=== PATIENT | female | born 1965 | race Caucasian/White ===

== ENCOUNTER 2019-01-23 17:13 | Inpatient (IN) | payer OTHER ==
--- NOTE | 2019-01-23 17:49 | RAD ---
PORTABLE CHEST: 01/23/19 HISTORY: Dyspnea. No comparison. FINDINGS/IMPRESSION: Mild cardiomegaly. There is streaky atelectasis and/or infiltrate in the right lung base. There is pa tchy infiltrate in the left lung base. Small effusions cannot be excluded. POS: OFF
[2019-01-23 18:32] LABS: #Eosinphils 0.6 thou/uL (0.0-0.7); #Lymphocytes 1.6 thou/uL (1.20-3.40); #Monocytes 0.8 thou/uL (0.11-0.59); #Neutrophils 6.6 thou/uL (1.40-6.50); %Basophils 0.2 % (0.0-1.0); %Eosinophils 5.9 % (0.0-10.0); %Lymphocytes 16.9 % (21.0-51.0); %Monocytes 8.6 % (0.0-10.0); %Neutrophils 68.4 % (42.0-75.0); Hemoglobin 10.6 g/dL (12.0-16.0); Mean Corpuscular HGB CONC 31.7 g/dL (32.0-36.0); Mean Corpuscular Hemoglobin 26.5 pg (27.0-31.0); Mean Corpuscular Volume 83.7 fL (78.0-98.0); Mean Platelet Volume 8.4 fL (7.4-10.4); Platelet Count 371 thou/uL (130-400); RBC Distribution Width 17.3 % (11.5-14.5); Red Blood Cell (RBC) Count 4.01 mill/uL (4.20-5.40); White Blood Cell (WBC) Count 9.6 thou/uL (4.8-10.8)
[2019-01-23] MEDS ORDERED: methylPREDNISolone Sod Succ/PF 125 MG/2 ML VIAL ONE (18:36)
[2019-01-23 18:44] LABS: Actual Bicarbonate (HCO3a) 23.2 mEq/L (22-28); Analyzer IN Cardio ER; Base Excess (BEa) -3.1 mEq/L (-2.0 to +3.0); CO2 Tension 46.9 mmHg (35.0-45.0); Calcium, Ionized 1.18 mmol/L (1.12-1.30); Carboxyhemoglobin (COHb) 1.1 gm% (0.0-3.0); Hemoglobin (Hb) 10.7 g/dL (12.0-16.0); Potassium - ABG Lab 3.39 mmol/L (3.70-5.30); pH, Arterial 7.31 (7.35-7.45)
[2019-01-23 18:52] LABS: O2 Tension (PaO2) 51.6 mmHg (80.0-100.0)
[2019-01-23 18:53] LABS: ALT (SGPT) 17 U/L (8-55); AST (SGOT) 18 U/L (5-34); Albumin 3.5 g/dL (3.5-5.0); Alkaline Phosphatase 113 U/L (40-150); Anion Gap 17 mmol/L (10-20); BUN (Urea Nitrogen) 26 mg/dL (9.8-20.1); Bilirubin, Total Less than 0.2 mg/dL (0.2-1.2); Calc. Creatinine Clearance 0 mL/min (70-130); Calcium 8.7 mg/dL (7.8-10.44); Carbon Dioxide 22 mmol/L (22-29); Chloride 106 mmol/L (98-107); Estimated GFR-MDRD 64; Globulin 3.8 g/dL (2.4-3.5); Glucose 113 mg/dL (70-105); Potassium 3.8 mmol/L (3.5-5.1); Protein, Total 7.3 g/dL (6.0-8.3); Sodium 141 mmol/L (136-145)
[2019-01-23 18:53] LABS: ALV-art Gradient 174.975 (0-20); Puncture Site R WRIST
[2019-01-23 21:50] LABS: Troponin I 0.012 ng/mL (< 0.028)
[2019-01-24 01:09] VITALS: BMI 30.7
[2019-01-24 01:18] LABS: Troponin I 0.012 ng/mL (< 0.028)
[2019-01-24] MEDS ORDERED: Ondansetron PF 4 MG/2 ML Vial IVP PRN (02:44)
[2019-01-24] MEDS ORDERED: Ondansetron ODT 4 MG TAB PO PRN (02:44)
[2019-01-24] MEDS ORDERED: Acetaminophen 325 MG TAB PO PRN (02:44)
[2019-01-24] MEDS ORDERED: Acetaminophen 650 MG Suppository PR PRN (02:44)
[2019-01-24] MEDS ORDERED: Ibuprofen 800 MG TAB PO PRN (02:46)
[2019-01-24] MEDS ORDERED: Loperamide HCl 2 MG CAP PO PRN (02:46)
[2019-01-24] MEDS ORDERED: Melatonin 3 MG TAB PO PRN (02:46)
[2019-01-24] MEDS ORDERED: Mag-Al Plus 1200 MG/1200 MG/120 MG/30 ML UDCUP PO PRN (02:46)
[2019-01-24] MEDS ORDERED: Milk Of Magnesia 30 ML UDCUP PO PRN (02:46)
[2019-01-24] MEDS ORDERED: Promethazine 25 MG TAB PO PRN (02:46)
[2019-01-24] MEDS ORDERED: Guaifenesin DM 100-10/5 ML UDCUP PO PRN (02:46)
[2019-01-24] MEDS ORDERED: diphenhydrAMINE 25 MG CAP PO PRN (02:46)
[2019-01-24] MEDS: Pregabalin 75 MG CAP PO SCH ×3 (03:16→17:56)
[2019-01-24] MEDS: Levothyroxine Sodium 50 MCG TAB PO SCH (03:16)
[2019-01-24] MEDS: Diazepam 2 MG TAB PO PRN ×3 (03:17→21:07)
[2019-01-24 04:46] LABS: #Lymphocytes 0.6 thou/uL (1.20-3.40); #Monocytes 0.1 thou/uL (0.11-0.59); %Basophils 0.2 % (0.0-1.0); %Eosinophils 0.2 % (0.0-10.0); %Lymphocytes 5.4 % (21.0-51.0); %Monocytes 0.7 % (0.0-10.0); %Neutrophils 93.4 % (42.0-75.0); Hemoglobin 10.5 g/dL (12.0-16.0); Mean Corpuscular HGB CONC 32.3 g/dL (32.0-36.0); Mean Corpuscular Hemoglobin 26.9 pg (27.0-31.0); Mean Corpuscular Volume 83.3 fL (78.0-98.0); Platelet Count 349 thou/uL (130-400); Red Blood Cell (RBC) Count 3.91 mill/uL (4.20-5.40); White Blood Cell (WBC) Count 10.7 thou/uL (4.8-10.8)
[2019-01-24 05:06] LABS: Anion Gap 15 mmol/L (10-20); BUN (Urea Nitrogen) 21 mg/dL (9.8-20.1); Calc. Creatinine Clearance 105 mL/min (70-130); Calcium 9.5 mg/dL (7.8-10.44); Carbon Dioxide 24 mmol/L (22-29); Chloride 104 mmol/L (98-107); Estimated GFR-MDRD 71; Glucose 203 mg/dL (70-105); Sodium 140 mmol/L (136-145)
[2019-01-24 05:12] LABS: Potassium 2.7 mmol/L (3.5-5.1)
[2019-01-24] MEDS: Potassium Chloride 20 MEQ TAB PO SCH ×2 (05:47→08:48)
[2019-01-24] MEDS: Enoxaparin Sodium 40 MG/0.4 ML SYRINGE SC SCH (08:45)
[2019-01-24] MEDS: Venlafaxine HCl XR 150 MG CAP PO SCH (08:46)
[2019-01-24] MEDS: Potassium Chloride 10 MEQ TAB PO SCH (08:48)
[2019-01-24] MEDS: Docusate Calcium (SURFAK) 240 MG CAP PO SCH (08:48)
--- NOTE | 2019-01-24 08:48 | HP ---
PRIMARY CARE DOCTOR: Dr. Aura Adorno. CODE STATUS: Full code. TIME OF EVALUATION: 12:50 a.m. CHIEF COMPLAINT: Shortness of breath. HISTORY OF PRESENT ILLNESS: This is a 53-year-old female patient with past medical history of being paraplegic due to spine infection in the past, snf resident with long-term sacral decubital ulcers, infection, came to the hospital after having shortness of breath, associated with cough, for the past week, symptoms were mild to moderate at that time, today associated with drop in saturation. Saturation was in the 80s, after initial treatment saturation of 90. The symptoms today were severe. REVIEW OF SYSTEMS: CONSTITUTIONAL: The patient has no fever or chills. The patient has generalized weakness. RESPIRATORY: Cough. No sputum production, shortness of breath. CARDIOVASCULAR: No chest pain or palpitation. GASTROINTESTINAL: No nausea, no vomiting, diarrhea, or abdominal pain. POLITICAL THEORY PROFESSOR: No dizziness, headache or feeling lightheaded. GENITOURINARY: No burning on urination. The patient has urostomy. EXTREMITIES: No leg swelling. SKIN: The patient has chronic non-healing sacral wounds. Other systems were reviewed and negative, except for the findings mentioned above. PAST MEDICAL HISTORY: Seizure, paraplegia, chronic pain, and osteoporosis. SURGICAL HISTORY: Ileostomy, hip surgery, urostomy. FAMILY HISTORY: Reviewed and non contributory for current presentation. PSYCHIATRIC HISTORY: Anxiety, depression, borderline personality disorder. SOCIAL HISTORY: No alcohol or drugs. No smoking history. ALLERGIES: NO KNOWN DRUG ALLERGIES REPORTED. MEDICATIONS: 1. Tylenol. 2. Albuterol. 3. Alendronate. 4. Alum-mag hydroxide-simeth. 5. Benzocaine. 6. Amitiza. 7. Amitriptyline. 8. Calcium. 9. Diazepam. 10. Docusate sodium. 11. Effexor. 12. Famotidine. 13. Ferrous sulfate. 14. Flavoxate. 15. Furosemide. 16. Hydrocodone. 17. Acetaminophen. 18. Motrin. 19. Imodium. 20. Keppra. 21. Lactulose. 22. Lidocaine. 23. Lyrica. 24. Melatonin. 25. Milk of magnesia. 26. Oxybutynin. 27. Potassium chloride. 28. Promethazine. 29. Synthroid. 30. Tizanidine. 31. Zinc. PHYSICAL EXAMINATION: VITAL SIGNS: On presentation blood pressure 93/63 with heart rate of 74, respiratory rate was 17, temperature 98.1. Pain was 8/10. Oxygen saturation was 100% on facemask. GENERAL APPEARANCE: The patient is alert, oriented, not in acute distress. HEENT: Eyes normal. ENT are moist oral mucosa. Anicteric. NECK: No JVD. RESPIRATORY: Bilateral air entry. Scattered rales. No wheezes. Symmetric expansion. CARDIOVASCULAR: Normal rate. Regular rhythm. No murmurs. No gallop. Mild bilateral leg edema. ABDOMEN : Soft. The patient has colostomy bag on the left. The patient has urostomy bag on the right. MUSCULOSKELETAL: Baseline range of motion and strength. The patient is paraplegic. SKIN: Warm, intact. No pallor. No rash. No redness. The patient has chronic non-healing wounds in the sacral area with some wound VAC applied. NEUROLOGIC: No evidence of any new focal weakness. Cranial nerves seems to be intact. PSYCHIATRIC: The patient is in good mood. No anxiety. Optimal judgment. DIAGNOSTIC DATA: EKG was reviewed. The patient had normal sinus rhythm with a rate of 75 and incomplete RBBB. Left atrial enlargement. TN 164. Chest x-ray was reviewed. The patient has mild cardiomegaly. There is streaky atelectasis and/or infiltrate in the right lung base. There is patchy infiltrate in the left lung base. Small effusions cannot be excluded. LABORATORY DATA: Reviewed. The patient has white count 9.6, hemoglobin 10.6, MCV 83, platelet count 271. VBG was done; the patient has a pH of 7.31. Sodium 141, potassium 3.8, chloride 106, carbon dioxide 22, anion gap 17, BUN 26, creatinine 0.9, GFR 64, glucose 113, lactic acid 0.7, calcium 8.7, total bilirubin 0.2. LFTs were negative. Troponin 0.031, second one 0.012, third one 0.012. Serum total protein 7.3. ASSESSMENT AND PLAN: The patient will be placed in the hospital for the following medical problems. 1. Pneumonia in the left lung base, as seen in imaging, can be healthcare associated pneumonia. The patient was started on Levaquin. The patient is known allergies to carbapenems. We will follow cultures. We will adjust treatment as needed. We will step up the antibiotics , if not improving. aspiration remains a possibility, given underlying medical condition 2. Acute hypoxic respiratory failure secondary to pneumonia. The patient is in nasal cannula. Saturations have improved. We will treat underlying conditions likely secondary to pneumonia. We will adjust treatment as needed. 3. Normocytic anemia, is chronic. We will monitor. No need for any acute intervention at this point. 4. Hyperglycemia of unclear etiology. No report of the patient being diabetic. We will monitor blood sugar. We will treat accordingly. 5. History of seizures. Reconcile home medications, chronic, stable. 6. Chronic pain. The patient has reportedly been having acute mental status due to pain medications. We will hold some pain medications for now. We will give some of them to avoid withdrawal. These might need to be adjusted by Pain Management doctor once ready to be discharged. 7. History of gastroesophageal reflux disease. We will start home medications. 8. Deep venous thrombosis prophylaxis. Job ID: [id number] MTDD
[2019-01-24] MEDS: Calcium Carbonate + Vit D 1 TAB PO SCH ×2 (08:49→20:03)
[2019-01-24] MEDS: Aripiprazole 10 MG TAB PO SCH (08:49)
[2019-01-24] MEDS: Famotidine 20 MG TAB PO SCH ×2 (08:49→20:02)
[2019-01-24] MEDS: Ferrous Sulfate 325 MG TAB PO SCH (08:49)
[2019-01-24] MEDS: Lubiprostone 24 MCG CAP PO SCH ×2 (08:49→20:03)
[2019-01-24] MEDS: levETIRAcetam 500 MG TAB PO SCH ×2 (08:49→20:02)
[2019-01-24] MEDS: Zinc Sulfate 220 MG CAP PO SCH (08:49)
[2019-01-24] MEDS: Multivitamin W/ Minerals 1 TAB PO SCH (08:49)
[2019-01-24] MEDS: Ascorbic Acid 500 mg Chewable Tablet PO SCH (08:49)
[2019-01-24] MEDS: Furosemide 80 MG TAB PO SCH (08:49)
[2019-01-24] MEDS: Venlafaxine HCl XR 75 MG CAP PO SCH (08:53)
[2019-01-24] MEDS: HYDROcodone/Acetaminophen 10/325 mg Tablet PO PRN ×3 (08:59→21:07)
[2019-01-24] MEDS ORDERED: LIDOCAINE 5% TOP PRN (09:00)
[2019-01-24] MEDS ORDERED: Benzocaine 20% Spray 60 ML CAN FS PRN (09:00)
--- NOTE | 2019-01-24 16:05 | CT ---
EXAM: CTA of the chest HISTORY: Hypoxia and elevated d-dimer COMPARISON: None TECHNIQUE: Multiple contiguous axial images were obtained a CTA of the chest with contrast per pulmon crystal embolism protocol. 3-D oblique MIP reformats and direct coronal reformats were performed. FINDINGS: HEART: Normal in size without focal cardiac abnormality. PULMONARY ARTERIES: Normal in caliber without filling defects to suggest pulmonary emboli. MEDIASTINUM: No hilar or mediastinal lymphadenopathy. LUNGS: No focal infiltrates or masses. Emphysematous changes scattered throughout the lungs. Bibasila r atelectasis is seen. PLEURAL SPACE: No pleural effusion or pneumothorax. CHEST WALL SOFT TISSUES: Unremarkable VISUALIZED OSSEOUS STRUCTURES: Unremarkable VISUALIZED SUBDIAPHRAGMATIC STRUCTURES: Unremarkable IMPRESSION: 1. No evidence of pulmonary thromboembolism 2. Emphysema
--- NOTE | 2019-01-24 18:37 | PDOC.EVN ---
Event Note - Event Note Event Note: Patient seen and examined. The record reviewed. Has pneumonia on CXR, but not severe by imaging. Will check d-dimer and if elevated, CT. Has high risk due to paralysis. Says she is still coughing, but already feeling better.
[2019-01-24] MEDS: Furosemide 40 MG TAB PO SCH (20:02)
[2019-01-25] MEDS: Pregabalin 75 MG CAP PO SCH ×5 (01:47→23:15)
[2019-01-25] MEDS: Levothyroxine Sodium 50 MCG TAB PO SCH (05:46)
[2019-01-25] MEDS: Potassium Chloride 10 MEQ TAB PO SCH (08:27)
[2019-01-25] MEDS: levETIRAcetam 500 MG TAB PO SCH ×2 (08:27→19:52)
[2019-01-25] MEDS: Lubiprostone 24 MCG CAP PO SCH ×2 (08:27→19:52)
[2019-01-25] MEDS: Ascorbic Acid 500 mg Chewable Tablet PO SCH (08:27)
[2019-01-25] MEDS: Docusate Calcium (SURFAK) 240 MG CAP PO SCH (08:27)
[2019-01-25] MEDS: Furosemide 80 MG TAB PO SCH (08:28)
[2019-01-25] MEDS: Calcium Carbonate + Vit D 1 TAB PO SCH ×2 (08:28→19:52)
[2019-01-25] MEDS: Ferrous Sulfate 325 MG TAB PO SCH (08:28)
[2019-01-25] MEDS: Zinc Sulfate 220 MG CAP PO SCH (08:28)
[2019-01-25] MEDS: Venlafaxine HCl XR 75 MG CAP PO SCH (08:28)
[2019-01-25] MEDS: Famotidine 20 MG TAB PO SCH ×2 (08:28→19:52)
[2019-01-25] MEDS: Multivitamin W/ Minerals 1 TAB PO SCH (08:28)
[2019-01-25] MEDS: Venlafaxine HCl XR 150 MG CAP PO SCH (08:28)
[2019-01-25] MEDS: Enoxaparin Sodium 40 MG/0.4 ML SYRINGE SC SCH (08:29)
[2019-01-25] MEDS: Aripiprazole 10 MG TAB PO SCH (08:29)
[2019-01-25] MEDS: HYDROcodone/Acetaminophen 10/325 mg Tablet PO PRN ×2 (08:40→19:52)
[2019-01-25] MEDS: Diazepam 2 MG TAB PO PRN ×2 (08:41→22:01)
[2019-01-25 09:14] LABS: Anion Gap 14 mmol/L (10-20); BUN (Urea Nitrogen) 21 mg/dL (9.8-20.1); Calc. Creatinine Clearance 113 mL/min (70-130); Calcium 9.8 mg/dL (7.8-10.44); Carbon Dioxide 28 mmol/L (22-29); Chloride 98 mmol/L (98-107); Estimated GFR-MDRD 77; Glucose 101 mg/dL (70-105); Sodium 137 mmol/L (136-145)
[2019-01-25 09:29] LABS: Potassium 2.6 mmol/L (3.5-5.1)
[2019-01-25] MEDS ORDERED: Potassium Chloride 20 MEQ TAB PO SCH (11:30)
--- NOTE | 2019-01-25 15:17 | PDOC.HOSPP ---
- Subjective Subjective: 53 y/o obese paraplegic female admitted with worsening cough and SOB. Found to be hypoxic and was started on oxygen. Imaging showed pulmonary infiltrates concerning for CHF +/- pneumonia. Treated with diuretic, antibiotics and oxygen with improvement. Off oxygen currently. No new problem. Denied fever, chest pain. - Objective Vital Signs & Weight: Vital Signs (12 hours) Temp Pulse Resp BP Pulse Ox 01/25/19 11:27 97.7 F 68 16 102/57 L 97 01/25/19 08:25 99 01/25/19 08:22 98.1 F 74 18 103/57 L 99 01/25/19 03:15 97.5 F L 74 20 106/58 L 98 Weight Admit Weight 190 lb Weight 190 lb I&O: 01/24/19 01/25/19 01/26/19 06:59 06:59 06:59 Intake Total 720 2040 Output Total 1100 1950 Balance -380 90 Result Diagrams: 01/24/19 04:41 01/25/19 08:47 ROS - Review of Systems All systems: All other ROS were reviewed and found negative. - Medication Medications: Active Medications Generic Name Dose Route Start Last Admin Trade Name Freq PRN Reason Stop Dose Admin Hydrocodone Bitart/Acetaminophen 1 tab 01/24/19 02:46 01/25/19 08:40 Ray 10/325 PO 1 tab Q6H PRN Administration Pain Aripiprazole 10 mg 01/24/19 09:00 01/25/19 08:29 Abilify PO 10 mg DAILY ABEL Administration Ascorbic Acid 500 mg 01/24/19 09:00 01/25/19 08:27 Vitamin C PO 500 mg DAILY ABEL Administration Calcium/Vitamin D 1 tab 01/24/19 09:00 01/25/19 08:28 Caltrate 600 + Vit D PO 1 tab BID ABLE Administration Cholecalciferol 5,000 units 01/24/19 09:00 01/25/19 08:29 Vitamin D3 PO 5,000 units DAILY ABEL Administration Diazepam 2 mg 01/24/19 02:46 01/25/19 08:41 Valium PO 2 mg Q6H PRN Administration Anxiety Docusate Calcium 240 mg 01/24/19 09:00 01/25/19 08:27 Surfak PO 240 mg DAILY ABEL Administration Enoxaparin Sodium 40 mg 01/24/19 09:00 01/25/19 08:29 Lovenox SC 40 mg 0900 ABEL Administration Famotidine 20 mg 01/24/19 09:00 01/25/19 08:28 Pepcid PO 20 mg BID ABEL Administration Ferrous Sulfate 325 mg 01/24/19 09:00 01/25/19 08:28 Feosol PO 325 mg DAILY ABEL Administration Flavoxate HCl 100 mg 01/24/19 09:00 01/25/19 08:27 Urispas PO 100 mg BID ABEL Administration Furosemide 80 mg 01/24/19 09:00 01/25/19 08:28 Lasix PO 80 mg DAILY ABEL Administration Furosemide 40 mg 01/24/19 21:00 01/24/19 20:02 Lasix PO 40 mg QPM ABEL Administration Guaifenesin/Dextromethorphan 5 ml 01/24/19 02:46 01/24/19 08:59 Robitussin Dm PO 5 ml Q4HR PRN Administration Cough Iron/Minerals/Multivitamins 1 tab 01/24/19 09:00 01/25/19 08:28 Theragran M PO 1 tab DAILY ABEL Administration Levetiracetam 500 mg 01/24/19 09:00 01/25/19 08:27 Keppra PO 500 mg BID ABEL Administration Levothyroxine Sodium 50 mcg 01/24/19 06:00 01/25/19 05:46 Synthroid PO 50 mcg 0600 ABEL Administration Lubiprostone 24 mcg 01/24/19 09:00 01/25/19 08:27 Amitiza PO 24 mcg BID ABEL Administration Pregabalin 150 mg 01/24/19 06:00 01/25/19 12:10 Lyrica PO 150 mg Q6HR ABEL Administration Promethazine HCl 25 mg 01/24/19 02:46 01/25/19 13:26 Phenergan PO 25 mg Q6HR PRN Administration Nausea Venlafaxine HCl 150 mg 01/24/19 09:00 01/25/19 08:28 Effexor Xr PO 150 mg DAILY ABEL Administration Venlafaxine HCl 75 mg 01/24/19 09:00 01/25/19 08:28 Effexor Xr PO 75 mg DAILY ABEL Administration Zinc Sulfate 220 mg 01/24/19 09:00 01/25/19 08:28 Zinc Sulfate PO 220 mg DAILY ABEL Administration - Exam NAD Eye: PERRL ENT: normocephalic atraumatic Neck: supple, symmetric Heart: RRR Respiratory: no wheezes, no rales, no ronchi (fair air entry bilaterally with some transmitted sound) Gastrointestinal: soft (obese. right lower quadrant urinary diversion ostomy and left lower quadrant colostomy noted), non-tender, non-distended, normal bowel sounds Extremities: no cyanosis (disuse atrophy of lower limbs as well as sacral wounds with wound vac noted) Neurological: CN's grossly intact (Paraparesis noted) Psychiatric: lethargic Hosp A/P (1) Hypokalemia Code(s): E87.6 - HYPOKALEMIA Status: Acute (2) Acute respiratory failure with hypoxia Code(s): J96.01 - ACUTE RESPIRATORY FAILURE WITH HYPOXIA Status: Acute (3) Acute metabolic encephalopathy Code(s): G93.41 - METABOLIC ENCEPHALOPATHY Status: Acute (4) Pneumonia involving left lung Code(s): J18.9 - PNEUMONIA, UNSPECIFIED ORGANISM Status: Acute (5) Chronic anemia Code(s): D64.9 - ANEMIA, UNSPECIFIED Status: Acute (6) Seizure disorder Code(s): G40.909 - EPILEPSY, UNSP, NOT INTRACTABLE, WITHOUT STATUS EPILEPTICUS Status: Acute (7) Paraparesis of both lower limbs Code(s): G82.20 - PARAPLEGIA, UNSPECIFIED Status: Acute (8) Sacral decubitus ulcer, stage IV Code(s): L89.154 - PRESSURE ULCER OF SACRAL REGION, STAGE 4 Status: Acute - Plan Replete serum potassium with 120 meq of KCL. Get magnesium level and replerte as neeeded Continue antibiotic and lasix. Continue other medications and wound care Repeat BMP in the am
[2019-01-25] MEDS: Potassium Chloride 20 MEQ TAB PO SCH ×3 (17:02→23:14)
[2019-01-25] MEDS ORDERED: Pregabalin 75 MG CAP PO SCH (18:30)
[2019-01-25] MEDS: Furosemide 40 MG TAB PO SCH (19:52)
[2019-01-26] MEDS: Levothyroxine Sodium 50 MCG TAB PO SCH (05:06)
[2019-01-26] MEDS: Pregabalin 75 MG CAP PO SCH ×3 (05:06→17:33)
[2019-01-26 06:58] LABS: Anion Gap 18 mmol/L (10-20); BUN (Urea Nitrogen) 24 mg/dL (9.8-20.1); BUN/Creatinine Ratio 30.77; Calc. Creatinine Clearance 108 mL/min (70-130); Calcium 11.3 mg/dL (7.8-10.44); Carbon Dioxide 27 mmol/L (22-29); Chloride 99 mmol/L (98-107); Estimated GFR-MDRD 77; Glucose 101 mg/dL (70-105); Phosphorus 3.6 mg/dL (2.3-4.7); Potassium 4.9 mmol/L (3.5-5.1); Sodium 139 mmol/L (136-145)
[2019-01-26] MEDS: Calcium Carbonate + Vit D 1 TAB PO SCH (08:30)
[2019-01-26] MEDS: Ascorbic Acid 500 mg Chewable Tablet PO SCH (08:30)
[2019-01-26] MEDS: Aripiprazole 10 MG TAB PO SCH (08:30)
[2019-01-26] MEDS: Docusate Calcium (SURFAK) 240 MG CAP PO SCH (08:30)
[2019-01-26] MEDS: Famotidine 20 MG TAB PO SCH (08:31)
[2019-01-26] MEDS: Lubiprostone 24 MCG CAP PO SCH (08:31)
[2019-01-26] MEDS: Multivitamin W/ Minerals 1 TAB PO SCH (08:31)
[2019-01-26] MEDS: Ferrous Sulfate 325 MG TAB PO SCH (08:31)
[2019-01-26] MEDS: levETIRAcetam 500 MG TAB PO SCH (08:32)
[2019-01-26] MEDS: Venlafaxine HCl XR 150 MG CAP PO SCH (08:32)
[2019-01-26] MEDS: Furosemide 80 MG TAB PO SCH (08:32)
[2019-01-26] MEDS: Zinc Sulfate 220 MG CAP PO SCH (08:32)
[2019-01-26] MEDS: Venlafaxine HCl XR 75 MG CAP PO SCH (08:32)
[2019-01-26] MEDS: Enoxaparin Sodium 40 MG/0.4 ML SYRINGE SC SCH (08:33)
[2019-01-26] MEDS: HYDROcodone/Acetaminophen 10/325 mg Tablet PO PRN ×2 (08:37→14:43)
[2019-01-26] MEDS: Diazepam 2 MG TAB PO PRN (08:38)
[2019-01-26] MEDS ORDERED: Iopamidol 370 76% 100 ML VIAL ONE (11:18)
--- NOTE | 2019-01-26 14:38 | PDOC.HOSPP ---
- Subjective Subjective: Mr. Wilde was seen today in follow-up of Respiratory failure. She says she is ready to go home. She denies any chest pain or shortness of breath. - Objective Vital Signs & Weight: Vital Signs (12 hours) Temp Pulse Resp BP Pulse Ox 01/26/19 11:05 98.5 F 82 20 110/70 95 01/26/19 07:25 98.2 F 99 18 145/73 H 94 L 01/26/19 03:30 98.1 F 84 18 115/72 93 L Weight Admit Weight 190 lb Weight 180 lb 8 oz I&O: 01/25/19 01/26/19 01/27/19 06:59 06:59 06:59 Intake Total 2040 780 Output Total 1950 1725 Balance 90 -945 Result Diagrams: 01/24/19 04:41 01/26/19 06:23 ROS - Review of Systems All systems: All other ROS were reviewed and found negative. - Medication Medications: Active Medications Generic Name Dose Route Start Last Admin Trade Name Freq PRN Reason Stop Dose Admin Acetaminophen 650 mg 01/24/19 02:44 01/26/19 13:23 Tylenol PO 650 mg Q4H PRN Administration Headache/Fever/Mild Pain (1-3) Hydrocodone Bitart/Acetaminophen 1 tab 01/24/19 02:46 01/26/19 08:37 Ragan 10/325 PO 1 tab Q6H PRN Administration Pain Aripiprazole 10 mg 01/24/19 09:00 01/26/19 08:30 Abilify PO 10 mg DAILY ABEL Administration Ascorbic Acid 500 mg 01/24/19 09:00 01/26/19 08:30 Vitamin C PO 500 mg DAILY ABEL Administration Calcium/Vitamin D 1 tab 01/24/19 09:00 01/26/19 08:30 Caltrate 600 + Vit D PO 1 tab BID ABEL Administration Cholecalciferol 5,000 units 01/24/19 09:00 01/26/19 08:28 Vitamin D3 PO 5,000 units DAILY ABEL Administration Diazepam 2 mg 01/24/19 02:46 01/26/19 08:38 Valium PO 2 mg Q6H PRN Administration Anxiety Docusate Calcium 240 mg 01/24/19 09:00 01/26/19 08:30 Surfak PO 240 mg DAILY ABEL Administration Enoxaparin Sodium 40 mg 01/24/19 09:00 01/26/19 08:33 Lovenox SC 40 mg 0900 ABEL Administration Famotidine 20 mg 01/24/19 09:00 01/26/19 08:31 Pepcid PO 20 mg BID ABEL Administration Ferrous Sulfate 325 mg 01/24/19 09:00 01/26/19 08:31 Feosol PO 325 mg DAILY ABEL Administration Flavoxate HCl 100 mg 01/24/19 09:00 01/26/19 08:32 Urispas PO 100 mg BID ABEL Administration Furosemide 80 mg 01/24/19 09:00 01/26/19 08:32 Lasix PO 80 mg DAILY ABEL Administration Furosemide 40 mg 01/24/19 21:00 01/25/19 19:52 Lasix PO 40 mg QPM ABEL Administration Guaifenesin/Dextromethorphan 5 ml 01/24/19 02:46 01/24/19 08:59 Robitussin Dm PO 5 ml Q4HR PRN Administration Cough Iron/Minerals/Multivitamins 1 tab 01/24/19 09:00 01/26/19 08:31 Theragran M PO 1 tab DAILY ABEL Administration Levetiracetam 500 mg 01/24/19 09:00 01/26/19 08:32 Keppra PO 500 mg BID ABEL Administration Levofloxacin 750 mg 01/26/19 06:00 01/26/19 05:06 Levaquin PO 750 mg 0600 ABEL Administration Levothyroxine Sodium 50 mcg 01/24/19 06:00 01/26/19 05:06 Synthroid PO 50 mcg 0600 ABEL Administration Lubiprostone 24 mcg 01/24/19 09:00 01/26/19 08:31 Amitiza PO 24 mcg BID ABEL Administration Pregabalin 150 mg 01/25/19 23:59 01/26/19 11:04 Lyrica PO 150 mg Q6HR ABEL Administration Promethazine HCl 25 mg 01/24/19 02:46 01/25/19 13:26 Phenergan PO 25 mg Q6HR PRN Administration Nausea Venlafaxine HCl 150 mg 01/24/19 09:00 01/26/19 08:32 Effexor Xr PO 150 mg DAILY ABEL Administration Venlafaxine HCl 75 mg 01/24/19 09:00 01/26/19 08:32 Effexor Xr PO 75 mg DAILY ABEL Administration Zinc Sulfate 220 mg 01/24/19 09:00 01/26/19 08:32 Zinc Sulfate PO 220 mg DAILY ABEL Administration - Exam Eye: PERRL, anicteric sclera, scleral icterus Heart: RRR, murmur present, II/IV (systolic) Respiratory: CTAB (decreased breath sounds at the bases) Gastrointestinal: soft, non-tender, non-distended, normal bowel sounds Extremities: no cyanosis, no edema Hosp A/P (1) Acute respiratory failure with hypoxia Code(s): J96.01 - ACUTE RESPIRATORY FAILURE WITH HYPOXIA Status: Acute (2) Paraparesis of both lower limbs Code(s): G82.20 - PARAPLEGIA, UNSPECIFIED Status: Chronic (3) Sacral decubitus ulcer, stage IV Code(s): L89.154 - PRESSURE ULCER OF SACRAL REGION, STAGE 4 Status: Chronic - Plan * Acute respiratory failure- much improved * She has been transitioned to oral medications * She is stable for discharge home.
[2019-01-26 15:56] VITALS: BP 104/52; TEMP 98
--- NOTE | 2019-01-26 18:25 | DIS ---
DATE OF ADMISSION: 01/23/2019 DATE OF DISCHARGE: 01/26/2019 PRIMARY CARE PHYSICIAN: Dr. Aura Adorno. DISCHARGE DISPOSITION: Home. PRIMARY DISCHARGE DIAGNOSES: 1. Acute respiratory failure with hypoxemia. 2. Acute bronchitis. 3. Chronic anemia. 4. History of seizures. 5. Paraplegia. 6. History of decubitus ulcer, which was present on admission. DISCHARGE MEDICATIONS: Include; 1. Levaquin 750 mg p.o. daily for two additional days. 2. Zinc sulfate 220 mg daily. 3. Venlafaxine 75 mg extended release in the a.m. and 150 in the p.m. 4. Tizanidine 8 mg twice daily. 5. Phenergan 25 mg q.6 as needed. 6. Lyrica 150 mg q.6. 7. Potassium chloride 30 mEq daily. 8. Ditropan XL 10 mg daily. 9. Multivitamin once daily. 10. Melatonin 3 mg at bedtime. 11. Milk of magnesium 10 mL q.4 as needed. 12. Amitiza 24 mcg twice a day. 13. Imodium AD 2 mg as directed. 14. Lidocaine topical q.i.d. 15. Levothyroxine 50 mcg daily. 16. Keppra 500 mg twice daily. 17. Lactulose once a day. 18. Innis 10/325 q.6 as needed. 19. Robitussin DM 5 mL q.4 as needed. 20. Lasix 80 mg p.o. daily and 40 mg q.p.m. 21. Flavoxate 100 mg twice daily. 22. Iron sulfate 325 mg daily. 23. Famotidine 20 mg twice a day. 24. Docusate 240 mg daily. 25. Benadryl 25 mg q.8 as needed. 26. Diazepam 2 mg twice a day. 27. Vitamin D3 5000 units daily. 28. Hurricaine spray as needed. 29. Vitamin C 500 mg daily. 30. Fosamax 70 mg as directed, usually once a week. 31. Acetaminophen 650 mg q.6. PROCEDURES DONE DURING THE ADMISSION: The patient had a CT angiogram of the chest, which was negative for pulmonary embolism. There was evidence for emphysema. CODE STATUS: Full code. ALLERGIES: BUPROPION, CILASTATIN, IMIPENEM, AND TRAMADOL. HOSPITAL COURSE: Ms. Wilde is a pleasant 53-year-old female who was admitted to the hospital after she was having difficulty with shortness of breath and coughing. It was initially thought that she may have a pneumonia. However, since she is quite sedentary due to her paraplegia, a CT angiogram was obtained to rule out PE. The CT angiogram was negative for both PE and there was no mention of findings of an infiltrate. Therefore, I suspect that her symptoms are likely related to a bronchitis or possible even aspiration. She was treated with Levaquin and improved dramatically at the time of discharge. She was able to be discharged home with close outpatient followup. Job ID: [id number]
--- NOTE | 2019-01-27 09:31 | PQF ---
SAP Drapery Inspector Crystal Reports Winform ViewerGARRETT CRAIG HAFSA MURPHYRENETTA [id number] [facility]-259 [id number] CLINICAL DOCUMENTATION CLARIFICATION FORM: POST DISCHARGE Addendum to original discharge summary date: ____ Late entry note date: __ DATE: 01/27/2019 ATTN: Chris Murphy Please exercise your independent, professional judgment in responding to the clarification form. Clinical indicators are provided on the bottom of this form for your review Please check appropriate box(s): [ x ] Possible Aspiration Pneumonia, healthcare associated pneumonia [ ] Pneumonia of unknown etiology [ ] Aspiration Bronchitis [ ] Simple Pneumonia (community acquired - nosocomial) [ ] Other diagnosis [ ] Unable to determine In addition, please specify: Present on Admission (POA): [ ] Yes [ ] No [ ] Unable to determine For continuity of documentation, please document condition throughout progress notes and discharge summary. Thank You. CLINICAL INDICATORS - SIGNS / SYMPTOMS / LABS Pneumonia in left lung base - H and P, page no.3 Healthcare associated pneumonia - ED impression Symptoms are likely related to bronchitis or possible even aspiration under hospital course - Discharge summary Patchy infiltrate in the left lung base - Chest x-ray dated 01/23 Imaging showed pulmonary infiltrate concerning for CHF +/- pneumonia - Progress note dated 01/[address] Mali Patel RISK FACTORS Acute hypoxic respiratory failure - Discharge summary Paraplegia - Discharge summary TREATMENTS: Levaquin on 01/23 - Medications Follow cultures - H and P, page no.3 Treated with diuretic, antibiotics and oxygen - Progres note dated 01/[address] Mali Patel SAP Drapery Inspector Crystal Reports Winform Viewer (This form is maintained as a part of the permanent medical record) 2014 [email or web address]. All Rights Reserved Mohit [email or web address] [phone] KIM
== END 2019-01-26 18:55 | DRG 177 ==
LOC: ERS 17:13 → 2NO 20:20
PROVIDERS: ADMIT Hospitalist; ATTEND Hospitalist
DX: J69.0 Pneumonitis due to inhalation of food and vomit (principal); J96.01 Acute respiratory failure with hypoxia; L89.154 Pressure ulcer of sacral region, stage 4; G93.41 Metabolic encephalopathy; G82.20 Paraplegia, unspecified; G89.29 Other chronic pain; M81.0 Age-related osteoporosis without current pathological fracture; F41.9 Anxiety disorder, unspecified; F32.9 Major depressive disorder, single episode, unspecified; F60.3 Borderline personality disorder; D64.9 Anemia, unspecified; R73.9 Hyperglycemia, unspecified; K21.9 Gastro-esophageal reflux disease without esophagitis; E66.9 Obesity, unspecified; E87.6 Hypokalemia; G40.909 Epilepsy, unspecified, not intractable, without status epilepticus; J20.9 Acute bronchitis, unspecified; Z93.2 Ileostomy status; Z88.8 Allergy status to other drugs, medicaments and biological substances; Z68.29 Body mass index [BMI] 29.0-29.9, adult
CPT/HCPCS: 36415; 71045; 71275; 80048; 80053; 80069; 82553; 82805; 83605; 83735; 83880; 84484; 85025; 85379; 87086; 93005; 94640; 96365; 96375; J1650; J1956; J2930; J7620; Q0169; Q9967

== ENCOUNTER 2019-07-03 21:06 | Emergency (ER) | payer OTHER ==
[2019-07-03] MEDS ORDERED: Acetaminophen 500 MG TAB ONE (22:31)
[2019-07-03] MEDS ORDERED: HYDROcodone/Acetaminophen 10/325 mg Tablet ONE (22:31)
== END 2019-07-03 22:39 ==
LOC: ERS 21:06
DX: S31.811A Laceration without foreign body of right buttock, initial encounter (principal); F41.9 Anxiety disorder, unspecified; F32.9 Major depressive disorder, single episode, unspecified; Z79.899 Other long term (current) drug therapy; X58.XXXA Exposure to other specified factors, initial encounter
CPT/HCPCS: 99283

== ENCOUNTER 2019-09-18 09:50 | Inpatient (IN) | payer OTHER ==
[~2019-09-18 09:50] MED LIST: Magnesium 2 GM/50 ML 2 GM in Premix Bag 1 BAG IVPB ONE
[2019-09-18] MEDS ORDERED: Sodium Bicarb 50 MEQ/50 ML VIAL ONE ×2 (10:17→10:57)
[2019-09-18] MEDS ORDERED: Propofol 1,000 MG/100 ML VIAL IV ONE (10:24)
[2019-09-18 10:31] LABS: Actual Bicarbonate (HCO3a) 6.9 mEq/L (22-28); Analyzer IN Cardio ER; Base Excess (BEa) -24.1 mEq/L (-2.0 to +3.0); CO2 Tension 33.3 mmHg (35.0-45.0); Carboxyhemoglobin (COHb) 0.2 gm% (0.0-3.0); Hemoglobin (Hb) 9.3 g/dL (12.0-16.0); O2 Tension (PaO2) 96.5 mmHg (80.0-100.0); Potassium - ABG Lab 3.31 mmol/L (3.70-5.30)
[2019-09-18 10:33] LABS: Puncture Site RRA; pH, Arterial 6.93 (7.35-7.45)
[2019-09-18 10:34] LABS: ALV-art Gradient 147.075 (0-20)
--- NOTE | 2019-09-18 11:03 | RAD ---
Exam: Chest one view HISTORY:Central line placement Comparison: 09/18/2019 FINDINGS: Cardiac silhouette:Magnified cardiac silhouette due to portable technique Lines and tubes: Interval placement of a nasogastric tube terminating in left upper quadrant. Interva l placement of a left-sided internal jugular central venous catheter with the distal tip projecting over the expected region of the right atrium. Aorta: Unremarkable Pulmonary vessels: Normal Costophrenic angles: No significant pleural fluid. LUNGS: Persistent opacities in the lung bases. Pneumothorax: None Osseous abnormalities: None IMPRESSION: 1. Persistent opacities in the lung bases 2. Lines and tubes as above. No pneumothorax.
[2019-09-18] MEDS ORDERED: CCU Electrolyte Replacement 1 EACH FS ONE (11:34)
[2019-09-18] MEDS ORDERED: Ventilator Sedation Protocol 1 EACH FS ONE (11:34)
[2019-09-18] MEDS ORDERED: Propofol BOLUS 1,000 MG/100 ML VIAL IV PRN (11:42)
[2019-09-18] MEDS ORDERED: Magnesium 2 GM/50 ML 2 GM in Premix Bag 1 BAG IVPB PRN (11:42)
[2019-09-18] MEDS ORDERED: Potassium Chloride 20 MEQ TAB PO PRN (11:42)
[2019-09-18] MEDS ORDERED: PHOS-NAK 1 PKT PACK PO PRN ×2 (11:42)
[2019-09-18] MEDS ORDERED: Magnesium Oxide 400 MG TAB PO PRN (11:42)
[2019-09-18] MEDS ORDERED: CCU ELECTROLYTE REPLACEMENT PROTOCOL FS PRN (11:42)
[2019-09-18] MEDS ORDERED: Potassium Chloride 40 MEQ in Sodium Chloride 0.9% 250 ML 250 ML IVPB PRN (11:42)
[2019-09-18] MEDS ORDERED: DISCONTINUE PREVIOUS NARCOTIC PAIN MEDICATIONS AND BENZODIAZEPINES FS SCH (11:42)
[2019-09-18] MEDS ORDERED: Fentanyl BOLUS 250 ML IVPB PRN (11:42)
[2019-09-18] MEDS ORDERED: Potassium Phosphate 15 MMOL in Sodium Chloride 0.9% 250 ML 250 ML IV PRN (11:42)
[2019-09-18] MEDS ORDERED: Potassium Phosphate 9 MMOL in Sodium Chloride 0.9% 100 ML IVPB PRN (11:42)
[2019-09-18] MEDS ORDERED: Potassium Phosphate 12 MMOL in Sodium Chloride 0.9% 250 ML 250 ML IV PRN (11:42)
[2019-09-18] MEDS ORDERED: Sodium Chloride 0.9% 1,000 ML IV SCH (11:45)
[2019-09-18] MEDS ORDERED: Norepinephrine 8 MG/0.9% NS 250 ML ONE (11:56)
[2019-09-18] MEDS ORDERED: Cefepime 1 GM in Sodium Chloride 0.9% 100 ML IVPB SCH (12:00)
--- NOTE | 2019-09-18 12:08 | CON ---
DATE OF CONSULTATION: 09/18/2019 TIME SPENT: 35 minutes of critical care time. REASON FOR CONSULTATION: The patient is intubated. HISTORY OF PRESENT ILLNESS: This patient is seen at the request of Dr. Beyer. She is a 54-year-old who lives at the [facility] in [place]. Over the past 2 days, she has become decreasingly responsive. She was brought to the [facility] where she was intubated. She was subsequently brought over here for further evaluation. She now has an endotracheal tube in place. She also has a left IJ central line. She cannot give any history, so what I have is obtained from looking at the records. PAST MEDICAL HISTORY: 1. Seizure disorder. 2. Paraplegia. 3. Chronic pain. 4. Osteoporosis. PAST SURGICAL HISTORY: She has had an ileostomy, a urostomy, and hip surgery. PSYCHIATRIC HISTORY: Remarkable for anxiety and depression. SOCIAL HISTORY: Nonsmoker. Does not consume alcohol. MEDICATIONS: Prior to admission not available for review at this time. Previously in the hospital, she had been on numerous medications. Please refer to the H and P from 01/23/2019. PHYSICAL EXAMINATION: VITAL SIGNS: Temperature 99.8, pulse 91, blood pressure 125/76, respiratory rate 16, O2 saturation 100%, end-tidal CO2 of 21. GENERAL: She is a chronically ill-appearing female, who is intubated. HEENT: Her pupils are 5 mm and reactive to light bilaterally. She has oral endotracheal tube in place. NECK: No adenopathy or JVD. She has a left IJ central line in place, which looks clean. LUNGS: Clear to auscultation. CARDIAC: S1 and S2. Slightly tachycardic without murmur. ABDOMEN: Left-sided ileostomy, right-sided urostomy present. Large midline abdominal wound noted. EXTREMITIES: She has contractures of her 4th and 5th fingers bilaterally. She has lower extremity flaccidity. LABORATORY DATA: ABG; pH of 6.9, pCO2 of 33, pO2 of 96, that is on SIMV rate 16, tidal volume 450, PEEP 5, pressure support 10, and FiO2 of 40%. Sodium 137, potassium 3.6, chloride 111, CO2 less than 8, BUN 60, creatinine 2.3, glucose 116, lactate 1.5, and phosphorus 3.6. BNP 140. White blood cell count 31.2, hematocrit 31.8, and platelet count 734. IMAGING DATA: X-ray shows no acute infiltrates. Urinalysis showed numerous white blood cells. ASSESSMENT: 1. Presumed urosepsis. 2. Acute respiratory failure secondary to profound metabolic acidosis. 3. Metabolic acidosis. 4. Severe prerenal azotemia/volume depletion. 5. History of paraplegia. 6. History of seizure disorder. PLAN: 1. The patient will be treated with broad-spectrum IV antibiotics. 2. I will increase the rate on her ventilator. 3. We will repeat her blood gas when she gets to the ICU. 4. Protonix for GI prophylaxis. 5. IV hydration. Thank you for the referral. Job ID: [id number]
[2019-09-18] MEDS ORDERED: Heparin 1,000 UNITS/ML VIAL ONE (12:54)
[2019-09-18] MEDS ORDERED: Vancomycin 1 GM in Premix Bag 1 BAG IVPB SCH (13:00)
[2019-09-18 14:55] LABS: Actual Bicarbonate (HCO3a) 5.1 mEq/L (22-28); Base Excess (BEa) -22.4 mEq/L (-2.0 to +3.0); Carboxyhemoglobin (COHb) 0.2 gm% (0.0-3.0); Hemoglobin (Hb) 8.8 g/dL (12.0-16.0); O2 Tension (PaO2) 216.1 mmHg (80.0-100.0); Potassium - ABG Lab 2.36 mmol/L (3.70-5.30)
[2019-09-18 15:00] LABS: pH, Arterial 7.11 (7.35-7.45)
[2019-09-18 15:01] LABS: CO2 Tension 16.4 mmHg (35.0-45.0); Puncture Site RRA
[2019-09-18] MEDS: Sodium Bicarbonate 70 MEQ in Sodium Chloride 0.45% 1,000 ML IV SCH ×2 (16:01→21:58)
[2019-09-18] MEDS: Propofol 1,000 MG/100 ML VIAL IV PRN (16:01)
[2019-09-18] MEDS: Cefepime 1 GM in Sodium Chloride 0.9% 100 ML IVPB SCH (18:06)
[2019-09-18] MEDS: Norepinephrine 8 MG/0.9% NS 250 ML IVPB SCH (18:31)
[2019-09-18] MEDS ORDERED: Senokot S 8.6-50 MG TAB PO PRN (18:42)
--- NOTE | 2019-09-18 20:13 | HP ---
CHIEF COMPLAINT: Change in mental status. HISTORY OF PRESENT ILLNESS: The patient is a 54-year-old female who is a sn[facility] resident. She is paraplegic, who comes in to the hospital with worsening mentation. The patient is in [facility] and per documentation, over the past 2 days, she has been having decreasing responsiveness. This is also per the ED. She has been tested and was influenza B positive. She was initially brought into [facility], where she was intubated for respiratory distress. She then was transferred here for further evaluation. She was also found to be hypotensive. At this time, she was given IV antibiotics and transferred here. PAST MEDICAL HISTORY: As of the following. She has a history of seizure disorder. She also has a history of paraplegia, chronic pain, and osteoporosis. She has decubitus ulcers. PAST SURGICAL HISTORY: She has had an ileostomy. She has a urostomy and hip surgery. SOCIAL HISTORY: Per notes, no smoking. No alcohol use. Again, the patient is currently intubated and no family member is at the bedside. Unknown code status. MEDICATIONS: As of the following, she is on: 1. Abilify 10 mg daily. 2. Alendronate 70 mg every Monday. 3. Amitriptyline 100 mg at bedtime. 4. Diazepam 2 mg t.i.d. 5. daily. 6. Gabapentin 300 mg t.i.d. 7. She is also on Keppra 750 mg twice a day. 8. She is on levothyroxine 50 mcg p.o. daily. 9. Melatonin at bedtime. 10. daily. 11. Bactrim one p.o. twice a day. 12. She is also on venlafaxine 225 mg p.o. daily. ALLERGIES: OF THE FOLLOWING, SHE IS ALLERGIC TO BUPROPION, IMIPENEM, TRAMADOL, AND CILASTATIN. FAMILY HISTORY: Unable to obtain. The patient is currently intubated. PHYSICAL EXAMINATION: VITAL SIGNS: As of the following; temperature of 98.8, heart rate of 87, blood pressure 123/81, and 100% currently on ventilated. GENERAL: She is intubated and sedated. Pupils are equal and reactive to light. CV: S1 and S2 present. No murmurs, rubs, or gallops. LUNGS: Clear to auscultation. No rhonchi or wheezes noted. ABDOMEN: Obese. Bowel sounds are present x2. She has a colostomy to her left and a urostomy to the right. NEUROLOGIC: Neurovascular frederick, unable to assess, but she does have some muscle wasting to her bilateral lower extremities. SKIN: She has 3 large decubitus ulcers to her buttocks area, which are pretty deep and appeared to be stage III or IV, most likely IV. LABORATORY RESULTS: As of the following; WBCs of 31.2, hemoglobin 9.4, hematocrit of 31.8, platelets of 734. Her chemistry; sodium of 137, potassium of 3.6, bicarb of less than 8, BUN of 60, creatinine of 2.38. Her BNP is 140. Her lactic acid appeared to be normal at 1.5. She did have an x-ray, which did not show any acute abnormalities. As I mentioned, she did have a positive influenza B. ASSESSMENT AND PLAN: The patient is a 54-year-old female who initially presented to the hospital with change in mental status. 1. Acute hypoxic respiratory failure. The patient currently is intubated. We will start her on some broad-spectrum antibiotics. She is influenza B positive. We will also start her on some Tamiflu based on her renal function. We will start her on some DuoNeb and continue to monitor. 2. Metabolic acidosis. She is currently on a bicarb drip. She got 2 amps of bicarb and she is going to be started on a drip. 3. Septic shock. Blood pressure was significantly low. She received 4 L of normal saline and she is currently on a Levophed drip. We will again continue broad-spectrum antibiotics. The source could be possible decubitus versus influenza B unclear at this time. Her urine does indicate wbc's of 50, bacteria of 1+, leukocytes are moderate. 4. Seizure disorder. We will continue her Keppra. 5. Leukocytosis. Given her significant leukocytosis, I would possible go ahead and do a CT of abdomen and pelvis to rule out any other abdominal pathology. 6. Decubitus ulcers. We will get Wound Care to see the patient and General Surgery has been consulted. 7. Deep venous thrombosis prophylaxis. We will put the patient on subcu Lovenox. Job ID: [id number]
[2019-09-18] MEDS: Vancomycin 1 GM in Premix Bag 1 BAG IVPB SCH (20:37)
[2019-09-18 20:58] LABS: INR-International Normal Ratio 1.2; Prothrombin Time 15.4 SEC (12.0-14.7)
[2019-09-18] MEDS ORDERED: Famotidine/PF 20 mg/2ml Vial SLOW IVP SCH (21:00)
[2019-09-18] MEDS ORDERED: Oseltamivir 75 MG CAP PO SCH (21:00)
[2019-09-18] MEDS ORDERED: levETIRAcetam 500 MG TAB PO SCH (21:00)
[2019-09-18 21:11] LABS: Anion Gap 20 mmol/L (10-20); BUN (Urea Nitrogen) 53 mg/dL (9.8-20.1); Calc. Creatinine Clearance 44 mL/min (70-130); Calcium 8.1 mg/dL (7.8-10.44); Chloride 117 mmol/L (98-107); Estimated GFR-MDRD 28; Glucose 137 mg/dL (70-105); Sodium 143 mmol/L (136-145)
[2019-09-18 21:13] LABS: Carbon Dioxide 8 mmol/L (22-29); Potassium 1.5 mmol/L (3.5-5.1)
[2019-09-18 22:55] LABS: Anion Gap 21 mmol/L (10-20); BUN (Urea Nitrogen) 54 mg/dL (9.8-20.1); Calc. Creatinine Clearance 44 mL/min (70-130); Calcium 8.2 mg/dL (7.8-10.44); Chloride 114 mmol/L (98-107); Estimated GFR-MDRD 27; Glucose 151 mg/dL (70-105); Sodium 141 mmol/L (136-145)
[2019-09-18 22:58] LABS: Carbon Dioxide 8 mmol/L (22-29); Potassium 1.8 mmol/L (3.5-5.1)
[2019-09-18] MEDS ORDERED: Potassium Chloride 40 MEQ in Premix Bag 1 BAG IVPB SCH ×2 (23:15→23:30)
[2019-09-19 04:49] LABS: #Monocytes 0.9 thou/uL (0.11-0.59); #Neutrophils 15.4 thou/uL (1.40-6.50); %Eosinophils 0.2 % (0.0-10.0); %Lymphocytes 5.6 % (21.0-51.0); %Monocytes 5.3 % (0.0-10.0); %Neutrophils 88.9 % (42.0-75.0); Hemoglobin 7.8 g/dL (12.0-16.0); Mean Corpuscular HGB CONC 32.2 g/dL (32.0-36.0); Mean Corpuscular Hemoglobin 26.1 pg (27.0-31.0); Mean Corpuscular Volume 81.1 fL (78.0-98.0); Mean Platelet Volume 6.4 fL (7.4-10.4); Platelet Count 559 thou/uL (130-400); Red Blood Cell (RBC) Count 2.99 mill/uL (4.20-5.40); White Blood Cell (WBC) Count 17.3 thou/uL (4.8-10.8)
[2019-09-19 05:11] LABS: Anion Gap 18 mmol/L (10-20); BUN (Urea Nitrogen) 51 mg/dL (9.8-20.1); Calc. Creatinine Clearance 54 mL/min (70-130); Calcium 7.9 mg/dL (7.8-10.44); Chloride 119 mmol/L (98-107); Estimated GFR-MDRD 35; Glucose 130 mg/dL (70-105); Sodium 145 mmol/L (136-145)
[2019-09-19 05:15] LABS: Carbon Dioxide 9 mmol/L (22-29); Phosphorus 1.6 mg/dL (2.3-4.7); Potassium 1.4 mmol/L (3.5-5.1)
[2019-09-19] MEDS: Cefepime 1 GM in Sodium Chloride 0.9% 100 ML IVPB SCH ×2 (05:29→16:15)
[2019-09-19] MEDS: Acetaminophen 325 MG TAB PO PRN (05:29)
[2019-09-19] MEDS: Levothyroxine Sodium 50 MCG TAB PO SCH (05:30)
[2019-09-19] MEDS: Potassium Phosphate 40 MMOL in Sodium Chloride 0.9% 500 ML IVPB SCH ×2 (06:06→10:05)
[2019-09-19] MEDS: Sodium Bicarbonate 70 MEQ in Sodium Chloride 0.45% 1,000 ML IV SCH ×2 (06:06→12:02)
[2019-09-19] MEDS: Norepinephrine 8 MG/0.9% NS 250 ML IVPB SCH (07:43)
--- NOTE | 2019-09-19 07:51 | RAD ---
EXAM: Single view of the chest HISTORY: Intubated patient with respiratory failure COMPARISON: 09/18/2019 FINDINGS: Single view of the chest shows a normal sized cardiomediastinal silhouette. The endotrache al tube and NG tube are unchanged in position. The central venous catheter is unchanged in position. Atelectasis is seen in the lung bases. There is no evidence of consolidation, mass, or ple ural effusion. The bones are unremarkable. IMPRESSION: Stable exam
[2019-09-19 07:59] LABS: Actual Bicarbonate (HCO3a) 9.4 mEq/L (22-28); Base Excess (BEa) -15.3 mEq/L (-2.0 to +3.0); Calcium, Ionized 1.09 mmol/L (1.12-1.30); Carboxyhemoglobin (COHb) 1.3 gm% (0.0-3.0); Hemoglobin (Hb) 6.4 g/dL (12.0-16.0); O2 Tension (PaO2) 126.1 mmHg (80.0-100.0); Potassium - ABG Lab 1.67 mmol/L (3.70-5.30); pH, Arterial 7.32 (7.35-7.45)
[2019-09-19 08:00] LABS: CO2 Tension 18.7 mmHg (35.0-45.0); Puncture Site RRA
[2019-09-19 08:01] LABS: ALV-art Gradient 64.425 (0-20)
--- NOTE | 2019-09-19 08:06 | PRG ---
DATE OF SERVICE: 09/19/2019 TIME SPENT: 35 minutes of critical care time. SUBJECTIVE: The patient remains intubated on mechanical ventilation. OBJECTIVE: VITAL SIGNS: Her temperature is 100.7 with a T-max of 101.8, pulse 92, blood pressure 107/65, currently on a Levophed drip at 7 mcg/minute. NEUROLOGICAL: She will grimace to deep painful stimulation. HEENT: Pupils are reactive. Sclerae are anicteric. Oropharynx, ET tube in place. NECK: No adenopathy or JVD. LUNGS: Clear anteriorly. CARDIOVASCULAR: S1 and S2, regular without audible murmur. ABDOMEN: Soft. Ileostomy and urostomy noted. EXTREMITIES: No edema. DIAGNOSTIC DATA: Chest x-ray shows some atelectasis in the right base. ET tube is in good position. Central line in good position. Micro, she has gram-negative rods growing out of her wound culture. Her influenza B test was positive. White blood cell count 17.3, hematocrit 24.2, and platelet count 559. INR 1.2. Sodium 145, potassium 1.4, chloride 119, CO2 of 9, BUN 51, creatinine 1.5, and glucose 130. ASSESSMENT: 1. Septic shock secondary to urinary tract infection and probably decubitus ulcer infection. 2. Acute respiratory failure, requiring mechanical ventilation. 3. Profound metabolic acidosis. 4. Severe electrolyte depletion including potassium and phosphate. PLAN: 1. Continue broad-spectrum IV antibiotics. 2. Continue Tamiflu. 3. Replace electrolytes aggressively. 4. Recheck electrolytes this afternoon. 5. Follow up blood gas after result. Job ID: [id number]
[2019-09-19] MEDS ORDERED: VANCOMYCIN IVPB PRN (08:42)
--- NOTE | 2019-09-19 08:56 | CON ---
DATE OF CONSULTATION: REQUESTING PHYSICIAN: Thai Moreira MD. CONSULTING PHYSICIAN: Chin Shah DO. REASON FOR CONSULTATION: Sacral decubitus ulcer. HISTORY OF PRESENT ILLNESS: Ms. Wilde is a 54-year-old female coming to the ED from long term. The patient has a history of paraplegic with incontinence, neurogenic bladder, ileostomy, and chronic sacral wound for almost a year. The patient comes from [facility]. EMS reports the patient has been altered mental status and unresponsive for the last two days. The patient comes to the ED, intubated , in serious condition. General Surgery was asked to evaluate sacral decubitus ulcer. PAST MEDICAL HISTORY: Paraplegic, neurogenic bladder, ileostomy, hypothyroid. PAST SURGICAL HISTORY: Ileostomy. SOCIAL HISTORY: The patient resides in [facility]. CURRENT MEDICATIONS: 1. Abilify. 2. Alendronate. 3. Amitriptyline. 4. Diazepam. 5. Famotidine. 6. Furosemide. 7. Hydrocodone. 8. Keppra. 9. Melatonin. 10. Promethazine. 11. Synthroid. 12. Tizanidine. 13. Gabapentin. 14. Zyrtec. 15. Metolazone. 16. Tolterodine. PSYCHIATRIC HISTORY: Includes anxiety, depression, borderline personality. ALLERGIES: CILASTATIN, IMIPENEM, PRIMAXIN, TRAMADOL, WELLBUTRIN. PHYSICAL EXAMINATION: Currently, the patient is on ventilation. GCS is 3T. Lung rale bilaterally Heart regular rate and rhythm abdominal mild distended, ileostomy is working Sacral wound base wet and dirty. there are 3 areas of loss tissues deep through fascia and bone , surrounding loss tissue area are edema, erythema and necroses tissues are visible in many areas. LABORATORY DATA: White count 31.2, hemoglobin 9.4, platelet is 734. Chemistry; sodium 137, potassium 4.0, creatinine 2.38, glucose 115. ASSESSMENT: 1. Stage IV chronic sacral decubitus ulcer. 2. Respiratory distress, severe sepsis on ventilation. 3. History of paraplegia on ileostomy and suprapubic pouch. 4. History of psychiatric disease and seizure disorder. PLAN: The patient will need supportive care, aggressive septic and metabolic acidosis treatment, broad IV antibiotic. The patient will need to be stable before General Surgery will need to re-evaluate for the decision of debridement of sacral decubitus ulcer after the patient's condition is more stable. Dr. Shah will see the patient after this dictation. Job ID: [id number] MTDD
[2019-09-19] MEDS ORDERED: FLU VACC QS2019-20(6MOS UP)/PF 60 MCG/0.5 ML SYRINGE IM ONE (09:00)
[2019-09-19] MEDS ORDERED: Oseltamivir 75 MG CAP PO SCH (09:00)
[2019-09-19] MEDS ORDERED: Fentanyl 100 MCG/2 ML VIAL ONE ×2 (09:11→16:59)
[2019-09-19] MEDS: Enoxaparin Sodium 40 MG/0.4 ML SYRINGE SC SCH (09:24)
[2019-09-19] MEDS: Vancomycin 1 GM in Premix Bag 1 BAG IVPB SCH (09:39)
[2019-09-19] MEDS: Venlafaxine HCl XR 75 MG CAP PO SCH (09:46)
[2019-09-19] MEDS: Morphine 2 MG/ML SYRINGE SLOW IVP PRN ×2 (12:38→16:14)
[2019-09-19] MEDS: Lorazepam 2 MG/ML VIAL SLOW IVP PRN (13:25)
[2019-09-19 16:07] LABS: Anion Gap 24 mmol/L (10-20); BUN (Urea Nitrogen) 47 mg/dL (9.8-20.1); Calc. Creatinine Clearance 59 mL/min (70-130); Calcium 6.9 mg/dL (7.8-10.44); Carbon Dioxide 11 mmol/L (22-29); Chloride 117 mmol/L (98-107); Estimated GFR-MDRD 39; Glucose 93 mg/dL (70-105); Potassium 2.5 mmol/L (3.5-5.1); Sodium 149 mmol/L (136-145)
[2019-09-19] MEDS: Potassium Chloride 40 MEQ in Premix Bag 1 BAG IVPB PRN (16:39)
[2019-09-19] MEDS: Propofol 1,000 MG/100 ML VIAL IV PRN (16:39)
[2019-09-19 17:03] LABS: Phosphorus 10.3 mg/dL (2.3-4.7)
[2019-09-19] MEDS: Sodium Bicarbonate 70 MEQ in Dextrose 5% in Water 1,000 ML IV SCH (17:58)
--- NOTE | 2019-09-19 18:07 | PDOC.HOSPP ---
- Subjective Encounter Date: 09/19/19 Encounter Time: 09:45 Subjective: pt intubated. - Objective Vital Signs & Weight: Vital Signs (12 hours) Temp Pulse Resp BP Pulse Ox 09/19/19 16:00 99.1 F 28 H 09/19/19 15:11 71 120/84 09/19/19 14:00 28 H 09/19/19 12:00 28 H 09/19/19 11:19 75 116/75 09/19/19 10:00 28 H 09/19/19 08:00 28 H 100 09/19/19 07:28 79 102/72 09/19/19 07:00 99.6 F Weight Admit Weight 180 lb Weight 180 lb 12.465 oz Most Recent Monitor Data Heart Rate from ECG 61 NIBP 117/70 NIBP BP-Mean 85 Respiration from ECG 27 SpO2 100 I&O: 09/18/19 09/19/19 09/20/19 06:59 06:59 06:59 Intake Total 3403 300 Output Total 2710 975 Balance 693 -675 Result Diagrams: 09/19/19 04:40 09/19/19 14:59 Hospitalist ROS - Review of Systems Other: pt intubated - Medication Medications: Active Medications Generic Name Dose Route Start Last Admin Trade Name Freq PRN Reason Stop Dose Admin Acetaminophen 650 mg 09/18/19 18:42 09/19/19 05:29 Tylenol PO 650 mg Q4H PRN Administration Headache/Fever/Mild Pain (1-3) Enoxaparin Sodium 40 mg 09/19/19 09:00 09/19/19 09:24 Lovenox SC 40 mg 0900 ABEL Administration Potassium Chloride 40 meq/ 100 mls @ 50 mls/hr 09/18/19 11:42 09/19/19 16:39 Device IVPB 100 mls ASDIR PRN Administration FOR SERUM K+ 2.5 - 3.5 Norepinephrine Bitartrate 250 mls @ 0 mls/hr 09/18/19 16:09 09/19/19 07:43 Levophed IVPB 250 mls INF ABEL Administration Protocol Titrate Vancomycin HCl 1 gm/ Device 200 mls @ 200 mls/hr 09/18/19 22:00 09/19/19 09: 39 IVPB 200 mls 1000,2200 ABEL Administration Cefepime HCl 1 gm/ Sodium 100 mls @ 200 mls/hr 09/18/19 17:00 09/19/19 16:15 Chloride IVPB 100 mls 0500,1700 ABEL Administration Levetiracetam 750 mg/ Sodium 107.5 mls @ 215 mls/hr 09/18/19 21:00 09/19/19 11:52 Chloride IVPB 107.5 mls BID ABEL Administration Levothyroxine Sodium 50 mcg 09/19/19 06:00 09/19/19 05:30 Synthroid PO 50 mcg 0600 ABEL Administration Lorazepam 2 mg 09/18/19 11:42 09/19/19 13:25 Ativan SLOW IVP 10/18/19 11:42 2 mg Q1H PRN Administration Breakthrough agitation Morphine Sulfate 2 mg 09/18/19 11:42 09/19/19 16:14 Morphine SLOW IVP 10/18/19 11:42 2 mg Q1H PRN Administration BREAKTHROUGH PAIN/Agitation Oseltamivir Phosphate 75 mg 09/19/19 09:00 09/19/19 09:24 Tamiflu PO 09/28/19 09:01 75 mg DAILY ABEL Administration Propofol 1,000 mg 09/18/19 11:42 09/19/19 16:39 Diprivan IV 10/18/19 11:42 1,000 mg INF PRN Administration TO ACHIEVE GOAL RASS Protocol Sodium Chloride 10 ml 09/18/19 21:00 09/19/19 16:19 Flush - Normal Saline IVF 10 ml Q12HR ABEL Administration Venlafaxine HCl 225 mg 09/19/19 09:00 09/19/19 09:46 Effexor Xr PO 225 mg DAILY ABEL Administration - Exam Neck: negative: supple, symmetric, no JVD, no thyromegaly, no lymphadenopathy, no carotid bruit, JVD Heart: negative: RRR, no murmur, no gallops, no rubs, normal peripheral pulses, irregular, diminshed peripheral pulses, murmur present, II/IV, III/IV Respiratory: negative: CTAB, no wheezes, no rales, no ronchi, normal chest expansion, no tachypnea, normal percussion, rales, rhonchi, tachypneic, wheezes Gastrointestinal: negative: soft, non-tender, non-distended, normal bowel sounds , no palpable masses, no hepatomegaly, no splenomegaly, no bruit, no guarding, no rigidity, tender to palpation, distended, diminished bowl sounds, voluntary guarding Gastrointestinal - other findings: she has a colostomy Skin - other findings: significant decubutis ulcers noted. Hosp A/P (1) Septic shock Code(s): A41.9 - SEPSIS, UNSPECIFIED ORGANISM; R65.21 - SEVERE SEPSIS WITH SEPTIC SHOCK Status: Acute (2) Bacteremia Code(s): R78.81 - BACTEREMIA Status: Acute (3) Acute respiratory failure with hypoxia Code(s): J96.01 - ACUTE RESPIRATORY FAILURE WITH HYPOXIA Status: Acute (4) Hypokalemia Code(s): E87.6 - HYPOKALEMIA Status: Acute (5) Seizure disorder Code(s): G40.909 - EPILEPSY, UNSP, NOT INTRACTABLE, WITHOUT STATUS EPILEPTICUS Status: Acute (6) Sacral decubitus ulcer, stage IV Code(s): L89.154 - PRESSURE ULCER OF SACRAL REGION, STAGE 4 Status: Chronic (7) Metabolic acidosis Code(s): E87.2 - ACIDOSIS Status: Acute (8) CHINMAY (acute kidney injury) Code(s): N17.9 - ACUTE KIDNEY FAILURE, UNSPECIFIED Status: Acute - Plan pt still on levophed drip, will replace K. will check bmp again at 2100. Her blood cx are positive will continue broad spectrum abx. she was suppose to go for debridement but will not due to low K. will change her iv fluids to d5with bicarb due to her hypernatremia. chinmay is improving. pt was on high doses of diuretics at the [place] could be a cause of her hypokalemia. will check cortisol level in am.
[2019-09-19 18:28] LABS: Phosphorus 9.2 mg/dL (2.3-4.7)
[2019-09-19 19:40] LABS: Vancomycin, Trough 52.4 ug/mL
[2019-09-19] MEDS ORDERED: Famotidine/PF 20 mg/2ml Vial SLOW IVP SCH (21:00)
[2019-09-19 21:24] LABS: Anion Gap 19 mmol/L (10-20); BUN (Urea Nitrogen) 45 mg/dL (9.8-20.1); Calc. Creatinine Clearance 60 mL/min (70-130); Calcium 6.8 mg/dL (7.8-10.44); Carbon Dioxide 14 mmol/L (22-29); Chloride 116 mmol/L (98-107); Estimated GFR-MDRD 40; Glucose 133 mg/dL (70-105); Sodium 147 mmol/L (136-145)
[2019-09-19 21:29] LABS: Potassium 2.3 mmol/L (3.5-5.1)
[2019-09-19] MEDS: Pantoprazole 40 MG VIAL IVP SCH (21:57)
[2019-09-19] MEDS ORDERED: Potassium Chloride 40 MEQ in Premix Bag 1 BAG IVPB SCH (22:30)
[2019-09-20] MEDS: Sodium Bicarbonate 70 MEQ in Dextrose 5% in Water 1,000 ML IV SCH ×4 (00:49→22:17)
[2019-09-20 04:38] LABS: Anion Gap 17 mmol/L (10-20); BUN (Urea Nitrogen) 43 mg/dL (9.8-20.1); Calc. Creatinine Clearance 65 mL/min (70-130); Calcium 6.7 mg/dL (7.8-10.44); Carbon Dioxide 17 mmol/L (22-29); Chloride 114 mmol/L (98-107); Estimated GFR-MDRD 43; Glucose 103 mg/dL (70-105); Magnesium 1.5 mg/dL (1.6-2.6); Sodium 145 mmol/L (136-145)
[2019-09-20 04:39] LABS: ALT (SGPT) 15 U/L (8-55); AST (SGOT) 12 U/L (5-34); Albumin 2.6 g/dL (3.5-5.0); Alkaline Phosphatase 96 U/L (40-110); Bilirubin, Direct 0.1 mg/dL (0.1-0.3); Bilirubin, Total 0.3 mg/dL (0.2-1.2); Protein, Total 5.7 g/dL (6.0-8.3)
[2019-09-20] MEDS: Cefepime 1 GM in Sodium Chloride 0.9% 100 ML IVPB SCH ×2 (04:39→18:03)
[2019-09-20 04:42] LABS: #Lymphocytes 1.4 thou/uL (1.20-3.40); #Monocytes 0.9 thou/uL (0.11-0.59); #Neutrophils 12.1 thou/uL (1.40-6.50); %Basophils 0.1 % (0.0-1.0); %Eosinophils 0.2 % (0.0-10.0); %Lymphocytes 9.4 % (21.0-51.0); %Monocytes 6.1 % (0.0-10.0); %Neutrophils 84.3 % (42.0-75.0); Hemoglobin 6.4 g/dL (12.0-16.0); Mean Corpuscular HGB CONC 32.7 g/dL (32.0-36.0); Mean Corpuscular Hemoglobin 25.6 pg (27.0-31.0); Mean Corpuscular Volume 78.2 fL (78.0-98.0); Mean Platelet Volume 6.6 fL (7.4-10.4); Platelet Count 396 thou/uL (130-400); RBC Distribution Width 18.1 % (11.5-14.5); Red Blood Cell (RBC) Count 2.49 mill/uL (4.20-5.40); White Blood Cell (WBC) Count 14.3 thou/uL (4.8-10.8)
[2019-09-20 04:45] LABS: Phosphorus 6.9 mg/dL (2.3-4.7)
[2019-09-20 04:48] LABS: Potassium 2.5 mmol/L (3.5-5.1)
[2019-09-20] MEDS: Lorazepam 2 MG/ML VIAL SLOW IVP PRN (04:50)
[2019-09-20] MEDS: Potassium Chloride 40 MEQ in Premix Bag 1 BAG IVPB PRN (05:12)
[2019-09-20] MEDS: Levothyroxine Sodium 50 MCG TAB PO SCH (05:25)
[2019-09-20 07:17] LABS: Actual Bicarbonate (HCO3a) 15.5 mEq/L (22-28); Base Excess (BEa) -8.8 mEq/L (-2.0 to +3.0); CO2 Tension 26.3 mmHg (35.0-45.0); Calcium, Ionized 0.96 mmol/L (1.12-1.30); Carboxyhemoglobin (COHb) 1.7 gm% (0.0-3.0); Hemoglobin (Hb) 5.6 g/dL (12.0-16.0); O2 Tension (PaO2) 90.4 mmHg (80.0-100.0); Potassium - ABG Lab 2.49 mmol/L (3.70-5.30); pH, Arterial 7.39 (7.35-7.45)
[2019-09-20 07:20] LABS: ALV-art Gradient 90.625 (0-20); Puncture Site RRA
--- NOTE | 2019-09-20 08:40 | RAD ---
CHEST 1 VIEW: INDICATION: History of pneumonia. COMPARISON: Prior exam dated 09/19/2019. FINDINGS: Since the comparison examination, the ET tube, gastric catheter, and left IJ central venous catheter have not appreciably changed. There is improved aeration in the right lower lobe. Persistent linear atelectasis is seen along the left lung base. No pleural effusion or pneumothorax is evident. Osse ous structures are unchanged. Instrumentation involving the lower cervical spine is partially imaged . IMPRESSION: 1. Improved aeration of the right lower lobe. Persistent suspected subsegmental atelectasis in the left lower lobe. 2. Stable tubes and lines. 3. No pneumothorax. POS: BH
[2019-09-20] MEDS ORDERED: Potassium Chloride 40 MEQ in Premix Bag 1 BAG IVPB SCH ×2 (08:45→23:15)
[2019-09-20] MEDS ORDERED: Magnesium 2 GM/50 ML 2 GM in Premix Bag 1 BAG IVPB SCH (08:45)
[2019-09-20] MEDS ORDERED: Oseltamivir 6 MG/ML ORAL SUSP PO SCH (09:00)
[2019-09-20] MEDS: Enoxaparin Sodium 40 MG/0.4 ML SYRINGE SC SCH ×2 (09:10→12:10)
[2019-09-20] MEDS: Venlafaxine HCl XR 75 MG CAP PO SCH (09:11)
[2019-09-20] MEDS: Oseltamivir 6 MG/ML ORAL SUSP PO SCH ×2 (09:12→20:36)
[2019-09-20] MEDS ORDERED: Fentanyl 100 MCG/2 ML VIAL ONE (10:35)
--- NOTE | 2019-09-20 10:43 | PRG ---
DATE OF SERVICE: 09/20/2019 TIME SPENT: 35 minutes of critical time. SUBJECTIVE: The patient remains intubated on mechanical ventilation. She will open her eyes to commands, but does not follow anything else for me. OBJECTIVE: VITAL SIGNS: Temperature 97.9, pulse rate 73, blood pressure 91/60, and O2 saturation 98%. A 24-hour intake 2719, output 2260. HEENT: Unremarkable. NECK: No adenopathy or JVD. LUNGS: Clear anteriorly. CARDIAC: S1 and S2, regular. ABDOMEN: Soft. She has a large sacral decubitus ulcer. EXTREMITIES: Edematous. LABORATORY DATA: 1. Sodium 145, potassium 2.5, chloride 114, CO2 of 17, BUN 43, creatinine 1.2, glucose 103, phosphorus 6.9, and magnesium 1.5. White blood cell count 14.3, hematocrit 19.5, and platelet count 396. ABG; pH of 7.39, pCO2 of 26, pO2 of 90 on SIMV rate 28, tidal rate 500, PEEP 5, pressure support 10, and FiO2 of 30%. ASSESSMENT: 1. Type B flu. 2. Acute respiratory failure requiring mechanical ventilation. 3. Large sacral decubitus ulcer with septicemia. 4. Severe hypokalemia. PLAN: 1. Continuing low-dose Levophed for blood pressure support. 2. Continue the cefepime and Tamiflu. 3. Start enteral tube feeds. 4. Replace potassium aggressively. Job ID: [id number]
[2019-09-20 11:18] LABS: Magnesium 1.8 mg/dL (1.6-2.6)
[2019-09-20 11:42] LABS: Potassium 2.6 mmol/L (3.5-5.1)
[2019-09-20 14:23] LABS: Hemoglobin 8.6 g/dL (12.0-16.0)
--- NOTE | 2019-09-20 15:01 | PDOC.HOSPP ---
- Subjective Encounter Date: 09/20/19 Encounter Time: 08:40 Subjective: Pt seen for followup re: septic shock. Intubated, could not complete ROS. - Objective Vital Signs & Weight: Vital Signs (12 hours) Temp Pulse Resp BP Pulse Ox 09/20/19 14:37 74 115/75 09/20/19 12:00 98.7 F 28 H 09/20/19 10:30 87 107/66 09/20/19 10:00 28 H 09/20/19 08:00 98.7 F 28 H 100 09/20/19 07:02 81 93/66 09/20/19 06:00 28 H 09/20/19 04:00 97.9 F 28 H 99 Weight Admit Weight 180 lb Weight 180 lb 12.465 oz Most Recent Monitor Data Heart Rate from ECG 67 NIBP 116/72 NIBP BP-Mean 86 Respiration from ECG 25 SpO2 100 I&O: 09/19/19 09/20/19 09/21/19 06:59 06:59 06:59 Intake Total 3403 2792.5 350 Output Total 2710 2260 530 Balance 693 532.5 -180 Result Diagrams: 09/21/19 03:30 09/21/19 03:30 Additional Labs: Labs and MARs reviewed by me EKG Reviewed by me: Yes (Tele: NSR) Hospitalist ROS - Review of Systems ROS unobtainable: due to endotracheal tube - Medication Medications: Active Medications Generic Name Dose Route Start Last Admin Trade Name Freq PRN Reason Stop Dose Admin Acetaminophen 650 mg 09/18/19 18:42 09/19/19 05:29 Tylenol PO 650 mg Q4H PRN Administration Headache/Fever/Mild Pain (1-3) Enoxaparin Sodium 40 mg 09/19/19 09:00 09/20/19 12:10 Lovenox SC Not Given 0900 ABEL Potassium Chloride 40 meq/ 100 mls @ 50 mls/hr 09/18/19 11:42 09/20/19 05:12 Device IVPB 100 mls ASDIR PRN Administration FOR SERUM K+ 2.5 - 3.5 Magnesium Sulfate 1 gm/ Sodium 102 mls @ 102 mls/hr 09/18/19 11:42 09/20/19 05:25 Chloride IV 102 mls PRN PRN Administration MAG LEVEL 1.4 - 2.0 Norepinephrine Bitartrate 250 mls @ 0 mls/hr 09/18/19 16:09 09/19/19 07:43 Levophed IVPB 250 mls INF ABLE Administration Protocol Titrate Cefepime HCl 1 gm/ Sodium 100 mls @ 200 mls/hr 09/18/19 17:00 09/20/19 04:39 Chloride IVPB 100 mls 0500,1700 ABEL Administration Levetiracetam 750 mg/ Sodium 107.5 mls @ 215 mls/hr 09/18/19 21:00 09/20/19 09:11 Chloride IVPB 107.5 mls BID ABEL Administration Sodium Bicarbonate 70 meq/ 1,070 mls @ 150 mls/hr 09/19/19 16:45 09/20/19 09: 10 Dextrose/Water IV 1,070 mls .Q7H8M ABEL Administration Levothyroxine Sodium 50 mcg 09/19/19 06:00 09/20/19 05:25 Synthroid PO 50 mcg 0600 ABEL Administration Lorazepam 2 mg 09/18/19 11:42 09/20/19 04:50 Ativan SLOW IVP 10/18/19 11:42 2 mg Q1H PRN Administration Breakthrough agitation Morphine Sulfate 2 mg 09/18/19 11:42 09/19/19 16:14 Morphine SLOW IVP 10/18/19 11:42 2 mg Q1H PRN Administration BREAKTHROUGH PAIN/Agitation Oseltamivir Phosphate 30 mg 09/20/19 09:00 09/20/19 09:12 Tamiflu PO 09/23/19 23:59 30 mg BID ABEL Administration Pantoprazole Sodium 40 mg 09/19/19 21:00 09/19/19 21:57 Protonix IVP 40 mg 2100 ABEL Administration Propofol 1,000 mg 09/18/19 11:42 09/19/19 16:39 Diprivan IV 10/18/19 11:42 1,000 mg INF PRN Administration TO ACHIEVE GOAL RASS Protocol Sodium Chloride 10 ml 09/18/19 21:00 09/20/19 09:12 Flush - Normal Saline IVF 10 ml Q12HR ABEL Administration Venlafaxine HCl 225 mg 09/19/19 09:00 09/20/19 09:11 Effexor Xr PO 225 mg DAILY ABEL Administration - Exam General - other findings: Obese, intubated Eye: anicteric sclera ENT: normocephalic atraumatic ENT - other findings: ETT Neck: no thyromegaly Heart: RRR Respiratory: CTAB Gastrointestinal: soft Extremities: no cyanosis Skin - other findings: wounds as documented Neurological - other findings: Unable to assess Psychiatric - other findings: Unable to assess Hosp A/P - Plan - Assessment (1) Septic shock Code(s): A41.9 - SEPSIS, UNSPECIFIED ORGANISM; R65.21 - SEVERE SEPSIS WITH SEPTIC SHOCK Status: Acute (2) Bacteremia Code(s): R78.81 - BACTEREMIA Status: Acute (3) CHINMAY (acute kidney injury) Code(s): N17.9 - ACUTE KIDNEY FAILURE, UNSPECIFIED Status: Acute (4) Acute respiratory failure with hypoxia Code(s): J96.01 - ACUTE RESPIRATORY FAILURE WITH HYPOXIA Status: Acute (5) Hypokalemia Code(s): E87.6 - HYPOKALEMIA Status: Acute (6) Metabolic acidosis Code(s): E87.2 - ACIDOSIS Status: Acute (7) Anemia Code(s): E87.2 - ACIDOSIS Status: Acute (8) Influenza B infection Code(s): E87.2 - ACIDOSIS Status: Acute (9) Sacral decubitus ulcer, stage IV Code(s): L89.154 - PRESSURE ULCER OF SACRAL REGION, STAGE 4 Status: Chronic (10) Seizure disorder Code(s): G40.909 - EPILEPSY, UNSP, NOT INTRACTABLE, WITHOUT STATUS EPILEPTICUS Status: Chronic - Plan pt still on levophed drip Potassium being replaced Pt to go for debridement today Continue cefepime for gram negative migdalia bacteremia Creatinine improved to 1.29 today Check iron studies, TSH, B12 and folate levels. Continue Tamiflu
[2019-09-20] MEDS: Norepinephrine 8 MG/0.9% NS 250 ML IVPB SCH (16:11)
[2019-09-20 16:51] LABS: Potassium 2.5 mmol/L (3.5-5.1)
[2019-09-20] MEDS ORDERED: Potassium Chloride 40 MEQ in Premix Bag 1 BAG IVPB ONE (17:15)
[2019-09-20] MEDS: Potassium Chloride 40 MEQ in Premix Bag 1 BAG IVPB SCH ×2 (18:02→20:37)
[2019-09-20] MEDS: Propofol 1,000 MG/100 ML VIAL IV PRN (18:06)
[2019-09-20 19:36] LABS: Vancomycin, Random 33.4 ug/mL (See Comment)
[2019-09-20] MEDS: Pantoprazole 40 MG VIAL IVP SCH (20:36)
--- NOTE | 2019-09-20 22:38 | PRG ---
DATE OF SERVICE: 09/20/2019 Rosa Wilde is in ICU on the ventilator. She is paraplegic, retirement resident, has severe decubitus with sepsis and hypokalemia and anemia. She has been given 2 units of blood and her hemoglobin is 8. She is still on low-dose Levophed and pressures were low. She has received aggressive potassium replacement, remains hypokalemic. Her surgery was postponed today for these reasons. We will give her 2 more units of blood and be more aggressive on potassium replacement. Hopefully, Monday, tomorrow, we can plan on debridement of decubitus. Dr. Shah has asked me to assume her care over the weekend. Job ID: [id number]
[2019-09-21 01:41] LABS: Potassium 2.5 mmol/L (3.5-5.1)
[2019-09-21] MEDS: Propofol 1,000 MG/100 ML VIAL IV PRN ×3 (02:33→17:43)
[2019-09-21] MEDS: Potassium Chloride 40 MEQ in Premix Bag 1 BAG IVPB SCH ×4 (02:34→12:42)
[2019-09-21 04:02] LABS: Reticulocyte Count 1.2 % (0.5-1.5)
[2019-09-21 04:16] LABS: Anion Gap 16 mmol/L (10-20); BUN (Urea Nitrogen) 29 mg/dL (9.8-20.1); Calc. Creatinine Clearance 100 mL/min (70-130); Calcium 7.5 mg/dL (7.8-10.44); Carbon Dioxide 20 mmol/L (22-29); Chloride 109 mmol/L (98-107); Estimated GFR-MDRD 72; Glucose 108 mg/dL (70-105); Magnesium 2.1 mg/dL (1.6-2.6); Sodium 142 mmol/L (136-145)
[2019-09-21 04:19] LABS: Potassium 2.5 mmol/L (3.5-5.1)
[2019-09-21 04:28] LABS: Band 24 % (5-11); Eosinophils 1 % (0-10); Hemoglobin 10.1 g/dL (12.0-16.0); Lymphocytes 6 % (21-51); MDiff Complete? YES; Mean Corpuscular HGB CONC 33.8 g/dL (32.0-36.0); Mean Corpuscular Volume 82.7 fL (78.0-98.0); Mean Platelet Volume 7.2 fL (7.4-10.4); Monocytes 2 % (0-10); Neutrophil 67 % (42-75); Nucleated RBC 1 % (0); Platelet Count 315 thou/uL (130-400); Platelet Morphology Comment Appears Adequate; Red Blood Cell (RBC) Count 3.63 mill/uL (4.20-5.40)
[2019-09-21 04:36] LABS: Thyroid Stimulating Hormone 1.6429 uIU/mL (0.35-4.94)
[2019-09-21] MEDS: Cefepime 1 GM in Sodium Chloride 0.9% 100 ML IVPB SCH ×2 (04:59→16:45)
[2019-09-21] MEDS: Levothyroxine Sodium 50 MCG TAB PO SCH (05:00)
[2019-09-21] MEDS: Acetaminophen 325 MG TAB PO PRN (05:04)
[2019-09-21] MEDS: Sodium Bicarbonate 70 MEQ in Dextrose 5% in Water 1,000 ML IV SCH ×2 (05:10→10:46)
[2019-09-21 05:36] LABS: Ferritin 210.39 ng/mL (10-291)
[2019-09-21 08:03] LABS: Actual Bicarbonate (HCO3a) 19.4 mEq/L (22-28); Calcium, Ionized 1.06 mmol/L (1.12-1.30); Carboxyhemoglobin (COHb) 0.7 gm% (0.0-3.0); Hemoglobin (Hb) 10.4 g/dL (12.0-16.0); O2 Tension (PaO2) 116.4 mmHg (80.0-100.0); Potassium - ABG Lab 3.26 mmol/L (3.70-5.30); pH, Arterial 7.53 (7.35-7.45)
[2019-09-21 08:13] LABS: CO2 Tension 23.6 mmHg (35.0-45.0); Puncture Site RR
[2019-09-21 08:33] LABS: Iron 21 ug/dL (50-170); Iron Binding Capacity, Total 148 mcg/dL (265-497); Phosphorus 3.1 mg/dL (2.3-4.7)
--- NOTE | 2019-09-21 09:09 | RAD ---
PORTABLE CHEST: HISTORY: Respiratory distress. COMPARISON: Prior day's exam. FINDINGS: Endotracheal and NG Tubes appear to be in satisfactory position. There is some slight increased dens ity in the left base. This appears to represent some atelectatic change versus scarring. Minimal wolf bsegmental atelectasis is seen in the right base. IMPRESSION: Minimal bibasilar interstitial lung changes fairly similar to the previous exam given differences in technique. POS: TPC
--- NOTE | 2019-09-21 09:19 | PRG ---
DATE OF SERVICE: 09/21/2019 TIME SPENT: 35 minutes of critical time. SUBJECTIVE: The patient is awake, following commands today. She has been weaned off her Levophed. OBJECTIVE: VITAL SIGNS: Temperature 99.5, pulse 77, blood pressure 101/73. Total intake 5929, output 4430. HEENT: Unremarkable. NECK: No JVD. LUNGS: Clear. CARDIAC: S1 and S2. Regular. ABDOMEN: Soft. EXTREMITIES: Edematous. NEUROLOGIC: She is moving her arms to command today on exam. LABORATORY DATA: Sodium 142, potassium 2.5 on the chemistry, but 3.2 on the blood gas taken later. Chloride 109, CO2 of 20, BUN 29, creatinine 0.8, glucose 108. The pH 7.53, pCO2 of 23, and pO2 of 116 on SIMV rate 20, tidal volume 500, PEEP 5, pressure support 14, and FiO2 of 35%. White blood cell count 15, hematocrit 30, and platelet count 315. Chest x-ray shows small left effusion. ASSESSMENT: 1. Septic shock-improving. 2. Polymicrobial sepsis from the decubitus ulcer. 3. Acute respiratory failure requiring mechanical ventilation. 4. Severe hypokalemia, steadily improving. PLAN: 1. To the OR today for decubitus ulcer debridement. 2. Levophed has been turned off. 3. I have added vancomycin to the antibiotic regimen given that has grown out Staph and Enterococcus. 4. Continue to replace potassium. 5. Adjust ventilator rate. Job ID: [id number]
[2019-09-21] MEDS ORDERED: Pancrelipase DR 12000 1 CAP FS PRN (09:25)
[2019-09-21] MEDS ORDERED: Sodium Bicarbonate Tab 325 MG TAB PER TUBE PRN (09:25)
[2019-09-21] MEDS: Venlafaxine HCl XR 75 MG CAP PO SCH (09:44)
[2019-09-21] MEDS: Oseltamivir 6 MG/ML ORAL SUSP PO SCH ×2 (09:45→21:45)
[2019-09-21] MEDS: Enoxaparin Sodium 40 MG/0.4 ML SYRINGE SC SCH (09:47)
[2019-09-21] MEDS ORDERED: Rocuronium Bromide 10 MG/ML (10ML VIAL) ONE (11:14)
[2019-09-21] MEDS: Potassium Chloride 40 MEQ in Premix Bag 1 BAG IVPB PRN (14:47)
--- NOTE | 2019-09-21 16:01 | PDOC.HOSPP ---
- Subjective Encounter Date: 09/21/19 Encounter Time: :20 Subjective: Pt seen for followup for septic shock. Intubated, ROS could not be completed. - Objective Vital Signs & Weight: Vital Signs (12 hours) Temp Pulse Resp BP Pulse Ox 09/21/19 14:47 67 100/72 09/21/19 14:00 18 09/21/19 12:00 98.8 F 18 09/21/19 11:12 68 106/71 09/21/19 10:00 18 09/21/19 08:00 98.8 F 28 H 100 09/21/19 06:59 74 108/80 09/21/19 06:00 28 H Weight Admit Weight 180 lb Weight 180 lb 12.465 oz Most Recent Monitor Data Heart Rate from ECG 70 NIBP 107/67 NIBP BP-Mean 80 Respiration from ECG 18 SpO2 100 I&O: 09/20/19 09/21/19 09/22/19 06:59 06:59 06:59 Intake Total 2792.5 5929.1 773 Output Total 2260 4430 810 Balance 532.5 1499.1 -37 Result Diagrams: 09/21/19 03:30 09/21/19 03:30 Additional Labs: Labs and MARs reviewed by me Hospitalist ROS - Review of Systems ROS unobtainable: due to endotracheal tube - Medication Medications: Active Medications Generic Name Dose Route Start Last Admin Trade Name Freq PRN Reason Stop Dose Admin Acetaminophen 650 mg 09/18/19 18:42 09/21/19 05:04 Tylenol PO 650 mg Q4H PRN Administration Headache/Fever/Mild Pain (1-3) Enoxaparin Sodium 40 mg 09/19/19 09:00 09/21/19 09:47 Lovenox SC 40 mg 0900 ABEL Administration Potassium Chloride 40 meq/ 100 mls @ 50 mls/hr 09/18/19 11:42 09/21/19 14:47 Device IVPB 100 mls ASDIR PRN Administration FOR SERUM K+ 2.5 - 3.5 Magnesium Sulfate 1 gm/ Sodium 102 mls @ 102 mls/hr 09/18/19 11:42 09/20/19 05:25 Chloride IV 102 mls PRN PRN Administration MAG LEVEL 1.4 - 2.0 Norepinephrine Bitartrate 250 mls @ 0 mls/hr 09/18/19 16:09 09/20/19 16:11 Levophed IVPB 250 mls INF ABEL Administration Protocol Titrate Cefepime HCl 1 gm/ Sodium 100 mls @ 200 mls/hr 09/18/19 17:00 09/21/19 04:59 Chloride IVPB 100 mls 0500,1700 ABEL Administration Levetiracetam 750 mg/ Sodium 107.5 mls @ 215 mls/hr 09/18/19 21:00 09/21/19 09:44 Chloride IVPB 107.5 mls BID ABEL Administration Sodium Bicarbonate 70 meq/ 1,070 mls @ 75 mls/hr 09/21/19 08:57 09/21/19 10: 46 Dextrose/Water IV 1,070 mls .[id number] ABEL Administration Levothyroxine Sodium 50 mcg 09/19/19 06:00 09/21/19 05:00 Synthroid PO 50 mcg 0600 ABEL Administration Lorazepam 2 mg 09/18/19 11:42 09/20/19 04:50 Ativan SLOW IVP 10/18/19 11:42 2 mg Q1H PRN Administration Breakthrough agitation Morphine Sulfate 2 mg 09/18/19 11:42 09/19/19 16:14 Morphine SLOW IVP 10/18/19 11:42 2 mg Q1H PRN Administration BREAKTHROUGH PAIN/Agitation Oseltamivir Phosphate 30 mg 09/20/19 09:00 09/21/19 09:45 Tamiflu PO 09/23/19 23:59 30 mg BID ABEL Administration Propofol 1,000 mg 09/18/19 11:42 09/21/19 10:56 Diprivan IV 10/18/19 11:42 1,000 mg INF PRN Administration TO ACHIEVE GOAL RASS Protocol Sodium Chloride 10 ml 09/18/19 21:00 09/21/19 09:47 Flush - Normal Saline IVF 10 ml Q12HR ABEL Administration Venlafaxine HCl 225 mg 09/19/19 09:00 09/21/19 09:44 Effexor Xr PO 225 mg DAILY ABEL Administration - Exam General - other findings: Intubated Eye: anicteric sclera ENT: normocephalic atraumatic Neck - other findings: ENT Heart: RRR Respiratory: CTAB Gastrointestinal: soft Skin - other findings: wounds as documented Psychiatric - other findings: Unable to obtain Hosp A/P - Plan - Assessment (1) Septic shock Code(s): A41.9 - SEPSIS, UNSPECIFIED ORGANISM; R65.21 - SEVERE SEPSIS WITH SEPTIC SHOCK Status: Acute (2) Bacteremia Code(s): R78.81 - BACTEREMIA Status: Acute (3) Influenza B infection Code(s): E87.2 - ACIDOSIS Status: Acute (4) Acute respiratory failure with hypoxia Code(s): J96.01 - ACUTE RESPIRATORY FAILURE WITH HYPOXIA Status: Acute (5) Hypokalemia Code(s): E87.6 - HYPOKALEMIA Status: Acute (6) Metabolic acidosis Code(s): E87.2 - ACIDOSIS Status: Acute (7) Anemia Code(s): E87.2 - ACIDOSIS Status: Acute (8) Sacral decubitus ulcer, stage IV Code(s): L89.154 - PRESSURE ULCER OF SACRAL REGION, STAGE 4 Status: Chronic (9) Seizure disorder Code(s): G40.909 - EPILEPSY, UNSP, NOT INTRACTABLE, WITHOUT STATUS EPILEPTICUS Status: Chronic (10) CHINMAY (acute kidney injury) Code(s): N17.9 - ACUTE KIDNEY FAILURE, UNSPECIFIED Status: Resolved - Plan pt still on levophed drip Potassium still low at 2.5, being replaced Pt to go for debridement today Continue cefepime for gram negative migdalia bacteremia Continue IV vancomycin for staph aureus bacteremia Administer IV iron Continue Tamiflu
[2019-09-21] MEDS ORDERED: Iron Sucrose Complex 200 MG in Sodium Chloride 0.9% 250 ML 250 ML IVPB SCH (16:30)
[2019-09-21] MEDS ORDERED: Iron, Sodium Ferric Gluconate 250 MG in Sodium Chloride 0.9% 100 ML IVPB SCH (16:45)
[2019-09-21] MEDS ORDERED: Midazolam HCl 2 mg/2 ml Vial ONE (19:13)
[2019-09-21] MEDS ORDERED: Fentanyl 100 MCG/2 ML VIAL ONE (19:14)
[2019-09-21 19:28] LABS: Vancomycin, Trough 16.3 ug/mL
[2019-09-21] MEDS ORDERED: Pantoprazole 40 MG GRANULES PACKET PO SCH (22:45)
[2019-09-22] MEDS: Sodium Bicarbonate 70 MEQ in Dextrose 5% in Water 1,000 ML IV SCH ×2 (01:50→16:27)
[2019-09-22] MEDS: Propofol 1,000 MG/100 ML VIAL IV PRN ×4 (01:50→23:56)
[2019-09-22 04:43] LABS: #Eosinphils 0.3 thou/uL (0.0-0.7); #Lymphocytes 1.1 thou/uL (1.20-3.40); #Monocytes 0.7 thou/uL (0.11-0.59); #Neutrophils 12.6 thou/uL (1.40-6.50); %Eosinophils 1.7 % (0.0-10.0); %Lymphocytes 7.8 % (21.0-51.0); %Monocytes 4.6 % (0.0-10.0); %Neutrophils 85.9 % (42.0-75.0); Hemoglobin 9.3 g/dL (12.0-16.0); Mean Corpuscular HGB CONC 32.1 g/dL (32.0-36.0); Mean Corpuscular Hemoglobin 27.2 pg (27.0-31.0); Mean Corpuscular Volume 84.5 fL (78.0-98.0); Mean Platelet Volume 7.4 fL (7.4-10.4); Platelet Count 285 thou/uL (130-400); Red Blood Cell (RBC) Count 3.42 mill/uL (4.20-5.40); White Blood Cell (WBC) Count 14.6 thou/uL (4.8-10.8)
[2019-09-22 05:05] LABS: Phosphorus 3.5 mg/dL (2.3-4.7)
[2019-09-22 05:07] LABS: Anion Gap 14 mmol/L (10-20); BUN (Urea Nitrogen) 23 mg/dL (9.8-20.1); Calc. Creatinine Clearance 128 mL/min (70-130); Calcium 8.2 mg/dL (7.8-10.44); Carbon Dioxide 21 mmol/L (22-29); Chloride 111 mmol/L (98-107); Estimated GFR-MDRD Greater than 90; Glucose 92 mg/dL (70-105); Magnesium 1.9 mg/dL (1.6-2.6); Potassium 3.3 mmol/L (3.5-5.1); Sodium 143 mmol/L (136-145)
[2019-09-22] MEDS: Cefepime 1 GM in Sodium Chloride 0.9% 100 ML IVPB SCH ×2 (06:18→18:36)
[2019-09-22 07:33] LABS: Actual Bicarbonate (HCO3a) 19.9 mEq/L (22-28); Base Excess (BEa) -2.2 mEq/L (-2.0 to +3.0); Calcium, Ionized 1.15 mmol/L (1.12-1.30); Carboxyhemoglobin (COHb) 1.2 gm% (0.0-3.0); Hemoglobin (Hb) 9.2 g/dL (12.0-16.0); O2 Tension (PaO2) 87.9 mmHg (80.0-100.0); Potassium - ABG Lab 3.05 mmol/L (3.70-5.30); pH, Arterial 7.51 (7.35-7.45)
[2019-09-22 07:43] LABS: CO2 Tension 25.4 mmHg (35.0-45.0)
[2019-09-22 07:44] LABS: Puncture Site RB
[2019-09-22] MEDS: Vancomycin 1 GM in Premix Bag 1 BAG IVPB SCH (08:17)
[2019-09-22] MEDS: Enoxaparin Sodium 40 MG/0.4 ML SYRINGE SC SCH (08:20)
[2019-09-22] MEDS: Potassium Chloride 40 MEQ in Premix Bag 1 BAG IVPB PRN (10:28)
--- NOTE | 2019-09-22 10:28 | PRG ---
DATE OF SERVICE: 09/22/2019 TIME SPENT: 35 minutes of critical care time. SUBJECTIVE: The patient is doing better today. No acute complaints. Had debridement yesterday. PHYSICAL EXAMINATION: VITAL SIGNS: On exam, temperature 100.0, pulse 87, blood pressure 111/76, and O2 saturation 95%. HEENT: Unremarkable. NECK: No JVD. LUNGS: Clear anteriorly. CARDIAC: S1, S2. Regular. ABDOMEN: Soft and nontender. EXTREMITIES: No edema. DIAGNOSTIC STUDIES: Chest x-ray shows fairly clear lung germain. LABORATORY DATA: Sodium 143, potassium 3.3, chloride 111, CO2 of 21, BUN 23, creatinine 0.6, and glucose 92. White blood cell count 14.6, hematocrit 28.9, and platelet count 285. ASSESSMENT: 1. Septic shock from decubitus ulcer - improving. 2. Respiratory failure, requiring mechanical ventilation. 3. Improved hypokalemia. PLAN: 1. We will go ahead and try her on spontaneous breathing trial today and see if she tolerates that. 2. Limit sedation as much as possible. 3. Replace potassium. 4. Restart enteral tube feeds. Job ID: [id number]
--- NOTE | 2019-09-22 11:08 | RAD ---
PORTABLE CHEST: Date: 09/22/2019 COMPARISON: Prior day's exam. HISTORY: Pneumonia. FINDINGS: Endotracheal and NG tubes and left central line are unchanged in position. Bibasilar lung changes are stable. IMPRESSION: Stable chest. POS: TPC
[2019-09-22] MEDS: Morphine 2 MG/ML SYRINGE SLOW IVP PRN (11:20)
--- NOTE | 2019-09-22 11:53 | PDOC.HOSPP ---
- Subjective Encounter Date: 09/22/19 Encounter Time: 10:00 Subjective: Pt seen for followup re: sepsis. Pt intubated, unable to complete ROS. - Objective Vital Signs & Weight: Vital Signs (12 hours) Temp Pulse Resp BP Pulse Ox 09/22/19 10:33 89 105/68 09/22/19 10:00 99.6 F 18 09/22/19 08:00 100.0 F H 18 95 09/22/19 06:54 77 108/67 09/22/19 06:00 18 09/22/19 04:00 98.1 F 18 09/22/19 03:40 73 09/22/19 02:17 68 09/22/19 02:00 18 09/22/19 00:00 97.5 F L 18 Weight Admit Weight 180 lb Weight 180 lb 12.465 oz Most Recent Monitor Data Heart Rate from ECG 85 NIBP 94/62 NIBP BP-Mean 72 Respiration from ECG 21 SpO2 97 I&O: 09/21/19 09/22/19 09/23/19 06:59 06:59 06:59 Intake Total 5929.1 3842 300 Output Total 4430 2315 540 Balance 1499.1 1527 -240 Result Diagrams: 09/22/19 04:33 09/22/19 04:33 Additional Labs: Labs and MARs reviewed by me EKG Reviewed by me: Yes (Tele: NSR) Hospitalist ROS - Review of Systems ROS unobtainable: due to endotracheal tube - Medication Medications: Active Medications Generic Name Dose Route Start Last Admin Trade Name Freq PRN Reason Stop Dose Admin Acetaminophen 650 mg 09/18/19 18:42 09/21/19 05:04 Tylenol PO 650 mg Q4H PRN Administration Headache/Fever/Mild Pain (1-3) Enoxaparin Sodium 40 mg 09/19/19 09:00 09/22/19 08:20 Lovenox SC 40 mg 0900 ABEL Administration Potassium Chloride 40 meq/ 100 mls @ 50 mls/hr 09/18/19 11:42 09/22/19 10:28 Device IVPB 100 mls ASDIR PRN Administration FOR SERUM K+ 2.5 - 3.5 Magnesium Sulfate 1 gm/ Sodium 102 mls @ 102 mls/hr 09/18/19 11:42 09/20/19 05:25 Chloride IV 102 mls PRN PRN Administration MAG LEVEL 1.4 - 2.0 Norepinephrine Bitartrate 250 mls @ 0 mls/hr 09/18/19 16:09 09/20/19 16:11 Levophed IVPB 250 mls INF ABEL Administration Protocol Titrate Cefepime HCl 1 gm/ Sodium 100 mls @ 200 mls/hr 09/18/19 17:00 09/22/19 06:18 Chloride IVPB 100 mls 0500,1700 ABEL Administration Levetiracetam 750 mg/ Sodium 107.5 mls @ 215 mls/hr 09/18/19 21:00 09/22/19 10:27 Chloride IVPB 107.5 mls BID ABEL Administration Sodium Bicarbonate 70 meq/ 1,070 mls @ 75 mls/hr 09/21/19 08:57 09/22/19 01: 50 Dextrose/Water IV 1,070 mls .[id number] ABEL Administration Vancomycin HCl 1 gm/ Device 200 mls @ 200 mls/hr 09/22/19 08:00 09/22/19 08: 17 IVPB 200 mls 0800 ABEL Administration Levothyroxine Sodium 50 mcg 09/19/19 06:00 09/21/19 05:00 Synthroid PO 50 mcg 0600 ABEL Administration Lorazepam 2 mg 09/18/19 11:42 09/20/19 04:50 Ativan SLOW IVP 10/18/19 11:42 2 mg Q1H PRN Administration Breakthrough agitation Morphine Sulfate 2 mg 09/18/19 11:42 09/22/19 11:20 Morphine SLOW IVP 10/18/19 11:42 2 mg Q1H PRN Administration BREAKTHROUGH PAIN/Agitation Oseltamivir Phosphate 30 mg 09/20/19 09:00 09/21/19 21:45 Tamiflu PO 09/23/19 23:59 30 mg BID ABEL Administration Propofol 1,000 mg 09/18/19 11:42 09/22/19 08:08 Diprivan IV 10/18/19 11:42 1,000 mg INF PRN Administration TO ACHIEVE GOAL RASS Protocol Sodium Chloride 10 ml 09/18/19 21:00 09/22/19 08:23 Flush - Normal Saline IVF 10 ml Q12HR ABEL Administration Venlafaxine HCl 225 mg 09/19/19 09:00 09/21/19 09:44 Effexor Xr PO 225 mg DAILY ABEL Administration - Exam General Appearance: awake alert General - other findings: Obese Eye: anicteric sclera Neck: no thyromegaly, no lymphadenopathy Neck - other findings: ETT Heart: RRR Respiratory: CTAB Gastrointestinal: soft, non-tender Skin - other findings: wounds as documented Psychiatric: normal affect Hosp A/P - Plan - Assessment (1) Sepsis Status: Acute (2) Bacteremia Code(s): R78.81 - BACTEREMIA Status: Acute (3) Influenza B infection Code(s): E87.2 - ACIDOSIS Status: Acute (4) Acute respiratory failure with hypoxia Code(s): J96.01 - ACUTE RESPIRATORY FAILURE WITH HYPOXIA Status: Acute (5) Hypokalemia Code(s): E87.6 - HYPOKALEMIA Status: Acute (6) Metabolic acidosis Code(s): E87.2 - ACIDOSIS Status: Acute (7) Anemia Code(s): E87.2 - ACIDOSIS Status: Acute (8) Sacral decubitus ulcer, stage IV Code(s): L89.154 - PRESSURE ULCER OF SACRAL REGION, STAGE 4 Status: Chronic (9) Seizure disorder Code(s): G40.909 - EPILEPSY, UNSP, NOT INTRACTABLE, WITHOUT STATUS EPILEPTICUS Status: Chronic (10) CHINMAY (acute kidney injury) Code(s): N17.9 - ACUTE KIDNEY FAILURE, UNSPECIFIED Status: Resolved - Plan pt is off of levophed drip. Potassium improved to 3.3, being replaced Pt had debridement yesterday Continue cefepime for gram negative migdalia bacteremia Continue IV vancomycin for staph aureus bacteremia Pt received IV iron Continue Tamiflu
[2019-09-22] MEDS: Lorazepam 2 MG/ML VIAL SLOW IVP PRN (13:27)
[2019-09-22] MEDS: Oseltamivir 6 MG/ML ORAL SUSP PO SCH ×2 (13:49→22:11)
[2019-09-22] MEDS: Venlafaxine HCl XR 75 MG CAP PO SCH (13:49)
[2019-09-22] MEDS: Levothyroxine Sodium 50 MCG TAB PO SCH (14:35)
[2019-09-22] MEDS ORDERED: Pantoprazole 40 MG GRANULES PACKET PO SCH (21:00)
[2019-09-22] MEDS: fentaNYL Citrate/PF 2,000 MCG in Sodium Chloride 0.9% 60 ML IV SCH (21:18)
[2019-09-22] MEDS ORDERED: Pantoprazole 40 MG VIAL IVP SCH (22:45)
[2019-09-23] MEDS: Cefepime 1 GM in Sodium Chloride 0.9% 100 ML IVPB SCH ×2 (05:16→17:19)
[2019-09-23 05:18] LABS: Anion Gap 13 mmol/L (10-20); BUN (Urea Nitrogen) 20 mg/dL (9.8-20.1); Calc. Creatinine Clearance 141 mL/min (70-130); Calcium 7.9 mg/dL (7.8-10.44); Carbon Dioxide 23 mmol/L (22-29); Chloride 107 mmol/L (98-107); Estimated GFR-MDRD Greater than 90; Glucose 109 mg/dL (70-105); Magnesium 1.5 mg/dL (1.6-2.6); Sodium 141 mmol/L (136-145)
[2019-09-23 05:24] LABS: Potassium 2.3 mmol/L (3.5-5.1)
[2019-09-23 05:28] LABS: Phosphorus 2.2 mg/dL (2.3-4.7)
[2019-09-23 05:31] LABS: Band 9 % (5-11); Eosinophils 3 % (0-10); Hemoglobin 9.4 g/dL (12.0-16.0); Lymphocytes 15 % (21-51); MDiff Complete? YES; Mean Corpuscular HGB CONC 33.3 g/dL (32.0-36.0); Mean Corpuscular Hemoglobin 28.5 pg (27.0-31.0); Mean Corpuscular Volume 85.6 fL (78.0-98.0); Mean Platelet Volume 7.7 fL (7.4-10.4); Monocytes 6 % (0-10); Myelocyte 1 % (0-0); Neutrophil 66 % (42-75); Platelet Count 264 thou/uL (130-400); Platelet Morphology Comment Appears Adequate; RBC Distribution Width 16.1 % (11.5-14.5); Red Blood Cell (RBC) Count 3.28 mill/uL (4.20-5.40); White Blood Cell (WBC) Count 13.4 thou/uL (4.8-10.8)
[2019-09-23] MEDS: Potassium Chloride 40 MEQ in Premix Bag 1 BAG IVPB PRN ×3 (06:16→13:39)
[2019-09-23] MEDS: Levothyroxine Sodium 50 MCG TAB PO SCH (06:35)
[2019-09-23 07:46] LABS: Actual Bicarbonate (HCO3a) 23.2 mEq/L (22-28); Base Excess (BEa) 0.6 mEq/L (-2.0 to +3.0); CO2 Tension 29.9 mmHg (35.0-45.0); Calcium, Ionized 1.15 mmol/L (1.12-1.30); Carboxyhemoglobin (COHb) 0.3 gm% (0.0-3.0); Hemoglobin (Hb) 9.5 g/dL (12.0-16.0); O2 Tension (PaO2) 117.5 mmHg (80.0-100.0); Potassium - ABG Lab 2.46 mmol/L (3.70-5.30); pH, Arterial 7.51 (7.35-7.45)
[2019-09-23 07:49] LABS: Puncture Site RRA
[2019-09-23 07:50] LABS: ALV-art Gradient 130.325 (0-20)
--- NOTE | 2019-09-23 08:11 | OP ---
DATE OF PROCEDURE: 09/21/2019 PREOPERATIVE DIAGNOSES: Paraplegia, sepsis, urosepsis, multiple decubitus, diverting colostomy previously placed. POSTOPERATIVE DIAGNOSIS: Paraplegia, sepsis, urosepsis, multiple decubitus, diverting colostomy previously placed. PROCEDURE PERFORMED: Debridement of sacral decubitus of a small area of skin and subcutaneous tissue. ANESTHESIA: General. FINDINGS: The patient was taken to the operating room and her decubiti all look very good. There was one area that had some necrotic skin and subcutaneous tissue sharply excised. Otherwise, no other debridement is necessary and the wounds are healing. There was no exposed bone, although decubiti were extensive. She was fecally impacted and I manually disimpacted her. DESCRIPTION OF PROCEDURE: The patient was taken to the operating room, placed in right lateral decubitus position under general anesthesia. A fecal impaction was disimpacted. Sacral and buttock area prepared with Betadine. She had multiple decubitus midline, buttocks, all granulating. There was one area to the left that had some necrotic tissue debrided sharply back to healthy tissue. Healthy bleeding controlled with cautery. Gauze dressing applied. The patient tolerated the procedure well. No further debridement is necessary, this is not the source of her sepsis. Job ID: [id number]
[2019-09-23] MEDS: Vancomycin 1 GM in Premix Bag 1 BAG IVPB SCH (08:17)
--- NOTE | 2019-09-23 08:26 | PRG ---
DATE OF SERVICE: 09/23/2019 TIME SPENT: 35 minutes of critical care time. SUBJECTIVE: The patient remains intubated on mechanical ventilation. She will look around. She tries to move her left arm. OBJECTIVE: VITAL SIGNS: Temperature 98.8, pulse 75, blood pressure 94/60, 24-hour intake 4067, output 3305. HEENT: Unremarkable except for the tubes in place. NECK: No adenopathy or JVD. LUNGS: Clear. CARDIAC: S1, S2. Regular. ABDOMEN: Soft. EXTREMITIES: Edematous, especially in arms. LABORATORY DATA: Sodium 141, potassium 2.3, chloride 107, CO2 of 23, BUN 20, creatinine 0.5, glucose 109, phosphorus 2.2, magnesium 1.5. White blood cell count 13.4, hematocrit 28.1, and platelet count 264. PH of 7.51, pCO2 25, PO2 87 on SIMV rate 18, tidal volume 500, PEEP 5, pressure support 10, FiO2 of 30%. ASSESSMENT: 1. Acute respiratory failure requiring mechanical ventilation. 2. Sepsis from decubitus ulcer, now status post debridement. 3. Severe electrolyte depletion. PLAN: 1. Replace potassium, magnesium and phosphorus. 2. Put her rate down to 10, drop her pressure support and see if we can get her spontaneously breathing. 3. Hope to extubate in the next day or two. 4. Continue IV antibiotics. Job ID: [id number]
[2019-09-23] MEDS: Enoxaparin Sodium 40 MG/0.4 ML SYRINGE SC SCH (09:32)
[2019-09-23] MEDS: Venlafaxine HCl XR 75 MG CAP PO SCH (09:32)
[2019-09-23] MEDS: Oseltamivir 6 MG/ML ORAL SUSP PO SCH ×2 (09:40→21:54)
[2019-09-23] MEDS: Famotidine 20 MG TAB PER TUBE SCH ×2 (09:41→21:54)
[2019-09-23] MEDS: Sodium Chloride 0.45% 1,000 ML IV SCH ×2 (10:17→21:55)
[2019-09-23 12:28] LABS: Potassium 3.5 mmol/L (3.5-5.1)
[2019-09-23] MEDS: Sodium Bicarbonate 70 MEQ in Dextrose 5% in Water 1,000 ML IV SCH (14:59)
--- NOTE | 2019-09-23 16:41 | PDOC.HOSPP ---
- Subjective Encounter Date: 09/23/19 Encounter Time: :20 Subjective: Pt seen for followup re: bacteremia. Intubated, unable to complete ROS. - Objective Vital Signs & Weight: Vital Signs (12 hours) Temp Pulse Resp Pulse Ox 09/23/19 15:57 86 09/23/19 14:00 99.1 F 09/23/19 13:18 83 09/23/19 10:39 80 09/23/19 10:00 10 L 09/23/19 08:00 99.0 F 10 L 100 09/23/19 07:29 74 09/23/19 06:00 18 Weight Admit Weight 180 lb Weight 180 lb 12.465 oz Most Recent Monitor Data Heart Rate from ECG 83 NIBP 94/58 NIBP BP-Mean 70 Respiration from ECG 23 SpO2 97 I&O: 09/22/19 09/23/19 09/24/19 06:59 06:59 06:59 Intake Total 3842 4065.4 1070 Output Total 2315 3305 1640 Balance 1527 760.4 -570 Result Diagrams: 09/23/19 04:13 09/23/19 11:50 Additional Labs: Labs and MARs reviewed by me EKG Reviewed by me: Yes (Tele: NSR) Hospitalist ROS - Review of Systems ROS unobtainable: due to endotracheal tube - Medication Medications: Active Medications Generic Name Dose Route Start Last Admin Trade Name Freq PRN Reason Stop Dose Admin Acetaminophen 650 mg 09/18/19 18:42 09/21/19 05:04 Tylenol PO 650 mg Q4H PRN Administration Headache/Fever/Mild Pain (1-3) Enoxaparin Sodium 40 mg 09/19/19 09:00 09/23/19 09:32 Lovenox SC 40 mg 0900 ABEL Administration Famotidine 20 mg 09/23/19 09:00 09/23/19 09:41 Pepcid PER TUBE 20 mg BID ABEL Administration Fentanyl Citrate 2,000 mcg/ 100 mls @ 0 mls/hr 09/18/19 11:42 09/22/19 21:18 Sodium Chloride IV 10/18/19 11:42 100 mls INF ABEL Administration Protocol Per Protocol Potassium Chloride 40 meq/ 100 mls @ 50 mls/hr 09/18/19 11:42 09/23/19 13:39 Device IVPB 100 mls ASDIR PRN Administration FOR SERUM K+ 2.5 - 3.5 Magnesium Sulfate 1 gm/ Sodium 102 mls @ 102 mls/hr 09/18/19 11:42 09/23/19 07:49 Chloride IV 102 mls PRN PRN Administration MAG LEVEL 1.4 - 2.0 Cefepime HCl 1 gm/ Sodium 100 mls @ 200 mls/hr 09/18/19 17:00 09/23/19 05:16 Chloride IVPB 100 mls 0500,1700 ABEL Administration Levetiracetam 750 mg/ Sodium 107.5 mls @ 215 mls/hr 09/18/19 21:00 09/23/19 09:31 Chloride IVPB 107.5 mls BID ABEL Administration Vancomycin HCl 1 gm/ Device 200 mls @ 200 mls/hr 09/22/19 08:00 09/23/19 08: 17 IVPB 200 mls 0800 ABEL Administration Sodium Chloride 1,000 mls @ 75 mls/hr 09/23/19 08:00 09/23/19 10:17 1/2 Normal Saline IV 1,000 mls .[id number] ABEL Administration Sodium Phosphate 40 mmol/ 513.3333 mls @ 64.167 mls/hr 09/23/19 08:15 09:27 Sodium Chloride IVPB 09/23/19 18:00 513.3333 mls NOW ABEL Administration Levothyroxine Sodium 50 mcg 09/19/19 06:00 09/23/19 06:35 Synthroid PO 50 mcg 0600 ABEL Administration Lorazepam 2 mg 09/18/19 11:42 09/22/19 13:27 Ativan SLOW IVP 10/18/19 11:42 2 mg Q1H PRN Administration Breakthrough agitation Morphine Sulfate 2 mg 09/18/19 11:42 09/22/19 11:20 Morphine SLOW IVP 10/18/19 11:42 2 mg Q1H PRN Administration BREAKTHROUGH PAIN/Agitation Oseltamivir Phosphate 30 mg 09/20/19 09:00 09/23/19 09:40 Tamiflu PO 09/23/19 23:59 30 mg BID ABEL Administration Propofol 1,000 mg 09/18/19 11:42 09/22/19 23:56 Diprivan IV 10/18/19 11:42 1,000 mg INF PRN Administration TO ACHIEVE GOAL RASS Protocol Sodium Chloride 10 ml 09/18/19 21:00 09/23/19 09:33 Flush - Normal Saline IVF 10 ml Q12HR ABEL Administration Venlafaxine HCl 225 mg 09/19/19 09:00 09/23/19 09:32 Effexor Xr PO 225 mg DAILY ABEL Administration - Exam General Appearance: awake alert General - other findings: Obese Eye: anicteric sclera ENT - other findings: ETT+ Neck: symmetric, no thyromegaly Heart: RRR, no gallops Respiratory: CTAB Gastrointestinal: soft, normal bowel sounds Skin - other findings: sacral wounds Musculoskeletal: no muscle wasting Psychiatric: normal affect Hosp A/P - Plan - Assessment (1) Bacteremia Code(s): R78.81 - BACTEREMIA Status: Acute (2) Acute respiratory failure with hypoxia Code(s): J96.01 - ACUTE RESPIRATORY FAILURE WITH HYPOXIA Status: Acute (3) Influenza B infection Code(s): E87.2 - ACIDOSIS Status: Acute (4) Metabolic acidosis Code(s): E87.2 - ACIDOSIS Status: Acute (5) Anemia Code(s): E87.2 - ACIDOSIS Status: Acute (6) Sacral decubitus ulcer, stage IV Code(s): L89.154 - PRESSURE ULCER OF SACRAL REGION, STAGE 4 Status: Chronic (7) Seizure disorder Code(s): G40.909 - EPILEPSY, UNSP, NOT INTRACTABLE, WITHOUT STATUS EPILEPTICUS Status: Chronic (8) CHINMAY (acute kidney injury) Code(s): N17.9 - ACUTE KIDNEY FAILURE, UNSPECIFIED Status: Resolved (9) Sepsis Status: Resolved (10) Hypokalemia Code(s): E87.6 - HYPOKALEMIA Status: Resolved - Plan pt is off of levophed drip. Hypokalemia resolved. magnesium and phosphorus be9ing replaced. s/p debridement of sacral wounds. Continue cefepime for gram negative migdalia bacteremia Continue IV vancomycin for MRSA bacteremia Pt is on Tamiflu for influenza B
[2019-09-23] MEDS: Lorazepam 2 MG/ML VIAL SLOW IVP PRN (19:53)
--- NOTE | 2019-09-23 21:37 | EKG ---
Test Reason : Blood Pressure : / mmHG Vent. Rate : 078 BPM Atrial Rate : 220 BPM P-R Int : 000 ms QRS Dur : 076 ms QT Int : 404 ms P-R-T Axes : 000 066 014 degrees QTc Int : 460 ms Poor data quality Undetermined rhythm Low voltage QRS Abnormal ECG When compared with ECG of 23-JAN-2019 17:40, Undetermined rhythm has replaced Sinus rhythm Incomplete right bundle branch block is no longer Present Confirmed by ANN DENT, DR. S. ([id number]) on 09/23/2019 9:37:12 PM Referred By: ZACKERY Confirmed By:DR. Isaias JUAREZ MD
[2019-09-24] MEDS: Lorazepam 2 MG/ML VIAL SLOW IVP PRN (01:54)
[2019-09-24] MEDS: fentaNYL Citrate/PF 2,000 MCG in Sodium Chloride 0.9% 60 ML IV SCH (02:49)
[2019-09-24] MEDS: Cefepime 1 GM in Sodium Chloride 0.9% 100 ML IVPB SCH ×2 (05:16→17:29)
[2019-09-24 05:25] LABS: #Eosinphils 0.5 thou/uL (0.0-0.7); #Lymphocytes 1.4 thou/uL (1.20-3.40); #Monocytes 0.9 thou/uL (0.11-0.59); #Neutrophils 11.6 thou/uL (1.40-6.50); %Basophils 0.3 % (0.0-1.0); %Eosinophils 3.1 % (0.0-10.0); %Lymphocytes 9.9 % (21.0-51.0); %Monocytes 6.1 % (0.0-10.0); %Neutrophils 80.5 % (42.0-75.0); Hemoglobin 9.2 g/dL (12.0-16.0); Mean Corpuscular HGB CONC 32.3 g/dL (32.0-36.0); Mean Corpuscular Hemoglobin 28.5 pg (27.0-31.0); Mean Corpuscular Volume 88.3 fL (78.0-98.0); Mean Platelet Volume 7.5 fL (7.4-10.4); Platelet Count 284 thou/uL (130-400); RBC Distribution Width 16.3 % (11.5-14.5); Red Blood Cell (RBC) Count 3.22 mill/uL (4.20-5.40); White Blood Cell (WBC) Count 14.5 thou/uL (4.8-10.8)
[2019-09-24 05:45] LABS: Anion Gap 11 mmol/L (10-20); BUN (Urea Nitrogen) 19 mg/dL (9.8-20.1); Calc. Creatinine Clearance 151 mL/min (70-130); Calcium 8.1 mg/dL (7.8-10.44); Carbon Dioxide 23 mmol/L (22-29); Chloride 109 mmol/L (98-107); Estimated GFR-MDRD Greater than 90; Glucose 133 mg/dL (70-105); Magnesium 1.3 mg/dL (1.6-2.6); Sodium 140 mmol/L (136-145)
[2019-09-24 05:48] LABS: Phosphorus 2.8 mg/dL (2.3-4.7)
[2019-09-24 05:49] LABS: Potassium 2.7 mmol/L (3.5-5.1)
[2019-09-24] MEDS: Levothyroxine Sodium 50 MCG TAB PO SCH (06:34)
[2019-09-24] MEDS: Potassium Chloride 40 MEQ in Premix Bag 1 BAG IVPB PRN ×2 (06:35→07:02)
[2019-09-24 07:16] LABS: Vancomycin, Trough 13.4 ug/mL
[2019-09-24] MEDS ORDERED: DC Sedation Protocol FS ONE (07:33)
--- NOTE | 2019-09-24 07:43 | PRG ---
DATE OF SERVICE: 09/24/2019 TIME SPENT: 35 minutes of critical care time. SUBJECTIVE: The patient remains intubated on mechanical ventilation. She is awake, follows commands without difficulty. OBJECTIVE: VITAL SIGNS: On exam, temperature 99.1, pulse 88, blood pressure 125/100. A 24-hour intake of 740, output 3975. HEENT: Unremarkable. NECK: No adenopathy or JVD. LUNGS: Coarse breath sounds. CARDIAC: S1 and S2. Regular. ABDOMEN: Soft. EXTREMITIES: Trace edema in the arms. LABORATORY DATA: White blood cell count 14.5, hematocrit 28.4, and platelet count 284. Sodium 140, potassium 2.7, chloride 109, CO2 of 23, BUN 19, creatinine 0.5, glucose 133, and magnesium 1.3. ASSESSMENT: 1. Acute respiratory failure, requiring mechanical ventilation. 2. Large decubitus ulcer. 3. Septicemia from decubitus ulcer. 4. Paraplegia. 5. Severe electrolyte depletion. PLAN: 1. Placement of potassium and magnesium. 2. Extubated and observed. 3. Continue IV antibiotics. Job ID: [id number]
[2019-09-24] MEDS: Vancomycin HCl 1.25 GM in Sodium Chloride 0.9% 250 ML 250 ML IVPB SCH (07:56)
[2019-09-24] MEDS ORDERED: Ketorolac Tromethamine 30 MG/ML VIAL IVP PRN (08:37)
[2019-09-24] MEDS ORDERED: Ketorolac Tromethamine 30 MG/ML VIAL IVP SCH (08:45)
[2019-09-24] MEDS ORDERED: Morphine 4 MG/ML VIAL ONE (08:54)
[2019-09-24] MEDS ORDERED: Morphine 2 MG/ML SYRINGE SLOW IVP SCH (09:45)
[2019-09-24] MEDS: Famotidine 20 MG TAB PER TUBE SCH ×2 (09:49→21:55)
[2019-09-24] MEDS: Venlafaxine HCl XR 75 MG CAP PO SCH (09:50)
[2019-09-24] MEDS: Enoxaparin Sodium 40 MG/0.4 ML SYRINGE SC SCH (09:50)
[2019-09-24] MEDS: Sodium Chloride 0.45% 1,000 ML IV SCH (11:24)
[2019-09-24 13:02] LABS: Magnesium 1.6 mg/dL (1.6-2.6); Potassium 3.1 mmol/L (3.5-5.1)
[2019-09-24] MEDS: Magnesium Oxide 400 MG TAB PO PRN (14:07)
--- NOTE | 2019-09-24 17:17 | PDOC.HOSPP ---
- Subjective Encounter Date: 09/24/19 Encounter Time: 10:00 Subjective: Pt seen for followup re: bacteremia. Extubated yesterday. Denies chest pain. - Objective Vital Signs & Weight: Vital Signs (12 hours) Temp Pulse Resp Pulse Ox 09/24/19 12:00 99.1 F 09/24/19 08:00 99 09/24/19 07:33 94 28 H 99 09/24/19 07:27 87 09/24/19 07:00 99.1 F 09/24/19 06:00 24 H Weight Admit Weight 180 lb Weight 180 lb 12.465 oz Most Recent Monitor Data Heart Rate from ECG 102 NIBP 111/63 NIBP BP-Mean 79 Respiration from ECG 25 SpO2 96 I&O: 09/23/19 09/24/19 09/25/19 06:59 06:59 06:59 Intake Total 4065.4 5740 645 Output Total 3305 3975 2380 Balance 760.4 4134 -6987 Result Diagrams: 09/24/19 04:58 09/24/19 12:38 Additional Labs: Labs and MARs reviewed by me EKG Reviewed by me: Yes (Tele: s. tach) Hospitalist ROS - Review of Systems Cardiovascular: denies: chest pain, palpitations, orthopnea, paroxysmal noc. dyspnea, edema, light headedness Gastrointestinal: denies: nausea, vomiting, abdominal pain, diarrhea, constipation, melena, hematochezia Musculoskeletal: reports: back pain - Medication Medications: Active Medications Generic Name Dose Route Start Last Admin Trade Name Freq PRN Reason Stop Dose Admin Acetaminophen 650 mg 09/18/19 18:42 09/21/19 05:04 Tylenol PO 650 mg Q4H PRN Administration Headache/Fever/Mild Pain (1-3) Enoxaparin Sodium 40 mg 09/19/19 09:00 09/24/19 09:50 Lovenox SC 40 mg 0900 ABEL Administration Famotidine 20 mg 09/23/19 09:00 09/24/19 09:49 Pepcid PER TUBE 20 mg BID ABEL Administration Potassium Chloride 40 meq/ 100 mls @ 50 mls/hr 09/18/19 11:42 09/24/19 07:02 Device IVPB 100 mls ASDIR PRN Administration FOR SERUM K+ 2.5 - 3.5 Magnesium Sulfate 1 gm/ Sodium 102 mls @ 102 mls/hr 09/18/19 11:42 09/24/19 09:00 Chloride IV 102 mls PRN PRN Administration MAG LEVEL 1.4 - 2.0 Cefepime HCl 1 gm/ Sodium 100 mls @ 200 mls/hr 09/18/19 17:00 09/24/19 05:16 Chloride IVPB 100 mls 0500,1700 ABEL Administration Levetiracetam 750 mg/ Sodium 107.5 mls @ 215 mls/hr 09/18/19 21:00 09/24/19 10:21 Chloride IVPB 107.5 mls BID ABEL Administration Sodium Chloride 1,000 mls @ 75 mls/hr 09/23/19 08:00 09/24/19 11:24 1/2 Normal Saline IV Not Given .[id number] ABEL Vancomycin HCl 1.25 gm/ Sodium 250 mls @ 166.667 mls/hr 09/24/19 08:00 07:56 Chloride IVPB 250 mls 0800 ABEL Administration Levothyroxine Sodium 50 mcg 09/19/19 06:00 09/24/19 06:34 Synthroid PO 50 mcg 0600 ABEL Administration Magnesium Oxide 400 mg 09/18/19 11:42 09/24/19 14:07 Magnesium Oxide PO 400 mg BIDPRN PRN Administration FOR SERUM MAG 1.4 - 2.0 Potassium Chloride 40 meq 09/18/19 11:42 09/24/19 14:07 Klor-Con PER TUBE 40 meq ASDIR PRN Administration FOR SERUM K+ 2.5-3.5 Sodium Chloride 10 ml 09/18/19 21:00 09/24/19 14:08 Flush - Normal Saline IVF 10 ml Q12HR ABEL Administration Venlafaxine HCl 225 mg 09/19/19 09:00 09/24/19 09:50 Effexor Xr PO 225 mg DAILY ABEL Administration - Exam General Appearance: awake alert General - other findings: Obese Eye: anicteric sclera ENT: moist mucosa Neck: supple Heart - other findings: S1, S2, tachy Respiratory: CTAB Gastrointestinal: soft, non-tender Extremities: no cyanosis Skin - other findings: sacral wound vac Psychiatric: normal affect, normal behavior Hosp A/P - Plan - Assessment (1) Bacteremia Code(s): R78.81 - BACTEREMIA Status: Acute (2) Acute respiratory failure with hypoxia Code(s): J96.01 - ACUTE RESPIRATORY FAILURE WITH HYPOXIA Status: Acute (3) Influenza B infection Code(s): E87.2 - ACIDOSIS Status: Acute (4) Metabolic acidosis Code(s): E87.2 - ACIDOSIS Status: Acute (5) Anemia Code(s): E87.2 - ACIDOSIS Status: Acute (6) Sacral decubitus ulcer, stage IV Code(s): L89.154 - PRESSURE ULCER OF SACRAL REGION, STAGE 4 Status: Chronic (7) Seizure disorder Code(s): G40.909 - EPILEPSY, UNSP, NOT INTRACTABLE, WITHOUT STATUS EPILEPTICUS Status: Chronic (8) CHINMAY (acute kidney injury) Code(s): N17.9 - ACUTE KIDNEY FAILURE, UNSPECIFIED Status: Resolved (9) Sepsis Status: Resolved (10) Hypokalemia Code(s): E87.6 - HYPOKALEMIA Status: Resolved - Plan Pt off of levophed, extubated. Electrolytes being replaced. s/p debridement of sacral wounds, now has wound vac Continue cefepime for gram negative migdalia bacteremia Continue IV vancomycin for MRSA bacteremia Pt completed course of oseltamivir for influenza B
[2019-09-24 18:25] LABS: Magnesium 1.5 mg/dL (1.6-2.6); Potassium 3.5 mmol/L (3.5-5.1)
[2019-09-24 20:17] LABS: Potassium 4.1 mmol/L (3.5-5.1)
[2019-09-24] MEDS ORDERED: diphenhydrAMINE 25 MG CAP PO PRN (22:37)
[2019-09-25] MEDS: Sodium Chloride 0.45% 1,000 ML IV SCH ×2 (00:46→13:09)
[2019-09-25] MEDS ORDERED: diphenhydrAMINE 25 MG CAP PO SCH (02:00)
[2019-09-25 05:11] LABS: #Eosinphils 0.5 thou/uL (0.0-0.7); #Lymphocytes 1.8 thou/uL (1.20-3.40); #Monocytes 1.1 thou/uL (0.11-0.59); #Neutrophils 8.5 thou/uL (1.40-6.50); %Basophils 0.2 % (0.0-1.0); %Eosinophils 4.1 % (0.0-10.0); %Lymphocytes 14.9 % (21.0-51.0); %Monocytes 9.6 % (0.0-10.0); %Neutrophils 71.2 % (42.0-75.0); Hemoglobin 9.1 g/dL (12.0-16.0); Mean Corpuscular HGB CONC 31.4 g/dL (32.0-36.0); Mean Corpuscular Hemoglobin 28.2 pg (27.0-31.0); Mean Corpuscular Volume 89.9 fL (78.0-98.0); Mean Platelet Volume 7.8 fL (7.4-10.4); Platelet Count 329 thou/uL (130-400); RBC Distribution Width 16.6 % (11.5-14.5); Red Blood Cell (RBC) Count 3.22 mill/uL (4.20-5.40); White Blood Cell (WBC) Count 11.9 thou/uL (4.8-10.8)
[2019-09-25 05:24] LABS: Anion Gap 12 mmol/L (10-20); BUN (Urea Nitrogen) 11 mg/dL (9.8-20.1); Calc. Creatinine Clearance 160 mL/min (70-130); Calcium 8.6 mg/dL (7.8-10.44); Carbon Dioxide 21 mmol/L (22-29); Chloride 112 mmol/L (98-107); Estimated GFR-MDRD Greater than 90; Glucose 80 mg/dL (70-105); Magnesium 1.4 mg/dL (1.6-2.6); Potassium 3.2 mmol/L (3.5-5.1); Sodium 142 mmol/L (136-145)
[2019-09-25 05:28] LABS: Phosphorus 1.9 mg/dL (2.3-4.7)
[2019-09-25] MEDS: Cefepime 1 GM in Sodium Chloride 0.9% 100 ML IVPB SCH ×2 (06:31→17:15)
[2019-09-25] MEDS: Levothyroxine Sodium 50 MCG TAB PO SCH (06:31)
[2019-09-25] MEDS: HYDROcodone/Acetaminophen 5/325 mg Tablet PO PRN ×2 (07:18→23:55)
[2019-09-25] MEDS: Magnesium Oxide 400 MG TAB PO PRN (07:19)
--- NOTE | 2019-09-25 08:12 | PRG ---
DATE OF SERVICE: 09/25/2019 SUBJECTIVE: Ms. Wilde was successfully extubated yesterday. She is doing relatively okay without acute complaints. OBJECTIVE: VITAL SIGNS: Temperature 98.5, pulse 91, blood pressure 123/94, O2 saturation 96% on nasal cannula. HEENT: Unremarkable. NECK: No adenopathy or JVD. LUNGS: Clear to auscultation. CARDIAC: S1, S2. Regular. ABDOMEN: Ileostomy, urostomy noted. EXTREMITIES: Edematous. LABORATORY DATA: White blood cell count 11.9, hematocrit 28.9, and platelet count 329. Sodium 142, potassium 3.2, chloride 112, CO2 of 21, BUN 11, creatinine 0.5, glucose 80, phosphorus 1.9, magnesium 1.4. ASSESSMENT: 1. Status post respiratory failure, requiring mechanical ventilation. 2. Large decubitus ulcer. 3. Sepsis from the ulcer. 4. Electrolyte depletion, likely related to refeeding syndrome and high output from the ileostomy and urostomy. PLAN: 1. Move to [facility]. 2. Replace electrolytes. 3. Hopefully back to the skilled nursing soon. May need input from ID in terms of how long to treat with antibiotics. Job ID: [id number]
[2019-09-25] MEDS: Venlafaxine HCl XR 75 MG CAP PO SCH (08:38)
[2019-09-25] MEDS: Famotidine 20 MG TAB PER TUBE SCH ×2 (08:38→20:42)
[2019-09-25] MEDS: Enoxaparin Sodium 40 MG/0.4 ML SYRINGE SC SCH (08:39)
[2019-09-25] MEDS: Vancomycin HCl 1.25 GM in Sodium Chloride 0.9% 250 ML 250 ML IVPB SCH (09:28)
--- NOTE | 2019-09-25 14:35 | PDOC.HOSPP ---
- Subjective Encounter Date: 09/25/19 Encounter Time: 09:40 Subjective: Pt seen for followup re: infected wound. States she feels better. Speaking in a low voice. - Objective Vital Signs & Weight: Vital Signs (12 hours) Temp Pulse Ox 09/25/19 12:00 98.6 F 09/25/19 08:00 98.1 F 97 09/25/19 04:00 98.5 F Weight Admit Weight 180 lb Weight 180 lb 12.465 oz Most Recent Monitor Data Heart Rate from ECG 92 NIBP 126/76 NIBP BP-Mean 92 Respiration from ECG 33 SpO2 94 I&O: 09/24/19 09/25/19 09/26/19 06:59 06:59 06:59 Intake Total 5740 2187 820 Output Total 6471 4830 1010 Balance 1765 -2643 -190 Result Diagrams: 09/25/19 04:23 09/25/19 04:23 Additional Labs: Labs and MARs reviewed by me EKG Reviewed by me: Yes (Tele: sinus tachycardia) Hospitalist ROS - Review of Systems Cardiovascular: denies: chest pain, palpitations, orthopnea, paroxysmal noc. dyspnea, edema, light headedness Gastrointestinal: denies: nausea, vomiting, abdominal pain, diarrhea, constipation, melena, hematochezia Musculoskeletal: reports: back pain - Medication Medications: Active Medications Generic Name Dose Route Start Last Admin Trade Name Freq PRN Reason Stop Dose Admin Acetaminophen 650 mg 09/18/19 18:42 09/21/19 05:04 Tylenol PO 650 mg Q4H PRN Administration Headache/Fever/Mild Pain (1-3) Hydrocodone Bitart/Acetaminophen 1 tab 09/24/19 09:59 09/25/19 07:18 [place] 5/325 PO 1 tab QIDPRN PRN Administration Pain Diphenhydramine HCl 25 mg 09/24/19 22:37 09/24/19 23:06 Benadryl PO 25 mg Q8H PRN Administration rash itching Enoxaparin Sodium 40 mg 09/19/19 09:00 09/25/19 08:39 Lovenox SC 40 mg 0900 ABEL Administration Famotidine 20 mg 09/23/19 09:00 09/25/19 08:38 Pepcid PER TUBE 20 mg BID ABEL Administration Potassium Chloride 40 meq/ 100 mls @ 50 mls/hr 09/18/19 11:42 09/24/19 07:02 Device IVPB 100 mls ASDIR PRN Administration FOR SERUM K+ 2.5 - 3.5 Magnesium Sulfate 1 gm/ Sodium 102 mls @ 102 mls/hr 09/18/19 11:42 09/24/19 09:00 Chloride IV 102 mls PRN PRN Administration MAG LEVEL 1.4 - 2.0 Cefepime HCl 1 gm/ Sodium 100 mls @ 200 mls/hr 09/18/19 17:00 09/25/19 06:31 Chloride IVPB 100 mls 0500,1700 ABEL Administration Levetiracetam 750 mg/ Sodium 107.5 mls @ 215 mls/hr 09/18/19 21:00 09/25/19 09:29 Chloride IVPB 107.5 mls BID ABEL Administration Sodium Chloride 1,000 mls @ 75 mls/hr 09/23/19 08:00 09/25/19 13:09 1/2 Normal Saline IV 1,000 mls .[id number] ABEL Administration Vancomycin HCl 1.25 gm/ Sodium 250 mls @ 166.667 mls/hr 09/24/19 08:00 09:28 Chloride IVPB 250 mls 0800 ABEL Administration Levothyroxine Sodium 50 mcg 09/19/19 06:00 09/25/19 06:31 Synthroid PO 50 mcg 0600 ABEL Administration Magnesium Oxide 400 mg 09/18/19 11:42 09/25/19 07:19 Magnesium Oxide PO 400 mg BIDPRN PRN Administration FOR SERUM MAG 1.4 - 2.0 Magnesium Oxide 800 mg 09/18/19 11:42 09/24/19 18:41 Magnesium Oxide PO 800 mg PRN PRN Administration FOR SERUM MAG < 1.4 Potassium Chloride 40 meq 09/18/19 11:42 09/25/19 07:18 K-Dur PO 40 meq ASDIR PRN Administration FOR SERUM K+ 2.5 - 3.5 Potassium Chloride 40 meq 09/18/19 11:42 09/24/19 18:42 Klor-Con PER TUBE 40 meq ASDIR PRN Administration FOR SERUM K+ 2.5-3.5 Sodium Chloride 10 ml 09/18/19 21:00 09/25/19 08:38 Flush - Normal Saline IVF 10 ml Q12HR ABEL Administration Venlafaxine HCl 225 mg 09/19/19 09:00 09/25/19 08:38 Effexor Xr PO 225 mg DAILY ABEL Administration - Exam General - other findings: Obese Neck: supple, symmetric Heart - other findings: S1, S2, reg, tachy Respiratory: CTAB Gastrointestinal: soft Skin - other findings: sacral wound vac Musculoskeletal: no muscle wasting Psychiatric: normal affect, normal behavior Hosp A/P - Plan - Assessment (1) Infected sacral wound Code(s): R78.81 - BACTEREMIA Status: Acute (2) Hypokalemia Code(s): E87.6 - HYPOKALEMIA Status: Acute (3) Influenza B infection Code(s): E87.2 - ACIDOSIS Status: Acute (4) Metabolic acidosis Code(s): E87.2 - ACIDOSIS Status: Acute (5) Anemia Code(s): E87.2 - ACIDOSIS Status: Acute (6) Sacral decubitus ulcer, stage IV Code(s): L89.154 - PRESSURE ULCER OF SACRAL REGION, STAGE 4 Status: Chronic (7) Seizure disorder Code(s): G40.909 - EPILEPSY, UNSP, NOT INTRACTABLE, WITHOUT STATUS EPILEPTICUS Status: Chronic (8) CHINMAY (acute kidney injury) Code(s): N17.9 - ACUTE KIDNEY FAILURE, UNSPECIFIED Status: Resolved (9) Sepsis Status: Resolved (10) Acute respiratory failure with hypoxia Code(s): J96.01 - ACUTE RESPIRATORY FAILURE WITH HYPOXIA Status: Resolved - Plan Resp failure resolved. s/p debridement of sacral wounds, now has wound vac Continue cefepime for gram negative migdalia bacteremia Continue IV vancomycin for MRSA bacteremia Pt completed course of oseltamivir for influenza B Consult ID for antibiotic choice and duration.
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
[2019-09-26] MEDS: Sodium Chloride 0.45% 1,000 ML IV SCH (02:24)
[2019-09-26 03:55] LABS: Anion Gap 15 mmol/L (10-20); BUN (Urea Nitrogen) 9 mg/dL (9.8-20.1); Calc. Creatinine Clearance 160 mL/min (70-130); Calcium 8.2 mg/dL (7.8-10.44); Carbon Dioxide 15 mmol/L (22-29); Chloride 113 mmol/L (98-107); Estimated GFR-MDRD Greater than 90; Glucose 86 mg/dL (70-105); Magnesium 1.2 mg/dL (1.6-2.6); Potassium 3.3 mmol/L (3.5-5.1); Sodium 140 mmol/L (136-145)
[2019-09-26 04:15] LABS: Phosphorus 2.6 mg/dL (2.3-4.7)
[2019-09-26] MEDS: Cefepime 1 GM in Sodium Chloride 0.9% 100 ML IVPB SCH ×2 (05:01→17:44)
[2019-09-26] MEDS: Levothyroxine Sodium 50 MCG TAB PO SCH (05:02)
[2019-09-26] MEDS ORDERED: Magnesium 2 GM/50 ML 2 GM in Premix Bag 1 BAG IVPB PRN (07:36)
[2019-09-26] MEDS ORDERED: Potassium Phosphate 30 MMOL in Sodium Chloride 0.9% 250 ML 250 ML IVPB SCH (08:30)
--- NOTE | 2019-09-26 08:41 | PRG ---
DATE OF SERVICE: 09/26/2019 SUBJECTIVE: She did fine the 1st night out of the CCU. OBJECTIVE: VITAL SIGNS: Temperature 99.8, pulse 88, blood pressure 123/72. HEENT: Unremarkable. NECK: No adenopathy or JVD. CHEST: Clear anteriorly. CARDIAC: S1, S2. Regular. ABDOMEN: Soft. EXTREMITIES: No edema. LABORATORY DATA: Sodium 140, potassium 3.3, chloride 113, CO2 of 15, BUN 9, creatinine 0.5, glucose 86, magnesium 1.2. ASSESSMENT: 1. Severe electrolyte depletion. 2. 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 3. Sepsis from infected decubitus ulcer. PLAN: 1. The patient is likely going to need some type of aggressive oral electrolyte replacement therapy [employer]. 2. We will transfer to medical floor. 3. Back to skilled nursing soon. Job ID: [id number]
[2019-09-26] MEDS: Vancomycin HCl 1.25 GM in Sodium Chloride 0.9% 250 ML 250 ML IVPB SCH (09:07)
[2019-09-26] MEDS: Enoxaparin Sodium 40 MG/0.4 ML SYRINGE SC SCH (09:07)
[2019-09-26] MEDS ORDERED: Potassium Chloride 20 MEQ TAB PO SCH (09:17)
[2019-09-26 09:23] LABS: Vancomycin, Trough 13.9 ug/mL
[2019-09-26] MEDS ORDERED: Magnesium 2 GM/50 ML 2 GM in Premix Bag 1 BAG IVPB SCH ×2 (09:30→16:00)
[2019-09-26] MEDS: HYDROcodone/Acetaminophen 5/325 mg Tablet PO PRN (09:56)
[2019-09-26] MEDS: Venlafaxine HCl XR 75 MG CAP PO SCH (09:57)
[2019-09-26] MEDS: Sodium Bicarbonate Tab 325 MG TAB PO SCH ×3 (09:58→21:02)
[2019-09-26] MEDS: Famotidine 20 MG TAB PER TUBE SCH ×2 (09:58→21:01)
--- NOTE | 2019-09-26 14:36 | PDOC.HOSPP ---
- Subjective Encounter Date: 09/26/19 Encounter Time: 10:20 Subjective: pt looks quite ill and lethargic. minimal conversation. - Objective Vital Signs & Weight: Vital Signs (12 hours) Temp Pulse Resp BP Pulse Ox 09/26/19 13:52 97.7 F 94 18 123/78 96 09/26/19 08:00 91 L 09/26/19 07:30 99.8 F H 09/26/19 03:40 98.2 F Weight Admit Weight 180 lb Weight 180 lb 12.465 oz Most Recent Monitor Data Heart Rate from ECG 74 NIBP 150/76 NIBP BP-Mean 100 Respiration from ECG 27 SpO2 96 I&O: 09/25/19 09/26/19 09/27/19 06:59 06:59 06:59 Intake Total 2187 2204 Output Total 2420 1321 Balance -2611 -2417 Result Diagrams: 09/25/19 04:23 09/26/19 03:24 Hospitalist ROS - Medication Medications: Active Medications Generic Name Dose Route Start Last Admin Trade Name Freq PRN Reason Stop Dose Admin Acetaminophen 650 mg 09/18/19 18:42 09/21/19 05:04 Tylenol PO 650 mg Q4H PRN Administration Headache/Fever/Mild Pain (1-3) Hydrocodone Bitart/Acetaminophen 1 tab 09/24/19 09:59 09/26/19 09:56 [place] 5/325 PO 1 tab QIDPRN PRN Administration Pain Diphenhydramine HCl 25 mg 09/24/19 22:37 09/24/19 23:06 Benadryl PO 25 mg Q8H PRN Administration rash itching Enoxaparin Sodium 40 mg 09/19/19 09:00 09/26/19 09:07 Lovenox SC 40 mg 0900 ABEL Administration Famotidine 20 mg 09/23/19 09:00 09/26/19 09:58 Pepcid PER TUBE 20 mg BID ABEL Administration Potassium Chloride 40 meq/ 100 mls @ 50 mls/hr 09/18/19 11:42 09/24/19 07:02 Device IVPB 100 mls ASDIR PRN Administration FOR SERUM K+ 2.5 - 3.5 Magnesium Sulfate 1 gm/ Sodium 102 mls @ 102 mls/hr 09/18/19 11:42 09/24/19 09:00 Chloride IV 102 mls PRN PRN Administration MAG LEVEL 1.4 - 2.0 Cefepime HCl 1 gm/ Sodium 100 mls @ 200 mls/hr 09/18/19 17:00 09/26/19 05:01 Chloride IVPB 100 mls 0500,1700 ABEL Administration Levetiracetam 750 mg/ Sodium 107.5 mls @ 215 mls/hr 09/18/19 21:00 09/26/19 09:07 Chloride IVPB 107.5 mls BID ABEL Administration Potassium Phosphate 30 mmol/ 260 mls @ 43.333 mls/hr 09/26/19 08:30 09/26/19 09:07 Sodium Chloride IVPB 09/26/19 16:00 260 mls NOW ABEL Administration Levothyroxine Sodium 50 mcg 09/19/19 06:00 09/26/19 05:02 Synthroid PO 50 mcg 0600 ABEL Administration Magnesium Oxide 400 mg 09/18/19 11:42 09/25/19 07:19 Magnesium Oxide PO 400 mg BIDPRN PRN Administration FOR SERUM MAG 1.4 - 2.0 Magnesium Oxide 800 mg 09/18/19 11:42 09/24/19 18:41 Magnesium Oxide PO 800 mg PRN PRN Administration FOR SERUM MAG < 1.4 Potassium Chloride 40 meq 09/18/19 11:42 09/25/19 07:18 K-Dur PO 40 meq ASDIR PRN Administration FOR SERUM K+ 2.5 - 3.5 Potassium Chloride 40 meq 09/18/19 11:42 09/24/19 18:42 Klor-Con PER TUBE 40 meq ASDIR PRN Administration FOR SERUM K+ 2.5-3.5 Sodium Chloride 10 ml 09/18/19 21:00 09/26/19 12:47 Flush - Normal Saline IVF 10 ml Q12HR ABEL Administration Venlafaxine HCl 225 mg 09/19/19 09:00 09/26/19 09:57 Effexor Xr PO 225 mg DAILY ABEL Administration - Exam General Appearance: NAD, awake alert, ill appearing Eye: PERRL, anicteric sclera ENT: normocephalic atraumatic Neck: supple Heart: RRR Respiratory: CTAB, normal chest expansion Gastrointestinal: soft Extremities: no cyanosis Extremities - other findings: more swollen, edematic Skin - other findings: coccyx pressure ulcers. Hosp A/P - Plan (1) Infected sacral wound Code(s): R78.81 - BACTEREMIA Status: Acute (2) Hypokalemia Code(s): E87.6 - HYPOKALEMIA Status: Acute (3) Influenza B infection Code(s): E87.2 - ACIDOSIS Status: Acute (4) Metabolic acidosis Code(s): E87.2 - ACIDOSIS Status: Acute (5) Anemia Code(s): E87.2 - ACIDOSIS Status: Acute (6) Sacral decubitus ulcer, stage IV Code(s): L89.154 - PRESSURE ULCER OF SACRAL REGION, STAGE 4 Status: Chronic (7) Seizure disorder Code(s): G40.909 - EPILEPSY, UNSP, NOT INTRACTABLE, WITHOUT STATUS EPILEPTICUS Status: Chronic (8) CHINMAY (acute kidney injury) Code(s): N17.9 - ACUTE KIDNEY FAILURE, UNSPECIFIED Status: Resolved (9) Sepsis Status: Resolved (10) Acute respiratory failure with hypoxia Code(s): J96.01 - ACUTE RESPIRATORY FAILURE WITH HYPOXIA Status: Resolved paraplegia w.. spincal cord inf. in the past ileal condutic chronic decubitus ulcer - s/p debridement of sacral wounds, now has wound vac - Continue cefepime for gram negative migdalia bacteremia - Continue IV vancomycin for MRSA bacteremia Pt completed course of oseltamivir for influenza B - ID note reviewed - added flagyl along w.. vacn and cefepime. pharm c/s
[2019-09-26] MEDS: metroNIDAZOLE 500 MG in Premix Bag 1 BAG IVPB SCH ×2 (16:12→17:45)
[2019-09-27] MEDS: metroNIDAZOLE 500 MG in Premix Bag 1 BAG IVPB SCH ×3 (01:30→16:46)
[2019-09-27] MEDS: Levothyroxine Sodium 50 MCG TAB PO SCH (05:02)
[2019-09-27] MEDS: Cefepime 1 GM in Sodium Chloride 0.9% 100 ML IVPB SCH ×3 (05:03→21:42)
[2019-09-27 05:54] LABS: #Eosinphils 0.2 thou/uL (0.0-0.7); #Lymphocytes 1.3 thou/uL (1.20-3.40); #Monocytes 0.9 thou/uL (0.11-0.59); %Basophils 0.3 % (0.0-1.0); %Eosinophils 2.7 % (0.0-10.0); %Lymphocytes 15.7 % (21.0-51.0); %Monocytes 10.7 % (0.0-10.0); %Neutrophils 70.6 % (42.0-75.0); Hemoglobin 9.7 g/dL (12.0-16.0); Mean Corpuscular Hemoglobin 28.6 pg (27.0-31.0); Mean Corpuscular Volume 89.4 fL (78.0-98.0); Mean Platelet Volume 8.2 fL (7.4-10.4); Platelet Count 278 thou/uL (130-400); RBC Distribution Width 16.8 % (11.5-14.5); Red Blood Cell (RBC) Count 3.39 mill/uL (4.20-5.40); White Blood Cell (WBC) Count 8.4 thou/uL (4.8-10.8)
[2019-09-27 06:05] LABS: Anion Gap 18 mmol/L (10-20); BUN (Urea Nitrogen) 8 mg/dL (9.8-20.1); Calc. Creatinine Clearance 160 mL/min (70-130); Calcium 8.3 mg/dL (7.8-10.44); Carbon Dioxide 13 mmol/L (22-29); Chloride 114 mmol/L (98-107); Estimated GFR-MDRD Greater than 90; Glucose 87 mg/dL (70-105); Magnesium 1.5 mg/dL (1.6-2.6); Sodium 142 mmol/L (136-145)
[2019-09-27 06:10] LABS: Potassium 2.9 mmol/L (3.5-5.1)
[2019-09-27] MEDS ORDERED: Magnesium Sulfate 4 GM in Sodium Chloride 0.9% 250 ML 250 ML IVPB SCH (06:15)
[2019-09-27] MEDS ORDERED: Potassium Chloride 40 MEQ in Premix Bag 1 BAG IVPB SCH (06:15)
[2019-09-27 06:45] LABS: Phosphorus 1.7 mg/dL (2.3-4.7)
[2019-09-27] MEDS ORDERED: Potassium Phosphate 15 MMOL in Sodium Chloride 0.9% 250 ML 250 ML IVPB SCH (07:15)
[2019-09-27] MEDS: Enoxaparin Sodium 40 MG/0.4 ML SYRINGE SC SCH (09:19)
[2019-09-27] MEDS: Potassium Chloride 20 MEQ in Premix Bag 1 BAG IVPB SCH ×2 (09:19→12:50)
[2019-09-27] MEDS: Sodium Bicarbonate Tab 325 MG TAB PO SCH ×3 (09:19→20:24)
[2019-09-27] MEDS: Vancomycin 1.5 GRAM/300 ML BAG 1.5 GM in Premix Bag 1 BAG IVPB SCH (09:20)
[2019-09-27] MEDS: Venlafaxine HCl XR 75 MG CAP PO SCH (09:21)
[2019-09-27] MEDS: Famotidine 20 MG TAB PER TUBE SCH ×3 (09:26→20:23)
--- NOTE | 2019-09-27 09:39 | PRG ---
DATE OF SERVICE: 09/27/2019 SUBJECTIVE: The patient is doing quite well. She had no acute complaints. OBJECTIVE: VITAL SIGNS: Temperature 97.5, pulse 85, respirations 20, O2 saturation 95%, and blood pressure 133/85. HEENT: Unremarkable. NECK: No adenopathy or JVD. CHEST: Fairly clear. CARDIAC: S1 and S2, regular. ABDOMEN: Soft. EXTREMITIES: Trace edema. ASSESSMENT: 1. Status post respiratory failure, requiring mechanical ventilation. 2. Polymicrobial sepsis from decubitus ulcer. PLAN: Main issue now is to continue supplementing her electrolytes and treating her with antibiotics. I will leave these issues to the Internal Medicine team and Infectious Disease. Pulmonary is available for opinions by request. Please call. Job ID: [id number]
[2019-09-28] MEDS: metroNIDAZOLE 500 MG in Premix Bag 1 BAG IVPB SCH ×3 (05:43→22:17)
[2019-09-28] MEDS: Levothyroxine Sodium 50 MCG TAB PO SCH (05:48)
[2019-09-28 06:24] LABS: #Eosinphils 0.2 thou/uL (0.0-0.7); #Lymphocytes 1.1 thou/uL (1.20-3.40); #Monocytes 0.8 thou/uL (0.11-0.59); #Neutrophils 7.1 thou/uL (1.40-6.50); %Basophils 0.4 % (0.0-1.0); %Eosinophils 2.3 % (0.0-10.0); %Lymphocytes 12.3 % (21.0-51.0); %Monocytes 8.4 % (0.0-10.0); %Neutrophils 76.7 % (42.0-75.0); Hemoglobin 9.6 g/dL (12.0-16.0); Mean Corpuscular HGB CONC 32.5 g/dL (32.0-36.0); Mean Corpuscular Hemoglobin 28.8 pg (27.0-31.0); Mean Corpuscular Volume 88.6 fL (78.0-98.0); Mean Platelet Volume 7.1 fL (7.4-10.4); Platelet Count 423 thou/uL (130-400); RBC Distribution Width 16.6 % (11.5-14.5); Red Blood Cell (RBC) Count 3.32 mill/uL (4.20-5.40); White Blood Cell (WBC) Count 9.3 thou/uL (4.8-10.8)
[2019-09-28 06:39] LABS: Anion Gap 15 mmol/L (10-20); BUN (Urea Nitrogen) 6 mg/dL (9.8-20.1); Calc. Creatinine Clearance 167 mL/min (70-130); Calcium 8.2 mg/dL (7.8-10.44); Carbon Dioxide 15 mmol/L (22-29); Chloride 114 mmol/L (98-107); Estimated GFR-MDRD Greater than 90; Glucose 91 mg/dL (70-105); Magnesium 1.6 mg/dL (1.6-2.6); Sodium 141 mmol/L (136-145)
[2019-09-28 06:42] LABS: Phosphorus 1.6 mg/dL (2.3-4.7); Potassium 2.9 mmol/L (3.5-5.1)
[2019-09-28] MEDS ORDERED: Potassium Chloride 20 MEQ TAB PO SCH ×2 (07:00→23:15)
[2019-09-28] MEDS: Cefepime 1 GM in Sodium Chloride 0.9% 100 ML IVPB SCH ×2 (08:51→23:43)
[2019-09-28] MEDS: Vancomycin 1.5 GRAM/300 ML BAG 1.5 GM in Premix Bag 1 BAG IVPB SCH (08:51)
[2019-09-28] MEDS: Venlafaxine HCl XR 75 MG CAP PO SCH (08:57)
[2019-09-28] MEDS: Sodium Bicarbonate Tab 325 MG TAB PO SCH ×2 (08:57→22:17)
--- NOTE | 2019-09-28 08:58 | PDOC.HOSPP ---
- Subjective Encounter Date: 09/27/19 Encounter Time: 11:45 Subjective: pt up in bed does not want her ct scan. Tried to explain to her the importance of it but she refuses. - Objective Vital Signs & Weight: Vital Signs (12 hours) Temp Pulse Resp BP Pulse Ox 09/28/19 08:00 98 F 79 18 129/77 96 09/28/19 02:00 96 Weight Admit Weight 180 lb 12.464 oz Weight 180 lb 12.465 oz Most Recent Monitor Data Heart Rate from ECG 74 NIBP 150/76 NIBP BP-Mean 100 Respiration from ECG 27 SpO2 96 I&O: 09/27/19 09/28/19 09/29/19 06:59 06:59 06:59 Intake Total 700 240 Output Total 1750 300 Balance -1050 -60 Result Diagrams: 09/29/19 05:18 09/29/19 05:18 Hospitalist ROS - Review of Systems Cardiovascular: denies: chest pain, palpitations, orthopnea, paroxysmal noc. dyspnea, edema, light headedness, other Gastrointestinal: denies: nausea, vomiting, abdominal pain, diarrhea, constipation, melena, hematochezia, other Genitourinary: denies: dysuria, frequency, incontinence, hematuria, retention, other - Medication Medications: Active Medications Generic Name Dose Route Start Last Admin Trade Name Freq PRN Reason Stop Dose Admin Acetaminophen 650 mg 09/18/19 18:42 09/21/19 05:04 Tylenol PO 650 mg Q4H PRN Administration Headache/Fever/Mild Pain (1-3) Hydrocodone Bitart/Acetaminophen 1 tab 09/24/19 09:59 09/26/19 09:56 [place] 5/325 PO 1 tab QIDPRN PRN Administration Pain Diphenhydramine HCl 25 mg 09/24/19 22:37 09/24/19 23:06 Benadryl PO 25 mg Q8H PRN Administration rash itching Enoxaparin Sodium 40 mg 09/19/19 09:00 09/27/19 09:19 Lovenox SC 40 mg 0900 ABEL Administration Famotidine 20 mg 09/23/19 09:00 09/27/19 20:23 Pepcid PER TUBE Not Given BID ABEL Levetiracetam 750 mg/ Sodium 107.5 mls @ 215 mls/hr 09/18/19 21:00 09/27/19 21:42 Chloride IVPB 107.5 mls BID ABEL Administration Vancomycin HCl 1.5 gm/ Device 300 mls @ 200 mls/hr 09/27/19 09:00 09/27/19 09 :20 IVPB 300 mls 0900 ABEL Administration Metronidazole 500 mg/ Device 100 mls @ 100 mls/hr 09/28/19 05:00 09/28/19 05: 43 IVPB 100 mls 0500,1300,2100 ABEL Administration Cefepime HCl 1 gm/ Sodium 100 mls @ 200 mls/hr 09/27/19 22:00 09/27/19 21:42 Chloride IVPB 100 mls 1000,2200 ABEL Administration Levothyroxine Sodium 50 mcg 09/19/19 06:00 09/28/19 05:48 Synthroid PO Not Given 0600 ABEL Sodium Bicarbonate 650 mg 09/26/19 09:00 09/27/19 20:24 Bicarbonate, Sodium PO 09/28/19 21:01 Not Given BID ABEL Sodium Chloride 10 ml 09/18/19 21:00 09/27/19 19:59 Flush - Normal Saline IVF Not Given Q12HR ABEL Venlafaxine HCl 225 mg 09/19/19 09:00 09/27/19 09:21 Effexor Xr PO 225 mg DAILY ABEL Administration - Exam Heart: negative: RRR, no murmur, no gallops, no rubs, normal peripheral pulses, irregular, diminshed peripheral pulses, murmur present, II/IV, III/IV Respiratory: negative: CTAB, no wheezes, no rales, no ronchi, normal chest expansion, no tachypnea, normal percussion, rales, rhonchi, tachypneic, wheezes Gastrointestinal: negative: soft, non-tender, non-distended, normal bowel sounds , no palpable masses, no hepatomegaly, no splenomegaly, no bruit, no guarding, no rigidity, tender to palpation, distended, diminished bowl sounds, voluntary guarding Gastrointestinal - other findings: colostomy and urostomy Neurological - other findings: lower paralysis Hosp A/P (1) Septic shock Code(s): A41.9 - SEPSIS, UNSPECIFIED ORGANISM; R65.21 - SEVERE SEPSIS WITH SEPTIC SHOCK Status: Acute (2) Bacteremia Code(s): R78.81 - BACTEREMIA Status: Acute (3) Acute respiratory failure with hypoxia Code(s): J96.01 - ACUTE RESPIRATORY FAILURE WITH HYPOXIA Status: Acute (4) Hypokalemia Code(s): E87.6 - HYPOKALEMIA Status: Acute (5) Seizure disorder Code(s): G40.909 - EPILEPSY, UNSP, NOT INTRACTABLE, WITHOUT STATUS EPILEPTICUS Status: Acute (6) Sacral decubitus ulcer, stage IV Code(s): L89.154 - PRESSURE ULCER OF SACRAL REGION, STAGE 4 Status: Chronic (7) Metabolic acidosis Code(s): E87.2 - ACIDOSIS Status: Acute (8) CHINMAY (acute kidney injury) Code(s): N17.9 - ACUTE KIDNEY FAILURE, UNSPECIFIED Status: Acute - Plan pt still on levophed drip, will replace K. will check bmp again at 2100. Her blood cx are positive will continue broad spectrum abx. she was suppose to go for debridement but will not due to low K. will change her iv fluids to d5with bicarb due to her hypernatremia. [place] is improving. pt was on high doses of diuretics at the retirement could be a cause of her hypokalemia. will check cortisol level in am. 09/26 ct pelvic ordered per ID's recommendation. Pt refused. will try to call the son about convincing her to undergo the ct scan. will continue abx for now. will monitor her non anion gap acidosis. she is getting a lot meds using ns vs her colostomy which could be causing her acidosis too.
[2019-09-28] MEDS ORDERED: Potassium Phosphate 9 MMOL in Sodium Chloride 0.9% 100 ML IVPB SCH ×2 (09:00→23:30)
[2019-09-28] MEDS: Famotidine 20 MG TAB PER TUBE SCH ×2 (09:03→22:17)
[2019-09-28] MEDS: Enoxaparin Sodium 40 MG/0.4 ML SYRINGE SC SCH (09:03)
[2019-09-28] MEDS: K-Phos Neutral 250 MG TAB PO SCH ×3 (09:03→16:53)
[2019-09-28] MEDS: levETIRAcetam 500 MG TAB PO SCH (22:17)
[2019-09-28 22:39] LABS: Anion Gap 15 mmol/L (10-20); BUN (Urea Nitrogen) 7 mg/dL (9.8-20.1); Calc. Creatinine Clearance 160 mL/min (70-130); Calcium 8.4 mg/dL (7.8-10.44); Carbon Dioxide 14 mmol/L (22-29); Chloride 118 mmol/L (98-107); Estimated GFR-MDRD Greater than 90; Glucose 87 mg/dL (70-105); Sodium 144 mmol/L (136-145)
[2019-09-28 22:41] LABS: Potassium 2.8 mmol/L (3.5-5.1)
[2019-09-29 05:42] LABS: #Eosinphils 0.2 thou/uL (0.0-0.7); #Lymphocytes 1.2 thou/uL (1.20-3.40); #Monocytes 0.8 thou/uL (0.11-0.59); #Neutrophils 6.9 thou/uL (1.40-6.50); %Basophils 0.4 % (0.0-1.0); %Eosinophils 1.9 % (0.0-10.0); %Lymphocytes 13.1 % (21.0-51.0); %Monocytes 8.9 % (0.0-10.0); %Neutrophils 75.8 % (42.0-75.0); Hemoglobin 9.5 g/dL (12.0-16.0); Mean Corpuscular HGB CONC 31.5 g/dL (32.0-36.0); Mean Corpuscular Hemoglobin 28.6 pg (27.0-31.0); Mean Corpuscular Volume 90.6 fL (78.0-98.0); Platelet Count 430 thou/uL (130-400); RBC Distribution Width 17.1 % (11.5-14.5); Red Blood Cell (RBC) Count 3.33 mill/uL (4.20-5.40)
[2019-09-29] MEDS: metroNIDAZOLE 500 MG in Premix Bag 1 BAG IVPB SCH ×3 (05:43→20:36)
[2019-09-29] MEDS: Levothyroxine Sodium 50 MCG TAB PO SCH (05:43)
[2019-09-29 05:58] LABS: Anion Gap 13 mmol/L (10-20); BUN (Urea Nitrogen) 6 mg/dL (9.8-20.1); Calc. Creatinine Clearance 167 mL/min (70-130); Calcium 8.2 mg/dL (7.8-10.44); Carbon Dioxide 14 mmol/L (22-29); Chloride 118 mmol/L (98-107); Estimated GFR-MDRD Greater than 90; Glucose 91 mg/dL (70-105); Magnesium 1.3 mg/dL (1.6-2.6); Potassium 3.3 mmol/L (3.5-5.1); Sodium 142 mmol/L (136-145)
[2019-09-29 06:09] LABS: Phosphorus 2.2 mg/dL (2.3-4.7)
--- NOTE | 2019-09-29 07:27 | PDOC.HOSPP ---
- Subjective Encounter Date: 09/28/19 Encounter Time: 10:15 Subjective: pt up in bed is very upset and states she does not want to be here. - Objective Vital Signs & Weight: Vital Signs (12 hours) Temp Pulse Resp BP BP Pulse Ox 09/29/19 05:43 98.7 F 82 19 138/74 97 09/29/19 03:06 95 09/28/19 20:00 97.9 F 96 18 124/71 91 L Weight Admit Weight 180 lb 12.464 oz Weight 180 lb 12.465 oz Most Recent Monitor Data Heart Rate from ECG 74 NIBP 150/76 NIBP BP-Mean 100 Respiration from ECG 27 SpO2 96 I&O: 09/28/19 09/29/19 09/30/19 06:59 06:59 06:59 Intake Total 240 240 Output Total 300 Balance -60 240 Result Diagrams: 09/29/19 05:18 09/29/19 05:18 Hospitalist ROS - Review of Systems Cardiovascular: denies: chest pain, palpitations, orthopnea, paroxysmal noc. dyspnea, edema, light headedness, other Gastrointestinal: denies: nausea, vomiting, abdominal pain, diarrhea, constipation, melena, hematochezia, other Genitourinary: denies: dysuria, frequency, incontinence, hematuria, retention, other - Medication Medications: Active Medications Generic Name Dose Route Start Last Admin Trade Name Freq PRN Reason Stop Dose Admin Acetaminophen 650 mg 09/18/19 18:42 09/21/19 05:04 Tylenol PO 650 mg Q4H PRN Administration Headache/Fever/Mild Pain (1-3) Hydrocodone Bitart/Acetaminophen 1 tab 09/24/19 09:59 09/26/19 09:56 [place] 5/325 PO 1 tab QIDPRN PRN Administration Pain Diphenhydramine HCl 25 mg 09/24/19 22:37 09/24/19 23:06 Benadryl PO 25 mg Q8H PRN Administration rash itching Enoxaparin Sodium 40 mg 09/19/19 09:00 09/28/19 09:03 Lovenox SC 40 mg 0900 ABEL Administration Famotidine 20 mg 09/23/19 09:00 09/28/19 22:17 Pepcid PER TUBE 20 mg BID ABEL Administration Vancomycin HCl 1.5 gm/ Device 300 mls @ 200 mls/hr 09/27/19 09:00 09/28/19 08 :51 IVPB 300 mls 0900 ABEL Administration Metronidazole 500 mg/ Device 100 mls @ 100 mls/hr 09/28/19 05:00 09/29/19 05: 43 IVPB 100 mls 0500,1300,2100 ABEL Administration Cefepime HCl 1 gm/ Sodium 100 mls @ 200 mls/hr 09/27/19 22:00 09/28/19 23:43 Chloride IVPB 100 mls 1000,2200 ABEL Administration Ketorolac Tromethamine 15 mg 09/24/19 08:37 09/28/19 10:21 Toradol IVP 09/29/19 08:38 15 mg Q6H PRN Administration Pain Levetiracetam 750 mg 09/28/19 21:00 09/28/19 22:17 Keppra PO 750 mg BID ABEL Administration Levothyroxine Sodium 50 mcg 09/19/19 06:00 09/29/19 05:43 Synthroid PO 50 mcg 0600 ABEL Administration Sodium Chloride 10 ml 09/18/19 21:00 09/28/19 22:18 Flush - Normal Saline IVF 10 ml Q12HR ABEL Administration Venlafaxine HCl 225 mg 09/19/19 09:00 09/28/19 08:57 Effexor Xr PO 225 mg DAILY ABEL Administration - Exam Heart: negative: RRR, no murmur, no gallops, no rubs, normal peripheral pulses, irregular, diminshed peripheral pulses, murmur present, II/IV, III/IV Respiratory: negative: CTAB, no wheezes, no rales, no ronchi, normal chest expansion, no tachypnea, normal percussion, rales, rhonchi, tachypneic, wheezes Gastrointestinal: soft, normal bowel sounds Gastrointestinal - other findings: colostomy and urostomy Neurological - other findings: paraplegia Hosp A/P (1) Septic shock Code(s): A41.9 - SEPSIS, UNSPECIFIED ORGANISM; R65.21 - SEVERE SEPSIS WITH SEPTIC SHOCK Status: Acute (2) Bacteremia Code(s): R78.81 - BACTEREMIA Status: Acute (3) Acute respiratory failure with hypoxia Code(s): J96.01 - ACUTE RESPIRATORY FAILURE WITH HYPOXIA Status: Acute (4) Hypokalemia Code(s): E87.6 - HYPOKALEMIA Status: Acute (5) Seizure disorder Code(s): G40.909 - EPILEPSY, UNSP, NOT INTRACTABLE, WITHOUT STATUS EPILEPTICUS Status: Acute (6) Sacral decubitus ulcer, stage IV Code(s): L89.154 - PRESSURE ULCER OF SACRAL REGION, STAGE 4 Status: Chronic (7) Metabolic acidosis Code(s): E87.2 - ACIDOSIS Status: Acute (8) CHINMAY (acute kidney injury) Code(s): N17.9 - ACUTE KIDNEY FAILURE, UNSPECIFIED Status: Acute - Plan pt still on levophed drip, will replace K. will check bmp again at 2100. Her blood cx are positive will continue broad spectrum abx. she was suppose to go for debridement but will not due to low K. will change her iv fluids to d5with bicarb due to her hypernatremia. chinmay is improving. pt was on high doses of diuretics at the custodial could be a cause of her hypokalemia. will check cortisol level in am. 09/26 ct pelvic ordered per ID's recommendation. Pt refused. will try to call the son about convincing her to undergo the ct scan. will continue abx for now. will monitor her non anion gap acidosis. she is getting a lot meds using ns vs her colostomy which could be causing her acidosis too. 09/27 pt's acidosis still persists, will get urine anion gap she has significant hyokalemia. Her cortisol level and tsh are normal. Not sure if her having a urostomy is causing her non anion gap acidosis. will consult nephrology. she is on bicarb.
[2019-09-29 08:29] LABS: Vancomycin, Trough 19.1 ug/mL
[2019-09-29] MEDS ORDERED: Magnesium 2 GM/50 ML 2 GM in Premix Bag 1 BAG IVPB SCH (08:30)
[2019-09-29] MEDS ORDERED: Potassium Chloride 20 MEQ in Premix Bag 1 BAG IVPB SCH (08:45)
[2019-09-29] MEDS: Venlafaxine HCl XR 75 MG CAP PO SCH (08:50)
[2019-09-29] MEDS: levETIRAcetam 500 MG TAB PO SCH ×2 (08:51→20:36)
[2019-09-29] MEDS: Enoxaparin Sodium 40 MG/0.4 ML SYRINGE SC SCH (08:52)
[2019-09-29] MEDS: Famotidine 20 MG TAB PER TUBE SCH ×2 (08:52→20:36)
[2019-09-29] MEDS: Vancomycin 1.5 GRAM/300 ML BAG 1.5 GM in Premix Bag 1 BAG IVPB SCH (08:53)
[2019-09-29] MEDS ORDERED: Ketorolac Tromethamine 30 MG/ML VIAL IVP PRN (10:11)
[2019-09-29] MEDS: Cefepime 1 GM in Sodium Chloride 0.9% 100 ML IVPB SCH ×2 (11:47→22:18)
[2019-09-29 11:58] LABS: Potassium, Urine 24.2 mmol/L
[2019-09-29] MEDS ORDERED: Iopamidol 370 76% 100 ML VIAL ONE (13:43)
[2019-09-29 14:41] LABS: Bacteria/HPF 2+ HPF (None Seen); Bilirubin Negative (Negative); Blood, Urine 1+ (Negative); Clarity Turbid (Clear); Glucose, Urine (Dipstick) Normal (Negative); Leukocyte 250 Leu/uL (Negative); Nitrite Negative (Negative); Protein, Urine (Dipstick) 50 mg/dL (Neg-Trace); Squamous Epithelial 0-3 HPF (0-3); Transitional Epithelial 0-3 HPF (None Seen); Urobilinogen Normal mg/dL (Less than 2)
[2019-09-29 14:50] LABS: Yeast-Budding 3+ HPF (None Seen)
[2019-09-29 14:51] LABS: Urine Culture Reflex Yes Yes
--- NOTE | 2019-09-29 17:39 | PRG ---
DATE OF SERVICE: 09/29/2019 SUBJECTIVE: Ms. Wilde is transferred to the floor. She is awake with usual expected difficulty with communication. OBJECTIVE: VITAL SIGNS: She has been afebrile back to 3 days ago when she was 99.8. Other vital signs are normal. O2 saturations are in the 96% range on room air. GENERAL: She has a negative pressure dressing over the decubitus ulcers and has a peripheral IV access. LUNGS: With faint crackles at the right base. HEART: S1, S2, regular rate. ABDOMEN: Moderately distended, but soft. The ileal conduit and colostomy in place. EXTREMITIES: Quadriparesis. LABORATORY DATA: Sodium 142, creatinine 0.5. White cell count is down to 9.0, hemoglobin 9.5, platelets 430, with 75% neutrophils. Microbiology with polymicrobial moriah from the coccygeal debridement and Prevotella in one set of blood cultures. The last chest x-ray or imaging study was from the . ASSESSMENT AND DISCUSSION: Partial quadriplegia with possibility of a spinal cord infection in the past, ileal conduit and colostomy, fecal impaction, chronic decubitus ulcers with bilateral ischial in sacral regions, sepsis with bacteremia due to Prevotella and likely polymicrobial infection in the decubitus area with a concern for deep infection including the possibility of osteomyelitis. We will go ahead and order a CT of pelvis with contrast to follow up on that. The patient is currently on cefepime and metronidazole as well as vancomycin and depending on the results of the imaging study, then she might need long-term intravenous antimicrobial therapy. Job ID: [id number]
--- NOTE | 2019-09-29 20:45 | CT ---
CT Pelvis W Con History: Decubitus ulcer with sepsis and bacteremia Comparison: None. Findings: There is erosion and absence of the sacrum at S3-S5 with resorbed coccyx. Large soft tissue decubitus ulcer with wound extending to the left sacral ala of S3 with chronic remodeling. High-grade anterior and posterior para spinal muscle atrophy. Appears be a stoma right lower quadrant of the abdomen and left lower quadrant of the abdomen. Atrophy of the gluteus musculature. Chronic sclerosis and remodeling of both ischium and inferior pubic rami with near complete absence o f soft tissue coverage. Impression: Chronic osteomyelitis and decubitus ulcers of the ischium and sacrum. No drainable absces s appreciated.
--- NOTE | 2019-09-29 21:55 | CON ---
DATE OF CONSULTATION: CONSULTING PHYSICIAN: Heena Rodriguez MD REQUESTING PHYSICIAN: Shauna Duvall MD REASON FOR CONSULTATION: Anion gap metabolic acidosis with hypokalemia. IMPRESSION: Non-anion gap metabolic acidosis. This is likely associated with hypokalemia. This is likely renal tubular acidosis given the urine pH of 7.0 in the face of significant metabolic acidosis. PLAN: 1. We will replete this patient's potassium with the potassium citrate/bicarbonate combo base with metabolic acidosis of this patient will be corrected as well as the potassium. Therefore, we will place this patient on this medication 50 mEq p.o. b.i.d., monitor the electrolytes. 2. Replete the magnesium as hypomagnesemia. We will make it more difficult to correct the hypokalemia. HISTORY OF PRESENT ILLNESS: A 54-year-old female patient who was brought in here for mental status change. The patient is a residential resident, paraplegic with some decubitus ulcers and noted on presentation with some evidence of sepsis, however, reason for renal consultation on the electrolytes with persistent low potassium level, metabolic acidosis, non-anion gap. However, on close observation of the urine of this patient, urine pH of 7.0. This constellation of findings highly suggestive of renal tubular acidosis. PAST MEDICAL HISTORY: Significant for seizure disorder, paraplegia, chronic pain, osteoporosis, decubitus ulcers. MEDICATIONS: Reviewed and as documented on [employer]. SOCIAL HISTORY: No smoking. No alcohol. No illicit drug use. FAMILY HISTORY: Not significantly related to present illness. REVIEW OF SYSTEMS: Significantly impaired given the communication difficulty of this patient. PHYSICAL EXAMINATION: GENERAL: The patient was found to be very slow to respond to verbal communication. VITAL SIGNS: Noted with the following vital signs, afebrile, temperature 98.7, pulse 82, respiratory rate of 19, O2 saturations are 97%, and blood pressure 143/82. HEENT: Unremarkable. CARDIOVASCULAR: First and second heart sounds were heard. DIGESTIVE SYSTEM: Revealed an obese abdomen. EXTREMITIES: No peripheral edema. SKIN: No new gross rash. LYMPHATICS: No peripheral lymphadenopathy. ASSESSMENT: In summary, a 54-year-old female patient who presented here with mental status change, noted with hypokalemia and non-anion gap metabolic acidosis in the context of alkalotic urine. Thank you for this consultation. We will follow with you. Job ID: [id number]
[2019-09-30] MEDS: metroNIDAZOLE 500 MG in Premix Bag 1 BAG IVPB SCH ×3 (05:31→20:37)
[2019-09-30] MEDS: Levothyroxine Sodium 50 MCG TAB PO SCH (05:32)
[2019-09-30 06:13] LABS: Anion Gap 13 mmol/L (10-20); BUN (Urea Nitrogen) 5 mg/dL (9.8-20.1); Calc. Creatinine Clearance 154 mL/min (70-130); Calcium 8.5 mg/dL (7.8-10.44); Carbon Dioxide 14 mmol/L (22-29); Chloride 119 mmol/L (98-107); Estimated GFR-MDRD Greater than 90; Glucose 97 mg/dL (70-105); Magnesium 1.5 mg/dL (1.6-2.6); Sodium 143 mmol/L (136-145)
[2019-09-30 06:14] LABS: Phosphorus 1.8 mg/dL (2.3-4.7)
[2019-09-30 06:15] LABS: Potassium 2.9 mmol/L (3.5-5.1)
[2019-09-30] MEDS ORDERED: Potassium Phosphate 30 MMOL in Sodium Chloride 0.9% 500 ML IVPB SCH (06:30)
[2019-09-30] MEDS: Potassium Bicarbonate/Cit Ac 25 MEQ TAB PO SCH ×2 (08:39→17:54)
[2019-09-30] MEDS: Enoxaparin Sodium 40 MG/0.4 ML SYRINGE SC SCH (08:39)
[2019-09-30] MEDS: levETIRAcetam 500 MG TAB PO SCH ×2 (08:40→20:37)
[2019-09-30] MEDS: Venlafaxine HCl XR 75 MG CAP PO SCH (08:40)
[2019-09-30] MEDS: Vancomycin 1.5 GRAM/300 ML BAG 1.5 GM in Premix Bag 1 BAG IVPB SCH (08:41)
[2019-09-30] MEDS: Famotidine 20 MG TAB PER TUBE SCH ×2 (08:41→20:38)
[2019-09-30] MEDS: Cefepime 1 GM in Sodium Chloride 0.9% 100 ML IVPB SCH (11:07)
[2019-09-30 16:27] LABS: Albumin 2.8 g/dL (3.5-5.0); Anion Gap 14 mmol/L (10-20); BUN (Urea Nitrogen) 6 mg/dL (9.8-20.1); BUN/Creatinine Ratio 10.91; Calc. Creatinine Clearance 151 mL/min (70-130); Carbon Dioxide 13 mmol/L (22-29); Chloride 122 mmol/L (98-107); Estimated GFR-MDRD Greater than 90; Glucose 92 mg/dL (70-105); Phosphorus 2.5 mg/dL (2.3-4.7); Potassium 3.6 mmol/L (3.5-5.1); Sodium 145 mmol/L (136-145)
[2019-09-30] MEDS ORDERED: Sodium Bicarbonate Tab 325 MG TAB PO SCH (18:15)
--- NOTE | 2019-09-30 19:14 | RAD ---
SINGLE VIEW OF THE CHEST: Comparison: 09-22-2019 History: Shortness of breath FINDINGS: Single view of the chest shows an enlarged but stable cardiomediastinal silhouette. There is no evide nce of consolidation, mass or pleural effusion. Atelectasis is seen in both lung bases. Post-surgical changes are seen in the spine. IMPRESSION: No evidence of acute cardiopulmonary disease. POS: [facility]
--- NOTE | 2019-09-30 20:50 | PRG ---
DATE OF SERVICE: 09/30/2019 SUBJECTIVE: The patient was seen and examined. Noted with the following vital signs. OBJECTIVE: VITAL SIGNS: Afebrile, temperature 98.4, pulse 86, respiratory rate of 20, O2 saturation 95%, and blood pressure 127/77. HEENT: Unremarkable. CARDIOVASCULAR SYSTEM: First and second heart sounds were heard. RESPIRATORY SYSTEM: Clear to auscultation. DIGESTIVE SYSTEM: Revealed a benign abdomen. EXTREMITIES: No peripheral edema. SKIN: Examination no new gross rash. LYMPHATICS: No peripheral lymphadenopathy. IMPRESSION: Metabolic acidosis with hypokalemia, possibly renal tubular acidosis. PLAN: 1. We will continue with potassium bicarbonate supplementation. 2. Replete potassium. 3. Replete magnesium and phosphorus. 4. Further management to be dependent on the clinical course. Job ID: [id number]
[2019-10-01] MEDS: metroNIDAZOLE 500 MG in Premix Bag 1 BAG IVPB SCH ×2 (05:48→13:40)
[2019-10-01] MEDS: Levothyroxine Sodium 50 MCG TAB PO SCH (05:48)
[2019-10-01 05:56] LABS: Anion Gap 14 mmol/L (10-20); BUN (Urea Nitrogen) 7 mg/dL (9.8-20.1); Calc. Creatinine Clearance 141 mL/min (70-130); Calcium 8.3 mg/dL (7.8-10.44); Carbon Dioxide 13 mmol/L (22-29); Chloride 124 mmol/L (98-107); Estimated GFR-MDRD Greater than 90; Glucose 103 mg/dL (70-105); Magnesium 1.3 mg/dL (1.6-2.6); Potassium 3.7 mmol/L (3.5-5.1); Sodium 147 mmol/L (136-145)
[2019-10-01] MEDS: Acetaminophen 325 MG TAB PO PRN ×2 (05:56→08:55)
[2019-10-01 06:28] LABS: Phosphorus 1.8 mg/dL (2.3-4.7)
[2019-10-01] MEDS ORDERED: Sodium Phosphate 30 MMOL in Sodium Chloride 0.9% 250 ML 250 ML IVPB SCH (07:00)
--- NOTE | 2019-10-01 08:22 | PDOC.HOSPP ---
- Subjective Encounter Date: 09/29/19 Encounter Time: 11:45 Subjective: pt up in bed no complains. - Objective Vital Signs & Weight: Vital Signs (12 hours) Temp Pulse Resp BP BP Pulse Ox 10/01/19 07:20 100.9 F H 122 H 22 H 124/76 95 10/01/19 04:00 100.1 F H 90 20 147/85 H 96 09/30/19 23:51 99.0 F 93 20 137/84 96 Weight Admit Weight 180 lb 12.464 oz Weight 180 lb 12.465 oz Most Recent Monitor Data Heart Rate from ECG 74 NIBP 150/76 NIBP BP-Mean 100 Respiration from ECG 27 SpO2 96 I&O: 09/30/19 10/01/19 10/02/19 06:59 06:59 06:59 Intake Total 960 780 Output Total 3027 2456 Balance -7758 -720 Result Diagrams: 09/29/19 05:18 10/01/19 05:19 Hospitalist ROS - Review of Systems Cardiovascular: denies: chest pain, palpitations, orthopnea, paroxysmal noc. dyspnea, edema, light headedness, other Gastrointestinal: denies: nausea, vomiting, abdominal pain, diarrhea, constipation, melena, hematochezia, other Genitourinary: denies: dysuria, frequency, incontinence, hematuria, retention, other - Medication Medications: Active Medications Generic Name Dose Route Start Last Admin Trade Name Freq PRN Reason Stop Dose Admin Acetaminophen 650 mg 09/18/19 18:42 10/01/19 05:56 Tylenol PO 650 mg Q4H PRN Administration Headache/Fever/Mild Pain (1-3) Hydrocodone Bitart/Acetaminophen 1 tab 09/24/19 09:59 09/26/19 09:56 [place] 5/325 PO 1 tab QIDPRN PRN Administration Pain Diphenhydramine HCl 25 mg 09/24/19 22:37 09/24/19 23:06 Benadryl PO 25 mg Q8H PRN Administration rash itching Enoxaparin Sodium 40 mg 09/19/19 09:00 09/30/19 08:39 Lovenox SC 40 mg 0900 ABEL Administration Famotidine 20 mg 09/23/19 09:00 09/30/19 20:38 Pepcid PER TUBE 20 mg BID ABEL Administration Metronidazole 500 mg/ Device 100 mls @ 100 mls/hr 09/28/19 05:00 10/01/19 05: 48 IVPB 100 mls 0500,1300,2100 ABEL Administration Cefepime HCl 1 gm/ Dextrose/ 100 mls @ 200 mls/hr 09/30/19 22:00 09/30/19 22: 08 Water IVPB 100 mls 1000,2200 ABEL Administration Levetiracetam 750 mg 09/28/19 21:00 09/30/19 20:37 Keppra PO 750 mg BID ABEL Administration Levothyroxine Sodium 50 mcg 09/19/19 06:00 10/01/19 05:48 Synthroid PO 50 mcg 0600 ABEL Administration Potassium Bicarbonate/Citric Acid 50 meq 09/30/19 08:00 09/30/19 17:54 K-Vescent PO 50 meq BID-WM ABEL Administration Sodium Chloride 10 ml 09/18/19 21:00 09/30/19 20:38 Flush - Normal Saline IVF 10 ml Q12HR ABEL Administration Venlafaxine HCl 225 mg 09/19/19 09:00 09/30/19 08:40 Effexor Xr PO 225 mg DAILY ABEL Administration - Exam Neck: negative: supple, symmetric, no JVD, no thyromegaly, no lymphadenopathy, no carotid bruit, JVD Heart: negative: RRR, no murmur, no gallops, no rubs, normal peripheral pulses, irregular, diminshed peripheral pulses, murmur present, II/IV, III/IV Respiratory: negative: CTAB, no wheezes, no rales, no ronchi, normal chest expansion, no tachypnea, normal percussion, rales, rhonchi, tachypneic, wheezes Gastrointestinal: soft, non-tender Gastrointestinal - other findings: urostomy and colostomy Extremities: 2+ LE edema Extremities - other findings: paraplegic Hosp A/P (1) Septic shock Code(s): A41.9 - SEPSIS, UNSPECIFIED ORGANISM; R65.21 - SEVERE SEPSIS WITH SEPTIC SHOCK Status: Acute (2) Bacteremia Code(s): R78.81 - BACTEREMIA Status: Acute (3) Acute respiratory failure with hypoxia Code(s): J96.01 - ACUTE RESPIRATORY FAILURE WITH HYPOXIA Status: Acute (4) Hypokalemia Code(s): E87.6 - HYPOKALEMIA Status: Acute (5) Seizure disorder Code(s): G40.909 - EPILEPSY, UNSP, NOT INTRACTABLE, WITHOUT STATUS EPILEPTICUS Status: Acute (6) Sacral decubitus ulcer, stage IV Code(s): L89.154 - PRESSURE ULCER OF SACRAL REGION, STAGE 4 Status: Chronic (7) Metabolic acidosis Code(s): E87.2 - ACIDOSIS Status: Acute (8) CHINMAY (acute kidney injury) Code(s): N17.9 - ACUTE KIDNEY FAILURE, UNSPECIFIED Status: Acute - Plan pt still on levophed drip, will replace K. will check bmp again at 2100. Her blood cx are positive will continue broad spectrum abx. she was suppose to go for debridement but will not due to low K. will change her iv fluids to d5with bicarb due to her hypernatremia. chinmay is improving. pt was on high doses of diuretics at the detention could be a cause of her hypokalemia. will check cortisol level in am. 09/26 ct pelvic ordered per ID's recommendation. Pt refused. will try to call the son about convincing her to undergo the ct scan. will continue abx for now. will monitor her non anion gap acidosis. she is getting a lot meds using ns vs her colostomy which could be causing her acidosis too. 09/27 pt's acidosis still persists, will get urine anion gap she has significant hyokalemia. Her cortisol level and tsh are normal. Not sure if her having a urostomy is causing her non anion gap acidosis. will consult nephrology. she is on bicarb. 09/28 spoke with pt's son to convince her to get the ct. will continue labs. will talk to ID for possible discharge soon.
--- NOTE | 2019-10-01 08:24 | PDOC.HOSPP ---
- Subjective Encounter Date: 09/30/19 Encounter Time: 13:00 Subjective: pt in bed flat affect, no complains. - Objective Vital Signs & Weight: Vital Signs (12 hours) Temp Pulse Resp BP BP Pulse Ox 10/01/19 07:20 100.9 F H 122 H 22 H 124/76 95 10/01/19 04:00 100.1 F H 90 20 147/85 H 96 09/30/19 23:51 99.0 F 93 20 137/84 96 Weight Admit Weight 180 lb 12.464 oz Weight 180 lb 12.465 oz Most Recent Monitor Data Heart Rate from ECG 74 NIBP 150/76 NIBP BP-Mean 100 Respiration from ECG 27 SpO2 96 I&O: 09/30/19 10/01/19 10/02/19 06:59 06:59 06:59 Intake Total 960 780 Output Total 5311 0487 Balance -1849 -552 Result Diagrams: 09/29/19 05:18 10/01/19 05:19 Hospitalist ROS - Review of Systems Respiratory: reports: other (some upper resp wheezing) Cardiovascular: denies: chest pain, palpitations, orthopnea, paroxysmal noc. dyspnea, edema, light headedness, other Gastrointestinal: denies: nausea, vomiting, abdominal pain, diarrhea, constipation, melena, hematochezia, other - Medication Medications: Active Medications Generic Name Dose Route Start Last Admin Trade Name Freq PRN Reason Stop Dose Admin Acetaminophen 650 mg 09/18/19 18:42 10/01/19 05:56 Tylenol PO 650 mg Q4H PRN Administration Headache/Fever/Mild Pain (1-3) Hydrocodone Bitart/Acetaminophen 1 tab 09/24/19 09:59 09/26/19 09:56 [place] 5/325 PO 1 tab QIDPRN PRN Administration Pain Diphenhydramine HCl 25 mg 09/24/19 22:37 09/24/19 23:06 Benadryl PO 25 mg Q8H PRN Administration rash itching Enoxaparin Sodium 40 mg 09/19/19 09:00 09/30/19 08:39 Lovenox SC 40 mg 0900 ABEL Administration Famotidine 20 mg 09/23/19 09:00 09/30/19 20:38 Pepcid PER TUBE 20 mg BID ABEL Administration Metronidazole 500 mg/ Device 100 mls @ 100 mls/hr 09/28/19 05:00 10/01/19 05: 48 IVPB 100 mls 0500,1300,2100 ABEL Administration Cefepime HCl 1 gm/ Dextrose/ 100 mls @ 200 mls/hr 09/30/19 22:00 09/30/19 22: 08 Water IVPB 100 mls 1000,2200 ABEL Administration Levetiracetam 750 mg 09/28/19 21:00 09/30/19 20:37 Keppra PO 750 mg BID ABEL Administration Levothyroxine Sodium 50 mcg 09/19/19 06:00 10/01/19 05:48 Synthroid PO 50 mcg 0600 ABEL Administration Potassium Bicarbonate/Citric Acid 50 meq 09/30/19 08:00 09/30/19 17:54 K-Vescent PO 50 meq BID-WM ABEL Administration Sodium Chloride 10 ml 09/18/19 21:00 09/30/19 20:38 Flush - Normal Saline IVF 10 ml Q12HR ABEL Administration Venlafaxine HCl 225 mg 09/19/19 09:00 09/30/19 08:40 Effexor Xr PO 225 mg DAILY ABEL Administration - Exam Heart: negative: RRR, no murmur, no gallops, no rubs, normal peripheral pulses, irregular, diminshed peripheral pulses, murmur present, II/IV, III/IV Gastrointestinal: soft, non-distended Gastrointestinal - other findings: urostomy and colostomy Extremities: 2+ LE edema Hosp A/P (1) Septic shock Code(s): A41.9 - SEPSIS, UNSPECIFIED ORGANISM; R65.21 - SEVERE SEPSIS WITH SEPTIC SHOCK Status: Acute (2) Bacteremia Code(s): R78.81 - BACTEREMIA Status: Acute (3) Acute respiratory failure with hypoxia Code(s): J96.01 - ACUTE RESPIRATORY FAILURE WITH HYPOXIA Status: Acute (4) Hypokalemia Code(s): E87.6 - HYPOKALEMIA Status: Acute (5) Seizure disorder Code(s): G40.909 - EPILEPSY, UNSP, NOT INTRACTABLE, WITHOUT STATUS EPILEPTICUS Status: Acute (6) Sacral decubitus ulcer, stage IV Code(s): L89.154 - PRESSURE ULCER OF SACRAL REGION, STAGE 4 Status: Chronic (7) Metabolic acidosis Code(s): E87.2 - ACIDOSIS Status: Acute (8) CHINMAY (acute kidney injury) Code(s): N17.9 - ACUTE KIDNEY FAILURE, UNSPECIFIED Status: Acute - Plan pt still on levophed drip, will replace K. will check bmp again at 2100. Her blood cx are positive will continue broad spectrum abx. she was suppose to go for debridement but will not due to low K. will change her iv fluids to d5with bicarb due to her hypernatremia. chinmay is improving. pt was on high doses of diuretics at the correction could be a cause of her hypokalemia. will check cortisol level in am. 09/26 ct pelvic ordered per ID's recommendation. Pt refused. will try to call the son about convincing her to undergo the ct scan. will continue abx for now. will monitor her non anion gap acidosis. she is getting a lot meds using ns vs her colostomy which could be causing her acidosis too. 09/27 pt's acidosis still persists, will get urine anion gap she has significant hyokalemia. Her cortisol level and tsh are normal. Not sure if her having a urostomy is causing her non anion gap acidosis. will consult nephrology. she is on bicarb. 09/28 spoke with pt's son to convince her to get the ct. will continue labs. will talk to ID for possible discharge soon. 09/29 will get cxr and add bicarb since her bicarb on bmp is trending down. will call pharmacy to change her med in d5w.
[2019-10-01 08:27] LABS: Vancomycin, Trough 19.5 ug/mL
[2019-10-01] MEDS ORDERED: Potassium Phosphate 9 MMOL in Sodium Chloride 0.9% 100 ML IVPB SCH (08:30)
[2019-10-01] MEDS ORDERED: Magnesium Sulfate 4 GM in Sodium Chloride 0.9% 250 ML 250 ML IVPB SCH (08:30)
[2019-10-01] MEDS: Potassium Bicarbonate/Cit Ac 25 MEQ TAB PO SCH ×2 (08:37→15:39)
[2019-10-01] MEDS: Enoxaparin Sodium 40 MG/0.4 ML SYRINGE SC SCH (08:38)
[2019-10-01] MEDS: Venlafaxine HCl XR 75 MG CAP PO SCH (08:38)
[2019-10-01] MEDS: levETIRAcetam 500 MG TAB PO SCH ×2 (08:39→21:30)
[2019-10-01] MEDS: Famotidine 20 MG TAB PER TUBE SCH ×2 (08:39→21:39)
[2019-10-01] MEDS: HYDROcodone/Acetaminophen 5/325 mg Tablet PO PRN (08:40)
[2019-10-01] MEDS: DEXTROSE 5% IVPB SCH (08:41)
[2019-10-01] MEDS: WATER IVPB SCH (08:41)
[2019-10-01] MEDS: VANCOMYCIN HCL IVPB SCH (08:41)
[2019-10-01] MEDS ORDERED: Dextrose 5% in Water 1,000 ML IV SCH ×2 (08:45→16:55)
[2019-10-01] MEDS ORDERED: Sodium Bicarbonate Tab 325 MG TAB PO SCH (09:00)
[2019-10-01] MEDS ORDERED: Succinylcholine Chloride 20 MG/ML 10 ml SYRINGE FS ONE (09:23)
[2019-10-01] MEDS ORDERED: Benzocaine 20% Spray 60 ML CAN ONE (09:23)
--- NOTE | 2019-10-01 11:29 | RAD ---
EXAM: Portable chest PROVIDED CLINICAL HISTORY: Shortness of breath COMPARISON: 09/30/2019 FINDINGS: Cardiac and mediastinal silhouette is unchanged in appearance. Bibasilar subsegmental atelectatic vira nges are redemonstrated. No lobar consolidation, pleural fluid or pneumothorax apparent. IMPRESSION: No evidence for an acute cardiopulmonary process.
[2019-10-01 11:36] LABS: #Basophils 0.1 thou/uL (0.0-0.2); #Lymphocytes 1.7 thou/uL (1.20-3.40); #Monocytes 1.1 thou/uL (0.11-0.59); #Neutrophils 13.4 thou/uL (1.40-6.50); %Basophils 0.4 % (0.0-1.0); %Eosinophils 0.2 % (0.0-10.0); %Lymphocytes 10.1 % (21.0-51.0); %Monocytes 6.9 % (0.0-10.0); %Neutrophils 82.3 % (42.0-75.0); Hemoglobin 10.6 g/dL (12.0-16.0); Mean Corpuscular HGB CONC 31.7 g/dL (32.0-36.0); Mean Corpuscular Hemoglobin 28.3 pg (27.0-31.0); Mean Corpuscular Volume 89.2 fL (78.0-98.0); Mean Platelet Volume 7.5 fL (7.4-10.4); Platelet Count 616 thou/uL (130-400); Red Blood Cell (RBC) Count 3.75 mill/uL (4.20-5.40); White Blood Cell (WBC) Count 16.2 thou/uL (4.8-10.8)
[2019-10-01] MEDS ORDERED: Lactated Ringer's 1,000 ML IV SCH (11:45)
[2019-10-01 12:30] LABS: Actual Bicarbonate (HCO3a) 15.4 mEq/L (22-28); Base Excess (BEa) -6.6 mEq/L (-2.0 to +3.0); Calcium, Ionized 1.16 mmol/L (1.12-1.30); Carboxyhemoglobin (COHb) 0.4 gm% (0.0-3.0); Hemoglobin (Hb) 10.7 g/dL (12.0-16.0); O2 Tension (PaO2) 90.1 mmHg (80.0-100.0); Potassium - ABG Lab 4.31 mmol/L (3.70-5.30); pH, Arterial 7.47 (7.35-7.45)
[2019-10-01 12:32] LABS: CO2 Tension 21.6 mmHg (35.0-45.0); Puncture Site RBRACH
[2019-10-01] MEDS ORDERED: ALPRAZolam 0.5 MG TAB PO SCH (13:15)
--- NOTE | 2019-10-01 14:33 | PDOC.HOSPP ---
- Subjective Encounter Date: 10/01/19 Encounter Time: 11:45 Subjective: pt up in bed very tachypneic today. she is more confused compared to her baseline. - Objective Vital Signs & Weight: Vital Signs (12 hours) Temp Pulse Resp BP BP Pulse Ox 10/01/19 11:11 99.7 F H 137 H 22 H 108/72 95 10/01/19 07:20 100.9 F H 122 H 22 H 124/76 95 10/01/19 04:00 100.1 F H 90 20 147/85 H 96 Weight Admit Weight 180 lb 12.464 oz Weight 180 lb 12.465 oz Most Recent Monitor Data Heart Rate from ECG 74 NIBP 150/76 NIBP BP-Mean 100 Respiration from ECG 27 SpO2 96 I&O: 09/30/19 10/01/19 10/02/19 06:59 06:59 06:59 Intake Total 960 780 Output Total 9958 9262 Balance -6651 -246 Result Diagrams: 10/02/19 04:45 10/02/19 04:45 Hospitalist ROS - Review of Systems Other: pt confused unable to obtain - Medication Medications: Active Medications Generic Name Dose Route Start Last Admin Trade Name Freq PRN Reason Stop Dose Admin Acetaminophen 650 mg 09/18/19 18:42 10/01/19 08:55 Tylenol PO 650 mg Q4H PRN Administration Headache/Fever/Mild Pain (1-3) Hydrocodone Bitart/Acetaminophen 1 tab 09/24/19 09:59 10/01/19 08:40 Seltzer 5/325 PO 1 tab QIDPRN PRN Administration Pain Alprazolam 0.5 mg 10/01/19 13:15 10/01/19 13:40 Xanax PO 10/01/19 15:15 0.5 mg NOW ABEL Administration Diphenhydramine HCl 25 mg 09/24/19 22:37 09/24/19 23:06 Benadryl PO 25 mg Q8H PRN Administration rash itching Enoxaparin Sodium 40 mg 09/19/19 09:00 10/01/19 08:38 Lovenox SC 40 mg 0900 ABEL Administration Famotidine 20 mg 09/23/19 09:00 10/01/19 08:39 Pepcid PER TUBE 20 mg BID ABEL Administration Metronidazole 500 mg/ Device 100 mls @ 100 mls/hr 09/28/19 05:00 10/01/19 13: 40 IVPB 100 mls 0500,1300,2100 ABEL Administration Cefepime HCl 1 gm/ Dextrose/ 100 mls @ 200 mls/hr 09/30/19 22:00 10/01/19 10: 10 Water IVPB 100 mls 1000,2200 ABEL Administration Vancomycin HCl 1.5 gm/ 300 mls @ 200 mls/hr 10/01/19 09:00 10/01/19 08:41 Dextrose/Water IVPB 300 mls 0900 ABEL Administration Dextrose/Water 1,000 mls @ 50 mls/hr 10/01/19 08:45 10/01/19 09:04 D5w IV 1,000 mls .Q20H ABEL Administration Levetiracetam 750 mg 09/28/19 21:00 10/01/19 08:39 Keppra PO 750 mg BID ABEL Administration Levothyroxine Sodium 50 mcg 09/19/19 06:00 10/01/19 05:48 Synthroid PO 50 mcg 0600 ABEL Administration Potassium Bicarbonate/Citric Acid 50 meq 09/30/19 08:00 10/01/19 08:37 K-Vescent PO 50 meq BID-WM ABEL Administration Sodium Chloride 10 ml 09/18/19 21:00 10/01/19 08:38 Flush - Normal Saline IVF 10 ml Q12HR ABEL Administration Venlafaxine HCl 225 mg 09/19/19 09:00 10/01/19 08:38 Effexor Xr PO 225 mg DAILY ABEL Administration - Exam ENT: dry oral mucosa Neck: negative: supple, symmetric, no JVD, no thyromegaly, no lymphadenopathy, no carotid bruit, JVD Heart - other findings: tachycardiac Respiratory - other findings: no wheezing or rhonchi heard. Gastrointestinal: soft, non-distended Gastrointestinal - other findings: urostomy and colostomy Hosp A/P (1) Septic shock Code(s): A41.9 - SEPSIS, UNSPECIFIED ORGANISM; R65.21 - SEVERE SEPSIS WITH SEPTIC SHOCK Status: Acute (2) Bacteremia Code(s): R78.81 - BACTEREMIA Status: Acute (3) Acute respiratory failure with hypoxia Code(s): J96.01 - ACUTE RESPIRATORY FAILURE WITH HYPOXIA Status: Acute (4) Hypokalemia Code(s): E87.6 - HYPOKALEMIA Status: Acute (5) Seizure disorder Code(s): G40.909 - EPILEPSY, UNSP, NOT INTRACTABLE, WITHOUT STATUS EPILEPTICUS Status: Acute (6) Sacral decubitus ulcer, stage IV Code(s): L89.154 - PRESSURE ULCER OF SACRAL REGION, STAGE 4 Status: Chronic (7) Metabolic acidosis Code(s): E87.2 - ACIDOSIS Status: Acute (8) CHINMAY (acute kidney injury) Code(s): N17.9 - ACUTE KIDNEY FAILURE, UNSPECIFIED Status: Acute - Plan pt still on levophed drip, will replace K. will check bmp again at 2100. Her blood cx are positive will continue broad spectrum abx. she was suppose to go for debridement but will not due to low K. will change her iv fluids to d5with bicarb due to her hypernatremia. chinmay is improving. pt was on high doses of diuretics at the long-term could be a cause of her hypokalemia. will check cortisol level in am. 09/26 ct pelvic ordered per ID's recommendation. Pt refused. will try to call the son about convincing her to undergo the ct scan. will continue abx for now. will monitor her non anion gap acidosis. she is getting a lot meds using ns vs her colostomy which could be causing her acidosis too. 09/27 pt's acidosis still persists, will get urine anion gap she has significant hyokalemia. Her cortisol level and tsh are normal. Not sure if her having a urostomy is causing her non anion gap acidosis. will consult nephrology. she is on bicarb. 09/28 spoke with pt's son to convince her to get the ct. will continue labs. will talk to ID for possible discharge soon. 09/29 will get cxr and add bicarb since her bicarb on bmp is trending down. will call pharmacy to change her med in d5w. 09/30 pt is tachycardiac and is tachypneic. i will give her one liter of LR, will start her on d5w. abg done, will talk to nephrology. she most likely has a hyperchloremia from her urostomy. she currently has resp alkalosis. she is on broad abx cef/flag/vanco. she is not hypoxic. her lungs are clear. she however has not been drinking much water possible dehydration. will replace her electrolytes. will talk with ID.
[2019-10-01] MEDS ORDERED: Fluconazole In NaCl,Iso-Osm 400 MG in Premix Bag 1 BAG IVPB SCH (15:15)
[2019-10-01] MEDS: MEROPENEM 1 GM/50 ML 1 GM in Premix Bag 1 BAG IVPB SCH (15:37)
--- NOTE | 2019-10-01 16:07 | RAD ---
SUPINE ABDOMEN: 10/01/19 HISTORY: Abdominal pain. Scattered stool and gas in the colon. There are gas filled dilated loops of bowel in the mid abdomen, some of which represent small bowel loops. Stool in the rectum may represent fecal impaction or cons tipation. IMPRESSION: Nonspecific bowel gas pattern with gas filled mildly dilated loops of bowel. Prominent stool in the r ectum. POS: [facility]
--- NOTE | 2019-10-01 16:48 | PDOC.EVN ---
Event Note - Event Note Event Note: Nurse called pt became very tachypneic and had a fever. will start her on abx. she will be transferred to icu. will call pulmonary.
[2019-10-01] MEDS ORDERED: Midazolam HCl 2 mg/2 ml Vial ONE (17:01)
[2019-10-01] MEDS ORDERED: CCU Electrolyte Replacement 1 EACH IVPB ONE (17:14)
[2019-10-01] MEDS ORDERED: Ventilator Sedation Protocol 1 EACH FS SCH (17:15)
[2019-10-01] MEDS ORDERED: Midazolam HCl 2 mg/2 ml Vial SLOW IVP SCH (17:15)
[2019-10-01] MEDS ORDERED: Succinylcholine Chloride 200 MG/10 ML VIAL IVP SCH (17:15)
[2019-10-01] MEDS ORDERED: Potassium Phosphate 30 MMOL in Sodium Chloride 0.9% 500 ML IVPB SCH (17:30)
[2019-10-01] MEDS ORDERED: Sodium Bicarbonate 50 MEQ in Dextrose 5% in Water 1,000 ML IV SCH (17:30)
[2019-10-01] MEDS ORDERED: Ventilator Sedation Protocol 1 EACH FS ONE (17:37)
[2019-10-01] MEDS ORDERED: DISCONTINUE PREVIOUS NARCOTIC PAIN MEDICATIONS AND BENZODIAZEPINES FS SCH (17:46)
[2019-10-01] MEDS ORDERED: Morphine 2 MG/ML SYRINGE SLOW IVP PRN (17:46)
[2019-10-01] MEDS ORDERED: Propofol BOLUS 1,000 MG/100 ML VIAL IV PRN (17:46)
[2019-10-01] MEDS ORDERED: Lorazepam 2 MG/ML VIAL SLOW IVP PRN (17:46)
[2019-10-01] MEDS ORDERED: Fentanyl BOLUS 250 ML IVPB PRN (17:46)
[2019-10-01] MEDS ORDERED: Propofol 1,000 MG/100 ML VIAL IV PRN (17:46)
[2019-10-01] MEDS ORDERED: Magnesium 2 GM/50 ML 2 GM in Premix Bag 1 BAG IVPB PRN (17:48)
[2019-10-01] MEDS ORDERED: Potassium Chloride 40 MEQ in Premix Bag 1 BAG IVPB PRN (17:48)
[2019-10-01] MEDS ORDERED: Potassium Chloride 20 MEQ TAB PO PRN (17:48)
[2019-10-01] MEDS ORDERED: Magnesium Oxide 400 MG TAB PO PRN ×2 (17:48)
[2019-10-01] MEDS ORDERED: Potassium Phosphate 9 MMOL in Sodium Chloride 0.9% 100 ML IVPB PRN (17:48)
[2019-10-01] MEDS ORDERED: Potassium Phosphate 15 MMOL in Sodium Chloride 0.9% 250 ML 250 ML IV PRN (17:48)
[2019-10-01] MEDS ORDERED: Potassium Phosphate 12 MMOL in Sodium Chloride 0.9% 250 ML 250 ML IV PRN (17:48)
[2019-10-01] MEDS ORDERED: PHOS-NAK 1 PKT PACK PO PRN ×2 (17:48)
[2019-10-01] MEDS ORDERED: Potassium Chloride 40 MEQ in Sodium Chloride 0.9% 250 ML 250 ML IVPB PRN (17:48)
[2019-10-01] MEDS ORDERED: CCU ELECTROLYTE REPLACEMENT PROTOCOL FS PRN (17:48)
--- NOTE | 2019-10-01 17:53 | RAD ---
RADIOGRAPH CHEST 1 VIEW: DATE: 10/01/2019 TIME: 4:53 PM HISTORY: 54-year-old female status post intubation, respiratory distress COMPARISON: 10/01/2019 10:51 AM FINDINGS: No major interval change in the streaky densities at bilateral lung bases. No pulmonary edema. No new consolidation or pneumothorax. New ETT at lower thoracic trachea, 1.5 cm superior to sirena. New esophagogastric tube coursing through stomach, distal tip outside of field of view. IMPRESSION: 1. Status post intubation with endotracheal tube 2. Esophagogastric tube placement 3. No interval change in the appearance of the lungs, with subsegmental atelectasis at the bilateral lung bases
--- NOTE | 2019-10-01 17:57 | PRG ---
DATE OF SERVICE: 10/01/2019 SUBJECTIVE: Rosa Wilde is transferred back to the unit for respiratory distress. Apparently, she has spiked a temp earlier. She has also developed significant hyperchloremia. She is starting to have fluctuating mental status. I was contacted by both the hospitalist and the nursing staff. When I arrived, my associate, Dr. Leal had already intubated her. Hemodynamically, she is stable. She received the succinylcholine and etomidate. She was ventilating per mechanical ventilation. PHYSICAL EXAMINATION: LUNGS: She had equal breath sounds. HEART: Regular rhythm. ABDOMEN: Soft. EXTREMITIES: Without asymmetry with trace edema. LABORATORY DATA: White count 16.2, hemoglobin 10.6, and platelets 616,000. Sodium 147, potassium 3.7, chloride 124, bicarb 13, anion gap is 10, BUN 7, and creatinine 0.59. IMPRESSION: Tachypnea secondary to hyperchloremic acidosis. It is unclear to me at this time what the fever source is. Her chest radiograph was fairly unimpressive early today. She will be kept sedated per sedation protocol, mechanically ventilated, and her antibiotics have been adjusted by Dr. Bains. CRITICAL CARE TIME: 30 minutes. Job ID: [id number]
[2019-10-01] MEDS: Sodium Bicarbonate 75 MEQ in Dextrose 5% in Water 1,000 ML IV SCH (18:12)
[2019-10-01] MEDS: fentaNYL Citrate/PF 2,000 MCG in Sodium Chloride 0.9% 60 ML IV SCH (18:21)
[2019-10-01 18:22] LABS: ALT (SGPT) 19 U/L (8-55); AST (SGOT) 39 U/L (5-34); Albumin 2.6 g/dL (3.5-5.0); Alkaline Phosphatase 91 U/L (40-110); Anion Gap 15 mmol/L (10-20); BUN (Urea Nitrogen) 8 mg/dL (9.8-20.1); Bilirubin, Total 0.3 mg/dL (0.2-1.2); Calc. Creatinine Clearance 124 mL/min (70-130); Calcium 7.5 mg/dL (7.8-10.44); Carbon Dioxide 12 mmol/L (22-29); Chloride 121 mmol/L (98-107); Estimated GFR-MDRD Greater than 90; Globulin 3.3 g/dL (2.4-3.5); Glucose 135 mg/dL (70-105); Potassium 4.3 mmol/L (3.5-5.1); Protein, Total 5.9 g/dL (6.0-8.3); Sodium 144 mmol/L (136-145)
[2019-10-01 19:02] LABS: Anisocytosis SLIGHT = 6-15 cells (100X) (0-5/hpf); Band 30 % (5-11); Hemoglobin 9.6 g/dL (12.0-16.0); Hypochromia SLIGHT = 6-15 cells (100X) (0-5/hpf); Lymphocytes 7 % (21-51); MDiff Complete? YES; Mean Corpuscular HGB CONC 30.5 g/dL (32.0-36.0); Mean Corpuscular Hemoglobin 27.2 pg (27.0-31.0); Mean Corpuscular Volume 89.2 fL (78.0-98.0); Mean Platelet Volume 7.9 fL (7.4-10.4); Metamyelocyte 1 % (0-0); Monocytes 3 % (0-10); Myelocyte 1 % (0-0); Neutrophil 57 % (42-75); Platelet Count 508 thou/uL (130-400); Platelet Morphology Comment Appears Increased; Polychromasia SLIGHT = 2-3 cells (100X) (0-2/hpf); RBC Distribution Width 18.1 % (11.5-14.5); Reactive Lymphocytes 1 % (0-10); Red Blood Cell (RBC) Count 3.53 mill/uL (4.20-5.40); White Blood Cell (WBC) Count 11.1 thou/uL (4.8-10.8)
--- NOTE | 2019-10-01 19:38 | PRG ---
DATE OF SERVICE: 10/01/2019 SUBJECTIVE: Ms. Wilde decompensated. She probably aspirated and had to be intubated. She developed a temperature elevation again and white cell count elevation now. She is in the ICU. Dr. Rainey has intubated the patient and the x-rays that were done are described below. OBJECTIVE: VITAL SIGNS: Now show tachycardia at 120, O2 saturations are 100% and she is breathing at 20 times per minute, her T-max recently was 101.8. GENERAL: She grimaces when I try to look at her eyes. LUNGS: Have diminished breath sounds at bases with faint wheezing noted. HEART: S1 and S2, regular rate. ABDOMEN: Soft, nondistended, ileal conduit and a colostomy, quadriplegia noted. LABORATORY DATA: White cell count is up to 16.2, hemoglobin 10.6, platelets 616 with 82% neutrophils. Sodium 144, creatinine 0.67. The albumin is 2.6, total protein 5.9, AST 39. Microbiology; we have a polymicrobial from the coccygeal area and nephrostomy tube site with yeast species. The repeat imaging studies include a chest x-ray, which was done this morning before the intubation and showed bibasilar subsegmental atelectatic changes. The post-intubation with ET tube in place, subsegmental atelectasis. She also had an abdomen x-ray showed nonspecific bowel gas pattern with gas-filled mildly dilated loops of bile and prominent stool in the rectum. 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 DISCUSSION: The CT of pelvis was done with contrast and did not show any evidence of an abscess. I still think that the Prevotella origin is the pelvic inflammatory process. She does have evidence suggestive of osteomyelitis of the sacrum and coccygeal areas. She has developed respiratory insufficiency and she probably has some compromise of the swallowing mechanism may have sustained aspiration that led to the current decompensation. The reasons for the current state might be multifactorial including the sepsis from the pelvic area as well as the possible superimposed aspiration. C difficile will be ruled out. She still has feces in the rectal area, but does not look like she has any acute abdominal complication at the moment. Job ID: [id number]
--- NOTE | 2019-10-01 20:04 | PRG ---
DATE OF SERVICE: 10/01/2019 SUBJECTIVE: The patient was seen and examined, noted with the following vital signs. OBJECTIVE: VITAL SIGNS: Blood pressure 96/62. HEENT: Unremarkable for endotracheal tube in place now. CARDIOVASCULAR SYSTEM: First and second sounds were heard. RESPIRATORY SYSTEM: Revealed vented sounds. DIGESTIVE: Revealed a benign abdomen. EXTREMITIES: No peripheral edema. LYMPHATICS: No peripheral lymphadenopathy. LABORATORY INVESTIGATION: Significant for blood gas that showed a pH of 7.47 with pCO2 of 21.6. Chemistry showed a bicarb of 12, creatinine 0.67. Urinalysis showed a pH of 7.0. CBC showed a white count of 11,100 with hemoglobin 9.6. IMPRESSION: 1. Metabolic acidosis/respiratory alkalosis. This patient's blood gas disorder is complex mixed acid-base disorder. The patient seems to have primary metabolic acidosis, primary respiratory alkalosis compounded by compensatory secondary respiratory alkalosis. 2. Primary metabolic acidosis in the context of renal tubular acidosis. PLAN: 1. Continue potassium supplementation, which seems to be much improved now. 2. We will hopefully adjust this patient's acid-base disorder with ventilation and control the primary respiratory alkalosis. The patient likely to benefit from some form of anxiolytic, as I do believe that the patient's primary respiratory alkalosis is driven by anxiety/hyperventilation syndrome. 3. Further management to be dependent on the clinical course. Job ID: [id number]
[2019-10-01] MEDS: Vancomycin HCl 25 MG/ML Oral PO SCH (21:05)
[2019-10-01] MEDS ORDERED: levETIRAcetam 500 mg/5 ml Oral Solution PO SCH (21:45)
[2019-10-02] MEDS: Vancomycin HCl 25 MG/ML Oral PO SCH (00:06)
[2019-10-02] MEDS: MEROPENEM 1 GM/50 ML 1 GM in Premix Bag 1 BAG IVPB SCH ×3 (00:06→15:51)
[2019-10-02] MEDS: Acetaminophen 650 MG/20.3 ML UDCUP PO PRN ×3 (00:25→14:23)
[2019-10-02] MEDS: Sodium Bicarbonate 75 MEQ in Dextrose 5% in Water 1,000 ML IV SCH (04:35)
[2019-10-02 05:26] LABS: Anion Gap 11 mmol/L (10-20); BUN (Urea Nitrogen) 7 mg/dL (9.8-20.1); Calc. Creatinine Clearance 136 mL/min (70-130); Calcium 7.3 mg/dL (7.8-10.44); Carbon Dioxide 20 mmol/L (22-29); Chloride 118 mmol/L (98-107); Estimated GFR-MDRD Greater than 90; Glucose 132 mg/dL (70-105); Magnesium 1.4 mg/dL (1.6-2.6); Potassium 3.5 mmol/L (3.5-5.1); Sodium 145 mmol/L (136-145)
[2019-10-02 05:35] LABS: ALT (SGPT) 41 U/L (8-55); AST (SGOT) 78 U/L (5-34); Albumin 2.5 g/dL (3.5-5.0); Alkaline Phosphatase 93 U/L (40-110); Anion Gap 14 mmol/L (10-20); BUN (Urea Nitrogen) 7 mg/dL (9.8-20.1); Bilirubin, Total 0.3 mg/dL (0.2-1.2); Calc. Creatinine Clearance 134 mL/min (70-130); Calcium 7.4 mg/dL (7.8-10.44); Carbon Dioxide 17 mmol/L (22-29); Chloride 118 mmol/L (98-107); Estimated GFR-MDRD Greater than 90; Globulin 3.1 g/dL (2.4-3.5); Glucose 132 mg/dL (70-105); Phosphorus 2.1 mg/dL (2.3-4.7); Potassium 3.6 mmol/L (3.5-5.1); Protein, Total 5.6 g/dL (6.0-8.3); Sodium 145 mmol/L (136-145)
[2019-10-02 06:01] LABS: Band 16 % (5-11); Hemoglobin 9.5 g/dL (12.0-16.0); Lymphocytes 18 % (21-51); MDiff Complete? YES; Mean Corpuscular HGB CONC 32.6 g/dL (32.0-36.0); Mean Corpuscular Hemoglobin 28.7 pg (27.0-31.0); Mean Platelet Volume 7.9 fL (7.4-10.4); Monocytes 5 % (0-10); Neutrophil 61 % (42-75); Platelet Count 447 thou/uL (130-400); Red Blood Cell (RBC) Count 3.29 mill/uL (4.20-5.40)
[2019-10-02] MEDS: Levothyroxine Sodium 50 MCG TAB PO SCH (06:30)
[2019-10-02 07:45] LABS: Actual Bicarbonate (HCO3a) 18.2 mEq/L (22-28); Base Excess (BEa) -3.7 mEq/L (-2.0 to +3.0); CO2 Tension 23.5 mmHg (35.0-45.0); Calcium, Ionized 1.07 mmol/L (1.12-1.30); Carboxyhemoglobin (COHb) 0.1 gm% (0.0-3.0); Hemoglobin (Hb) 9.4 g/dL (12.0-16.0); O2 Tension (PaO2) 139.1 mmHg (80.0-100.0); Potassium - ABG Lab 3.26 mmol/L (3.70-5.30); Puncture Site RR; pH, Arterial 7.51 (7.35-7.45)
[2019-10-02 07:46] LABS: ALV-art Gradient 116.725 (0-20)
--- NOTE | 2019-10-02 07:56 | RAD ---
CHEST 1 VIEW: Date: 10/02/2019 INDICATION: History of intubation. COMPARISON: Prior exam dated 10/01/2019. FINDINGS: Gastric catheter and ET tube are unchanged. Linear opacities involving both lower lobes suspicious of subsegmental volume loss persists. No consolidation is evident. Heart size is accentuated by exam [place]. No pleural effusion or pneumothorax is evident. Osseous structures are unremarkable. IMPRESSION: 1. Persistent bibasilar subsegmental atelectasis. 2. Stable tubes and lines. 3. No pneumothorax. POS: [facility]
--- NOTE | 2019-10-02 08:00 | PRG ---
DATE OF SERVICE: 10/02/2019 35 minutes critical care time. SUBJECTIVE: The patient remains intubated on mechanical ventilation. Last night, she had to be intubated because of progressive metabolic acidosis and poor ability to compensate given her underlying paraplegia. Today, she awakens easily, does not appear to be in any distress on mechanical ventilation. OBJECTIVE: VITAL SIGNS: Her temperature was 101.9, as high as 102.3; pulse 106; blood pressure 97/72; O2 saturation 100%. 24-hour intake 2063, output 1027. HEENT: Unremarkable. NECK: No adenopathy or JVD. LUNGS: Clear anteriorly. CARDIOVASCULAR: S1, S2, regular without audible murmur. ABDOMEN: Soft and nontender. The ileostomy and urostomy sites in the abdomen were good. EXTREMITIES: No edema. LABORATORY DATA: Sodium 145, potassium 3.6, chloride 118, CO2 of 17, BUN 7, creatinine 0.6, glucose 132. White blood cell count 13, hematocrit 29, and platelet count 447. ABG pending. ASSESSMENT: 1. Profound metabolic acidosis, likely secondary to high output from ileostomy. 2. Underlying sepsis. It looks like her antibiotics were changed yesterday. PLAN: 1. I will go ahead and increase her bicarbonate drip. I will begin weaning her ventilator with hopes of extubating by tomorrow. 2. Her electrolytes will have to be followed very closely as she becomes depleted very fast. Job ID: [id number]
[2019-10-02] MEDS: Sodium Bicarbonate 120 MEQ in Dextrose 5% in Water 1,000 ML IV SCH ×2 (08:50→16:55)
[2019-10-02] MEDS: Potassium Bicarbonate/Cit Ac 25 MEQ TAB PO SCH ×2 (08:51→16:42)
[2019-10-02] MEDS: Saccharomyces boulardii 250 MG CAP PO SCH (08:52)
[2019-10-02] MEDS: levETIRAcetam 500 mg/5 ml Oral Solution PO SCH ×2 (08:52→21:28)
[2019-10-02] MEDS: Enoxaparin Sodium 40 MG/0.4 ML SYRINGE SC SCH (08:52)
[2019-10-02] MEDS: Famotidine 20 MG TAB PER TUBE SCH ×2 (08:55→21:28)
[2019-10-02] MEDS: Fluconazole In NaCl,Iso-Osm 400 MG in Premix Bag 1 BAG IVPB SCH (09:46)
[2019-10-02] MEDS: Venlafaxine HCl XR 75 MG CAP PO SCH (10:33)
[2019-10-02] MEDS: WATER IVPB SCH ×2 (10:34→22:15)
[2019-10-02] MEDS: VANCOMYCIN HCL IVPB SCH ×2 (10:34→22:15)
[2019-10-02] MEDS: DEXTROSE 5% IVPB SCH ×2 (10:34→22:15)
[2019-10-02] MEDS: fentaNYL Citrate/PF 2,000 MCG in Sodium Chloride 0.9% 60 ML IV SCH (13:05)
--- NOTE | 2019-10-02 17:10 | PDOC.HOSPP ---
- Subjective Encounter Date: 10/02/19 Encounter Time: 11:15 Subjective: pt intubated - Objective Vital Signs & Weight: Vital Signs (12 hours) Temp Pulse Resp BP Pulse Ox 10/02/19 16:11 103 H 103/80 10/02/19 14:00 101.0 F H 19 10/02/19 13:32 100 102/78 10/02/19 12:00 101.2 F H 17 10/02/19 10:27 99 87/61 L 10/02/19 10:00 100.1 F H 13 10/02/19 08:00 18 100 10/02/19 07:35 105 H 93/75 10/02/19 07:00 102.4 F H 10/02/19 06:00 23 H Weight Admit Weight 180 lb 12.465 oz Weight 186 lb 4.65 oz Most Recent Monitor Data Heart Rate from ECG 97 NIBP 96/62 NIBP BP-Mean 73 Respiration from ECG 22 SpO2 96 I&O: 10/01/19 10/02/19 10/03/19 06:59 06:59 06:59 Intake Total 780 2064 1043 Output Total 1675 1027 555 Balance -895 1037 488 Result Diagrams: 10/02/19 04:45 10/02/19 04:45 Hospitalist ROS - Review of Systems Other: pt intubated - Medication Medications: Active Medications Generic Name Dose Route Start Last Admin Trade Name Freq PRN Reason Stop Dose Admin Acetaminophen 650 mg 09/18/19 18:42 10/01/19 08:55 Tylenol PO 650 mg Q4H PRN Administration Headache/Fever/Mild Pain (1-3) Acetaminophen 650 mg 10/01/19 23:08 10/02/19 14:23 Tylenol Elixir PO 650 mg Q4H PRN Administration Fever/Mild Pain Hydrocodone Bitart/Acetaminophen 1 tab 09/24/19 09:59 10/01/19 08:40 [place] 5/325 PO 1 tab QIDPRN PRN Administration Pain Diphenhydramine HCl 25 mg 09/24/19 22:37 09/24/19 23:06 Benadryl PO 25 mg Q8H PRN Administration rash itching Enoxaparin Sodium 40 mg 09/19/19 09:00 10/02/19 08:52 Lovenox SC 40 mg 0900 ABEL Administration Famotidine 20 mg 09/23/19 09:00 10/02/19 08:55 Pepcid PER TUBE 20 mg BID ABEL Administration Fluconazole/Sodium Chloride 200 mls @ 100 mls/hr 10/02/19 09:00 10/02/19 09: 46 400 mg/ Device IVPB 200 mls DAILY ABEL Administration Meropenem 1 gm/ Device 50 mls @ 100 mls/hr 10/01/19 16:00 10/02/19 15:51 IVPB 50 mls 0800,1600,2359 ABEL Administration Fentanyl Citrate 2,000 mcg/ 100 mls @ 0 mls/hr 10/01/19 17:46 10/02/19 13:05 Sodium Chloride IV 10/31/19 17:46 100 mls INF ABEL Administration Protocol Per Protocol Magnesium Sulfate 1 gm/ Sodium 102 mls @ 102 mls/hr 10/01/19 17:48 10/02/19 14:52 Chloride IV 102 mls PRN PRN Administration MAG LEVEL 1.4 - 2.0 Sodium Bicarbonate 120 meq/ 1,120 mls @ 100 mls/hr 10/02/19 07:45 10/02/19 16 :55 Dextrose/Water IV 1,120 mls .[id number] ABEL Administration Vancomycin HCl 1.5 gm/ 300 mls @ 200 mls/hr 10/02/19 10:00 10/02/19 10:34 Dextrose/Water IVPB 300 mls 1000 ABEL Administration Levetiracetam 750 mg 10/02/19 09:00 10/02/19 08:52 Keppra Oral Solution PO 750 mg BID ABEL Administration Levothyroxine Sodium 50 mcg 09/19/19 06:00 10/02/19 06:30 Synthroid PO 50 mcg 0600 ABEL Administration Potassium Bicarbonate/Citric Acid 50 meq 09/30/19 08:00 10/02/19 16:42 K-Vescent PO 50 meq BID-WM ABEL Administration Saccharomyces Boulardii 250 mg 10/02/19 09:00 10/02/19 08:52 Florastor PO 250 mg DAILY ABEL Administration Sodium Chloride 10 ml 09/18/19 21:00 10/02/19 09:46 Flush - Normal Saline IVF Not Given Q12HR ABEL - Exam Heart: negative: RRR, no murmur, no gallops, no rubs, normal peripheral pulses, irregular, diminshed peripheral pulses, murmur present, II/IV, III/IV Respiratory: negative: CTAB, no wheezes, no rales, no ronchi, normal chest expansion, no tachypnea, normal percussion, rales, rhonchi, tachypneic, wheezes Gastrointestinal: negative: soft, non-tender, non-distended, normal bowel sounds , no palpable masses, no hepatomegaly, no splenomegaly, no bruit, no guarding, no rigidity, tender to palpation, distended, diminished bowl sounds, voluntary guarding Extremities: 1+ LE edema (pt awake) Hosp A/P (1) Septic shock Code(s): A41.9 - SEPSIS, UNSPECIFIED ORGANISM; R65.21 - SEVERE SEPSIS WITH SEPTIC SHOCK Status: Acute (2) Bacteremia Code(s): R78.81 - BACTEREMIA Status: Acute (3) Acute respiratory failure with hypoxia Code(s): J96.01 - ACUTE RESPIRATORY FAILURE WITH HYPOXIA Status: Acute (4) Hypokalemia Code(s): E87.6 - HYPOKALEMIA Status: Acute (5) Seizure disorder Code(s): G40.909 - EPILEPSY, UNSP, NOT INTRACTABLE, WITHOUT STATUS EPILEPTICUS Status: Acute (6) Sacral decubitus ulcer, stage IV Code(s): L89.154 - PRESSURE ULCER OF SACRAL REGION, STAGE 4 Status: Chronic (7) Metabolic acidosis Code(s): E87.2 - ACIDOSIS Status: Acute (8) CHINMAY (acute kidney injury) Code(s): N17.9 - ACUTE KIDNEY FAILURE, UNSPECIFIED Status: Acute - Plan pt still on levophed drip, will replace K. will check bmp again at 2100. Her blood cx are positive will continue broad spectrum abx. she was suppose to go for debridement but will not due to low K. will change her iv fluids to d5with bicarb due to her hypernatremia. chinmay is improving. pt was on high doses of diuretics at the detention could be a cause of her hypokalemia. will check cortisol level in am. 09/26 ct pelvic ordered per ID's recommendation. Pt refused. will try to call the son about convincing her to undergo the ct scan. will continue abx for now. will monitor her non anion gap acidosis. she is getting a lot meds using ns vs her colostomy which could be causing her acidosis too. 09/27 pt's acidosis still persists, will get urine anion gap she has significant hyokalemia. Her cortisol level and tsh are normal. Not sure if her having a urostomy is causing her non anion gap acidosis. will consult nephrology. she is on bicarb. 09/28 spoke with pt's son to convince her to get the ct. will continue labs. will talk to ID for possible discharge soon. 09/29 will get cxr and add bicarb since her bicarb on bmp is trending down. will call pharmacy to change her med in d5w. 09/30 pt is tachycardiac and is tachypneic. i will give her one liter of LR, will start her on d5w. abg done, will talk to nephrology. she most likely has a hyperchloremia from her urostomy. she currently has resp alkalosis. she is on broad abx cef/flag/vanco. she is not hypoxic. her lungs are clear. she however has not been drinking much water possible dehydration. will replace her electrolytes. will talk with ID. 10/01 pt intubated will monitor. pt's abx changed. spoke with surgery who states that her wounds appear stable. ct pelvic no abscess only chronic osteo. will continue d5w with bicarb. replace electrolytes.
--- NOTE | 2019-10-02 18:52 | PRG ---
DATE OF SERVICE: 10/02/2019 SUBJECTIVE: Ms. Wilde is in the ICU. Apparently, Dr. Moreira is considering extubation tomorrow depending on clinical course. She is awake. She establishes eye contact and she seems to nod to certain questions. OBJECTIVE: VITAL SIGNS: Still having fever up to 102.3, now she is at 100.8, pulse 93, O2 sats are 100 on 40% FiO2. BP is a kind of on the low side 84/57 to 96/62. LUNGS: The lungs sounds still with coarse crackles bilaterally and coarse breath sounds. HEART: S1 and S2. ABDOMEN: Soft. NEUROLOGIC: Diffuse stiffness. Quadriplegia, incomplete. LABORATORY DATA: White cell count is at 13,000, hemoglobin 9.5, platelets 447, 16% bands. Creatinine 0.6. AST 78, ALT 41, alkaline phosphatase 93, albumin 2.5, and bilirubin 0.3. Microbiology with negative blood culture. C diff was negative. Repeat chest x-ray with bibasilar subsegmental atelectasis. No consolidation was evident. 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 The patient is currently on a broad-spectrum coverage with Diflucan, meropenem and vancomycin to be continued. Hopefully, we will seek an improvement in her temperature curve in the ensuing days. She will need protracted antimicrobial therapy for management of the osteomyelitis, but that is going to be a chronic refractory problem. I do not think she is going to be eligible for a radical resection of the infected areas of bone. Job ID: [id number]
--- NOTE | 2019-10-02 19:53 | PRG ---
DATE OF SERVICE: 10/02/2019 SUBJECTIVE: The patient was seen and examined, on life support. Noted with the following vital signs. OBJECTIVE: VITAL SIGNS: Febrile with temperature of up to 101. HEENT: Remarkable for endotracheal tube in place. CARDIOVASCULAR: First and second heart sounds were heard. RESPIRATORY SYSTEM: Revealed vented sounds. DIGESTIVE SYSTEM: Revealed a benign abdomen. EXTREMITIES: No peripheral edema. SKIN: No new gross rash. LYMPHATICS: No peripheral lymphadenopathy. LABORATORY INVESTIGATION: Significant for blood gas that showed a pH of 7.51, pCO2 of 23.5, bicarbonate level of 18.2. Chemistry showed a bicarb of 17, potassium 3.6. IMPRESSION: Complex mixed acid-base disorder, likely primary metabolic acidosis and primary respiratory alkalosis compounded by secondary respiratory alkalosis thus the patient's pH in the alkalotic range with pCO2 down to the 20s with a pH of 7.51. PLAN: 1. Continue bicarb supplementation. 2. We will defer to the environment coordinator in terms of vent management to address the respiratory alkalosis. The patient's pH is alkalotic at 7.51 and pCO2 very low in the face of pH of 7.51. 3. Further management to be dependent on the clinical course. Job ID: [id number] [facility]
[2019-10-03] MEDS: MEROPENEM 1 GM/50 ML 1 GM in Premix Bag 1 BAG IVPB SCH ×4 (00:25→23:04)
[2019-10-03 04:55] LABS: #Eosinphils 0.2 thou/uL (0.0-0.7); #Lymphocytes 1.8 thou/uL (1.20-3.40); #Monocytes 0.8 thou/uL (0.11-0.59); #Neutrophils 9.9 thou/uL (1.40-6.50); %Basophils 0.1 % (0.0-1.0); %Eosinophils 1.3 % (0.0-10.0); %Lymphocytes 14.1 % (21.0-51.0); %Monocytes 6.6 % (0.0-10.0); Hemoglobin 8.9 g/dL (12.0-16.0); Mean Corpuscular HGB CONC 32.1 g/dL (32.0-36.0); Mean Corpuscular Hemoglobin 28.9 pg (27.0-31.0); Mean Corpuscular Volume 90.1 fL (78.0-98.0); Mean Platelet Volume 8.3 fL (7.4-10.4); Platelet Count 362 thou/uL (130-400); RBC Distribution Width 17.7 % (11.5-14.5); Red Blood Cell (RBC) Count 3.06 mill/uL (4.20-5.40); White Blood Cell (WBC) Count 12.7 thou/uL (4.8-10.8)
[2019-10-03 05:20] LABS: Phosphorus 1.7 mg/dL (2.3-4.7)
[2019-10-03 05:22] LABS: Anion Gap 10 mmol/L (10-20); BUN (Urea Nitrogen) 8 mg/dL (9.8-20.1); Calc. Creatinine Clearance 166 mL/min (70-130); Carbon Dioxide 29 mmol/L (22-29); Chloride 107 mmol/L (98-107); Estimated GFR-MDRD Greater than 90; Glucose 111 mg/dL (70-105); Magnesium 1.4 mg/dL (1.6-2.6); Sodium 142 mmol/L (136-145)
[2019-10-03] MEDS: Levothyroxine Sodium 50 MCG TAB PO SCH (06:22)
[2019-10-03] MEDS: Sodium Bicarbonate 120 MEQ in Dextrose 5% in Water 1,000 ML IV SCH (07:11)
[2019-10-03 07:23] LABS: Actual Bicarbonate (HCO3a) 29.2 mEq/L (22-28); Base Excess (BEa) 5.2 mEq/L (-2.0 to +3.0); CO2 Tension 40.5 mmHg (35.0-45.0); Calcium, Ionized 1.01 mmol/L (1.12-1.30); Carboxyhemoglobin (COHb) 0.4 gm% (0.0-3.0); Hemoglobin (Hb) 8.1 g/dL (12.0-16.0); O2 Tension (PaO2) 155.8 mmHg (80.0-100.0); pH, Arterial 7.48 (7.35-7.45)
[2019-10-03 07:24] LABS: Puncture Site RB
[2019-10-03 07:25] LABS: ALV-art Gradient 78.775 (0-20)
[2019-10-03] MEDS: levETIRAcetam 500 mg/5 ml Oral Solution PO SCH ×2 (07:36→20:20)
--- NOTE | 2019-10-03 07:36 | OP ---
DATE OF PROCEDURE: 10/01/2019 SERVICE: Pulmonary Medicine. PROCEDURE PERFORMED: Endotracheal intubation. CONSENT: Procedure was performed emergently secondary to clinical deterioration and respiratory failure. MEDICATIONS USED: 1. Versed 2 mg IV push. 2. Etomidate 40 mg IV push. 3. Succinylcholine 100 mg IV push x1. PREPROCEDURE DIAGNOSES: 1. Acute hypoxic respiratory failure. 2. Metabolic encephalopathy. POSTPROCEDURE DIAGNOSES: 1. Acute hypoxic respiratory failure. 2. Metabolic encephalopathy. DESCRIPTION OF PROCEDURE: Vital sign monitoring was accomplished by noninvasive hemodynamic monitoring, pulse oximetry, and telemetry. In the supine position, the patient was preoxygenated with bag-valve mask ventilation and maintained with saturations of 100%. Following induction of anesthesia, a #3 GlideScope was inserted in the mouth offering clear identification of the posterior oropharynx with a grade 1 view. A 7.5-Nepali endotracheal tube was visualized passing between the vocal cords. Placement was confirmed by condensation in the endotracheal tube and bi-axillary chest auscultation. Endotracheal tube was secured at 23 cm, measured at the teeth. The patient was placed on mechanical ventilation with good return of volumes. Postprocedure x-ray demonstrated good location for the endotracheal tube within the trachea. ESTIMATED BLOOD LOSS: None. COMPLICATIONS: None. Job ID: [id number]
[2019-10-03] MEDS: Famotidine 20 MG TAB PER TUBE SCH ×2 (07:37→20:20)
[2019-10-03] MEDS: Saccharomyces boulardii 250 MG CAP PO SCH (07:38)
[2019-10-03] MEDS: Potassium Bicarbonate/Cit Ac 25 MEQ TAB PO SCH ×2 (07:43→18:28)
--- NOTE | 2019-10-03 07:46 | PRG ---
DATE OF SERVICE: 10/03/2019 35 minutes critical care time. SUBJECTIVE: This patient remains intubated on mechanical ventilation. She wakes up very easily, follows commands and has passed a spontaneous breathing trial without difficulty. OBJECTIVE: VITAL SIGNS: Temperature is 99.0, pulse 81, blood pressure 102/70, respiratory rate 18, O2 saturation 100%. HEENT: Unremarkable. NECK: No adenopathy or JVD. LUNGS: Clear anteriorly. CARDIAC: S1 and S2, regular. ABDOMEN: Ileostomy, urostomy noted. EXTREMITIES: No clubbing, cyanosis, or edema. LABORATORY DATA: Sodium 142, potassium 4, chloride 107, CO2 of 29, BUN 8, creatinine 0.5, glucose 111, magnesium 1.4, phosphorus 1.7. White blood cell count 12.7, hematocrit 27.6, and platelet count 362. PH of 7.48, pCO2 of 40, PO2 155. Chest x-ray shows no mass, effusion, or infiltrate. ASSESSMENT: 1. Status post metabolic acidosis with inability to compensate from respiratory standpoint. 2. Respiratory failure, requiring mechanical ventilation. 3. High output from ileostomy. 4. Severe electrolyte depletion. PLAN: 1. She can be extubated because her acidosis is corrected. 2. I will continue her antibiotics. 3. Change IV fluids to lactated Ringer's. 4. Replace electrolytes. TIME SPENT: Above encompassed 35 minutes critical care time. Job ID: [id number]
[2019-10-03 07:48] LABS: Band 5 % (5-11); Eosinophils 2 % (0-10); Lymphocytes 11 % (21-51); Monocytes 7 % (0-10); Neutrophil 74 % (42-75)
[2019-10-03 07:49] LABS: Platelet Morphology Comment Appears Adequate; Polychromasia SLIGHT = 2-3 cells (100X) (0-2/hpf)
--- NOTE | 2019-10-03 07:58 | RAD ---
EXAM: Portable chest PROVIDED CLINICAL HISTORY: Respiratory insufficiency COMPARISON: 10/02/2019 FINDINGS: Significant interval change with respect to the prior examination is not apparent. IMPRESSION: As above.
[2019-10-03] MEDS: Lactated Ringer's 1,000 ML IV SCH ×2 (08:43→20:49)
[2019-10-03] MEDS: Fluconazole In NaCl,Iso-Osm 400 MG in Premix Bag 1 BAG IVPB SCH (09:06)
[2019-10-03] MEDS: Enoxaparin Sodium 40 MG/0.4 ML SYRINGE SC SCH (09:08)
[2019-10-03 10:01] LABS: Vancomycin, Trough 17.5 ug/mL
[2019-10-03] MEDS: WATER IVPB SCH (10:30)
[2019-10-03] MEDS: VANCOMYCIN HCL IVPB SCH (10:30)
[2019-10-03] MEDS: DEXTROSE 5% IVPB SCH (10:30)
--- NOTE | 2019-10-03 13:16 | PDOC.HOSPP ---
- Subjective Encounter Date: 10/03/19 Encounter Time: 11:45 Subjective: pt up in bed extubated - Objective Vital Signs & Weight: Vital Signs (12 hours) Temp Pulse Resp BP Pulse Ox 10/03/19 12:00 99 10/03/19 11:00 98.0 F 10/03/19 08:40 92 10/03/19 08:00 19 100 10/03/19 07:33 24 H 10/03/19 07:13 76 102/70 10/03/19 07:00 99.0 F 10/03/19 06:00 16 10/03/19 04:00 99.2 F 15 10/03/19 03:53 85 10/03/19 02:00 13 Weight Admit Weight 180 lb 12.465 oz Weight 190 lb 14.725 oz Most Recent Monitor Data Heart Rate from ECG 91 NIBP 93/62 NIBP BP-Mean 72 Respiration from ECG 28 SpO2 99 I&O: 10/02/19 10/03/19 10/04/19 06:59 06:59 06:59 Intake Total 2064 4392.6 1337 Output Total 1027 1588 315 Balance 1037 2804.6 1022 Result Diagrams: 10/03/19 04:22 10/03/19 04:22 Hospitalist ROS - Review of Systems Cardiovascular: denies: chest pain, palpitations, orthopnea, paroxysmal noc. dyspnea, edema, light headedness, other Gastrointestinal: denies: nausea, vomiting, abdominal pain, diarrhea, constipation, melena, hematochezia, other Genitourinary: denies: dysuria, frequency, incontinence, hematuria, retention, other - Medication Medications: Active Medications Generic Name Dose Route Start Last Admin Trade Name Freq PRN Reason Stop Dose Admin Acetaminophen 650 mg 09/18/19 18:42 10/01/19 08:55 Tylenol PO 650 mg Q4H PRN Administration Headache/Fever/Mild Pain (1-3) Acetaminophen 650 mg 10/01/19 23:08 10/02/19 14:23 Tylenol Elixir PO 650 mg Q4H PRN Administration Fever/Mild Pain Hydrocodone Bitart/Acetaminophen 1 tab 09/24/19 09:59 10/01/19 08:40 [place] 5/325 PO 1 tab QIDPRN PRN Administration Pain Diphenhydramine HCl 25 mg 09/24/19 22:37 09/24/19 23:06 Benadryl PO 25 mg Q8H PRN Administration rash itching Enoxaparin Sodium 40 mg 09/19/19 09:00 10/03/19 09:08 Lovenox SC 40 mg 0900 ABEL Administration Famotidine 20 mg 09/23/19 09:00 10/03/19 07:37 Pepcid PER TUBE 20 mg BID ABEL Administration Fluconazole/Sodium Chloride 200 mls @ 100 mls/hr 10/02/19 09:00 10/03/19 09: 06 400 mg/ Device IVPB 200 mls DAILY ABEL Administration Meropenem 1 gm/ Device 50 mls @ 100 mls/hr 10/01/19 16:00 10/03/19 08:37 IVPB 50 mls 0800,1600,2359 AEBL Administration Fentanyl Citrate 2,000 mcg/ 100 mls @ 0 mls/hr 10/01/19 17:46 10/02/19 13:05 Sodium Chloride IV 10/31/19 17:46 100 mls INF ABEL Administration Protocol Per Protocol Magnesium Sulfate 1 gm/ Sodium 102 mls @ 102 mls/hr 10/01/19 17:48 10/03/19 07:12 Chloride IV 102 mls PRN PRN Administration MAG LEVEL 1.4 - 2.0 Potassium Phosphate 9 mmol/ 103 mls @ 25.75 mls/hr 10/01/19 17:48 10/03/19 07 :11 Sodium Chloride IVPB 103 mls ASDIR PRN Administration Phosphate 1.0-1.8 Vancomycin HCl 1.5 gm/ 300 mls @ 200 mls/hr 10/02/19 10:00 10/03/19 10:30 Dextrose/Water IVPB 300 mls 1000 ABEL Administration Lactated Ringer's 1,000 mls @ 75 mls/hr 10/03/19 07:30 10/03/19 08:43 Lactated Ringer's IV 1,000 mls .[id number] ABEL Administration Levetiracetam 750 mg 10/02/19 09:00 10/03/19 07:36 Keppra Oral Solution PO 750 mg BID ABEL Administration Levothyroxine Sodium 50 mcg 09/19/19 06:00 10/03/19 06:22 Synthroid PO 50 mcg 0600 ABEL Administration Potassium Bicarbonate/Citric Acid 50 meq 09/30/19 08:00 10/03/19 07:43 K-Vescent PO 50 meq BID-WM ABEL Administration Saccharomyces Boulardii 250 mg 10/02/19 09:00 10/03/19 07:38 Florastor PO 250 mg DAILY ABEL Administration Sodium Chloride 10 ml 09/18/19 21:00 10/03/19 09:07 Flush - Normal Saline IVF 10 ml Q12HR ABEL Administration Venlafaxine HCl 150 mg 10/03/19 09:00 10/03/19 07:37 Effexor PER TUBE 150 mg 0900 ABEL Administration Venlafaxine HCl 75 mg 10/02/19 21:00 10/02/19 21:29 Effexor PER TUBE 75 mg HS ABEL Administration - Exam Neck: negative: supple, symmetric, no JVD, no thyromegaly, no lymphadenopathy, no carotid bruit, JVD Heart: negative: RRR, no murmur, no gallops, no rubs, normal peripheral pulses, irregular, diminshed peripheral pulses, murmur present, II/IV, III/IV Respiratory: negative: CTAB, no wheezes, no rales, no ronchi, normal chest expansion, no tachypnea, normal percussion, rales, rhonchi, tachypneic, wheezes Gastrointestinal: negative: soft, non-tender, non-distended, normal bowel sounds , no palpable masses, no hepatomegaly, no splenomegaly, no bruit, no guarding, no rigidity, tender to palpation, distended, diminished bowl sounds, voluntary guarding Gastrointestinal - other findings: urostomy and colostomy Hosp A/P (1) Septic shock Code(s): A41.9 - SEPSIS, UNSPECIFIED ORGANISM; R65.21 - SEVERE SEPSIS WITH SEPTIC SHOCK Status: Acute (2) Bacteremia Code(s): R78.81 - BACTEREMIA Status: Acute (3) Acute respiratory failure with hypoxia Code(s): J96.01 - ACUTE RESPIRATORY FAILURE WITH HYPOXIA Status: Acute (4) Hypokalemia Code(s): E87.6 - HYPOKALEMIA Status: Acute (5) Seizure disorder Code(s): G40.909 - EPILEPSY, UNSP, NOT INTRACTABLE, WITHOUT STATUS EPILEPTICUS Status: Acute (6) Sacral decubitus ulcer, stage IV Code(s): L89.154 - PRESSURE ULCER OF SACRAL REGION, STAGE 4 Status: Chronic (7) Metabolic acidosis Code(s): E87.2 - ACIDOSIS Status: Acute (8) CHINMAY (acute kidney injury) Code(s): N17.9 - ACUTE KIDNEY FAILURE, UNSPECIFIED Status: Acute - Plan pt still on levophed drip, will replace K. will check bmp again at 2100. Her blood cx are positive will continue broad spectrum abx. she was suppose to go for debridement but will not due to low K. will change her iv fluids to d5with bicarb due to her hypernatremia. chinmay is improving. pt [facility] could be a cause of her hypokalemia. will check cortisol level in am. 09/26 ct pelvic ordered per ID's recommendation. Pt refused. will try to call the son about convincing her to undergo the ct scan. will continue abx for now. will monitor her non anion gap acidosis. she is getting a lot meds using ns vs her colostomy which could be causing her acidosis too. 09/27 pt's acidosis still persists, will get urine anion gap she has significant hyokalemia. Her cortisol level and tsh are normal. Not sure if her having a urostomy is causing her non anion gap acidosis. will consult nephrology. she is on bicarb. 09/28 spoke with pt's son to convince her to get the ct. will continue labs. will talk to ID for possible discharge soon. 09/29 will get cxr and add bicarb since her bicarb on bmp is trending down. will call pharmacy to change her med in d5w. 09/30 pt is tachycardiac and is tachypneic. i will give her one liter of LR, will start her on d5w. abg done, will talk to nephrology. she most likely has a hyperchloremia from her urostomy. she currently has resp alkalosis. she is on broad abx cef/flag/vanco. she is not hypoxic. her lungs are clear. she however has not been drinking much water possible dehydration. will replace her electrolytes. will talk with ID. 10/01 pt intubated will monitor. pt's abx changed. spoke with surgery who states that her wounds appear stable. ct pelvic no abscess only chronic osteo. will continue d5w with bicarb. replace electrolytes. / pt extubated, will continue broad spectrum abx. cx so far negative unclear her febrile source. cdiff negative.
[2019-10-03] MEDS: Ondansetron PF 4 MG/2 ML Vial SLOW IVP PRN (14:24)
--- NOTE | 2019-10-03 14:37 | PRG ---
DATE OF SERVICE: 10/03/2019 SUBJECTIVE: Ms. Wilde is doing well after extubation. She is able to speak, but unable to raise the voice intensity, it is a barely audible. She denies any abdominal pain or mild dyspnea. OBJECTIVE: VITAL SIGNS: Her T-max now has decreased, it was 100 at midnight and now she has been defervescing since. O2 saturation 99. GENERAL: Awake, quadriparesis. LUNGS: Small coarse of lungs sounds. A few crackles here and there. HEART: S1 and S2, regular rate. ABDOMEN: Mild to moderately distended, but not tender. LABORATORY DATA: White cell count 12.7, hemoglobin 8.9, platelets 362. Creatinine 0.53. No new microbiology results. Of note, the blood culture is negative at 48 hours. Repeat chest x-ray with no significant changes. The previous one from yesterday with bibasilar atelectasis. No pneumothorax. 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 The patient is improving on meropenem, Diflucan, and vancomycin, which will be continued. She has been successfully extubated. Job ID: [id number]
--- NOTE | 2019-10-03 16:49 | PRG ---
DATE OF SERVICE: 10/03/2019 SUBJECTIVE: The patient was seen and examined earlier this morning, still intubated. OBJECTIVE: HEENT: Unremarkable. CARDIOVASCULAR SYSTEM: First and second heart sounds were heard. RESPIRATORY SYSTEM: Clear to auscultation. DIGESTIVE SYSTEM: Revealed a benign abdomen. EXTREMITIES: No peripheral edema. SKIN: No new gross rash. LYMPHATICS: No peripheral lymphadenopathy. LABORATORY INVESTIGATION: Showed a bicarb of 29, creatinine of 0.53. ABG showed a blood gas of 7.48 and pCO2 of 40. IMPRESSION: 1. Mixed acid-base disorder, primary metabolic acidosis and primary respiratory alkalosis compounded by secondary respiratory alkalosis, much improved with pCO2 of 40. 2. Renal tubular acidosis. 3. Cardiopulmonary failure, improved. PLAN: Continue current supportive measures. Monitor potassium closely. Job ID: [id number]
[2019-10-03] MEDS: Magnesium Oxide 400 MG TAB PO SCH (20:20)
[2019-10-04] MEDS: Ondansetron PF 4 MG/2 ML Vial SLOW IVP PRN (03:35)
[2019-10-04 04:49] LABS: Band 2 % (5-11); Eosinophils 2 % (0-10); Hemoglobin 8.9 g/dL (12.0-16.0); Lymphocytes 23 % (21-51); MDiff Complete? YES; Mean Corpuscular HGB CONC 30.8 g/dL (32.0-36.0); Mean Corpuscular Hemoglobin 28.1 pg (27.0-31.0); Mean Platelet Volume 8.8 fL (7.4-10.4); Monocytes 6 % (0-10); Neutrophil 67 % (42-75); Platelet Count 318 thou/uL (130-400); Platelet Morphology Comment Appears Adequate; RBC Distribution Width 17.9 % (11.5-14.5); Red Blood Cell (RBC) Count 3.18 mill/uL (4.20-5.40); White Blood Cell (WBC) Count 7.3 thou/uL (4.8-10.8)
[2019-10-04 04:56] LABS: Anion Gap 12 mmol/L (10-20); BUN (Urea Nitrogen) 6 mg/dL (9.8-20.1); Calc. Creatinine Clearance 187 mL/min (70-130); Calcium 7.6 mg/dL (7.8-10.44); Carbon Dioxide 24 mmol/L (22-29); Chloride 110 mmol/L (98-107); Estimated GFR-MDRD Greater than 90; Glucose 71 mg/dL (70-105); Magnesium 1.5 mg/dL (1.6-2.6); Potassium 4.6 mmol/L (3.5-5.1); Sodium 141 mmol/L (136-145)
[2019-10-04 05:00] LABS: Phosphorus 1.9 mg/dL (2.3-4.7)
[2019-10-04] MEDS: Levothyroxine Sodium 50 MCG TAB PO SCH (05:28)
[2019-10-04] MEDS: Potassium Bicarbonate/Cit Ac 25 MEQ TAB PO SCH ×2 (08:09→16:57)
[2019-10-04] MEDS: Enoxaparin Sodium 40 MG/0.4 ML SYRINGE SC SCH (08:09)
[2019-10-04] MEDS: Saccharomyces boulardii 250 MG CAP PO SCH (08:09)
[2019-10-04] MEDS: Famotidine 20 MG TAB PER TUBE SCH ×2 (08:10→19:59)
[2019-10-04] MEDS: Magnesium Oxide 400 MG TAB PO SCH (08:10)
[2019-10-04] MEDS: MEROPENEM 1 GM/50 ML 1 GM in Premix Bag 1 BAG IVPB SCH ×3 (08:11→23:59)
[2019-10-04] MEDS: HYDROcodone/Acetaminophen 5/325 mg Tablet PO PRN (08:27)
[2019-10-04] MEDS: levETIRAcetam 500 mg/5 ml Oral Solution PO SCH ×2 (08:28→19:59)
[2019-10-04] MEDS: Fluconazole In NaCl,Iso-Osm 400 MG in Premix Bag 1 BAG IVPB SCH (08:28)
[2019-10-04] MEDS: Lactated Ringer's 1,000 ML IV SCH ×2 (08:29→23:58)
--- NOTE | 2019-10-04 08:48 | PRG ---
DATE OF SERVICE: 10/04/2019 SUBJECTIVE: The patient continues to do better. She was extubated yesterday without difficulty. She did well overnight. She is complaining that she wants to go home. OBJECTIVE: VITAL SIGNS: Her temperature is 98.6, pulse 81, blood pressure 110/86, and O2 saturation 97% on room air. HEENT: Unremarkable. NECK: No adenopathy or JVD. LUNGS: Clear anteriorly. CARDIAC: S1, S2. Regular. ABDOMEN: Soft. EXTREMITIES: No edema. Total intake yesterday 2677, output 1495. ASSESSMENT: This patient's main issue is acid-base disturbances related to her ileostomy output. She also has electrolyte issues from that. RECOMMENDATIONS: She will need close following of her electrolytes and perhaps supplementation of bicarbonate orally if she begins to develop metabolic acidosis. This has to be treated aggressively and early. As long as she gets her electrolytes and her acid-base was watched that I think she will do well on the floor. Pulmonary will be available over the weekend. As needed, please call. Job ID: [id number]
[2019-10-04] MEDS: VANCOMYCIN HCL IVPB SCH (09:59)
[2019-10-04] MEDS: WATER IVPB SCH (09:59)
[2019-10-04] MEDS: DEXTROSE 5% IVPB SCH (09:59)
[2019-10-04] MEDS ORDERED: Potassium Phosphate 9 MMOL in Sodium Chloride 0.9% 100 ML IVPB SCH (12:15)
[2019-10-04 12:20] VITALS: BMI 33.0
--- NOTE | 2019-10-04 12:59 | PDOC.HOSPP ---
- Subjective Encounter Date: 10/04/19 Encounter Time: 11:15 Subjective: pt up in bed feels well. she is talkative today. - Objective Vital Signs & Weight: Vital Signs (12 hours) Temp Pulse Resp BP Pulse Ox 10/04/19 09:04 97.7 F 88 16 114/82 97 10/04/19 07:36 100 10/04/19 03:00 98.6 F Weight Admit Weight 180 lb 12.465 oz Weight 192 lb 3.889 oz Most Recent Monitor Data Heart Rate from ECG 81 NIBP 110/86 NIBP BP-Mean 94 Respiration from ECG 22 SpO2 97 I&O: 10/03/19 10/04/19 10/05/19 06:59 06:59 06:59 Intake Total 4392.6 2677 340 Output Total 1588 1495 85 Balance 2804.6 1182 255 Result Diagrams: 10/04/19 03:20 10/04/19 03:20 Hospitalist ROS - Review of Systems Respiratory: denies: cough, dry, shortness of breath, hemoptysis, SOB with excertion, pleuritic pain, sputum, wheezing, other Cardiovascular: denies: chest pain, palpitations, orthopnea, paroxysmal noc. dyspnea, edema, light headedness, other Gastrointestinal: denies: nausea, vomiting, abdominal pain, diarrhea, constipation, melena, hematochezia, other - Medication Medications: Active Medications Generic Name Dose Route Start Last Admin Trade Name Freq PRN Reason Stop Dose Admin Acetaminophen 650 mg 10/01/19 23:08 10/02/19 14:23 Tylenol Elixir PO 650 mg Q4H PRN Administration Fever/Mild Pain Diphenhydramine HCl 25 mg 09/24/19 22:37 09/24/19 23:06 Benadryl PO 25 mg Q8H PRN Administration rash itching Enoxaparin Sodium 40 mg 09/19/19 09:00 10/04/19 08:09 Lovenox SC 40 mg 0900 ABEL Administration Famotidine 20 mg 09/23/19 09:00 10/04/19 08:10 Pepcid PER TUBE 20 mg BID ABEL Administration Fluconazole/Sodium Chloride 200 mls @ 100 mls/hr 10/02/19 09:00 10/04/19 08: 28 400 mg/ Device IVPB 200 mls DAILY ABEL Administration Meropenem 1 gm/ Device 50 mls @ 100 mls/hr 10/01/19 16:00 10/04/19 08:11 IVPB 50 mls 0800,1600,2359 ABEL Administration Vancomycin HCl 1.5 gm/ 300 mls @ 200 mls/hr 10/02/19 10:00 10/04/19 09:59 Dextrose/Water IVPB 300 mls 1000 ABEL Administration Lactated Ringer's 1,000 mls @ 75 mls/hr 10/03/19 07:30 10/04/19 08:29 Lactated Ringer's IV 1,000 mls .[id number] ABEL Administration Levetiracetam 750 mg 10/02/19 09:00 10/04/19 08:28 Keppra Oral Solution PO 750 mg BID ABEL Administration Levothyroxine Sodium 50 mcg 09/19/19 06:00 10/04/19 05:28 Synthroid PO 50 mcg 0600 ABEL Administration Ondansetron HCl 4 mg 10/03/19 14:19 10/04/19 03:35 Zofran SLOW IVP 4 mg Q6H PRN Administration Nausea/Vomiting Saccharomyces Boulardii 250 mg 10/02/19 09:00 10/04/19 08:09 Florastor PO 250 mg DAILY ABEL Administration Sodium Chloride 10 ml 09/18/19 21:00 10/04/19 08:29 Flush - Normal Saline IVF 10 ml Q12HR ABEL Administration Venlafaxine HCl 150 mg 10/03/19 09:00 10/04/19 08:09 Effexor PER TUBE 150 mg 0900 ABEL Administration Venlafaxine HCl 75 mg 10/02/19 21:00 10/03/19 20:21 Effexor PER TUBE 75 mg HS ABEL Administration - Exam Neck: negative: supple, symmetric, no JVD, no thyromegaly, no lymphadenopathy, no carotid bruit, JVD Heart: negative: RRR, no murmur, no gallops, no rubs, normal peripheral pulses, irregular, diminshed peripheral pulses, murmur present, II/IV, III/IV Respiratory: negative: CTAB, no wheezes, no rales, no ronchi, normal chest expansion, no tachypnea, normal percussion, rales, rhonchi, tachypneic, wheezes Gastrointestinal: negative: soft, non-tender, non-distended, normal bowel sounds , no palpable masses, no hepatomegaly, no splenomegaly, no bruit, no guarding, no rigidity, tender to palpation, distended, diminished bowl sounds, voluntary guarding Hosp A/P (1) Septic shock Code(s): A41.9 - SEPSIS, UNSPECIFIED ORGANISM; R65.21 - SEVERE SEPSIS WITH SEPTIC SHOCK Status: Acute (2) Bacteremia Code(s): R78.81 - BACTEREMIA Status: Acute (3) Acute respiratory failure with hypoxia Code(s): J96.01 - ACUTE RESPIRATORY FAILURE WITH HYPOXIA Status: Acute (4) Hypokalemia Code(s): E87.6 - HYPOKALEMIA Status: Acute (5) Seizure disorder Code(s): G40.909 - EPILEPSY, UNSP, NOT INTRACTABLE, WITHOUT STATUS EPILEPTICUS Status: Acute (6) Sacral decubitus ulcer, stage IV Code(s): L89.154 - PRESSURE ULCER OF SACRAL REGION, STAGE 4 Status: Chronic (7) Metabolic acidosis Code(s): E87.2 - ACIDOSIS Status: Acute (8) CHINMAY (acute kidney injury) Code(s): N17.9 - ACUTE KIDNEY FAILURE, UNSPECIFIED Status: Acute - Plan pt still on levophed drip, will replace K. will check bmp again at 2100. Her blood cx are positive will continue broad spectrum abx. she was suppose to go for debridement but will not due to low K. will change her iv fluids to d5with bicarb due to her hypernatremia. chinmay is improving. pt was [facility] of di[facility]tics [facility] could be a cause of her hypokalemia. will check cortisol level in am. 09/26 ct pelvic ordered per ID's recommendation. Pt refused. will try to call the son about convincing her to undergo the ct scan. will continue abx for now. will monitor her non anion gap acidosis. she is getting a lot meds using ns vs her colostomy which could be causing her acidosis too. 09/27 pt's acidosis still persists, will get urine anion gap she has significant hyokalemia. Her cortisol level and tsh are normal. Not sure if her having a urostomy is causing her non anion gap acidosis. will consult nephrology. she is on bicarb. 09/28 spoke with pt's son to convince her to get the ct. will continue labs. will talk to ID for possible discharge soon. 09/29 will get cxr and add bicarb since her bicarb on bmp is trending down. will call pharmacy to change her med in d5w. 09/30 pt is tachycardiac and is tachypneic. i will give her one liter of LR, will start her on d5w. abg done, will talk to nephrology. she most likely has a hyperchloremia from her urostomy. she currently has resp alkalosis. she is on broad abx cef/flag/vanco. she is not hypoxic. her lungs are clear. she however has not been drinking much water possible dehydration. will replace her electrolytes. will talk with ID. 10/01 pt intubated will monitor. pt's abx changed. spoke with surgery who states that her wounds appear stable. ct pelvic no abscess only chronic osteo. will continue d5w with bicarb. replace electrolytes. 10/02 pt extubated, will continue broad spectrum abx. cx so far negative unclear her febrile source. cdiff negative. 10/03 she is doing well overall. will replace her electrolytes. Home Medication list reviewed no bicarb noted. will monitor. continue abx for now.
--- NOTE | 2019-10-04 16:42 | PRG ---
DATE OF SERVICE: 10/04/2019 SUBJECTIVE: The patient is seen and examined today, seems to be doing so much better. Noted with the following vital signs. OBJECTIVE: VITAL SIGNS: Afebrile, temperature 97.7, pulse 88, respiratory rate of 16, O2 saturation 97% with blood pressure of 114/82. HEENT: Unremarkable. CARDIOVASCULAR SYSTEM: First and second heart sounds were heard. RESPIRATORY SYSTEM: Clear to auscultation. DIGESTIVE SYSTEM: Revealed a benign abdomen with positive bowel sounds. EXTREMITIES: No peripheral edema. SKIN: No new gross rash. LYMPHATICS: No peripheral lymphadenopathy. IMPRESSION: 1. Mixed acid-base disorder in the context of primary metabolic acidosis and primary respiratory alkalosis with compensatory respiratory alkalosis, now much improved status post ventilator management. 2. Renal tubular acidosis. PLAN: 1. Deescalate the potassium supplementation. We will reduce the dose of potassium citrate down to 25 mEq p.o. b.i.d. 2. Continue to monitor the electrolyte. 3. Further management to be dependent on the clinical course. The patient seems to be very eager to go home. Job ID: [id number]
[2019-10-04] MEDS ORDERED: Potassium Bicarbonate/Cit Ac 25 MEQ TAB PO SCH (17:00)
[2019-10-05] MEDS: Levothyroxine Sodium 50 MCG TAB PO SCH (05:53)
[2019-10-05 06:16] LABS: #Eosinphils 0.1 thou/uL (0.0-0.7); #Lymphocytes 1.4 thou/uL (1.20-3.40); #Monocytes 0.6 thou/uL (0.11-0.59); #Neutrophils 3.6 thou/uL (1.40-6.50); %Basophils 0.3 % (0.0-1.0); %Eosinophils 1.6 % (0.0-10.0); %Lymphocytes 24.8 % (21.0-51.0); %Monocytes 9.8 % (0.0-10.0); %Neutrophils 63.5 % (42.0-75.0); Hemoglobin 8.9 g/dL (12.0-16.0); Mean Corpuscular HGB CONC 30.3 g/dL (32.0-36.0); Mean Corpuscular Hemoglobin 28.1 pg (27.0-31.0); Mean Corpuscular Volume 92.6 fL (78.0-98.0); Mean Platelet Volume 8.7 fL (7.4-10.4); Platelet Count 312 thou/uL (130-400); RBC Distribution Width 17.7 % (11.5-14.5); Red Blood Cell (RBC) Count 3.17 mill/uL (4.20-5.40); White Blood Cell (WBC) Count 5.6 thou/uL (4.8-10.8)
[2019-10-05 06:37] LABS: Anion Gap 11 mmol/L (10-20); BUN (Urea Nitrogen) 5 mg/dL (9.8-20.1); Calc. Creatinine Clearance 174 mL/min (70-130); Calcium 7.9 mg/dL (7.8-10.44); Carbon Dioxide 24 mmol/L (22-29); Chloride 110 mmol/L (98-107); Estimated GFR-MDRD Greater than 90; Glucose 76 mg/dL (70-105); Magnesium 1.4 mg/dL (1.6-2.6); Phosphorus 2.1 mg/dL (2.3-4.7); Potassium 4.3 mmol/L (3.5-5.1); Sodium 141 mmol/L (136-145)
[2019-10-05] MEDS: MEROPENEM 1 GM/50 ML 1 GM in Premix Bag 1 BAG IVPB SCH ×3 (08:13→23:33)
[2019-10-05] MEDS: Enoxaparin Sodium 40 MG/0.4 ML SYRINGE SC SCH (08:14)
[2019-10-05] MEDS: Famotidine 20 MG TAB PER TUBE SCH ×2 (08:15→19:46)
[2019-10-05] MEDS: Potassium Bicarbonate/Cit Ac 25 MEQ TAB PO SCH ×2 (08:15→17:56)
[2019-10-05] MEDS: Saccharomyces boulardii 250 MG CAP PO SCH (08:15)
[2019-10-05] MEDS: Fluconazole In NaCl,Iso-Osm 400 MG in Premix Bag 1 BAG IVPB SCH (08:17)
[2019-10-05] MEDS: levETIRAcetam 500 MG TAB PO SCH ×2 (08:29→19:46)
[2019-10-05] MEDS: VANCOMYCIN HCL IVPB SCH (10:39)
[2019-10-05] MEDS: DEXTROSE 5% IVPB SCH (10:39)
[2019-10-05] MEDS: WATER IVPB SCH (10:39)
[2019-10-05] MEDS: Lactated Ringer's 1,000 ML IV SCH ×2 (12:50→23:38)
[2019-10-05] MEDS: PHOS-NAK 1 PKT PACK PO SCH ×2 (14:32→19:47)
[2019-10-05] MEDS: Artificial Tears 18 DROP/0.9 ML EA EYE PRN ×3 (14:44→23:39)
--- NOTE | 2019-10-05 16:22 | PRG ---
DATE OF SERVICE: SUBJECTIVE: Ms. Wilde feels fatigued today. She denies pain. She is anxious to get out of the hospital and return to the extended living facility where she has been a resident for some time. PHYSICAL EXAMINATION: VITAL SIGNS: Blood pressure 122/80, respiratory rate 20, saturation 98% on room air. GENERAL: She is not in acute distress. She is awake and oriented. LUNGS: Show bronchial breath sounds, which improved following deep inspiratory maneuvers. HEART: Regular rate and rhythm. ABDOMEN: Soft. She has ileostomy. EXTREMITIES: She has no edema. She has chronic plantar flexion due to her nonambulatory status. LABORATORY DATA: Today includes white count of 5600, hemoglobin is 8.9, and platelet count 312,000. Electrolytes include sodium 141, potassium 4.3, chloride 110, CO2 is 24, BUN 5, creatinine 0.5, calcium is normal. Magnesium and phosphorus are both slightly low. IMPRESSION: Electrolyte/acid-base disturbance related to ileostomy. Clinically, these are improving and hopefully she can be discharged in the next 24 to 48 hours. Job ID: [id number]
--- NOTE | 2019-10-05 16:23 | PDOC.HOSPP ---
- Subjective Encounter Date: 10/05/19 Encounter Time: 12:30 Subjective: [pt up in bed wants to go home. - Objective Vital Signs & Weight: Vital Signs (12 hours) Temp Pulse Resp BP Pulse Ox 10/05/19 08:36 98 10/05/19 08:00 98.2 F 84 20 122/80 98 Weight Admit Weight 180 lb 12.465 oz Weight 192 lb 3.889 oz Most Recent Monitor Data Heart Rate from ECG 81 NIBP 110/86 NIBP BP-Mean 94 Respiration from ECG 22 SpO2 97 I&O: 10/04/19 10/05/19 10/06/19 06:59 06:59 06:59 Intake Total 5865 1440 Output Total 0525 8582 695 Balance 1292 -085 -800 Result Diagrams: 10/05/19 05:49 10/05/19 05:49 Hospitalist ROS - Review of Systems Cardiovascular: denies: chest pain, palpitations, orthopnea, paroxysmal noc. dyspnea, edema, light headedness, other Gastrointestinal: denies: nausea, vomiting, abdominal pain, diarrhea, constipation, melena, hematochezia, other Genitourinary: denies: dysuria, frequency, incontinence, hematuria, retention, other - Medication Medications: Active Medications Generic Name Dose Route Start Last Admin Trade Name Freq PRN Reason Stop Dose Admin Acetaminophen 650 mg 10/01/19 23:08 10/02/19 14:23 Tylenol Elixir PO 650 mg Q4H PRN Administration Fever/Mild Pain Artificial Tears 2 drop 10/05/19 13:39 10/05/19 14:44 Tears Naturale EA EYE 2 drop Q4H PRN Administration Dry Eyes Diphenhydramine HCl 25 mg 09/24/19 22:37 09/24/19 23:06 Benadryl PO 25 mg Q8H PRN Administration rash itching Enoxaparin Sodium 40 mg 09/19/19 09:00 10/05/19 08:14 Lovenox SC 40 mg 0900 ABEL Administration Famotidine 20 mg 09/23/19 09:00 10/05/19 08:15 Pepcid PER TUBE 20 mg BID ABEL Administration Fluconazole/Sodium Chloride 200 mls @ 100 mls/hr 10/02/19 09:00 10/05/19 08: 17 400 mg/ Device IVPB 200 mls DAILY ABEL Administration Meropenem 1 gm/ Device 50 mls @ 100 mls/hr 10/01/19 16:00 10/05/19 08:13 IVPB 50 mls 0800,1600,2359 ABEL Administration Vancomycin HCl 1.5 gm/ 300 mls @ 200 mls/hr 10/02/19 10:00 10/05/19 10:39 Dextrose/Water IVPB 300 mls 1000 ABEL Administration Lactated Ringer's 1,000 mls @ 75 mls/hr 10/03/19 07:30 10/05/19 12:50 Lactated Ringer's IV Not Given .[id number] ABEL Levetiracetam 750 mg 10/05/19 09:00 10/05/19 08:29 Keppra PO 750 mg BID ABEL Administration Levothyroxine Sodium 50 mcg 09/19/19 06:00 10/05/19 05:53 Synthroid PO 50 mcg 0600 ABEL Administration Miscellaneous Medication 1 pkt 10/05/19 15:00 10/05/19 14:32 Phos-Nak PO 10/06/19 09:01 1 pkt TID ABEL Administration Ondansetron HCl 4 mg 10/03/19 14:19 10/04/19 03:35 Zofran SLOW IVP 4 mg Q6H PRN Administration Nausea/Vomiting Potassium Bicarbonate/Citric Acid 25 meq 10/04/19 17:00 10/05/19 08:15 K-Vescent PO 25 meq BID-WM ABEL Administration Saccharomyces Boulardii 250 mg 10/02/19 09:00 10/05/19 08:15 Florastor PO 250 mg DAILY ABEL Administration Sodium Chloride 10 ml 09/18/19 21:00 10/05/19 08:19 Flush - Normal Saline IVF 10 ml Q12HR ABEL Administration Venlafaxine HCl 150 mg 10/03/19 09:00 10/05/19 08:15 Effexor PER TUBE 150 mg 0900 ABEL Administration Venlafaxine HCl 75 mg 10/02/19 21:00 10/04/19 19:59 Effexor PER TUBE 75 mg HS ABEL Administration - Exam Heart: negative: RRR, no murmur, no gallops, no rubs, normal peripheral pulses, irregular, diminshed peripheral pulses, murmur present, II/IV, III/IV Respiratory: negative: CTAB, no wheezes, no rales, no ronchi, normal chest expansion, no tachypnea, normal percussion, rales, rhonchi, tachypneic, wheezes Gastrointestinal: soft, non-distended Gastrointestinal - other findings: urostomy and colostomy Extremities: 2+ LE edema Neurological - other findings: alert but paraplegic Hosp A/P (1) Septic shock Code(s): A41.9 - SEPSIS, UNSPECIFIED ORGANISM; R65.21 - SEVERE SEPSIS WITH SEPTIC SHOCK Status: Acute (2) Bacteremia Code(s): R78.81 - BACTEREMIA Status: Acute (3) Acute respiratory failure with hypoxia Code(s): J96.01 - ACUTE RESPIRATORY FAILURE WITH HYPOXIA Status: Acute (4) Hypokalemia Code(s): E87.6 - HYPOKALEMIA Status: Acute (5) Seizure disorder Code(s): G40.909 - EPILEPSY, UNSP, NOT INTRACTABLE, WITHOUT STATUS EPILEPTICUS Status: Acute (6) Sacral decubitus ulcer, stage IV Code(s): L89.154 - PRESSURE ULCER OF SACRAL REGION, STAGE 4 Status: Chronic (7) Metabolic acidosis Code(s): E87.2 - ACIDOSIS Status: Acute (8) CHINMAY (acute kidney injury) Code(s): N17.9 - ACUTE KIDNEY FAILURE, UNSPECIFIED Status: Acute - Plan pt still on levophed drip, will replace K. will check bmp again at 2100. Her blood cx are positive will continue broad spectrum abx. she was suppose to go for debridement but will not due to low K. will change her iv fluids to d5with bicarb due to her hypernatremia. chinmay is improving. pt was on high doses of diuretics at the snf could be a cause of her hypokalemia. will check cortisol level in am. 09/26 ct pelvic ordered per ID's recommendation. Pt refused. will try to call the son about convincing her to undergo the ct scan. will continue abx for now. will monitor her non anion gap acidosis. she is getting a lot meds using ns vs her colostomy which could be causing her acidosis too. 09/27 pt's acidosis still persists, will get urine anion gap she has significant hyokalemia. Her cortisol level and tsh are normal. Not sure if her having a urostomy is causing her non anion gap acidosis. will consult nephrology. she is on bicarb. 09/28 spoke with pt's son to convince her to get the ct. will continue labs. will talk to ID for possible discharge soon. 09/29 will get cxr and add bicarb since her bicarb on bmp is trending down. will call pharmacy to change her med in d5w. 09/30 pt is tachycardiac and is tachypneic. i will give her one liter of LR, will start her on d5w. abg done, will talk to nephrology. she most likely has a hyperchloremia from her urostomy. she currently has resp alkalosis. she is on broad abx cef/flag/vanco. she is not hypoxic. her lungs are clear. she however has not been drinking much water possible dehydration. will replace her electrolytes. will talk with ID. 10/01 pt intubated will monitor. pt's abx changed. spoke with surgery who states that her wounds appear stable. ct pelvic no abscess only chronic osteo. will continue d5w with bicarb. replace electrolytes. 10/02 pt extubated, will continue broad spectrum abx. cx so far negative unclear her febrile source. cdiff negative. 10/03 she is doing well overall. will replace her electrolytes. Home Medication list reviewed no bicarb noted. will monitor. continue abx for now. 10/04 will start her on scheduled mag/phos. Her electrolytes are being replaced on a daily bases. she is afebrile. possible discharge to [place] soon. will ask id for length of her abx. spoke with pt and she wants to be a full code.
[2019-10-05] MEDS: Fentanyl 100 MCG/2 ML VIAL SLOW IVP PRN ×2 (18:02→23:33)
[2019-10-05] MEDS ORDERED: Magnesium Oxide 400 MG TAB PO SCH (21:00)
[2019-10-06 06:03] LABS: Eosinophils 3 % (0-10); Hemoglobin 9.3 g/dL (12.0-16.0); Lymphocytes 26 % (21-51); MDiff Complete? YES; Mean Corpuscular HGB CONC 31.5 g/dL (32.0-36.0); Mean Corpuscular Hemoglobin 28.8 pg (27.0-31.0); Mean Corpuscular Volume 91.2 fL (78.0-98.0); Mean Platelet Volume 10.5 fL (7.4-10.4); Monocytes 8 % (0-10); Neutrophil 62 % (42-75); Nucleated RBC 3 % (0); Platelet Count 144 thou/uL (130-400); Platelet Morphology Comment Appears Adequate; RBC Distribution Width 17.8 % (11.5-14.5); Red Blood Cell (RBC) Count 3.23 mill/uL (4.20-5.40); White Blood Cell (WBC) Count 4.6 thou/uL (4.8-10.8)
[2019-10-06 06:06] LABS: Anion Gap 12 mmol/L (10-20); BUN (Urea Nitrogen) 5 mg/dL (9.8-20.1); Calc. Creatinine Clearance 184 mL/min (70-130); Calcium 7.8 mg/dL (7.8-10.44); Carbon Dioxide 21 mmol/L (22-29); Chloride 109 mmol/L (98-107); Estimated GFR-MDRD Greater than 90; Glucose 81 mg/dL (70-105); Magnesium 1.1 mg/dL (1.6-2.6); Phosphorus 2.2 mg/dL (2.3-4.7); Potassium 4.4 mmol/L (3.5-5.1); Sodium 138 mmol/L (136-145)
[2019-10-06] MEDS: Levothyroxine Sodium 50 MCG TAB PO SCH (06:23)
[2019-10-06] MEDS ORDERED: Magnesium Oxide 400 MG TAB PO SCH (07:24)
[2019-10-06] MEDS ORDERED: Magnesium Sulfate 4 GM in Sodium Chloride 0.9% 250 ML 250 ML IVPB SCH ×2 (07:30→15:45)
[2019-10-06] MEDS: Saccharomyces boulardii 250 MG CAP PO SCH (08:30)
[2019-10-06] MEDS: PHOS-NAK 1 PKT PACK PO SCH ×3 (08:31→22:32)
[2019-10-06] MEDS: levETIRAcetam 500 MG TAB PO SCH ×2 (08:31→22:32)
[2019-10-06] MEDS: Famotidine 20 MG TAB PER TUBE SCH ×2 (08:31→22:32)
[2019-10-06] MEDS: Potassium Bicarbonate/Cit Ac 25 MEQ TAB PO SCH ×2 (08:31→16:42)
[2019-10-06] MEDS: Enoxaparin Sodium 40 MG/0.4 ML SYRINGE SC SCH (08:32)
[2019-10-06] MEDS: MEROPENEM 1 GM/50 ML 1 GM in Premix Bag 1 BAG IVPB SCH ×2 (08:33→15:15)
[2019-10-06] MEDS: Fluconazole In NaCl,Iso-Osm 400 MG in Premix Bag 1 BAG IVPB SCH (08:33)
[2019-10-06] MEDS: Magnesium Chloride 64 MG TAB PO SCH ×2 (08:40→22:33)
[2019-10-06] MEDS: Fentanyl 100 MCG/2 ML VIAL SLOW IVP PRN ×3 (08:42→22:51)
[2019-10-06] MEDS: VANCOMYCIN HCL IVPB SCH (12:59)
[2019-10-06] MEDS: DEXTROSE 5% IVPB SCH (12:59)
[2019-10-06] MEDS: WATER IVPB SCH (12:59)
[2019-10-06] MEDS: Artificial Tears 18 DROP/0.9 ML EA EYE PRN ×2 (13:00→15:14)
--- NOTE | 2019-10-06 15:47 | PDOC.HOSPP ---
- Subjective Encounter Date: 10/06/19 Encounter Time: 10:15 Subjective: pt wants to go home, called assisted to see if they had any issues with her low magnesium. per nursing she gets her labs checked annually and does not get mag replacement at home. her [facility] med list was reviewed no mag noted. - Objective Vital Signs & Weight: Vital Signs (12 hours) Pulse Ox 10/06/19 08:00 96 Weight Admit Weight 180 lb 12.465 oz Weight 192 lb 3.889 oz Most Recent Monitor Data Heart Rate from ECG 81 NIBP 110/86 NIBP BP-Mean 94 Respiration from ECG 22 SpO2 97 I&O: 10/05/19 10/06/19 10/07/19 06:59 06:59 06:59 Intake Total 1440 1250 Output Total 2443 5015 Balance -495 -1325 Result Diagrams: 10/06/19 05:11 10/06/19 05:11 Hospitalist ROS - Review of Systems Cardiovascular: denies: chest pain, palpitations, orthopnea, paroxysmal noc. dyspnea, edema, light headedness, other Gastrointestinal: denies: nausea, vomiting, abdominal pain, diarrhea, constipation, melena, hematochezia, other Genitourinary: denies: dysuria, frequency, incontinence, hematuria, retention, other - Medication Medications: Active Medications Generic Name Dose Route Start Last Admin Trade Name Freq PRN Reason Stop Dose Admin Acetaminophen 650 mg 10/01/19 23:08 10/02/19 14:23 Tylenol Elixir PO 650 mg Q4H PRN Administration Fever/Mild Pain Artificial Tears 2 drop 10/05/19 13:39 10/06/19 15:14 Tears Naturale EA EYE 2 drop Q4H PRN Administration Dry Eyes Diphenhydramine HCl 25 mg 09/24/19 22:37 09/24/19 23:06 Benadryl PO 25 mg Q8H PRN Administration rash itching Enoxaparin Sodium 40 mg 09/19/19 09:00 10/06/19 08:32 Lovenox SC 40 mg 0900 ABEL Administration Famotidine 20 mg 09/23/19 09:00 10/06/19 08:31 Pepcid PER TUBE 20 mg BID ABEL Administration Fentanyl 25 mcg 10/05/19 13:40 10/06/19 15:13 Sublimaze SLOW IVP 25 mcg Q6H PRN Administration Pain Fluconazole/Sodium Chloride 200 mls @ 100 mls/hr 10/02/19 09:00 10/06/19 08: 33 400 mg/ Device IVPB 200 mls DAILY ABEL Administration Meropenem 1 gm/ Device 50 mls @ 100 mls/hr 10/01/19 16:00 10/06/19 15:15 IVPB 50 mls 0800,1600,2359 ABEL Administration Vancomycin HCl 1.5 gm/ 300 mls @ 200 mls/hr 10/02/19 10:00 10/06/19 12:59 Dextrose/Water IVPB 300 mls 1000 ABEL Administration Lactated Ringer's 1,000 mls @ 75 mls/hr 10/03/19 07:30 10/05/19 23:38 Lactated Ringer's IV 1,000 mls .[id number] ABEL Administration Levetiracetam 750 mg 10/05/19 09:00 10/06/19 08:31 Keppra PO 750 mg BID ABEL Administration Levothyroxine Sodium 50 mcg 09/19/19 06:00 10/06/19 06:23 Synthroid PO 50 mcg 0600 ABEL Administration Magnesium Chloride 64 mg 10/06/19 09:00 10/06/19 08:40 Slow-Mag PO 64 mg BID ABEL Administration Miscellaneous Medication 1 pkt 10/06/19 09:00 10/06/19 08:34 Phos-Nak PO Not Given BID ABEL Ondansetron HCl 4 mg 10/03/19 14:19 10/04/19 03:35 Zofran SLOW IVP 4 mg Q6H PRN Administration Nausea/Vomiting Potassium Bicarbonate/Citric Acid 25 meq 10/04/19 17:00 10/06/19 08:31 K-Vescent PO Not Given BID-WM [facility] Saccharomyces Boulardii 250 mg 10/02/19 09:00 10/06/19 08:30 Florastor PO 250 mg DAILY ABEL Administration Sodium Chloride 10 ml 09/18/19 21:00 10/06/19 08:47 Flush - Normal Saline IVF 10 ml Q12HR ABEL Administration Sodium Chloride 10 ml 09/18/19 18:52 10/06/19 15:15 Flush - Normal Saline IVF 10 ml PRN PRN Administration Saline Flush Venlafaxine HCl 150 mg 10/03/19 09:00 04/05/20 08:30 Effexor PER TUBE 150 mg 0900 ABEL Administration Venlafaxine HCl 75 mg 10/02/19 21:00 10/05/19 19:47 Effexor PER TUBE 75 mg HS ABEL Administration - Exam Heart: negative: RRR, no murmur, no gallops, no rubs, normal peripheral pulses, irregular, diminshed peripheral pulses, murmur present, II/IV, III/IV Respiratory: negative: CTAB, no wheezes, no rales, no ronchi, normal chest expansion, no tachypnea, normal percussion, rales, rhonchi, tachypneic, wheezes Gastrointestinal: soft, normal bowel sounds Gastrointestinal - other findings: urostomy and colostomy Extremities: 2+ LE edema Hosp A/P (1) Septic shock Code(s): A41.9 - SEPSIS, UNSPECIFIED ORGANISM; R65.21 - SEVERE SEPSIS WITH SEPTIC SHOCK Status: Acute (2) Bacteremia Code(s): R78.81 - BACTEREMIA Status: Acute (3) Acute respiratory failure with hypoxia Code(s): J96.01 - ACUTE RESPIRATORY FAILURE WITH HYPOXIA Status: Acute (4) Hypokalemia Code(s): E87.6 - HYPOKALEMIA Status: Acute (5) Seizure disorder Code(s): G40.909 - EPILEPSY, UNSP, NOT INTRACTABLE, WITHOUT STATUS EPILEPTICUS Status: Acute (6) Sacral decubitus ulcer, stage IV Code(s): L89.154 - PRESSURE ULCER OF SACRAL REGION, STAGE 4 Status: Chronic (7) Metabolic acidosis Code(s): E87.2 - ACIDOSIS Status: Acute (8) CHINMAY (acute kidney injury) Code(s): N17.9 - ACUTE KIDNEY FAILURE, UNSPECIFIED Status: Acute - Plan pt still on levophed drip, will replace K. will check bmp again at 2100. Her blood cx are positive will continue broad spectrum abx. she was suppose to go for debridement but will not due to low K. will change her iv fluids to d5with bicarb due to her hypernatremia. chinmay is improving. pt was on high doses of diuretics at the assisted could be a cause of her hypokalemia. will check cortisol level in am. 09/26 ct pelvic ordered per ID's recommendation. Pt refused. will try to call the son about convincing her to undergo the ct scan. will continue abx for now. will monitor her non anion gap acidosis. she is getting a lot meds using ns vs her colostomy which could be causing her acidosis too. 09/27 pt's acidosis still persists, will get urine anion gap she has significant hyokalemia. Her cortisol level and tsh are normal. Not sure if her having a urostomy is causing her non anion gap acidosis. will consult nephrology. she is on bicarb. 09/28 spoke with pt's son to convince her to get the ct. will continue labs. will talk to ID for possible discharge soon. 09/29 will get cxr and add bicarb since her bicarb on bmp is trending down. will call pharmacy to change her med in d5w. 09/30 pt is tachycardiac and is tachypneic. i will give her one liter of LR, will start her on d5w. abg done, will talk to nephrology. she most likely has a hyperchloremia from her urostomy. she currently has resp alkalosis. she is on broad abx cef/flag/vanco. she is not hypoxic. her lungs are clear. she however has not been drinking much water possible dehydration. will replace her electrolytes. will talk with ID. 10/01 pt intubated will monitor. pt's abx changed. spoke with surgery who states that her wounds appear stable. ct pelvic no abscess only chronic osteo. will continue d5w with bicarb. replace electrolytes. 10/02 pt extubated, will continue broad spectrum abx. cx so far negative unclear her febrile source. cdiff negative. 10/03 she is doing well overall. will replace her electrolytes. Home Medication list reviewed no bicarb noted. will monitor. continue abx for now. 10/04 will start her on scheduled mag/phos. Her electrolytes are being replaced on a daily bases. she is afebrile. possible discharge to [place] soon. will ask id for length of her abx. spoke with pt and she wants to be a full code. 10/05 multiple replacements for mag, she is still very low. she has no diarrhea. called assisted who states that pt is not on any magnesium. will check a 24h mag to see if this is a renal cause vs her colostomy.
[2019-10-06] MEDS: Lactated Ringer's 1,000 ML IV SCH (16:27)
--- NOTE | 2019-10-06 18:09 | PRG ---
DATE OF SERVICE: 10/06/2019 SUBJECTIVE: Ms. Wilde is increasingly frustrated by the prolongation of her hospital stay. She inaccurately states that she has been here over a month, but clearly has been here for a long time. She would like to return to the skilled nursing as soon as possible. I have tried to focus her attention on the fact that she has come a long way and does not wish to be readmitted for a premature discharge. PHYSICAL EXAMINATION: VITAL SIGNS: Blood pressure 115/75, respiratory rate 18, pulse ox 96% on room air. GENERAL: She is frustrated and disappointed of continued hospitalization. She appears older than her stated age. NECK: She has no adenopathy or JVD. LUNGS: Clear. HEART: Regular rate and rhythm. She does have a quiet ejection murmur. LABORATORY DATA: White count 4600; hemoglobin is 9.3, stable; platelet count 144,000. Differential is unremarkable. Electrolytes include chloride 109, bicarbonate of 21, BUN is 5, creatinine 0.5. Her phosphorus is low at 2.2. Her magnesium is low at 1.1. IMPRESSION: 1. Sepsis, slowly improving. 2. Electrolyte abnormality secondary to ileostomy. She is still having a significant hypomagnesemia. PLAN: She is receiving magnesium replacement. A 24-hour urine has been requested. I have changed that to a 12-hour urine in hopes that we can initiate intervention tomorrow in a more timely fashion and possibly get her out of the hospital as soon as possible. I have told her that I would strongly discourage going AMA. Job ID: [id number]
[2019-10-06] MEDS: Acetaminophen 650 MG/20.3 ML UDCUP PO PRN (22:43)
[2019-10-07] MEDS: Lactated Ringer's 1,000 ML IV SCH ×2 (00:53→16:35)
[2019-10-07] MEDS: MEROPENEM 1 GM/50 ML 1 GM in Premix Bag 1 BAG IVPB SCH ×3 (00:53→16:40)
[2019-10-07 05:35] LABS: Band 1 % (5-11); Eosinophils 1 % (0-10); Hemoglobin 9.5 g/dL (12.0-16.0); Hypochromia SLIGHT = 6-15 cells (100X) (0-5/hpf); Lymphocytes 16 % (21-51); MDiff Complete? YES; Mean Corpuscular HGB CONC 30.9 g/dL (32.0-36.0); Mean Corpuscular Hemoglobin 28.3 pg (27.0-31.0); Mean Corpuscular Volume 91.6 fL (78.0-98.0); Mean Platelet Volume 8.5 fL (7.4-10.4); Monocytes 11 % (0-10); Neutrophil 71 % (42-75); Platelet Count 298 thou/uL (130-400); Platelet Morphology Comment Appears Adequate; RBC Distribution Width 18.1 % (11.5-14.5); Red Blood Cell (RBC) Count 3.34 mill/uL (4.20-5.40); White Blood Cell (WBC) Count 5.3 thou/uL (4.8-10.8)
[2019-10-07 05:37] LABS: Anion Gap 10 mmol/L (10-20); BUN (Urea Nitrogen) 5 mg/dL (9.8-20.1); Calc. Creatinine Clearance 206 mL/min (70-130); Calcium 7.4 mg/dL (7.8-10.44); Carbon Dioxide 22 mmol/L (22-29); Chloride 107 mmol/L (98-107); Estimated GFR-MDRD Greater than 90; Glucose 82 mg/dL (70-105); Magnesium 2.1 mg/dL (1.6-2.6); Potassium 3.4 mmol/L (3.5-5.1); Sodium 136 mmol/L (136-145)
[2019-10-07 05:42] LABS: Phosphorus 1.9 mg/dL (2.3-4.7)
[2019-10-07] MEDS: Levothyroxine Sodium 50 MCG TAB PO SCH (06:25)
[2019-10-07] MEDS ORDERED: Potassium Phosphate 30 MMOL in Sodium Chloride 0.9% 500 ML IVPB SCH ×2 (07:30→08:00)
[2019-10-07 07:44] VITALS: TEMP 98.5
[2019-10-07] MEDS ORDERED: Magnesium Sulfate 3 GM in Sodium Chloride 0.9% 100 ML IVPB SCH (07:45)
[2019-10-07] MEDS ORDERED: Potassium Phosphate 12 MMOL in Sodium Chloride 0.9% 100 ML IVPB SCH (07:45)
--- NOTE | 2019-10-07 08:39 | PRG ---
DATE OF SERVICE: 10/07/2019 SUBJECTIVE: Ms. Wilde is doing well and wants to go home. OBJECTIVE: VITAL SIGNS: On exam, temperature is 98.5, pulse 90, respirations 20, O2 saturation 96%, and blood pressure 125/85. HEENT: Unremarkable. NECK: No adenopathy or JVD. CHEST: Clear anteriorly. CARDIAC: S1 and S2. Regular. ABDOMEN: Soft. EXTREMITIES: No edema. LABORATORY DATA: Potassium is 3.4, magnesium 2.1, and phosphorus 1.9. ASSESSMENT: 1. Severe electrolyte depletion secondary to ileostomy, which is actually better with supplementation. 2. Sepsis. PLAN: Probably approaching the point where she can go home. I am not sure the duration of her antibiotics. There are no further pulmonary concerns at this time. Please recall if further assistance as needed. Job ID: [id number]
[2019-10-07] MEDS: Fentanyl 100 MCG/2 ML VIAL SLOW IVP PRN ×2 (08:52→15:02)
[2019-10-07] MEDS: Potassium Bicarbonate/Cit Ac 25 MEQ TAB PO SCH ×2 (08:54→16:35)
[2019-10-07] MEDS: Saccharomyces boulardii 250 MG CAP PO SCH (08:55)
[2019-10-07] MEDS: PHOS-NAK 1 PKT PACK PO SCH (08:55)
[2019-10-07] MEDS: levETIRAcetam 500 MG TAB PO SCH (08:55)
[2019-10-07] MEDS: Magnesium Chloride 64 MG TAB PO SCH (08:56)
[2019-10-07] MEDS: Enoxaparin Sodium 40 MG/0.4 ML SYRINGE SC SCH (08:56)
[2019-10-07] MEDS: Famotidine 20 MG TAB PER TUBE SCH (08:56)
[2019-10-07] MEDS: Artificial Tears 18 DROP/0.9 ML EA EYE PRN (09:17)
[2019-10-07] MEDS: Fluconazole In NaCl,Iso-Osm 400 MG in Premix Bag 1 BAG IVPB SCH (10:35)
[2019-10-07] MEDS: VANCOMYCIN HCL IVPB SCH (11:03)
[2019-10-07] MEDS: DEXTROSE 5% IVPB SCH (11:03)
[2019-10-07] MEDS: WATER IVPB SCH (11:03)
--- NOTE | 2019-10-07 14:56 | SPC ---
Exam: FLUOROSCOPICALLY GUIDED LEFT PICC EXCHANGE HISTORY: Midline. Sacral ulcer. Exposure: 0.5 minutes, 3431 mg/sq cm FINDINGS: Successful left midline exchange for PICC line. 48 cm trim length. Distal tip projects over the caval atrial junction. Single-lumen 4 [place] catheter flushes and aspirates without difficulty TECHNIQUE: Consent obtained to perform a left upper artery PICC line exchange. Patient presented to the fluorosc opic suite with a midline catheter. Patient was prepped and draped in a sterile fashion. 1% lidocaine, buffered with sodium bicarbonate was used for local anesthesia. Through the midline, a 0.0 18 guidewire was advanced to the level of the right atrium. Wire was advanced into the inferior vena cava to document venous access. Wire was subsequently pulled back to the right atrium. PICC line exchange was performed. 4 [place] PICC line terminates in the region of the caval atrial junction. 48 cm trim length. No immediate or postprocedure complications. IMPRESSION: Successful left PICC line exchange with scopic guidance fluoroscopic guidance Transcribed Date/Time: 10/07/2019 3:44 PM
[2019-10-07] MEDS ORDERED: DEXTROSE 5% IVPB SCH (17:00)
[2019-10-07] MEDS ORDERED: VANCOMYCIN HCL IVPB SCH (17:00)
[2019-10-07] MEDS ORDERED: WATER IVPB SCH (17:00)
[2019-10-07] MEDS: Acetaminophen 650 MG/20.3 ML UDCUP PO PRN (17:06)
[2019-10-07 17:12] VITALS: BP 130/78
== END 2019-10-07 17:16 | DRG 853 ==
LOC: ERS 09:50 → CCU 10:57 → IMCU/EMU 09-25 15:10 → T4-B 09-26 13:09 → CCU 10-01 16:43 → T4-A 10-04 08:52
PROVIDERS: ADMIT Internal Medicine; ATTEND Internal Medicine
PROC: 5A1955Z Respiratory Ventilation, Greater than 96 Consecutive Hours (ICD-10-PCS; 2019-09-18)
PROC: 0BH17EZ Insertion of Endotracheal Airway into Trachea, Via Natural or Artificial Opening (ICD-10-PCS; 2019-09-18)
PROC: 02HV33Z Insertion of Infusion Device into Superior Vena Cava, Percutaneous Approach (ICD-10-PCS; 2019-09-18)
PROC: 3E043XZ Introduction of Vasopressor into Central Vein, Percutaneous Approach (ICD-10-PCS; 2019-09-18)
PROC: 30233N1 Transfusion of Nonautologous Red Blood Cells into Peripheral Vein, Percutaneous Approach (ICD-10-PCS; 2019-09-20)
PROC: 0JB70ZZ Excision of Back Subcutaneous Tissue and Fascia, Open Approach (ICD-10-PCS; principal; 2019-09-21)
PROC: 0BH17EZ Insertion of Endotracheal Airway into Trachea, Via Natural or Artificial Opening (ICD-10-PCS; 2019-10-01)
PROC: 5A1945Z Respiratory Ventilation, 24-96 Consecutive Hours (ICD-10-PCS; 2019-10-02)
PROC: 02PY33Z Removal of Infusion Device from Great Vessel, Percutaneous Approach (ICD-10-PCS; 2019-10-07)
PROC: 02HV33Z Insertion of Infusion Device into Superior Vena Cava, Percutaneous Approach (ICD-10-PCS; 2019-10-07)
PROC: B518ZZA Fluoroscopy of Superior Vena Cava, Guidance (ICD-10-PCS; 2019-10-07)
DX: A41.02 Sepsis due to Methicillin resistant Staphylococcus aureus (principal); L89.154 Pressure ulcer of sacral region, stage 4; L89.324 Pressure ulcer of left buttock, stage 4; L89.314 Pressure ulcer of right buttock, stage 4; R65.21 Severe sepsis with septic shock; J96.01 Acute respiratory failure with hypoxia; G93.41 Metabolic encephalopathy; G82.20 Paraplegia, unspecified; N39.0 Urinary tract infection, site not specified; N17.9 Acute kidney failure, unspecified; E87.0 Hyperosmolality and hypernatremia; E87.4 Mixed disorder of acid-base balance; A41.59 Other Gram-negative sepsis; G40.909 Epilepsy, unspecified, not intractable, without status epilepticus; G89.29 Other chronic pain; M81.0 Age-related osteoporosis without current pathological fracture; F41.9 Anxiety disorder, unspecified; F32.9 Major depressive disorder, single episode, unspecified; E86.9 Volume depletion, unspecified; E03.9 Hypothyroidism, unspecified; E87.6 Hypokalemia; J10.1 Influenza due to other identified influenza virus with other respiratory manifestations; K56.41 Fecal impaction; N25.89 Other disorders resulting from impaired renal tubular function; E83.42 Hypomagnesemia; Z93.2 Ileostomy status; Z79.899 Other long term (current) drug therapy; Z79.890 Hormone replacement therapy; Z93.59 Other cystostomy status; Z28.21 Immunization not carried out because of patient refusal; Z88.8 Allergy status to other drugs, medicaments and biological substances
CPT/HCPCS: 36415; 36416; 36430; 36556; 36569; 71045; 72193; 74018; 80048; 80076; 80202; 81001; 82040; 82274; 82436; 82533; 82607; 82728; 82746; 82805; 83540; 83550; 83605; 83735; 84100; 84133; 84300; 84443; 85007; 85025; 85027; 85046; 85610; 85730; 86850; 86900; 86901; 87040; 87070; 87077; 87086; 87186; 87205; 87324; 87449; 93005; 93010; 94002; 94003; 96365; 96366; 96368; 96374; 96376; 99292; C1751; C9113; J0330; J0692; J1450; J1644; J1650; J1885; J1953; J2060; J2185; J2250; J2270; J2405; J2704; J2916; J3010; J3370; J3475; J3480; J3490; J7030; J7050; J7070; P9016; Q0163; Q9967; S0028

== ENCOUNTER 2019-10-19 10:26 | Emergency (ER) | payer OTHER | END 2019-10-19 10:32 | LOC: ER/OP 10:26 | DX: Z53.21 Procedure and treatment not carried out due to patient leaving prior to being seen by health care provider (principal) ==

== ENCOUNTER → 2019-10-21 | Day surgery (SDC) | payer OTHER ==
[~2019-10-21] MED LIST changes: +Heparin 1,000 UNITS/ML VIAL ONE; -Magnesium 2 GM/50 ML 2 GM in Premix Bag 1 BAG IVPB ONE
--- NOTE | 2019-10-22 09:51 | SPC ---
Fluoroscopic guided left upper extremity PICC replacement HISTORY: Malfunction of left upper extremity PICC FINDINGS: After explaining the procedure and answering all questions, the left upper extremity and ex ternal portions of the left upper extremity PICC were prepped and draped in usual sterile fashion. Sterile technique was used to carefully advance a guidewire into the catheter after transection. Guid ewire was used to hold position while a new 4 [place] single lumen PICC was placed so that the tip is at the level of the cavoatrial junction. The catheter was flushed and secured externally. Patient tolerated the procedure well and was dismissed in good condition. Fluoroscopy time 0.9 minutes. IMPRESSION : The new upper extremity PICC is ready for use.
== END ==
LOC: SPEC 13:02
PROVIDERS: ATTEND Family Medicine
PROC: B5181ZA Fluoroscopy of Superior Vena Cava using Low Osmolar Contrast, Guidance (ICD-10-PCS; principal; 2019-10-21)
PROC: 02HV33Z Insertion of Infusion Device into Superior Vena Cava, Percutaneous Approach (ICD-10-PCS; principal; 2019-10-21)
DX: T82.514A Breakdown (mechanical) of infusion catheter, initial encounter (principal); L89.90 Pressure ulcer of unspecified site, unspecified stage; Z88.1 Allergy status to other antibiotic agents; Z88.5 Allergy status to narcotic agent; Z88.8 Allergy status to other drugs, medicaments and biological substances
CPT/HCPCS: 36569; C1751; J1644

== ENCOUNTER 2020-07-20 16:46 | Emergency (ER) | payer OTHER ==
[2020-07-20] MEDS ORDERED: Cefepime 2 GM VIAL ONE (17:13)
[2020-07-20] MEDS ORDERED: Morphine 4 MG/ML VIAL ONE (17:13)
[2020-07-20] MEDS ORDERED: Ketorolac Tromethamine 30 MG/ML VIAL ONE (17:13)
[2020-07-20 17:16] LABS: #Eosinphils 0.6 thou/uL (0.0-0.7); #Lymphocytes 1.8 thou/uL (1.20-3.40); #Monocytes 0.9 thou/uL (0.11-0.59); #Neutrophils 5.9 thou/uL (1.40-6.50); %Basophils 0.1 % (0.0-1.0); %Eosinophils 6.5 % (0.0-10.0); %Lymphocytes 19.5 % (21.0-51.0); %Monocytes 9.9 % (0.0-10.0); %Neutrophils 64.1 % (42.0-75.0); Hemoglobin 12.3 g/dL (12.0-16.0); Mean Corpuscular HGB CONC 31.1 g/dL (32.0-36.0); Mean Corpuscular Hemoglobin 26.1 pg (27.0-31.0); Mean Corpuscular Volume 84.1 fL (78.0-98.0); Mean Platelet Volume 6.7 fL (7.4-10.4); Platelet Count 490 thou/uL (130-400); RBC Distribution Width 15.2 % (11.5-14.5); Red Blood Cell (RBC) Count 4.69 mill/uL (4.20-5.40); White Blood Cell (WBC) Count 9.3 thou/uL (4.8-10.8)
[2020-07-20] MEDS ORDERED: Vancomycin 1.5 GRAM/300 ML BAG 1.5 GM in Premix Bag 1 BAG IVPB SCH (17:30)
[2020-07-20 17:48] LABS: ALT (SGPT) 17 U/L (8-55); AST (SGOT) 16 U/L (5-34); Albumin 3.7 g/dL (3.5-5.0); Alkaline Phosphatase 99 U/L (40-110); Anion Gap 17 mmol/L (10-20); BUN (Urea Nitrogen) 17 mg/dL (9.8-20.1); Bilirubin, Total Less than 0.2 mg/dL (0.2-1.2); Calc. Creatinine Clearance 0 mL/min (70-130); Calcium 9.1 mg/dL (7.8-10.44); Carbon Dioxide 17 mmol/L (22-29); Chloride 104 mmol/L (98-107); Globulin 4.5 g/dL (2.4-3.5); Glucose 104 mg/dL (70-105); Potassium 3.6 mmol/L (3.5-5.1); Protein, Total 8.2 g/dL (6.0-8.3); Sodium 134 mmol/L (136-145)
[2020-07-20 19:46] LABS: Bilirubin Negative (Negative); Blood, Urine Negative (Negative); Clarity Clear (Clear); Glucose, Urine (Dipstick) Normal (Negative); Ketone, Urine Negative (Negative); Leukocyte 500 Leu/uL (Negative); Nitrite Negative (Negative); Protein, Urine (Dipstick) 20 mg/dL (Neg-Trace); RBC/HPF 0-3 HPF (0-3); Specific Gravity, Urine 1.007 (1.002-1.036); Squamous Epithelial None Seen HPF (0-3); Urobilinogen Normal mg/dL (Less than 2); pH, Urine 6.5 (5.0-9.0)
[2020-07-20 19:50] LABS: Bacteria/HPF 1+ HPF (None Seen)
== END 2020-07-20 21:12 | disposition home or self-care (01) ==
LOC: ERS 16:46
DX: L89.320 Pressure ulcer of left buttock, unstageable (principal); L89.310 Pressure ulcer of right buttock, unstageable; E03.9 Hypothyroidism, unspecified; K21.9 Gastro-esophageal reflux disease without esophagitis; Z79.899 Other long term (current) drug therapy
CPT/HCPCS: 36415; 80053; 81003; 81015; 83605; 84484; 85025; 87040; 87086; 96365; 96366; 96367; 96375; J0692; J1885; J2270; J3370

== ENCOUNTER 2020-09-21 12:45 | Inpatient (IN) | payer OTHER ==
[2020-09-21] MEDS ORDERED: Lactated Ringer's 1,000 ML IV SCH ×2 (15:30→16:15)
[2020-09-21] MEDS ORDERED: Gentamicin 300 MG in Sodium Chloride 0.9% 100 ML IVPB SCH (15:30)
[2020-09-21] MEDS ORDERED: Melatonin 3 MG TAB PO PRN (15:54)
[2020-09-21] MEDS ORDERED: Alendronate Sodium 70 mg Tablet PO SCH (16:00)
[2020-09-21] MEDS: Lactated Ringer's 1,000 ML IV SCH (17:00)
[2020-09-21 17:02] LABS: Phosphorus 3.7 mg/dL (2.3-4.7)
[2020-09-21 17:03] LABS: Anion Gap 16 mmol/L (10-20); BUN (Urea Nitrogen) 36 mg/dL (9.8-20.1); Calc. Creatinine Clearance 0 mL/min (70-130); Carbon Dioxide 13 mmol/L (22-29); Chloride 124 mmol/L (98-107); Glucose 128 mg/dL (70-105); Magnesium 1.8 mg/dL (1.6-2.6); Potassium 4.7 mmol/L (3.5-5.1); Sodium 148 mmol/L (136-145)
[2020-09-21] MEDS: Amitriptyline HCl 25 MG TAB PO SCH (20:21)
[2020-09-21] MEDS: levETIRAcetam 500 MG TAB PO SCH (20:22)
[2020-09-21] MEDS: Senokot 8.6 MG TAB PO SCH (20:25)
[2020-09-21] MEDS: Gabapentin 300 MG CAP PO SCH (20:25)
[2020-09-21] MEDS: tiZANidine HCl 4 MG TAB PO SCH (20:25)
[2020-09-21] MEDS: Magnesium Chloride 64 MG TAB PO SCH (20:42)
[2020-09-21] MEDS: Diazepam 2 MG TAB PO SCH (20:42)
[2020-09-21] MEDS ORDERED: Furosemide 40 MG TAB PO SCH (21:00)
[2020-09-21] MEDS ORDERED: Vancomycin 1 GM in Premix Bag 1 BAG IVPB SCH (22:00)
[2020-09-22 01:34] LABS: Anion Gap 12 mmol/L (10-20); BUN (Urea Nitrogen) 32 mg/dL (9.8-20.1); Calc. Creatinine Clearance 76 mL/min (70-130); Calcium 9.4 mg/dL (7.8-10.44); Carbon Dioxide 16 mmol/L (22-29); Chloride 123 mmol/L (98-107); Glucose 158 mg/dL (70-105); Potassium 3.8 mmol/L (3.5-5.1); Sodium 147 mmol/L (136-145)
[2020-09-22] MEDS: Lactated Ringer's 1,000 ML IV SCH ×4 (01:50→14:05)
[2020-09-22 04:15] LABS: SARS-CoV-2 PCR by NAA DETECTED (NotDetected)
[2020-09-22] MEDS: Levothyroxine Sodium 50 MCG TAB PO SCH (05:48)
[2020-09-22 05:53] LABS: #Eosinphils 0.1 thou/uL (0.0-0.7); #Lymphocytes 1.7 thou/uL (1.20-3.40); #Monocytes 1.1 thou/uL (0.11-0.59); #Neutrophils 10.8 thou/uL (1.40-6.50); %Basophils 0.3 % (0.0-1.0); %Eosinophils 0.4 % (0.0-10.0); %Lymphocytes 12.4 % (21.0-51.0); %Neutrophils 78.8 % (42.0-75.0); Hemoglobin 8.8 g/dL (12.0-16.0); Mean Corpuscular Hemoglobin 25.4 pg (27.0-31.0); Mean Corpuscular Volume 84.5 fL (78.0-98.0); Mean Platelet Volume 7.3 fL (7.4-10.4); Platelet Count 422 thou/uL (130-400); Red Blood Cell (RBC) Count 3.46 mill/uL (4.20-5.40); White Blood Cell (WBC) Count 13.8 thou/uL (4.8-10.8)
[2020-09-22 06:13] LABS: Anion Gap 10 mmol/L (10-20); BUN (Urea Nitrogen) 33 mg/dL (9.8-20.1); CRP (Inflammatory) 3.24 mg/dL (= or < 0.5); Calc. Creatinine Clearance 79 mL/min (70-130); Calcium 9.5 mg/dL (7.8-10.44); Carbon Dioxide 18 mmol/L (22-29); Chloride 125 mmol/L (98-107); Glucose 126 mg/dL (70-105); Potassium 4.2 mmol/L (3.5-5.1); Sodium 149 mmol/L (136-145)
[2020-09-22] MEDS: levETIRAcetam 500 MG TAB PO SCH ×2 (08:43→21:37)
[2020-09-22] MEDS: tiZANidine HCl 4 MG TAB PO SCH ×2 (08:43→21:38)
[2020-09-22] MEDS: Diazepam 2 MG TAB PO SCH ×2 (08:43→21:37)
[2020-09-22] MEDS: busPIRone HCl 10 MG TAB PO SCH (08:44)
[2020-09-22] MEDS: Ascorbic Acid 500 mg Chewable Tablet PO SCH ×2 (08:44→10:22)
[2020-09-22] MEDS: Zinc Sulfate 220 MG CAP PO SCH ×2 (08:44→10:22)
[2020-09-22] MEDS: PARoxetine 20 MG TAB PO SCH (08:44)
[2020-09-22] MEDS: Enoxaparin Sodium 40 MG/0.4 ML SYRINGE SC SCH (08:44)
[2020-09-22] MEDS: Gabapentin 300 MG CAP PO SCH ×4 (08:44→21:37)
[2020-09-22] MEDS ORDERED: Albuterol Sulfate 2.5 mg/3 ml Neb NEB PRN (09:19)
[2020-09-22] MEDS: Polyvinyl Alcohol 1.4%/Povidone 0.6% Opth Drops EA EYE SCH (10:21)
[2020-09-22] MEDS: Magnesium Chloride 64 MG TAB PO SCH ×2 (10:21→21:38)
[2020-09-22] MEDS: Methyl Salicylate/Menthol 85 GM TUBE TOP SCH (10:21)
[2020-09-22] MEDS: Docusate Calcium (SURFAK) 240 MG CAP PO SCH (10:22)
[2020-09-22 13:49] LABS: Anion Gap 9 mmol/L (10-20); BUN (Urea Nitrogen) 30 mg/dL (9.8-20.1); Calc. Creatinine Clearance 89 mL/min (70-130); Calcium 9.1 mg/dL (7.8-10.44); Carbon Dioxide 18 mmol/L (22-29); Chloride 123 mmol/L (98-107); Glucose 111 mg/dL (70-105); Potassium 3.1 mmol/L (3.5-5.1); Sodium 147 mmol/L (136-145)
[2020-09-22] MEDS ORDERED: Lactated Ringer's 1,000 ML IV SCH (14:45)
[2020-09-22] MEDS ORDERED: Dextrose 5% in Water 1,000 ML IV SCH (14:45)
[2020-09-22] MEDS ORDERED: Potassium Chloride 20 MEQ TAB PO SCH (14:45)
[2020-09-22] MEDS: Dextrose 5%-Lactated Ringers 1,000 ML IV SCH ×2 (14:59→21:45)
[2020-09-22] MEDS: Amitriptyline HCl 25 MG TAB PO SCH (21:36)
[2020-09-22] MEDS: Senokot 8.6 MG TAB PO SCH (21:38)
[2020-09-22] MEDS ORDERED: VANCOMYCIN 1.25 GM/250 ML BAG 1.25 GM in Premix Bag 1 BAG IVPB SCH (22:00)
[2020-09-23] MEDS: Gentamicin 160 MG in Sodium Chloride 0.9% 100 ML IVPB SCH (02:55)
[2020-09-23] MEDS: Dextrose 5%-Lactated Ringers 1,000 ML IV SCH ×2 (04:53→09:53)
[2020-09-23] MEDS: Levothyroxine Sodium 50 MCG TAB PO SCH (05:27)
[2020-09-23 06:30] LABS: #Eosinphils 0.1 thou/uL (0.0-0.7); #Lymphocytes 1.8 thou/uL (1.20-3.40); #Monocytes 0.9 thou/uL (0.11-0.59); #Neutrophils 8.5 thou/uL (1.40-6.50); %Basophils 0.3 % (0.0-1.0); %Eosinophils 0.7 % (0.0-10.0); %Lymphocytes 15.7 % (21.0-51.0); %Monocytes 8.3 % (0.0-10.0); %Neutrophils 75.1 % (42.0-75.0); Hemoglobin 8.3 g/dL (12.0-16.0); Mean Corpuscular HGB CONC 30.6 g/dL (32.0-36.0); Mean Corpuscular Hemoglobin 25.7 pg (27.0-31.0); Mean Platelet Volume 7.5 fL (7.4-10.4); Platelet Count 327 thou/uL (130-400); RBC Distribution Width 20.2 % (11.5-14.5); Red Blood Cell (RBC) Count 3.21 mill/uL (4.20-5.40); White Blood Cell (WBC) Count 11.3 thou/uL (4.8-10.8)
[2020-09-23 06:55] LABS: Anion Gap 12 mmol/L (10-20); BUN (Urea Nitrogen) 23 mg/dL (9.8-20.1); Calc. Creatinine Clearance 95 mL/min (70-130); Carbon Dioxide 17 mmol/L (22-29); Chloride 124 mmol/L (98-107); Glucose 126 mg/dL (70-105); Potassium 3.1 mmol/L (3.5-5.1); Sodium 150 mmol/L (136-145)
[2020-09-23] MEDS: Gabapentin 300 MG CAP PO SCH ×3 (07:59→19:47)
[2020-09-23] MEDS: Docusate Calcium (SURFAK) 240 MG CAP PO SCH (07:59)
[2020-09-23] MEDS: Magnesium Chloride 64 MG TAB PO SCH ×2 (07:59→19:49)
[2020-09-23] MEDS: tiZANidine HCl 4 MG TAB PO SCH ×2 (07:59→19:47)
[2020-09-23] MEDS: levETIRAcetam 500 MG TAB PO SCH ×2 (08:00→19:47)
[2020-09-23] MEDS: Zinc Sulfate 220 MG CAP PO SCH (08:00)
[2020-09-23] MEDS: PARoxetine 20 MG TAB PO SCH (08:00)
[2020-09-23] MEDS: busPIRone HCl 10 MG TAB PO SCH (08:00)
[2020-09-23] MEDS: Ascorbic Acid 500 mg Chewable Tablet PO SCH (08:00)
[2020-09-23] MEDS ORDERED: Dexamethasone 4 MG TAB PO SCH (08:00)
[2020-09-23] MEDS: Methyl Salicylate/Menthol 85 GM TUBE TOP SCH (08:01)
[2020-09-23] MEDS: Enoxaparin Sodium 40 MG/0.4 ML SYRINGE SC SCH (08:01)
[2020-09-23] MEDS: Diazepam 2 MG TAB PO SCH (08:51)
[2020-09-23] MEDS ORDERED: Diazepam 2 MG TAB PO PRN (09:06)
[2020-09-23] MEDS: Polyvinyl Alcohol 1.4%/Povidone 0.6% Opth Drops EA EYE SCH (09:53)
[2020-09-23] MEDS: Dextrose 5% in Water 1,000 ML IV SCH ×2 (10:25→16:06)
[2020-09-23 15:22] LABS: Anion Gap 10 mmol/L (10-20); BUN (Urea Nitrogen) 18 mg/dL (9.8-20.1); Calc. Creatinine Clearance 99 mL/min (70-130); Calcium 8.5 mg/dL (7.8-10.44); Carbon Dioxide 19 mmol/L (22-29); Chloride 120 mmol/L (98-107); Glucose 126 mg/dL (70-105); Sodium 146 mmol/L (136-145)
[2020-09-23 15:27] LABS: Potassium 2.5 mmol/L (3.5-5.1)
[2020-09-23] MEDS ORDERED: Potassium ACETATE 40 MEQ in Sodium Chloride 0.9% 250 ML 250 ML IV SCH (16:00)
[2020-09-23] MEDS: Acetaminophen 325 MG TAB PO PRN (16:11)
[2020-09-23] MEDS: Amitriptyline HCl 25 MG TAB PO SCH (19:46)
[2020-09-23] MEDS: Senokot 8.6 MG TAB PO SCH (19:47)
[2020-09-23 21:19] LABS: Vancomycin, Trough 24.2 ug/mL
[2020-09-24] MEDS: Dextrose 5% in Water 1,000 ML IV SCH ×4 (04:00→21:43)
[2020-09-24] MEDS: Gentamicin 160 MG in Sodium Chloride 0.9% 100 ML IVPB SCH ×2 (04:02→17:13)
[2020-09-24] MEDS: Levothyroxine Sodium 50 MCG TAB PO SCH (05:12)
[2020-09-24 06:56] LABS: #Eosinphils 0.2 thou/uL (0.0-0.7); #Lymphocytes 1.9 thou/uL (1.20-3.40); #Monocytes 0.8 thou/uL (0.11-0.59); #Neutrophils 5.3 thou/uL (1.40-6.50); %Basophils 0.3 % (0.0-1.0); %Eosinophils 2.3 % (0.0-10.0); %Lymphocytes 22.6 % (21.0-51.0); %Monocytes 10.2 % (0.0-10.0); %Neutrophils 64.6 % (42.0-75.0); Hemoglobin 7.6 g/dL (12.0-16.0); Mean Corpuscular HGB CONC 30.2 g/dL (32.0-36.0); Mean Corpuscular Hemoglobin 25.6 pg (27.0-31.0); Mean Corpuscular Volume 84.8 fL (78.0-98.0); Mean Platelet Volume 7.7 fL (7.4-10.4); Platelet Count 281 thou/uL (130-400); Red Blood Cell (RBC) Count 2.98 mill/uL (4.20-5.40); White Blood Cell (WBC) Count 8.2 thou/uL (4.8-10.8)
[2020-09-24 07:16] LABS: Anion Gap 11 mmol/L (10-20); BUN (Urea Nitrogen) 15 mg/dL (9.8-20.1); Calc. Creatinine Clearance 108 mL/min (70-130); Calcium 7.7 mg/dL (7.8-10.44); Carbon Dioxide 16 mmol/L (22-29); Chloride 114 mmol/L (98-107); Glucose 84 mg/dL (70-105); Sodium 138 mmol/L (136-145)
[2020-09-24] MEDS ORDERED: Magnesium Sulfate 2 GM in Sodium Chloride 0.9% 100 ML IVPB SCH (08:00)
[2020-09-24] MEDS ORDERED: Potassium Chloride 20 MEQ TAB PO SCH (08:00)
[2020-09-24] MEDS ORDERED: Magnesium 2 GM/50 ML 2 GM in Premix Bag 1 BAG IVPB SCH (08:15)
[2020-09-24] MEDS: Enoxaparin Sodium 40 MG/0.4 ML SYRINGE SC SCH (08:58)
[2020-09-24] MEDS: Magnesium Chloride 64 MG TAB PO SCH ×2 (08:58→20:29)
[2020-09-24] MEDS: Docusate Calcium (SURFAK) 240 MG CAP PO SCH (08:59)
[2020-09-24] MEDS: Polyvinyl Alcohol 1.4%/Povidone 0.6% Opth Drops EA EYE SCH (08:59)
[2020-09-24] MEDS: Vancomycin 1 GM in Premix Bag 1 BAG IVPB SCH (09:00)
[2020-09-24] MEDS: Gabapentin 300 MG CAP PO SCH ×3 (09:00→20:28)
[2020-09-24] MEDS: busPIRone HCl 10 MG TAB PO SCH (09:01)
[2020-09-24] MEDS: Ascorbic Acid 500 mg Chewable Tablet PO SCH (09:01)
[2020-09-24] MEDS: levETIRAcetam 500 MG TAB PO SCH ×2 (09:01→20:29)
[2020-09-24] MEDS: PARoxetine 20 MG TAB PO SCH (09:02)
[2020-09-24] MEDS: tiZANidine HCl 4 MG TAB PO SCH ×2 (09:02→20:29)
[2020-09-24] MEDS: Methyl Salicylate/Menthol 85 GM TUBE TOP SCH (09:03)
[2020-09-24] MEDS: Zinc Sulfate 220 MG CAP PO SCH (09:03)
[2020-09-24 10:24] LABS: Reticulocyte Count 1.4 % (0.5-1.5)
[2020-09-24 10:30] LABS: Hemoglobin 7.8 g/dL (12.0-16.0); Mean Corpuscular HGB CONC 30.4 g/dL (32.0-36.0); Mean Corpuscular Hemoglobin 25.7 pg (27.0-31.0); Mean Corpuscular Volume 84.6 fL (78.0-98.0); Mean Platelet Volume 7.7 fL (7.4-10.4); Platelet Count 272 thou/uL (130-400); RBC Distribution Width 19.9 % (11.5-14.5); Red Blood Cell (RBC) Count 3.05 mill/uL (4.20-5.40)
[2020-09-24 10:47] LABS: Iron 42 ug/dL (50-170); Iron Binding Capacity, Total 129 mcg/dL (265-497)
[2020-09-24 11:06] LABS: Band 4 % (5-11); Eosinophils 2 % (0-10); Hypochromia SLIGHT = 6-15 cells (100X) (0-5/hpf); Lymphocytes 22 % (21-51); MDiff Complete? YES; Metamyelocyte 1 % (0-0); Monocytes 7 % (0-10); Neutrophil 64 % (42-75); Platelet Morphology Comment Appears Adequate; Polychromasia SLIGHT = 2-3 cells (100X) (0-2/hpf)
[2020-09-24 11:11] LABS: Ferritin 265.97 ng/mL (10-291)
[2020-09-24] MEDS: Potassium Chloride 20 MEQ in Premix Bag 1 BAG IVPB SCH ×2 (11:44→15:12)
[2020-09-24 12:52] LABS: Anion Gap 13 mmol/L (10-20); BUN (Urea Nitrogen) 13 mg/dL (9.8-20.1); Calc. Creatinine Clearance 113 mL/min (70-130); Calcium 7.5 mg/dL (7.8-10.44); Carbon Dioxide 15 mmol/L (22-29); Chloride 112 mmol/L (98-107); Glucose 131 mg/dL (70-105); Sodium 137 mmol/L (136-145)
[2020-09-24 12:57] LABS: Potassium 2.7 mmol/L (3.5-5.1)
[2020-09-24] MEDS ORDERED: Potassium Chloride 40 MEQ in Sodium Chloride 0.9% 250 ML 250 ML IVPB SCH (14:00)
[2020-09-24] MEDS: Senokot 8.6 MG TAB PO SCH (20:28)
[2020-09-24] MEDS: Amitriptyline HCl 25 MG TAB PO SCH (20:28)
[2020-09-25] MEDS: Dextrose 5% in Water 1,000 ML IV SCH (05:10)
[2020-09-25] MEDS: Levothyroxine Sodium 50 MCG TAB PO SCH (05:10)
[2020-09-25 06:33] LABS: #Basophils 0.1 thou/uL (0.0-0.2); #Eosinphils 0.2 thou/uL (0.0-0.7); #Lymphocytes 1.6 thou/uL (1.20-3.40); #Monocytes 0.5 thou/uL (0.11-0.59); #Neutrophils 5.4 thou/uL (1.40-6.50); %Basophils 0.8 % (0.0-1.0); %Eosinophils 2.8 % (0.0-10.0); %Lymphocytes 20.9 % (21.0-51.0); %Monocytes 6.8 % (0.0-10.0); %Neutrophils 68.8 % (42.0-75.0); Hemoglobin 8.1 g/dL (12.0-16.0); Mean Corpuscular HGB CONC 31.3 g/dL (32.0-36.0); Mean Corpuscular Hemoglobin 26.1 pg (27.0-31.0); Mean Corpuscular Volume 83.5 fL (78.0-98.0); Mean Platelet Volume 7.9 fL (7.4-10.4); Platelet Count 283 thou/uL (130-400); RBC Distribution Width 20.1 % (11.5-14.5); Red Blood Cell (RBC) Count 3.11 mill/uL (4.20-5.40); White Blood Cell (WBC) Count 7.9 thou/uL (4.8-10.8)
[2020-09-25 07:04] LABS: Anion Gap 11 mmol/L (10-20); BUN (Urea Nitrogen) 11 mg/dL (9.8-20.1); Calc. Creatinine Clearance 116 mL/min (70-130); Calcium 7.6 mg/dL (7.8-10.44); Carbon Dioxide 19 mmol/L (22-29); Chloride 108 mmol/L (98-107); Glucose 96 mg/dL (70-105); Magnesium 1.8 mg/dL (1.6-2.6); Potassium 3.1 mmol/L (3.5-5.1); Sodium 135 mmol/L (136-145)
[2020-09-25] MEDS: Vancomycin 1 GM in Premix Bag 1 BAG IVPB SCH (08:47)
[2020-09-25] MEDS: levETIRAcetam 500 MG TAB PO SCH ×2 (08:47→20:25)
[2020-09-25] MEDS: Magnesium Chloride 64 MG TAB PO SCH ×2 (08:47→20:26)
[2020-09-25] MEDS: Ascorbic Acid 500 mg Chewable Tablet PO SCH (08:47)
[2020-09-25] MEDS: Enoxaparin Sodium 40 MG/0.4 ML SYRINGE SC SCH (08:47)
[2020-09-25] MEDS: tiZANidine HCl 4 MG TAB PO SCH ×2 (08:48→20:27)
[2020-09-25] MEDS: Gabapentin 300 MG CAP PO SCH ×3 (08:48→20:25)
[2020-09-25] MEDS: Zinc Sulfate 220 MG CAP PO SCH (08:48)
[2020-09-25] MEDS: Methyl Salicylate/Menthol 85 GM TUBE TOP SCH (08:48)
[2020-09-25] MEDS: busPIRone HCl 10 MG TAB PO SCH (08:48)
[2020-09-25] MEDS: PARoxetine 20 MG TAB PO SCH (08:48)
[2020-09-25] MEDS: Docusate Calcium (SURFAK) 240 MG CAP PO SCH (08:48)
[2020-09-25] MEDS: Polyvinyl Alcohol 1.4%/Povidone 0.6% Opth Drops EA EYE SCH (08:49)
[2020-09-25] MEDS: Folic Acid 1 MG TAB PO SCH (09:05)
[2020-09-25] MEDS: Potassium Chloride 20 MEQ in Premix Bag 1 BAG IVPB SCH ×2 (09:05→11:14)
[2020-09-25] MEDS: Lactated Ringer's 1,000 ML IV SCH ×2 (12:41→20:04)
[2020-09-25] MEDS: Amitriptyline HCl 25 MG TAB PO SCH (20:24)
[2020-09-25] MEDS: Senokot 8.6 MG TAB PO SCH (20:27)
[2020-09-26] MEDS: Lactated Ringer's 1,000 ML IV SCH ×4 (00:30→19:56)
[2020-09-26 01:24] LABS: #Eosinphils 0.2 thou/uL (0.0-0.7); #Lymphocytes 1.4 thou/uL (1.20-3.40); #Monocytes 0.5 thou/uL (0.11-0.59); #Neutrophils 4.1 thou/uL (1.40-6.50); %Basophils 0.3 % (0.0-1.0); %Eosinophils 2.9 % (0.0-10.0); %Lymphocytes 22.4 % (21.0-51.0); %Monocytes 7.9 % (0.0-10.0); %Neutrophils 66.5 % (42.0-75.0); Hemoglobin 6.5 g/dL (12.0-16.0); Mean Corpuscular HGB CONC 31.6 g/dL (32.0-36.0); Mean Corpuscular Hemoglobin 26.1 pg (27.0-31.0); Mean Corpuscular Volume 82.5 fL (78.0-98.0); Mean Platelet Volume 7.9 fL (7.4-10.4); Platelet Count 254 thou/uL (130-400); Red Blood Cell (RBC) Count 2.48 mill/uL (4.20-5.40); White Blood Cell (WBC) Count 6.1 thou/uL (4.8-10.8)
[2020-09-26 01:43] LABS: ALT (SGPT) 17 U/L (8-55); AST (SGOT) 12 U/L (5-34); Albumin 1.9 g/dL (3.5-5.0); Alkaline Phosphatase 99 U/L (40-110); Anion Gap 12 mmol/L (10-20); BUN (Urea Nitrogen) 9 mg/dL (9.8-20.1); Bilirubin, Total Less than 0.2 mg/dL (0.2-1.2); Calc. Creatinine Clearance 127 mL/min (70-130); Calcium 7.2 mg/dL (7.8-10.44); Carbon Dioxide 18 mmol/L (22-29); Chloride 112 mmol/L (98-107); Globulin 2.7 g/dL (2.4-3.5); Glucose 79 mg/dL (70-105); Protein, Total 4.6 g/dL (6.0-8.3); Sodium 139 mmol/L (136-145)
[2020-09-26] MEDS: Gentamicin 160 MG in Sodium Chloride 0.9% 100 ML IVPB SCH (05:01)
[2020-09-26] MEDS: Levothyroxine Sodium 50 MCG TAB PO SCH (05:10)
[2020-09-26 05:12] LABS: Lactic Acid 0.6 mmol/L (0.5-2.2)
[2020-09-26] MEDS: Potassium Chloride 20 MEQ in Premix Bag 1 BAG IVPB SCH ×2 (06:30→09:07)
[2020-09-26 07:35] LABS: Vancomycin, Trough 23.8 ug/mL
[2020-09-26] MEDS: Vancomycin HCl 750 MG in Sodium Chloride 0.9% 250 ML 250 ML IVPB SCH (09:06)
[2020-09-26] MEDS: Acetaminophen 325 MG TAB PO PRN (09:08)
[2020-09-26] MEDS: Folic Acid 1 MG TAB PO SCH (09:08)
[2020-09-26] MEDS: busPIRone HCl 10 MG TAB PO SCH (09:08)
[2020-09-26] MEDS: levETIRAcetam 500 MG TAB PO SCH ×2 (09:08→21:26)
[2020-09-26] MEDS: Gabapentin 300 MG CAP PO SCH ×3 (09:08→21:26)
[2020-09-26] MEDS: PARoxetine 20 MG TAB PO SCH (09:08)
[2020-09-26] MEDS: Ascorbic Acid 500 mg Chewable Tablet PO SCH (09:09)
[2020-09-26] MEDS: Enoxaparin Sodium 40 MG/0.4 ML SYRINGE SC SCH (09:09)
[2020-09-26] MEDS: Zinc Sulfate 220 MG CAP PO SCH (09:09)
[2020-09-26] MEDS: Docusate Calcium (SURFAK) 240 MG CAP PO SCH (09:09)
[2020-09-26] MEDS: Methyl Salicylate/Menthol 85 GM TUBE TOP SCH (09:10)
[2020-09-26] MEDS: tiZANidine HCl 4 MG TAB PO SCH ×2 (09:50→21:26)
[2020-09-26] MEDS: Magnesium Chloride 64 MG TAB PO SCH ×2 (09:50→21:37)
[2020-09-26] MEDS: Polyvinyl Alcohol 1.4%/Povidone 0.6% Opth Drops EA EYE SCH (09:50)
[2020-09-26 11:03] LABS: Hemoglobin 8.1 g/dL (12.0-16.0)
[2020-09-26] MEDS ORDERED: Norepinephrine 8 MG/0.9% NS 250 ML ONE (11:15)
[2020-09-26] MEDS ORDERED: Norepinephrine 8 MG/0.9% NS 250 ML IVPB SCH (11:45)
[2020-09-26] MEDS ORDERED: Propofol 1,000 MG/100 ML VIAL IV ONE (12:26)
[2020-09-26] MEDS ORDERED: Midazolam HCl 2 mg/2 ml Vial ONE (12:34)
[2020-09-26 13:39] LABS: Actual Bicarbonate (HCO3a) 19.2 mEq/L (22-28); Base Excess (BEa) -2.7 mEq/L (-2.0 to +3.0); Calcium, Ionized (arterial) 1.15 mmol/L (1.12-1.30); Carboxyhemoglobin (COHb) 0.7 gm% (0.0-3.0); Hemoglobin (Hb) 10.7 g/dL (12.0-16.0); O2 Tension (PaO2), arterial 103.8 mmHg (80.0-100.0); Potassium - ABG Lab 3.33 mmol/L (3.70-5.30); pH, Arterial 7.51 (7.35-7.45)
[2020-09-26] MEDS ORDERED: Fentanyl BOLUS 250 ML IVPB PRN (14:30)
[2020-09-26] MEDS ORDERED: Propofol BOLUS 1,000 MG/100 ML VIAL IV PRN (14:30)
[2020-09-26] MEDS ORDERED: Morphine 2 MG/ML VIAL SLOW IVP PRN (14:30)
[2020-09-26] MEDS ORDERED: Propofol 1,000 MG/100 ML VIAL IV PRN (14:30)
[2020-09-26] MEDS ORDERED: DISCONTINUE PREVIOUS NARCOTIC PAIN MEDICATIONS AND BENZODIAZEPINES FS SCH (14:30)
[2020-09-26 14:41] LABS: ALV-art Gradient 150.525 mmHg (0-20); CO2 Tension 24.7 mmHg (35.0-45.0); Puncture Site RRA
[2020-09-26] MEDS: Sodium Chloride 0.45% 1,000 ML IV SCH ×2 (15:00→21:27)
[2020-09-26] MEDS: Lorazepam 2 MG/ML VIAL SLOW IVP PRN (16:40)
[2020-09-26] MEDS: Amitriptyline HCl 25 MG TAB PO SCH (21:25)
[2020-09-26] MEDS: Senokot 8.6 MG TAB PO SCH (21:26)
[2020-09-27] MEDS ORDERED: Fentanyl CADD 100 ML ONE ×2 (00:35→20:40)
[2020-09-27] MEDS: Fentanyl CADD 100 ML IV SCH ×2 (00:44→21:22)
[2020-09-27 04:43] LABS: Anion Gap 13 mmol/L (10-20); BUN (Urea Nitrogen) 6 mg/dL (9.8-20.1); Calc. Creatinine Clearance 143 mL/min (70-130); Calcium 7.2 mg/dL (7.8-10.44); Carbon Dioxide 18 mmol/L (22-29); Chloride 108 mmol/L (98-107); Glucose 79 mg/dL (70-105); Magnesium 1.5 mg/dL (1.6-2.6); Sodium 136 mmol/L (136-145)
[2020-09-27] MEDS: Sodium Chloride 0.45% 1,000 ML IV SCH ×4 (04:45→22:41)
[2020-09-27 04:59] LABS: Band 6 % (5-11); Eosinophils 3 % (0-10); Hemoglobin 10.2 g/dL (12.0-16.0); Lymphocytes 20 % (21-51); MDiff Complete? YES; Mean Corpuscular Hemoglobin 27.2 pg (27.0-31.0); Mean Corpuscular Volume 82.5 fL (78.0-98.0); Mean Platelet Volume 8.1 fL (7.4-10.4); Monocytes 7 % (0-10); Neutrophil 62 % (42-75); Platelet Count 256 thou/uL (130-400); RBC Distribution Width 19.1 % (11.5-14.5); Reactive Lymphocytes 2 % (0-10); Red Blood Cell (RBC) Count 3.76 mill/uL (4.20-5.40); White Blood Cell (WBC) Count 7.7 thou/uL (4.8-10.8)
[2020-09-27 05:02] LABS: Potassium 2.6 mmol/L (3.5-5.1)
[2020-09-27] MEDS ORDERED: Potassium Chloride 40 MEQ in Premix Bag 1 BAG IVPB SCH (05:15)
[2020-09-27] MEDS ORDERED: Magnesium 2 GM/50 ML 2 GM in Premix Bag 1 BAG IVPB SCH (05:15)
[2020-09-27] MEDS: Levothyroxine Sodium 50 MCG TAB PO SCH (05:49)
[2020-09-27] MEDS: busPIRone HCl 10 MG TAB PO SCH (07:59)
[2020-09-27] MEDS: levETIRAcetam 500 MG TAB PO SCH ×2 (07:59→21:23)
[2020-09-27] MEDS: Folic Acid 1 MG TAB PO SCH (08:00)
[2020-09-27] MEDS: Docusate Calcium (SURFAK) 240 MG CAP PO SCH (08:00)
[2020-09-27] MEDS: tiZANidine HCl 4 MG TAB PO SCH ×2 (08:00→21:24)
[2020-09-27] MEDS: Gabapentin 300 MG CAP PO SCH ×3 (08:00→21:23)
[2020-09-27] MEDS: Ascorbic Acid 500 mg Chewable Tablet PO SCH (08:01)
[2020-09-27] MEDS: Methyl Salicylate/Menthol 85 GM TUBE TOP SCH (08:01)
[2020-09-27] MEDS: Magnesium Chloride 64 MG TAB PO SCH ×2 (08:01→21:24)
[2020-09-27] MEDS: PARoxetine 20 MG TAB PO SCH (08:01)
[2020-09-27] MEDS: Polyvinyl Alcohol 1.4%/Povidone 0.6% Opth Drops EA EYE SCH (08:01)
[2020-09-27] MEDS: Zinc Sulfate 220 MG CAP PO SCH (08:01)
[2020-09-27] MEDS: Vancomycin HCl 750 MG in Sodium Chloride 0.9% 250 ML 250 ML IVPB SCH (08:01)
[2020-09-27 11:17] LABS: Anion Gap 13 mmol/L (10-20); BUN (Urea Nitrogen) 6 mg/dL (9.8-20.1); Calc. Creatinine Clearance 138 mL/min (70-130); Calcium 7.2 mg/dL (7.8-10.44); Carbon Dioxide 18 mmol/L (22-29); Chloride 109 mmol/L (98-107); Glucose 84 mg/dL (70-105); Potassium 3.2 mmol/L (3.5-5.1); Sodium 137 mmol/L (136-145)
[2020-09-27] MEDS ORDERED: Potassium Chloride 20 MEQ in Premix Bag 1 BAG IVPB SCH (12:30)
[2020-09-27] MEDS: Gentamicin 160 MG in Sodium Chloride 0.9% 100 ML IVPB SCH (15:32)
[2020-09-27] MEDS: Amitriptyline HCl 25 MG TAB PO SCH (21:22)
[2020-09-27] MEDS: Senokot 8.6 MG TAB PO SCH (21:24)
[2020-09-28] MEDS: Sodium Chloride 0.45% 1,000 ML IV SCH ×2 (02:34→09:28)
[2020-09-28 05:05] LABS: Hemoglobin 10.4 g/dL (12.0-16.0); Mean Corpuscular HGB CONC 33.3 g/dL (32.0-36.0); Mean Corpuscular Hemoglobin 27.5 pg (27.0-31.0); Mean Corpuscular Volume 82.6 fL (78.0-98.0); Platelet Count 261 thou/uL (130-400); RBC Distribution Width 19.2 % (11.5-14.5); Red Blood Cell (RBC) Count 3.78 mill/uL (4.20-5.40); White Blood Cell (WBC) Count 5.7 thou/uL (4.8-10.8)
[2020-09-28 05:15] LABS: Anion Gap 11 mmol/L (10-20); BUN (Urea Nitrogen) 5 mg/dL (9.8-20.1); Calc. Creatinine Clearance 138 mL/min (70-130); Calcium 7.1 mg/dL (7.8-10.44); Carbon Dioxide 21 mmol/L (22-29); Chloride 105 mmol/L (98-107); Glucose 83 mg/dL (70-105); Magnesium 1.7 mg/dL (1.6-2.6); Potassium 3.3 mmol/L (3.5-5.1); Sodium 134 mmol/L (136-145)
[2020-09-28 05:41] LABS: Band 14 % (5-11); Eosinophils 4 % (0-10); Lymphocytes 16 % (21-51); MDiff Complete? YES; Monocytes 2 % (0-10); Neutrophil 64 % (42-75)
[2020-09-28] MEDS: Levothyroxine Sodium 50 MCG TAB PO SCH (06:27)
[2020-09-28 06:34] LABS: Actual Bicarbonate (HCO3a) 20.9 mEq/L (22-28); Base Excess (BEa) -3.4 mEq/L (-2.0 to +3.0); CO2 Tension 34.7 mmHg (35.0-45.0); Carboxyhemoglobin (COHb) 0.2 gm% (0.0-3.0); Hemoglobin (Hb) 11.2 g/dL (12.0-16.0); O2 Tension (PaO2), arterial 112.4 mmHg (80.0-100.0); Potassium - ABG Lab 3.36 mmol/L (3.70-5.30)
[2020-09-28] MEDS ORDERED: Electrolyte Replacement Protocol 1 EACH FS SCH (06:38)
[2020-09-28 06:48] LABS: ALV-art Gradient 129.425 mmHg (0-20); Puncture Site RRA
[2020-09-28 07:34] LABS: Vancomycin, Trough 17.3 ug/mL
[2020-09-28] MEDS: Enoxaparin Sodium 40 MG/0.4 ML SYRINGE SC SCH (07:41)
[2020-09-28] MEDS: Gabapentin 300 MG CAP PO SCH (07:41)
[2020-09-28] MEDS: Docusate Calcium (SURFAK) 240 MG CAP PO SCH (07:42)
[2020-09-28] MEDS: PARoxetine 20 MG TAB PO SCH (07:42)
[2020-09-28] MEDS: tiZANidine HCl 4 MG TAB PO SCH (07:42)
[2020-09-28] MEDS: levETIRAcetam 500 MG TAB PO SCH ×2 (07:42→20:53)
[2020-09-28] MEDS: Zinc Sulfate 220 MG CAP PO SCH (07:42)
[2020-09-28] MEDS: Folic Acid 1 MG TAB PO SCH (07:42)
[2020-09-28] MEDS: Ascorbic Acid 500 mg Chewable Tablet PO SCH (07:43)
[2020-09-28] MEDS: busPIRone HCl 10 MG TAB PO SCH (07:43)
[2020-09-28] MEDS ORDERED: Potassium Chloride 20 MEQ TAB PO SCH (08:00)
[2020-09-28] MEDS ORDERED: Magnesium 2 GM/50 ML 2 GM in Premix Bag 1 BAG IVPB SCH (08:00)
[2020-09-28] MEDS: Methyl Salicylate/Menthol 85 GM TUBE TOP SCH (09:23)
[2020-09-28] MEDS: Magnesium Chloride 64 MG TAB PO SCH ×2 (09:28→20:52)
[2020-09-28] MEDS: Polyvinyl Alcohol 1.4%/Povidone 0.6% Opth Drops EA EYE SCH (09:29)
[2020-09-28] MEDS: Vancomycin HCl 750 MG in Sodium Chloride 0.9% 250 ML 250 ML IVPB SCH (11:17)
[2020-09-28] MEDS ORDERED: Hydrocortisone Sod Succ/PF 100 mg/2 ml Vial IVP SCH (16:30)
[2020-09-28] MEDS: Lorazepam 2 MG/ML VIAL SLOW IVP PRN ×2 (16:54→19:53)
[2020-09-28] MEDS ORDERED: Fentanyl CADD 100 ML ONE (20:43)
[2020-09-28] MEDS: Amitriptyline HCl 25 MG TAB PO SCH (20:53)
[2020-09-28] MEDS: Senokot 8.6 MG TAB PO SCH (20:53)
[2020-09-28] MEDS: Hydrocortisone Sod Succ/PF 100 mg/2 ml Vial IVP SCH (23:45)
[2020-09-29 04:18] LABS: Anion Gap 12 mmol/L (10-20); BUN (Urea Nitrogen) 4 mg/dL (9.8-20.1); Calc. Creatinine Clearance 129 mL/min (70-130); Calcium 7.3 mg/dL (7.8-10.44); Carbon Dioxide 24 mmol/L (22-29); Chloride 106 mmol/L (98-107); Glucose 127 mg/dL (70-105); Sodium 139 mmol/L (136-145)
[2020-09-29] MEDS: Gentamicin 160 MG in Sodium Chloride 0.9% 100 ML IVPB SCH (04:21)
[2020-09-29 04:25] LABS: Band 3 % (5-11); Lymphocytes 11 % (21-51); MDiff Complete? YES; Mean Corpuscular HGB CONC 31.4 g/dL (32.0-36.0); Mean Corpuscular Hemoglobin 26.3 pg (27.0-31.0); Mean Corpuscular Volume 83.7 fL (78.0-98.0); Mean Platelet Volume 8.1 fL (7.4-10.4); Neutrophil 85 % (42-75); Platelet Count 281 thou/uL (130-400); RBC Distribution Width 19.6 % (11.5-14.5); Reactive Lymphocytes 1 % (0-10); Red Blood Cell (RBC) Count 4.19 mill/uL (4.20-5.40); White Blood Cell (WBC) Count 7.7 thou/uL (4.8-10.8)
[2020-09-29 04:35] LABS: Potassium 2.6 mmol/L (3.5-5.1)
[2020-09-29] MEDS: Hydrocortisone Sod Succ/PF 100 mg/2 ml Vial IVP SCH ×4 (05:05→23:28)
[2020-09-29] MEDS: Levothyroxine Sodium 50 MCG TAB PO SCH (05:05)
[2020-09-29] MEDS: Potassium Chloride 40 MEQ in Premix Bag 1 BAG IVPB SCH ×2 (05:26→08:55)
[2020-09-29] MEDS ORDERED: Magnesium 2 GM/50 ML 2 GM in Premix Bag 1 BAG IVPB SCH (06:30)
[2020-09-29 06:37] LABS: Base Excess (BEa) 0.1 mEq/L (-2.0 to +3.0); CO2 Tension 41.5 mmHg (35.0-45.0); Calcium, Ionized (arterial) 1.08 mmol/L (1.12-1.30); Carboxyhemoglobin (COHb) 0.4 gm% (0.0-3.0); Hemoglobin (Hb) 12.1 g/dL (12.0-16.0); O2 Tension (PaO2), arterial 79.1 mmHg (80.0-100.0); Potassium - ABG Lab 3.19 mmol/L (3.70-5.30)
[2020-09-29 06:38] LABS: ALV-art Gradient 154.225 mmHg (0-20); Puncture Site RRA
[2020-09-29] MEDS: Enoxaparin Sodium 40 MG/0.4 ML SYRINGE SC SCH (08:52)
[2020-09-29] MEDS: levETIRAcetam 500 MG TAB PO SCH ×2 (08:52→21:33)
[2020-09-29] MEDS: Magnesium Chloride 64 MG TAB PO SCH ×2 (08:52→21:34)
[2020-09-29] MEDS: Ascorbic Acid 500 mg Chewable Tablet PO SCH (08:53)
[2020-09-29] MEDS: Folic Acid 1 MG TAB PO SCH (08:53)
[2020-09-29] MEDS: PARoxetine 20 MG TAB PO SCH (08:54)
[2020-09-29] MEDS: Docusate Calcium (SURFAK) 240 MG CAP PO SCH (08:55)
[2020-09-29] MEDS: Zinc Sulfate 220 MG CAP PO SCH (08:55)
[2020-09-29] MEDS: Vancomycin HCl 750 MG in Sodium Chloride 0.9% 250 ML 250 ML IVPB SCH (09:09)
[2020-09-29] MEDS: busPIRone HCl 10 MG TAB PO SCH (09:44)
[2020-09-29] MEDS: Methyl Salicylate/Menthol 85 GM TUBE TOP SCH (12:26)
[2020-09-29] MEDS: Polyvinyl Alcohol 1.4%/Povidone 0.6% Opth Drops EA EYE SCH (12:27)
[2020-09-29 15:30] LABS: Potassium 2.8 mmol/L (3.5-5.1)
[2020-09-29] MEDS ORDERED: Potassium Chloride 40 MEQ in Sodium Chloride 0.9% 250 ML 250 ML IVPB SCH (16:00)
[2020-09-29] MEDS ORDERED: Potassium Chloride 20 MEQ TAB PO SCH (16:00)
[2020-09-29] MEDS: Amitriptyline HCl 25 MG TAB PO SCH (21:33)
[2020-09-29] MEDS: Senokot 8.6 MG TAB PO SCH (21:34)
[2020-09-29] MEDS: Nicotine 14 MG PATCH TOP SCH (21:44)
[2020-09-30 02:53] LABS: Anion Gap 12 mmol/L (10-20); BUN (Urea Nitrogen) 6 mg/dL (9.8-20.1); Calc. Creatinine Clearance 142 mL/min (70-130); Calcium 7.1 mg/dL (7.8-10.44); Carbon Dioxide 26 mmol/L (22-29); Chloride 106 mmol/L (98-107); Glucose 106 mg/dL (70-105); Magnesium 2.2 mg/dL (1.6-2.6); Sodium 141 mmol/L (136-145)
[2020-09-30 02:57] LABS: Potassium 2.5 mmol/L (3.5-5.1)
[2020-09-30] MEDS: Potassium Chloride 40 MEQ in Premix Bag 1 BAG IVPB SCH ×2 (04:49→07:57)
[2020-09-30] MEDS: Levothyroxine Sodium 50 MCG TAB PO SCH (05:34)
[2020-09-30] MEDS: Hydrocortisone Sod Succ/PF 100 mg/2 ml Vial IVP SCH ×2 (05:34→21:13)
[2020-09-30] MEDS ORDERED: Potassium Chloride 20 MEQ TAB PO SCH ×3 (06:45→23:00)
[2020-09-30] MEDS: Gentamicin 160 MG in Sodium Chloride 0.9% 100 ML IVPB SCH (08:01)
[2020-09-30] MEDS: Folic Acid 1 MG TAB PO SCH (08:12)
[2020-09-30] MEDS: Docusate Calcium (SURFAK) 240 MG CAP PO SCH (08:12)
[2020-09-30] MEDS: Enoxaparin Sodium 40 MG/0.4 ML SYRINGE SC SCH (08:12)
[2020-09-30] MEDS: Methyl Salicylate/Menthol 85 GM TUBE TOP SCH (08:12)
[2020-09-30] MEDS: busPIRone HCl 10 MG TAB PO SCH (08:13)
[2020-09-30] MEDS: Magnesium Chloride 64 MG TAB PO SCH ×2 (08:13→21:12)
[2020-09-30] MEDS: levETIRAcetam 500 MG TAB PO SCH ×2 (08:13→21:13)
[2020-09-30] MEDS: Zinc Sulfate 220 MG CAP PO SCH (08:13)
[2020-09-30] MEDS: Ascorbic Acid 500 mg Chewable Tablet PO SCH (08:13)
[2020-09-30] MEDS: PARoxetine 20 MG TAB PO SCH (08:14)
[2020-09-30 08:48] LABS: Hemoglobin 9.8 g/dL (12.0-16.0); Mean Corpuscular HGB CONC 32.2 g/dL (32.0-36.0); Mean Corpuscular Hemoglobin 27.2 pg (27.0-31.0); Mean Corpuscular Volume 84.5 fL (78.0-98.0); Mean Platelet Volume 8.1 fL (7.4-10.4); Platelet Count 281 thou/uL (130-400); RBC Distribution Width 19.6 % (11.5-14.5); Red Blood Cell (RBC) Count 3.58 mill/uL (4.20-5.40)
[2020-09-30] MEDS: Vancomycin HCl 750 MG in Sodium Chloride 0.9% 250 ML 250 ML IVPB SCH (08:56)
[2020-09-30] MEDS: Polyvinyl Alcohol 1.4%/Povidone 0.6% Opth Drops EA EYE SCH (08:57)
[2020-09-30 09:43] LABS: Band 6 % (5-11); Lymphocytes 21 % (21-51); MDiff Complete? YES; Monocytes 7 % (0-10); Neutrophil 66 % (42-75); Platelet Morphology Comment Appears Adequate; Polychromasia SLIGHT = 2-3 cells (100X) (0-2/hpf)
[2020-09-30 09:49] LABS: Anion Gap 12 mmol/L (10-20); BUN (Urea Nitrogen) 6 mg/dL (9.8-20.1); Calc. Creatinine Clearance 0 mL/min (70-130); Calcium 7.2 mg/dL (7.8-10.44); Carbon Dioxide 25 mmol/L (22-29); Chloride 108 mmol/L (98-107); Glucose 125 mg/dL (70-105); Magnesium 2.1 mg/dL (1.6-2.6); Sodium 142 mmol/L (136-145)
[2020-09-30 09:58] LABS: Potassium 2.9 mmol/L (3.5-5.1)
[2020-09-30 10:35] VITALS: BMI 28.6
[2020-09-30 12:30] LABS: Anion Gap 12 mmol/L (10-20); BUN (Urea Nitrogen) 5 mg/dL (9.8-20.1); Calc. Creatinine Clearance 152 mL/min (70-130); Calcium 7.1 mg/dL (7.8-10.44); Carbon Dioxide 23 mmol/L (22-29); Chloride 108 mmol/L (98-107); Glucose 114 mg/dL (70-105); Potassium 3.2 mmol/L (3.5-5.1); Sodium 140 mmol/L (136-145)
[2020-09-30 17:48] LABS: Anion Gap 9 mmol/L (10-20); BUN (Urea Nitrogen) 6 mg/dL (9.8-20.1); Calc. Creatinine Clearance 150 mL/min (70-130); Calcium 7.2 mg/dL (7.8-10.44); Carbon Dioxide 27 mmol/L (22-29); Chloride 108 mmol/L (98-107); Glucose 92 mg/dL (70-105); Sodium 141 mmol/L (136-145)
[2020-09-30] MEDS: Amitriptyline HCl 25 MG TAB PO SCH (21:12)
[2020-09-30] MEDS: Nicotine 14 MG PATCH TOP SCH ×2 (21:13→21:16)
[2020-09-30] MEDS: Senokot 8.6 MG TAB PO SCH (21:13)
[2020-09-30 21:42] LABS: Anion Gap 8 mmol/L (10-20); BUN (Urea Nitrogen) 6 mg/dL (9.8-20.1); Calc. Creatinine Clearance 150 mL/min (70-130); Carbon Dioxide 27 mmol/L (22-29); Chloride 109 mmol/L (98-107); Glucose 76 mg/dL (70-105); Potassium 3.4 mmol/L (3.5-5.1); Sodium 141 mmol/L (136-145)
[2020-10-01 03:53] LABS: Anion Gap 8 mmol/L (10-20); BUN (Urea Nitrogen) 7 mg/dL (9.8-20.1); Calc. Creatinine Clearance 142 mL/min (70-130); Calcium 7.2 mg/dL (7.8-10.44); Carbon Dioxide 27 mmol/L (22-29); Chloride 108 mmol/L (98-107); Glucose 107 mg/dL (70-105); Magnesium 1.8 mg/dL (1.6-2.6); Potassium 3.4 mmol/L (3.5-5.1); Sodium 140 mmol/L (136-145)
[2020-10-01 04:06] LABS: Band 4 % (5-11); Hemoglobin 9.7 g/dL (12.0-16.0); Lymphocytes 15 % (21-51); MDiff Complete? YES; Mean Corpuscular HGB CONC 31.9 g/dL (32.0-36.0); Mean Corpuscular Volume 84.6 fL (78.0-98.0); Mean Platelet Volume 7.5 fL (7.4-10.4); Monocytes 7 % (0-10); Myelocyte 1 % (0-0); Neutrophil 71 % (42-75); Platelet Count 272 thou/uL (130-400); RBC Distribution Width 19.3 % (11.5-14.5); Reactive Lymphocytes 1 % (0-10)
[2020-10-01] MEDS ORDERED: Potassium Chloride 20 MEQ TAB PO SCH ×2 (05:00→12:00)
[2020-10-01] MEDS ORDERED: Magnesium 2 GM/50 ML 2 GM in Premix Bag 1 BAG IVPB SCH (05:00)
[2020-10-01] MEDS: Levothyroxine Sodium 50 MCG TAB PO SCH (07:01)
[2020-10-01 07:40] LABS: Vancomycin, Trough 12.3 ug/mL
[2020-10-01] MEDS: Ascorbic Acid 500 mg Chewable Tablet PO SCH (08:10)
[2020-10-01] MEDS: busPIRone HCl 10 MG TAB PO SCH (08:10)
[2020-10-01] MEDS: Zinc Sulfate 220 MG CAP PO SCH (08:10)
[2020-10-01] MEDS: Folic Acid 1 MG TAB PO SCH (08:10)
[2020-10-01] MEDS: levETIRAcetam 500 MG TAB PO SCH ×2 (08:10→20:38)
[2020-10-01] MEDS: Docusate Calcium (SURFAK) 240 MG CAP PO SCH (08:10)
[2020-10-01] MEDS: PARoxetine 20 MG TAB PO SCH (08:10)
[2020-10-01] MEDS: Hydrocortisone Sod Succ/PF 100 mg/2 ml Vial IVP SCH (08:11)
[2020-10-01] MEDS: Vancomycin HCl 750 MG in Sodium Chloride 0.9% 250 ML 250 ML IVPB SCH (08:11)
[2020-10-01] MEDS: Enoxaparin Sodium 40 MG/0.4 ML SYRINGE SC SCH (08:11)
[2020-10-01] MEDS: Magnesium Chloride 64 MG TAB PO SCH ×2 (08:12→21:46)
[2020-10-01] MEDS: Methyl Salicylate/Menthol 85 GM TUBE TOP SCH (10:39)
[2020-10-01] MEDS: Polyvinyl Alcohol 1.4%/Povidone 0.6% Opth Drops EA EYE SCH (10:39)
[2020-10-01] MEDS: Gentamicin 160 MG in Sodium Chloride 0.9% 100 ML IVPB SCH (11:10)
[2020-10-01] MEDS: SODIUM CHLORIDE 0.9% IVPB SCH ×4 (13:12→23:47)
[2020-10-01] MEDS: HYDROCORTISONE SOD SUCC IVPB SCH ×2 (13:12→23:47)
[2020-10-01] MEDS: PIPERACILLIN IVPB SCH ×2 (16:02→21:47)
[2020-10-01] MEDS: TAZOBACTAM IVPB SCH ×2 (16:02→21:47)
[2020-10-01] MEDS: Promethazine 25 MG TAB PO PRN ×2 (16:02→21:46)
[2020-10-01] MEDS: Sodium Chloride 0.45% 1,000 ML IV SCH (17:52)
[2020-10-01] MEDS: Acetaminophen 325 MG TAB PO PRN (18:48)
[2020-10-01] MEDS: Amitriptyline HCl 25 MG TAB PO SCH (20:37)
[2020-10-01] MEDS: Senokot 8.6 MG TAB PO SCH (20:40)
[2020-10-01] MEDS ORDERED: HYDROcodone/Acetaminophen 5/325 mg Tablet PO SCH (23:45)
[2020-10-02] MEDS: Acetaminophen 325 MG TAB PO PRN (03:21)
[2020-10-02] MEDS: SODIUM CHLORIDE 0.9% IVPB SCH ×2 (05:57→13:29)
[2020-10-02] MEDS: PIPERACILLIN IVPB SCH ×2 (05:57→13:29)
[2020-10-02] MEDS: Levothyroxine Sodium 50 MCG TAB PO SCH (05:57)
[2020-10-02] MEDS: TAZOBACTAM IVPB SCH ×2 (05:57→13:29)
[2020-10-02 06:14] LABS: Eosinophils 1 % (0-10); Hemoglobin 9.6 g/dL (12.0-16.0); Lymphocytes 29 % (21-51); MDiff Complete? YES; Mean Corpuscular HGB CONC 32.3 g/dL (32.0-36.0); Mean Corpuscular Hemoglobin 27.3 pg (27.0-31.0); Mean Corpuscular Volume 84.4 fL (78.0-98.0); Mean Platelet Volume 7.5 fL (7.4-10.4); Metamyelocyte 2 % (0-0); Monocytes 10 % (0-10); Neutrophil 58 % (42-75); Platelet Count 275 thou/uL (130-400); Platelet Morphology Comment Appears Adequate; RBC Distribution Width 19.4 % (11.5-14.5)
[2020-10-02 06:20] LABS: Anion Gap 7 mmol/L (10-20); BUN (Urea Nitrogen) 8 mg/dL (9.8-20.1); Calc. Creatinine Clearance 154 mL/min (70-130); Carbon Dioxide 27 mmol/L (22-29); Chloride 108 mmol/L (98-107); Glucose 72 mg/dL (70-105); Magnesium 1.9 mg/dL (1.6-2.6); Potassium 4.2 mmol/L (3.5-5.1); Sodium 138 mmol/L (136-145)
[2020-10-02] MEDS: Promethazine 25 MG TAB PO PRN ×2 (07:23→15:01)
[2020-10-02] MEDS ORDERED: Vancomycin 1 GM in Premix Bag 1 BAG IVPB SCH (08:00)
[2020-10-02] MEDS ORDERED: HYDROcodone/Acetaminophen 5/325 mg Tablet PO SCH ×2 (08:30→17:45)
[2020-10-02] MEDS: busPIRone HCl 10 MG TAB PO SCH (08:40)
[2020-10-02] MEDS: Docusate Calcium (SURFAK) 240 MG CAP PO SCH (08:40)
[2020-10-02] MEDS: Gabapentin 300 MG CAP PO SCH ×2 (08:40→15:00)
[2020-10-02] MEDS: Folic Acid 1 MG TAB PO SCH (08:40)
[2020-10-02] MEDS: levETIRAcetam 500 MG TAB PO SCH (08:41)
[2020-10-02] MEDS: PARoxetine 20 MG TAB PO SCH (08:45)
[2020-10-02] MEDS: Zinc Sulfate 220 MG CAP PO SCH (08:45)
[2020-10-02] MEDS: Ascorbic Acid 500 mg Chewable Tablet PO SCH (08:45)
[2020-10-02] MEDS: Enoxaparin Sodium 40 MG/0.4 ML SYRINGE SC SCH (08:46)
[2020-10-02] MEDS: Magnesium Chloride 64 MG TAB PO SCH (08:46)
[2020-10-02] MEDS ORDERED: Hydrocortisone 10 mg Tablet PO SCH (09:00)
[2020-10-02] MEDS ORDERED: Potassium Chloride 20 MEQ TAB PO SCH (09:00)
[2020-10-02] MEDS ORDERED: Magnesium 2 GM/50 ML 1 GM in Premix Bag 1 BAG IVPB SCH (09:45)
[2020-10-02] MEDS: Polyvinyl Alcohol 1.4%/Povidone 0.6% Opth Drops EA EYE SCH (10:14)
[2020-10-02] MEDS: Methyl Salicylate/Menthol 85 GM TUBE TOP SCH (10:15)
[2020-10-02] MEDS ORDERED: Morphine 2 MG/ML VIAL SLOW IVP SCH (11:15)
[2020-10-02 17:50] VITALS: BP 153/84; TEMP 97.9
[2020-10-03] MEDS ORDERED: Potassium Chloride 20 MEQ TAB PO SCH (08:00)
== END 2020-10-02 19:14 | DRG 698 ==
LOC: ERS 12:45 → ONC 14:30 → T4-A 09-22 06:51 → IMCU/EMU 09-26 00:59 → CCU 09-26 11:40 → IMCU/EMU 09-30 10:54 → T4-B 10-01 18:19
PROVIDERS: ADMIT Family Medicine; ATTEND Family Medicine
PROC: 02HV33Z Insertion of Infusion Device into Superior Vena Cava, Percutaneous Approach (ICD-10-PCS; principal; 2020-09-25)
PROC: B548ZZA Ultrasonography of Superior Vena Cava, Guidance (ICD-10-PCS; 2020-09-25)
PROC: 5A1945Z Respiratory Ventilation, 24-96 Consecutive Hours (ICD-10-PCS; 2020-09-26)
PROC: 0BH18EZ Insertion of Endotracheal Airway into Trachea, Via Natural or Artificial Opening Endoscopic (ICD-10-PCS; 2020-09-26)
PROC: 3E033XZ Introduction of Vasopressor into Peripheral Vein, Percutaneous Approach (ICD-10-PCS; 2020-09-26)
PROC: 30233N1 Transfusion of Nonautologous Red Blood Cells into Peripheral Vein, Percutaneous Approach (ICD-10-PCS; 2020-09-26)
DX: T83.598A Infection and inflammatory reaction due to other prosthetic device, implant and graft in urinary system, initial encounter (principal); A41.51 Sepsis due to Escherichia coli [E. coli]; G93.41 Metabolic encephalopathy; U07.1 COVID-19; J96.01 Acute respiratory failure with hypoxia; L89.154 Pressure ulcer of sacral region, stage 4; L89.324 Pressure ulcer of left buttock, stage 4; L89.314 Pressure ulcer of right buttock, stage 4; R65.21 Severe sepsis with septic shock; N17.9 Acute kidney failure, unspecified; G82.20 Paraplegia, unspecified; M46.28 Osteomyelitis of vertebra, sacral and sacrococcygeal region; M86.8X8 Other osteomyelitis, other site; E27.40 Unspecified adrenocortical insufficiency; N39.0 Urinary tract infection, site not specified; Z16.11 Resistance to penicillins; Z16.19 Resistance to other specified beta lactam antibiotics; Z16.23 Resistance to quinolones and fluoroquinolones; Z16.29 Resistance to other single specified antibiotic; Z66 Do not resuscitate; H10.89 Other conjunctivitis; E87.5 Hyperkalemia; G40.909 Epilepsy, unspecified, not intractable, without status epilepticus; E03.9 Hypothyroidism, unspecified; N31.9 Neuromuscular dysfunction of bladder, unspecified; G89.29 Other chronic pain; F41.9 Anxiety disorder, unspecified; F32.9 Major depressive disorder, single episode, unspecified; E87.6 Hypokalemia; E83.42 Hypomagnesemia; D64.9 Anemia, unspecified; Z79.899 Other long term (current) drug therapy; Z93.2 Ileostomy status; Z93.6 Other artificial openings of urinary tract status; Z79.890 Hormone replacement therapy; Y84.8 Other medical procedures as the cause of abnormal reaction of the patient, or of later complication, without mention of misadventure at the time of the procedure
CPT/HCPCS: 36415; 36430; 36569; 36600; 71045; 71260; 74177; 80048; 80053; 80170; 80202; 82533; 82607; 82728; 82746; 82805; 83540; 83550; 83605; 83735; 84100; 84134; 84145; 84443; 84484; 85007; 85025; 85027; 85046; 85060; 85652; 86140; 86850; 86900; 86901; 87635; 93005; 93010; 94002; 94003; 96374; C1751; J1580; J1650; J1720; J2060; J2250; J2270; J2543; J2704; J3010; J3370; J3475; J3480; J3490; J7050; P9016; P9045; Q0169; U0003; U0005

== ENCOUNTER 2020-12-01 23:25 | Emergency (ER) | payer OTHER ==
[2020-12-02 00:21] LABS: #Eosinphils 0.3 thou/uL (0.0-0.7); #Lymphocytes 1.9 thou/uL (1.20-3.40); #Neutrophils 9.5 thou/uL (1.40-6.50); %Basophils 0.3 % (0.0-1.0); %Eosinophils 2.5 % (0.0-10.0); %Monocytes 8.2 % (0.0-10.0); %Neutrophils 74.1 % (42.0-75.0); Hemoglobin 11.1 g/dL (12.0-16.0); Mean Corpuscular HGB CONC 33.1 g/dL (32.0-36.0); Mean Corpuscular Hemoglobin 30.3 pg (27.0-31.0); Mean Corpuscular Volume 91.6 fL (78.0-98.0); Mean Platelet Volume 6.4 fL (7.4-10.4); Platelet Count 450 thou/uL (130-400); RBC Distribution Width 16.4 % (11.5-14.5); Red Blood Cell (RBC) Count 3.66 mill/uL (4.20-5.40); White Blood Cell (WBC) Count 12.8 thou/uL (4.8-10.8)
[2020-12-02 00:38] LABS: Bacteria/HPF 1+ HPF (None Seen); Bilirubin Negative (Negative); Blood, Urine Negative (Negative); Clarity Turbid (Clear); Glucose, Urine (Dipstick) Normal (Negative); Ketone, Urine Negative (Negative); Leukocyte 500 Leu/uL (Negative); Nitrite Negative (Negative); Protein, Urine (Dipstick) 50 mg/dL (Neg-Trace); Specific Gravity, Urine 1.016 (1.002-1.036); Squamous Epithelial None Seen HPF (0-3); Transitional Epithelial 0-3 HPF (None Seen); Urobilinogen Normal mg/dL (Less than 2); WBC/HPF 21-50 HPF (0-3); pH, Urine 6.5 (5.0-9.0)
[2020-12-02 00:41] LABS: ALT (SGPT) 11 U/L (8-55); AST (SGOT) 11 U/L (5-34); Albumin 3.4 g/dL (3.5-5.0); Alkaline Phosphatase 118 U/L (40-110); Anion Gap 13 mmol/L (10-20); BUN (Urea Nitrogen) 25 mg/dL (9.8-20.1); Bilirubin, Total Less than 0.2 mg/dL (0.2-1.2); Calc. Creatinine Clearance 0 mL/min (70-130); Calcium 9.9 mg/dL (7.8-10.44); Carbon Dioxide 13 mmol/L (22-29); Chloride 113 mmol/L (98-107); Globulin 3.9 g/dL (2.4-3.5); Glucose 100 mg/dL (70-105); Lipase 11 U/L (8-78); Potassium 4.2 mmol/L (3.5-5.1); Protein, Total 7.3 g/dL (6.0-8.3); Sodium 135 mmol/L (136-145)
[2020-12-02] MEDS ORDERED: Morphine 4 MG/ML VIAL ONE (01:43)
[2020-12-02] MEDS ORDERED: Ondansetron PF 4 MG/2 ML Vial ONE (01:43)
[2020-12-02] MEDS ORDERED: Iopamidol-370 76% 500 ML 1 ML ONE (09:14)
== END 2020-12-02 02:58 ==
LOC: ERS 23:25
DX: R07.9 Chest pain, unspecified (principal); R10.30 Lower abdominal pain, unspecified; L89.154 Pressure ulcer of sacral region, stage 4; L89.324 Pressure ulcer of left buttock, stage 4; L89.314 Pressure ulcer of right buttock, stage 4; B37.2 Candidiasis of skin and nail; M62.462 Contracture of muscle, left lower leg; M62.461 Contracture of muscle, right lower leg; M62.58 Muscle wasting and atrophy, not elsewhere classified, other site; D50.9 Iron deficiency anemia, unspecified; K21.9 Gastro-esophageal reflux disease without esophagitis; Z79.899 Other long term (current) drug therapy; Z93.3 Colostomy status; Z93.2 Ileostomy status
CPT/HCPCS: 36415; 71045; 74177; 80053; 81003; 81015; 83690; 84484; 85025; 87077; 87086; 93005; 96374; 96375; J2270; J2405; Q9967

== ENCOUNTER 2020-12-06 11:52 | Inpatient (IN) | payer OTHER ==
[2020-12-06 12:34] LABS: Bilirubin Negative (Negative); Blood, Urine Moderate (Negative); Glucose, Urine (Dipstick) Negative (Negative); Ketone, Urine Negative (Negative); Leukocyte Moderate (Negative); Nitrite Negative (Negative); Protein, Urine (Dipstick) 100 mg/dL (Neg-Trace); Urobilinogen 0.2 mg/dL (Less than 2)
[2020-12-06] MEDS ORDERED: Piperacillin/Tazobactam 4.5 GM VIAL ONE (12:39)
[2020-12-06 12:41] LABS: Clarity Turbid (Clear)
[2020-12-06 12:42] LABS: RBC/HPF None Seen HPF (0-3)
[2020-12-06 12:43] LABS: Bacteria/HPF 3+ HPF (None Seen); Squamous Epithelial 0-3 HPF (0-3)
[2020-12-06 13:00] LABS: Hemoglobin 10.9 g/dL (12.0-16.0); Red Blood Cell (RBC) Count 3.58 mill/uL (4.20-5.40); White Blood Cell (WBC) Count 11.9 thou/uL (4.8-10.8)
[2020-12-06 13:01] LABS: Mean Corpuscular HGB CONC 32.6 g/dL (32.0-36.0); Mean Corpuscular Hemoglobin 30.5 pg (27.0-31.0); Mean Corpuscular Volume 93.6 fL (78.0-98.0)
[2020-12-06 13:02] LABS: Mean Platelet Volume 6.6 fL (7.4-10.4); Platelet Count 463 thou/uL (130-400); RBC Distribution Width 16.2 % (11.5-14.5)
[2020-12-06 13:03] LABS: %Lymphocytes 12.9 % (21.0-51.0); %Monocytes 7.7 % (0.0-10.0); %Neutrophils 77.3 % (42.0-75.0)
[2020-12-06 13:04] LABS: #Eosinphils 0.2 thou/uL (0.0-0.7); #Lymphocytes 1.5 thou/uL (1.20-3.40); #Monocytes 0.9 thou/uL (0.11-0.59); #Neutrophils 9.2 thou/uL (1.40-6.50); %Basophils 0.7 % (0.0-1.0); %Eosinophils 1.4 % (0.0-10.0)
[2020-12-06 13:05] LABS: #Basophils 0.1 thou/uL (0.0-0.2)
[2020-12-06 13:56] LABS: ALT (SGPT) 9 U/L (8-55); AST (SGOT) 11 U/L (5-34); Albumin 3.5 g/dL (3.5-5.0); Alkaline Phosphatase 124 U/L (40-110); Anion Gap 19 mmol/L (10-20); BUN (Urea Nitrogen) 29 mg/dL (9.8-20.1); Bilirubin, Total Less than 0.2 mg/dL (0.2-1.2); Calc. Creatinine Clearance 0 mL/min (70-130); Chloride 118 mmol/L (98-107); Globulin 4.2 g/dL (2.4-3.5); Glucose 97 mg/dL (70-105); Potassium 4.7 mmol/L (3.5-5.1); Protein, Total 7.7 g/dL (6.0-8.3); Sodium 141 mmol/L (136-145)
[2020-12-06] MEDS ORDERED: Cefepime 1 GM in Sodium Chloride 0.9% 100 ML IVPB SCH (14:00)
[2020-12-06 14:01] LABS: Carbon Dioxide 9 mmol/L (22-29)
[2020-12-06] MEDS ORDERED: Senokot S 8.6-50 MG TAB PO PRN (14:05)
[2020-12-06] MEDS ORDERED: Calcium Carbonate 500 MG ChewTAB PO PRN (14:05)
[2020-12-06] MEDS ORDERED: Acetaminophen 650 MG Suppository PR PRN (14:05)
[2020-12-06] MEDS ORDERED: Acetaminophen 325 MG TAB PO PRN (14:05)
[2020-12-06] MEDS ORDERED: Sodium Bicarb 50 MEQ/50 ML Abboject 8.4% SYRINGE ONE (14:14)
[2020-12-06 14:35] LABS: Magnesium 2.1 mg/dL (1.6-2.6); Phosphorus 3.7 mg/dL (2.3-4.7)
[2020-12-06 14:49] LABS: SARS-CoV-2 NAA Rapid Test Not Detected (NotDetected)
[2020-12-06] MEDS ORDERED: Sodium Bicarb 50 MEQ/50 ML Abboject 8.4% SYRINGE IVP SCH (15:30)
[2020-12-06 15:41] LABS: INR-International Normal Ratio 1.1; PTT 32.9 sec (22.9-36.1); Prothrombin Time 14.6 sec (12.0-14.7)
[2020-12-06 16:44] LABS: Calcium, Ionized (venous) 1.29 mmol/L (1.16-1.32); Chloride (VBG) 120 mmol/L (98-106); Hemoglobin (Hb) 9.7 g/dL (11.7-16.0); Sodium 146.6 mmol/L (133-146); pH (venous) 7.17 (7.32-7.43)
[2020-12-06 16:45] LABS: Actual Bicarbonate (HCO3v) 12 mEq/L (22-28)
[2020-12-06] MEDS: Sodium Bicarbonate 150 MEQ in Dextrose 5% in Water 1,000 ML IV SCH ×2 (16:55→23:33)
[2020-12-06] MEDS ORDERED: Sodium Chloride 0.9% 500 ML IV SCH (18:45)
[2020-12-06] MEDS: SODIUM CHLORIDE 0.9% IVPB SCH (19:15)
[2020-12-06] MEDS: AMIKACIN SULFATE IVPB SCH (19:15)
[2020-12-06] MEDS ORDERED: Acetaminophen/Codeine Oral Solution 120 mg/12 mg per 5 ml PO SCH (21:00)
[2020-12-06] MEDS: VANCOMYCIN 1.25 GM/250 ML BAG 1.25 GM in Premix Bag 1 BAG IVPB SCH (21:03)
[2020-12-06] MEDS: levETIRAcetam in NS 500 MG in Premix Bag 1 BAG IVPB SCH (21:04)
[2020-12-06] MEDS: Famotidine/PF 20 mg/2ml Vial SLOW IVP SCH (21:08)
[2020-12-06] MEDS: Saccharomyces boulardii 250 MG CAP PO SCH (21:19)
[2020-12-06] MEDS: Senokot S 8.6-50 MG TAB PO SCH (21:19)
[2020-12-06] MEDS ORDERED: Aztreonam 1 GM in Sodium Chloride 0.9% 100 ML IVPB SCH (22:00)
[2020-12-06 22:54] LABS: Anion Gap 14 mmol/L (10-20); BUN (Urea Nitrogen) 22 mg/dL (9.8-20.1); Calc. Creatinine Clearance 91 mL/min (70-130); Calcium 7.7 mg/dL (7.8-10.44); Carbon Dioxide 17 mmol/L (22-29); Chloride 119 mmol/L (98-107); Glucose 118 mg/dL (70-105); Potassium 2.6 mmol/L (3.5-5.1); Sodium 147 mmol/L (136-145)
[2020-12-06] MEDS ORDERED: Electrolyte Replacement Protocol 1 EACH FS PRN (23:15)
[2020-12-06] MEDS: Potassium Chloride 40 MEQ in Premix Bag 1 BAG IVPB SCH (23:33)
[2020-12-07 03:56] LABS: #Eosinphils 0.2 thou/uL (0.0-0.7); #Lymphocytes 1.1 thou/uL (1.20-3.40); #Monocytes 0.7 thou/uL (0.11-0.59); #Neutrophils 4.8 thou/uL (1.40-6.50); %Basophils 0.3 % (0.0-1.0); %Eosinophils 3.5 % (0.0-10.0); %Lymphocytes 15.8 % (21.0-51.0); %Monocytes 10.8 % (0.0-10.0); %Neutrophils 69.6 % (42.0-75.0); Hemoglobin 8.3 g/dL (12.0-16.0); Mean Corpuscular HGB CONC 33.4 g/dL (32.0-36.0); Mean Corpuscular Hemoglobin 30.4 pg (27.0-31.0); Mean Corpuscular Volume 91.2 fL (78.0-98.0); Mean Platelet Volume 6.6 fL (7.4-10.4); Platelet Count 359 thou/uL (130-400); RBC Distribution Width 16.1 % (11.5-14.5); Red Blood Cell (RBC) Count 2.73 mill/uL (4.20-5.40); White Blood Cell (WBC) Count 6.9 thou/uL (4.8-10.8)
[2020-12-07] MEDS: Potassium Chloride 40 MEQ in Premix Bag 1 BAG IVPB SCH (04:26)
[2020-12-07 04:35] LABS: ALT (SGPT) 7 U/L (8-55); AST (SGOT) 11 U/L (5-34); Albumin 2.5 g/dL (3.5-5.0); Alkaline Phosphatase 85 U/L (40-110); Anion Gap 13 mmol/L (10-20); BUN (Urea Nitrogen) 20 mg/dL (9.8-20.1); Bilirubin, Total Less than 0.2 mg/dL (0.2-1.2); Calc. Creatinine Clearance 91 mL/min (70-130); Calcium 7.8 mg/dL (7.8-10.44); Carbon Dioxide 19 mmol/L (22-29); Chloride 117 mmol/L (98-107); Globulin 3.1 g/dL (2.4-3.5); Glucose 126 mg/dL (70-105); Magnesium 1.4 mg/dL (1.6-2.6); Phosphorus 1.4 mg/dL (2.3-4.7); Potassium 3.1 mmol/L (3.5-5.1); Protein, Total 5.6 g/dL (6.0-8.3); Sodium 146 mmol/L (136-145)
[2020-12-07] MEDS ORDERED: Magnesium 2 GM/50 ML 2 GM in Premix Bag 1 BAG IVPB SCH ×2 (05:00→14:00)
[2020-12-07] MEDS ORDERED: PHOS-NAK 1 PKT PACK PO SCH (05:00)
[2020-12-07] MEDS ORDERED: Potassium Phosphate 22 MMOL in Sodium Chloride 0.9% 250 ML 250 ML IVPB SCH (05:15)
[2020-12-07] MEDS ORDERED: Acetaminophen/Codeine 12.5 ML UDCUP PO PRN (09:18)
[2020-12-07] MEDS ORDERED: Acetaminophen W/ Codeine 5 ML UDCUP PO PRN (09:47)
[2020-12-07] MEDS: Senokot S 8.6-50 MG TAB PO SCH ×2 (10:07→22:13)
[2020-12-07] MEDS: Famotidine/PF 20 mg/2ml Vial SLOW IVP SCH ×2 (10:07→21:12)
[2020-12-07] MEDS: Sodium Bicarbonate 150 MEQ in Dextrose 5% in Water 1,000 ML IV SCH ×4 (10:07→22:07)
[2020-12-07] MEDS: levETIRAcetam in NS 500 MG in Premix Bag 1 BAG IVPB SCH ×2 (10:08→21:12)
[2020-12-07] MEDS: Enoxaparin Sodium 30 MG/0.3 ML SYRINGE SC SCH (10:14)
[2020-12-07 13:23] LABS: Anion Gap 13 mmol/L (10-20); BUN (Urea Nitrogen) 15 mg/dL (9.8-20.1); Calc. Creatinine Clearance 107 mL/min (70-130); Calcium 7.3 mg/dL (7.8-10.44); Carbon Dioxide 26 mmol/L (22-29); Chloride 110 mmol/L (98-107); Glucose 134 mg/dL (70-105); Sodium 146 mmol/L (136-145)
[2020-12-07 13:28] LABS: Phosphorus 2.6 mg/dL (2.3-4.7); Potassium 2.8 mmol/L (3.5-5.1)
[2020-12-07] MEDS ORDERED: Potassium Chloride 20 MEQ TAB PO SCH (13:45)
[2020-12-07] MEDS: Potassium Chloride 20 MEQ in Premix Bag 1 BAG IVPB SCH ×3 (14:20→22:12)
[2020-12-07] MEDS ORDERED: Lidocaine 1% w/Epinephrine 1:100K 20 ML VIAL ONE (16:19)
[2020-12-07] MEDS ORDERED: Bupivacaine 0.25% HCL 30 ML VIAL ONE (16:19)
[2020-12-07] MEDS ORDERED: Fentanyl 100 MCG/2 ML VIAL ONE ×2 (16:29→19:46)
[2020-12-07] MEDS: AMIKACIN SULFATE IVPB SCH (17:06)
[2020-12-07] MEDS: SODIUM CHLORIDE 0.9% IVPB SCH (17:06)
[2020-12-07] MEDS: VANCOMYCIN 1.25 GM/250 ML BAG 1.25 GM in Premix Bag 1 BAG IVPB SCH (17:07)
[2020-12-07] MEDS ORDERED: Lidocaine 1% PF 5 ML VIAL ONE (18:56)
[2020-12-07] MEDS ORDERED: Rocuronium Bromide 10 MG/ML (10ML VIAL) ONE (18:56)
[2020-12-07] MEDS ORDERED: Ondansetron PF 4 MG/2 ML Vial ONE (18:56)
[2020-12-07] MEDS ORDERED: SUGAMMADEX SODIUM 500 MG/5 ML VIAL ONE (19:06)
[2020-12-07] MEDS ORDERED: Acetaminophen 500 MG TAB PO PRN (19:20)
[2020-12-07] MEDS ORDERED: Promethazine HCl 25 MG/ML VIAL SLOW IVP PRN (19:39)
[2020-12-07] MEDS ORDERED: Ondansetron HCl/PF 4 MG/2 ML Vial IVP PRN (19:39)
[2020-12-07] MEDS ORDERED: Promethazine HCl 25 MG/ML VIAL IM PRN (19:39)
[2020-12-07 21:47] LABS: Anion Gap 13 mmol/L (10-20); BUN (Urea Nitrogen) 12 mg/dL (9.8-20.1); Calc. Creatinine Clearance 113 mL/min (70-130); Calcium 7.1 mg/dL (7.8-10.44); Carbon Dioxide 29 mmol/L (22-29); Chloride 106 mmol/L (98-107); Glucose 146 mg/dL (70-105); Sodium 145 mmol/L (136-145)
[2020-12-07 21:52] LABS: Potassium 2.7 mmol/L (3.5-5.1)
[2020-12-07] MEDS: Saccharomyces boulardii 250 MG CAP PO SCH (22:12)
[2020-12-08 03:27] LABS: #Eosinphils 0.4 thou/uL (0.0-0.7); #Lymphocytes 1.6 thou/uL (1.20-3.40); #Monocytes 0.8 thou/uL (0.11-0.59); #Neutrophils 4.3 thou/uL (1.40-6.50); %Basophils 0.4 % (0.0-1.0); %Eosinophils 5.3 % (0.0-10.0); %Lymphocytes 22.8 % (21.0-51.0); %Monocytes 10.8 % (0.0-10.0); %Neutrophils 60.8 % (42.0-75.0); Hemoglobin 8.3 g/dL (12.0-16.0); Mean Corpuscular HGB CONC 32.7 g/dL (32.0-36.0); Mean Corpuscular Volume 91.9 fL (78.0-98.0); Mean Platelet Volume 6.6 fL (7.4-10.4); Platelet Count 327 thou/uL (130-400); RBC Distribution Width 16.1 % (11.5-14.5); Red Blood Cell (RBC) Count 2.76 mill/uL (4.20-5.40)
[2020-12-08 03:50] LABS: ALT (SGPT) 10 U/L (8-55); AST (SGOT) 18 U/L (5-34); Albumin 2.5 g/dL (3.5-5.0); Alkaline Phosphatase 84 U/L (40-110); Anion Gap 13 mmol/L (10-20); BUN (Urea Nitrogen) 11 mg/dL (9.8-20.1); Bilirubin, Total Less than 0.2 mg/dL (0.2-1.2); Calc. Creatinine Clearance 118 mL/min (70-130); Calcium 6.8 mg/dL (7.8-10.44); Carbon Dioxide 31 mmol/L (22-29); Chloride 105 mmol/L (98-107); Globulin 2.7 g/dL (2.4-3.5); Glucose 92 mg/dL (70-105); Magnesium 2.2 mg/dL (1.6-2.6); Phosphorus 1.7 mg/dL (2.3-4.7); Potassium 3.4 mmol/L (3.5-5.1); Protein, Total 5.2 g/dL (6.0-8.3); Sodium 146 mmol/L (136-145)
[2020-12-08] MEDS ORDERED: Potassium Phosphate 15 MMOL in Sodium Chloride 0.9% 100 ML IVPB SCH (05:00)
[2020-12-08] MEDS ORDERED: Potassium Phosphate 30 MMOL in Sodium Chloride 0.9% 250 ML 250 ML IVPB SCH (09:45)
[2020-12-08] MEDS ORDERED: Potassium Chloride 20 MEQ TAB PO SCH (09:45)
[2020-12-08] MEDS ORDERED: Magnesium Sulfate 3 GM in Sodium Chloride 0.9% 100 ML IVPB SCH (09:45)
[2020-12-08] MEDS: Enoxaparin Sodium 30 MG/0.3 ML SYRINGE SC SCH (09:46)
[2020-12-08] MEDS: Polyethylene Glycol 3350 17 GM Packet PO SCH (09:47)
[2020-12-08] MEDS: Senokot S 8.6-50 MG TAB PO SCH ×2 (09:47→20:24)
[2020-12-08] MEDS: Famotidine/PF 20 mg/2ml Vial SLOW IVP SCH ×2 (09:47→20:24)
[2020-12-08] MEDS: PARoxetine 20 MG TAB PO SCH (09:47)
[2020-12-08] MEDS: levETIRAcetam in NS 500 MG in Premix Bag 1 BAG IVPB SCH ×2 (09:47→20:23)
[2020-12-08] MEDS: Lactated Ringer's 1,000 ML IV SCH (09:53)
[2020-12-08] MEDS: Sodium Bicarbonate 150 MEQ in Dextrose 5% in Water 1,000 ML IV SCH (11:20)
[2020-12-08] MEDS ORDERED: Acetaminophen W/ Codeine 5 ML UDCUP PO PRN (16:29)
[2020-12-08] MEDS: AMIKACIN SULFATE IVPB SCH (16:47)
[2020-12-08] MEDS: SODIUM CHLORIDE 0.9% IVPB SCH (16:47)
[2020-12-08 17:26] LABS: Anion Gap 11 mmol/L (10-20); BUN (Urea Nitrogen) 9 mg/dL (9.8-20.1); Calc. Creatinine Clearance 127 mL/min (70-130); Calcium 6.7 mg/dL (7.8-10.44); Carbon Dioxide 33 mmol/L (22-29); Chloride 103 mmol/L (98-107); Glucose 98 mg/dL (70-105); Potassium 3.4 mmol/L (3.5-5.1); Sodium 144 mmol/L (136-145)
[2020-12-08] MEDS: Acetaminophen W/ Codeine 5 ML UDCUP PO PRN ×2 (18:44→23:37)
[2020-12-08] MEDS: VANCOMYCIN 1.25 GM/250 ML BAG 1.25 GM in Premix Bag 1 BAG IVPB SCH (20:23)
[2020-12-08] MEDS: Saccharomyces boulardii 250 MG CAP PO SCH (20:24)
[2020-12-09] MEDS: Lactated Ringer's 1,000 ML IV SCH ×3 (03:47→20:32)
[2020-12-09 04:01] LABS: #Eosinphils 0.3 thou/uL (0.0-0.7); #Lymphocytes 1.9 thou/uL (1.20-3.40); #Monocytes 0.7 thou/uL (0.11-0.59); #Neutrophils 3.5 thou/uL (1.40-6.50); %Basophils 0.2 % (0.0-1.0); %Eosinophils 4.6 % (0.0-10.0); %Lymphocytes 29.6 % (21.0-51.0); %Neutrophils 54.7 % (42.0-75.0); Hemoglobin 8.3 g/dL (12.0-16.0); Mean Corpuscular HGB CONC 33.5 g/dL (32.0-36.0); Mean Corpuscular Hemoglobin 30.7 pg (27.0-31.0); Mean Corpuscular Volume 91.5 fL (78.0-98.0); Mean Platelet Volume 6.8 fL (7.4-10.4); Platelet Count 301 thou/uL (130-400); RBC Distribution Width 16.1 % (11.5-14.5); Red Blood Cell (RBC) Count 2.69 mill/uL (4.20-5.40); White Blood Cell (WBC) Count 6.3 thou/uL (4.8-10.8)
[2020-12-09 06:31] LABS: Chloride 104 mmol/L (98-107); Potassium 3.9 mmol/L (3.5-5.1); Sodium 138 mmol/L (136-145)
[2020-12-09 06:32] LABS: Anion Gap 9 mmol/L (10-20); BUN (Urea Nitrogen) 7 mg/dL (9.8-20.1); Carbon Dioxide 29 mmol/L (22-29)
[2020-12-09 06:33] LABS: Bilirubin, Total Less than 0.2 mg/dL (0.2-1.2); Calc. Creatinine Clearance 136 mL/min (70-130); Calcium 6.5 mg/dL (7.8-10.44); Glucose 91 mg/dL (70-105); Protein, Total 5.2 g/dL (6.0-8.3)
[2020-12-09 06:34] LABS: ALT (SGPT) 15 U/L (8-55); AST (SGOT) 21 U/L (5-34); Albumin 2.4 g/dL (3.5-5.0); Alkaline Phosphatase 91 U/L (40-110); Globulin 2.8 g/dL (2.4-3.5); Magnesium 2.2 mg/dL (1.6-2.6); Phosphorus 4.2 mg/dL (2.3-4.7)
[2020-12-09] MEDS: Enoxaparin Sodium 30 MG/0.3 ML SYRINGE SC SCH (08:44)
[2020-12-09] MEDS: PARoxetine 20 MG TAB PO SCH (08:46)
[2020-12-09] MEDS: Polyethylene Glycol 3350 17 GM Packet PO SCH (08:46)
[2020-12-09] MEDS: levETIRAcetam in NS 500 MG in Premix Bag 1 BAG IVPB SCH ×2 (08:46→20:31)
[2020-12-09] MEDS: Senokot S 8.6-50 MG TAB PO SCH ×2 (08:46→19:50)
[2020-12-09] MEDS: Famotidine/PF 20 mg/2ml Vial SLOW IVP SCH ×2 (08:46→20:31)
[2020-12-09] MEDS: Acetaminophen W/ Codeine 5 ML UDCUP PO PRN ×2 (09:50→23:28)
[2020-12-09] MEDS: SODIUM CHLORIDE 0.9% IVPB SCH (17:47)
[2020-12-09] MEDS: AMIKACIN SULFATE IVPB SCH (17:47)
[2020-12-09] MEDS: VANCOMYCIN 1.25 GM/250 ML BAG 1.25 GM in Premix Bag 1 BAG IVPB SCH (20:30)
[2020-12-09] MEDS: Saccharomyces boulardii 250 MG CAP PO SCH (20:31)
[2020-12-10 06:19] LABS: #Basophils 0.1 thou/uL (0.0-0.2); #Eosinphils 0.2 thou/uL (0.0-0.7); #Lymphocytes 1.8 thou/uL (1.20-3.40); #Monocytes 0.5 thou/uL (0.11-0.59); #Neutrophils 2.2 thou/uL (1.40-6.50); %Basophils 1.6 % (0.0-1.0); %Lymphocytes 37.3 % (21.0-51.0); %Monocytes 10.3 % (0.0-10.0); %Neutrophils 45.9 % (42.0-75.0); Hemoglobin 8.1 g/dL (12.0-16.0); Mean Corpuscular HGB CONC 32.9 g/dL (32.0-36.0); Mean Corpuscular Hemoglobin 30.6 pg (27.0-31.0); Mean Corpuscular Volume 93.1 fL (78.0-98.0); Mean Platelet Volume 6.7 fL (7.4-10.4); Platelet Count 291 thou/uL (130-400); RBC Distribution Width 15.5 % (11.5-14.5); Red Blood Cell (RBC) Count 2.65 mill/uL (4.20-5.40); White Blood Cell (WBC) Count 4.9 thou/uL (4.8-10.8)
[2020-12-10 06:38] LABS: Anion Gap 13 mmol/L (10-20); BUN (Urea Nitrogen) 7 mg/dL (9.8-20.1); Calc. Creatinine Clearance 149 mL/min (70-130); Calcium 6.5 mg/dL (7.8-10.44); Carbon Dioxide 25 mmol/L (22-29); Chloride 104 mmol/L (98-107); Glucose 73 mg/dL (70-105); Potassium 3.5 mmol/L (3.5-5.1); Sodium 138 mmol/L (136-145)
[2020-12-10] MEDS ORDERED: Potassium Chloride 20 MEQ TAB PO SCH (07:15)
[2020-12-10] MEDS ORDERED: Calcium Gluconate 4.6 MEQ in Sodium Chloride 0.9% 100 ML IVPB SCH (07:54)
[2020-12-10] MEDS: Polyethylene Glycol 3350 17 GM Packet PO SCH (08:47)
[2020-12-10] MEDS: Enoxaparin Sodium 30 MG/0.3 ML SYRINGE SC SCH (08:47)
[2020-12-10] MEDS: PARoxetine 20 MG TAB PO SCH (08:48)
[2020-12-10] MEDS: Famotidine/PF 20 mg/2ml Vial SLOW IVP SCH ×2 (08:48→20:46)
[2020-12-10] MEDS: Senokot S 8.6-50 MG TAB PO SCH ×2 (08:49→20:47)
[2020-12-10] MEDS: levETIRAcetam in NS 500 MG in Premix Bag 1 BAG IVPB SCH ×2 (08:49→22:09)
[2020-12-10] MEDS: Acetaminophen W/ Codeine 5 ML UDCUP PO PRN ×3 (08:49→22:10)
[2020-12-10] MEDS: Calcium/Multivitamins W-Iron 1 TAB TAB PO SCH (08:49)
[2020-12-10] MEDS: Ondansetron PF 4 MG/2 ML Vial IVP PRN (08:51)
[2020-12-10] MEDS: Ondansetron ODT 4 MG TAB PO PRN ×2 (15:19→22:11)
[2020-12-10] MEDS: SODIUM CHLORIDE 0.9% IVPB SCH (18:05)
[2020-12-10] MEDS: Lactated Ringer's 1,000 ML IV SCH ×2 (18:05→22:09)
[2020-12-10] MEDS: AMIKACIN SULFATE IVPB SCH (18:05)
[2020-12-10] MEDS: VANCOMYCIN 1.25 GM/250 ML BAG 1.25 GM in Premix Bag 1 BAG IVPB SCH (20:14)
[2020-12-10] MEDS: Saccharomyces boulardii 250 MG CAP PO SCH (20:46)
[2020-12-10] MEDS: diphenhydrAMINE 25 MG CAP PO PRN (20:54)
[2020-12-11] MEDS: diphenhydrAMINE 25 MG CAP PO PRN (05:09)
[2020-12-11 06:26] LABS: #Eosinphils 0.2 thou/uL (0.0-0.7); #Lymphocytes 1.7 thou/uL (1.20-3.40); #Monocytes 0.5 thou/uL (0.11-0.59); #Neutrophils 2.9 thou/uL (1.40-6.50); %Basophils 0.6 % (0.0-1.0); %Eosinophils 4.2 % (0.0-10.0); %Lymphocytes 31.4 % (21.0-51.0); %Neutrophils 53.9 % (42.0-75.0); Hemoglobin 8.5 g/dL (12.0-16.0); Mean Corpuscular HGB CONC 31.3 g/dL (32.0-36.0); Mean Corpuscular Hemoglobin 28.7 pg (27.0-31.0); Mean Corpuscular Volume 91.8 fL (78.0-98.0); Mean Platelet Volume 6.8 fL (7.4-10.4); Platelet Count 287 thou/uL (130-400); RBC Distribution Width 15.2 % (11.5-14.5); Red Blood Cell (RBC) Count 2.95 mill/uL (4.20-5.40); White Blood Cell (WBC) Count 5.3 thou/uL (4.8-10.8)
[2020-12-11 06:41] LABS: Anion Gap 13 mmol/L (10-20); BUN (Urea Nitrogen) 5 mg/dL (9.8-20.1); Calc. Creatinine Clearance 140 mL/min (70-130); Calcium 7.4 mg/dL (7.8-10.44); Carbon Dioxide 22 mmol/L (22-29); Chloride 106 mmol/L (98-107); Glucose 82 mg/dL (70-105); Magnesium 1.3 mg/dL (1.6-2.6); Potassium 3.9 mmol/L (3.5-5.1); Sodium 137 mmol/L (136-145)
[2020-12-11] MEDS ORDERED: Magnesium Sulfate 4 GM in Sodium Chloride 0.9% 250 ML 250 ML IVPB SCH (08:00)
[2020-12-11] MEDS: Famotidine/PF 20 mg/2ml Vial SLOW IVP SCH (08:29)
[2020-12-11] MEDS: levETIRAcetam in NS 500 MG in Premix Bag 1 BAG IVPB SCH (08:29)
[2020-12-11] MEDS: PARoxetine 20 MG TAB PO SCH (08:29)
[2020-12-11] MEDS: Polyethylene Glycol 3350 17 GM Packet PO SCH (08:30)
[2020-12-11] MEDS: Senokot S 8.6-50 MG TAB PO SCH (08:30)
[2020-12-11] MEDS: Enoxaparin Sodium 30 MG/0.3 ML SYRINGE SC SCH (08:30)
[2020-12-11] MEDS: Calcium/Multivitamins W-Iron 1 TAB TAB PO SCH (08:30)
[2020-12-11] MEDS: Acetaminophen W/ Codeine 5 ML UDCUP PO PRN ×2 (08:39→16:34)
[2020-12-11] MEDS: Ondansetron PF 4 MG/2 ML Vial IVP PRN ×2 (08:40→16:35)
[2020-12-11] MEDS ORDERED: Magnesium Sulfate 3 GM in Sodium Chloride 0.9% 100 ML IVPB SCH (09:45)
[2020-12-11 09:52] VITALS: BMI 32.1
[2020-12-11 13:08] VITALS: BP 137/84; TEMP 98.1
[2020-12-11] MEDS ORDERED: Magnesium Oxide 400 MG TAB PO SCH (21:00)
== END 2020-12-11 18:12 | DRG 853 ==
LOC: ERS 11:52 → IMCU/EMU 13:38 → T4-A 12-09 19:43
PROVIDERS: ADMIT Internal Medicine; ATTEND Internal Medicine
PROC: 0FT44ZZ Resection of Gallbladder, Percutaneous Endoscopic Approach (ICD-10-PCS; principal; 2020-12-07)
DX: A41.51 Sepsis due to Escherichia coli [E. coli] (principal); L89.224 Pressure ulcer of left hip, stage 4; L89.214 Pressure ulcer of right hip, stage 4; Z20.822 Contact with and (suspected) exposure to COVID-19; L89.154 Pressure ulcer of sacral region, stage 4; G92 Toxic encephalopathy; E87.2 Acidosis; G82.20 Paraplegia, unspecified; N17.9 Acute kidney failure, unspecified; F33.2 Major depressive disorder, recurrent severe without psychotic features; M86.68 Other chronic osteomyelitis, other site; N39.0 Urinary tract infection, site not specified; R65.20 Severe sepsis without septic shock; D50.9 Iron deficiency anemia, unspecified; E55.9 Vitamin D deficiency, unspecified; G89.29 Other chronic pain; K21.9 Gastro-esophageal reflux disease without esophagitis; M81.0 Age-related osteoporosis without current pathological fracture; Z96.642 Presence of left artificial hip joint; F41.1 Generalized anxiety disorder; A41.52 Sepsis due to Pseudomonas; N31.9 Neuromuscular dysfunction of bladder, unspecified; G40.909 Epilepsy, unspecified, not intractable, without status epilepticus; E03.9 Hypothyroidism, unspecified; K81.9 Cholecystitis, unspecified; L89.312 Pressure ulcer of right buttock, stage 2; E87.6 Hypokalemia; E83.42 Hypomagnesemia; E83.39 Other disorders of phosphorus metabolism; E83.51 Hypocalcemia; E86.9 Volume depletion, unspecified; Z90.49 Acquired absence of other specified parts of digestive tract; Z88.1 Allergy status to other antibiotic agents; Z88.5 Allergy status to narcotic agent; Z88.8 Allergy status to other drugs, medicaments and biological substances; Z79.899 Other long term (current) drug therapy; Z93.2 Ileostomy status; Z93.6 Other artificial openings of urinary tract status
CPT/HCPCS: 0240U; 36415; 36416; 70450; 71045; 76705; 80048; 80053; 80202; 81003; 81015; 82010; 82533; 82805; 83605; 83735; 84100; 84484; 85025; 85610; 85730; 86140; 87040; 87077; 87086; 87186; 88304; 93005; 96365; J0278; J1650; J1953; J2001; J2405; J2543; J3010; J3370; J3475; J3480; J3490; J7050; J7070; Q0162; Q0163; S0020; S0028

== ENCOUNTER 2020-12-22 21:39 | Emergency (ER) | payer OTHER ==
[~2020-12-22 21:39] MED LIST changes: -Heparin 1,000 UNITS/ML VIAL ONE; +Iopamidol-370 76% 500 ML 1 ML ONE
[2020-12-22] MEDS ORDERED: Morphine 4 MG/ML VIAL ONE (21:55)
[2020-12-22] MEDS ORDERED: Ondansetron PF 4 MG/2 ML Vial ONE (21:55)
[2020-12-22 22:19] LABS: #Eosinphils 0.1 thou/uL (0.0-0.7); #Lymphocytes 1.4 thou/uL (1.20-3.40); #Monocytes 0.6 thou/uL (0.11-0.59); #Neutrophils 3.8 thou/uL (1.40-6.50); %Basophils 0.7 % (0.0-1.0); %Eosinophils 1.7 % (0.0-10.0); %Lymphocytes 23.4 % (21.0-51.0); %Monocytes 10.1 % (0.0-10.0); %Neutrophils 64.1 % (42.0-75.0); Mean Corpuscular Hemoglobin 31.1 pg (27.0-31.0); Mean Corpuscular Volume 94.4 fL (78.0-98.0); Mean Platelet Volume 6.6 fL (7.4-10.4); Platelet Count 422 thou/uL (130-400); Red Blood Cell (RBC) Count 2.58 mill/uL (4.20-5.40)
[2020-12-22 22:35] LABS: ALT (SGPT) 13 U/L (8-55); AST (SGOT) 16 U/L (5-34); Albumin 2.6 g/dL (3.5-5.0); Alkaline Phosphatase 110 U/L (40-110); Anion Gap 13 mmol/L (10-20); BUN (Urea Nitrogen) 20 mg/dL (9.8-20.1); Bilirubin, Total Less than 0.2 mg/dL (0.2-1.2); CK (CPK) Less than 9 U/L (29-168); Calc. Creatinine Clearance 0 mL/min (70-130); Calcium 7.5 mg/dL (7.8-10.44); Carbon Dioxide 19 mmol/L (22-29); Chloride 112 mmol/L (98-107); Globulin 2.8 g/dL (2.4-3.5); Glucose 92 mg/dL (70-105); Lipase 4 U/L (8-78); Magnesium 1.6 mg/dL (1.6-2.6); Potassium 4.6 mmol/L (3.5-5.1); Protein, Total 5.4 g/dL (6.0-8.3); Sodium 139 mmol/L (136-145)
[2020-12-22 23:17] LABS: Bacteria/HPF 1+ HPF (None Seen); Bilirubin Negative (Negative); Blood, Urine Negative (Negative); Clarity Turbid (Clear); Glucose, Urine (Dipstick) Normal (Negative); Ketone, Urine Negative (Negative); Leukocyte 500 Leu/uL (Negative); Nitrite 2+ (Negative); Protein, Urine (Dipstick) 30 mg/dL (Neg-Trace); RBC/HPF 0-3 HPF (0-3); Squamous Epithelial 0-3 HPF (0-3); Triple Phosphate Crystal Rare HPF (None Seen); Urobilinogen Normal mg/dL (Less than 2); WBC/HPF Greater than 50 HPF (0-3)
== END 2020-12-22 23:45 | disposition home or self-care (01) ==
LOC: ERS 21:39
DX: N39.0 Urinary tract infection, site not specified (principal); M81.0 Age-related osteoporosis without current pathological fracture; R11.2 Nausea with vomiting, unspecified; K21.9 Gastro-esophageal reflux disease without esophagitis; Z79.899 Other long term (current) drug therapy
CPT/HCPCS: 36415; 74177; 80053; 81003; 81015; 82550; 83605; 83690; 83735; 84484; 85025; 87040; 87077; 87086; 87186; 93005; 96374; 96375; J2270; J2405; Q9967

== ENCOUNTER 2020-12-23 10:53 | Emergency (ER) | payer OTHER ==
[2020-12-23] MEDS ORDERED: Acetaminophen/Codeine 30-300mg Tablet ONE (11:19)
[2020-12-23] MEDS ORDERED: Ondansetron PF 4 MG/2 ML Vial ONE (11:19)
[2020-12-23] MEDS ORDERED: Lorazepam 1 MG TAB ONE (11:22)
[2020-12-23 12:11] LABS: #Eosinphils 0.2 thou/uL (0.0-0.7); #Lymphocytes 1.4 thou/uL (1.20-3.40); #Monocytes 0.8 thou/uL (0.11-0.59); #Neutrophils 4.4 thou/uL (1.40-6.50); %Basophils 0.1 % (0.0-1.0); %Eosinophils 2.3 % (0.0-10.0); %Lymphocytes 20.4 % (21.0-51.0); %Monocytes 11.8 % (0.0-10.0); %Neutrophils 65.4 % (42.0-75.0); Hemoglobin 7.9 g/dL (12.0-16.0); Mean Corpuscular HGB CONC 31.3 g/dL (32.0-36.0); Mean Corpuscular Hemoglobin 29.8 pg (27.0-31.0); Mean Corpuscular Volume 95.2 fL (78.0-98.0); Mean Platelet Volume 6.4 fL (7.4-10.4); Platelet Count 424 thou/uL (130-400); RBC Distribution Width 14.1 % (11.5-14.5); Red Blood Cell (RBC) Count 2.65 mill/uL (4.20-5.40); White Blood Cell (WBC) Count 6.7 thou/uL (4.8-10.8)
[2020-12-23 12:47] LABS: ALT (SGPT) 11 U/L (8-55); AST (SGOT) 12 U/L (5-34); Albumin 2.6 g/dL (3.5-5.0); Alkaline Phosphatase 108 U/L (40-110); Anion Gap 11 mmol/L (10-20); BUN (Urea Nitrogen) 15 mg/dL (9.8-20.1); Bilirubin, Total Less than 0.2 mg/dL (0.2-1.2); CK (CPK) 10 U/L (29-168); Calc. Creatinine Clearance 0 mL/min (70-130); Calcium 7.5 mg/dL (7.8-10.44); Carbon Dioxide 17 mmol/L (22-29); Chloride 115 mmol/L (98-107); Globulin 3.2 g/dL (2.4-3.5); Glucose 92 mg/dL (70-105); Magnesium 1.5 mg/dL (1.6-2.6); Potassium 4.3 mmol/L (3.5-5.1); Protein, Total 5.8 g/dL (6.0-8.3); Sodium 139 mmol/L (136-145)
[2020-12-23] MEDS ORDERED: Magnesium 2 GM/50 ML BAG (IN WATER) ONE (14:22)
== END 2020-12-23 18:45 | disposition home or self-care (01) ==
LOC: ERS 10:53
DX: R11.2 Nausea with vomiting, unspecified (principal); E83.42 Hypomagnesemia; E03.9 Hypothyroidism, unspecified; K21.9 Gastro-esophageal reflux disease without esophagitis; Z79.899 Other long term (current) drug therapy
CPT/HCPCS: 36415; 80053; 82550; 83735; 84484; 85025; 93005; 96365; 96374; J2405; J3475

== ENCOUNTER 2021-02-02 17:56 | Inpatient (IN) | payer OTHER ==
[2021-02-02 18:28] LABS: #Eosinphils 0.1 thou/uL (0.0-0.7); #Lymphocytes 1.9 thou/uL (1.20-3.40); #Monocytes 0.6 thou/uL (0.11-0.59); #Neutrophils 1.8 thou/uL (1.40-6.50); %Basophils 0.4 % (0.0-1.0); %Eosinophils 2.7 % (0.0-10.0); %Lymphocytes 42.5 % (21.0-51.0); %Monocytes 13.5 % (0.0-10.0); %Neutrophils 40.9 % (42.0-75.0); Hemoglobin 8.9 g/dL (12.0-16.0); Mean Corpuscular HGB CONC 32.1 g/dL (32.0-36.0); Mean Corpuscular Hemoglobin 30.2 pg (27.0-31.0); Mean Corpuscular Volume 94.1 fL (78.0-98.0); Mean Platelet Volume 6.8 fL (7.4-10.4); Platelet Count 303 thou/uL (130-400); RBC Distribution Width 15.9 % (11.5-14.5); Red Blood Cell (RBC) Count 2.93 mill/uL (4.20-5.40); White Blood Cell (WBC) Count 4.4 thou/uL (4.8-10.8)
[2021-02-02 18:46] LABS: ALT (SGPT) 11 U/L (8-55); AST (SGOT) 15 U/L (5-34); Albumin 2.3 g/dL (3.5-5.0); Alkaline Phosphatase 132 U/L (40-110); Anion Gap 11 mmol/L (10-20); BUN (Urea Nitrogen) 15 mg/dL (9.8-20.1); Bilirubin, Total 0.2 mg/dL (0.2-1.2); Calc. Creatinine Clearance 0 mL/min (70-130); Calcium 7.9 mg/dL (7.8-10.44); Carbon Dioxide 19 mmol/L (22-29); Chloride 112 mmol/L (98-107); Globulin 3.1 g/dL (2.4-3.5); Glucose 86 mg/dL (70-105); Potassium 4.6 mmol/L (3.5-5.1); Protein, Total 5.4 g/dL (6.0-8.3); Sodium 137 mmol/L (136-145)
[2021-02-02] MEDS ORDERED: Cefepime 2 GM VIAL ONE (18:48)
[2021-02-02 18:58] LABS: Bacteria/HPF None Seen HPF (None Seen); Bilirubin Negative (Negative); Blood, Urine Trace (Negative); Clarity Clear (Clear); Glucose, Urine (Dipstick) Normal (Negative); Ketone, Urine Negative (Negative); Leukocyte Negative Leu/uL (Negative); Nitrite Negative (Negative); Protein, Urine (Dipstick) 70 mg/dL (Neg-Trace); Specific Gravity, Urine 1.015 (1.002-1.036); Squamous Epithelial None Seen HPF (0-3); Urobilinogen Normal mg/dL (Less than 2)
[2021-02-02] MEDS ORDERED: metroNIDAZOLE 500 MG/100 ML BAG ONE (20:56)
[2021-02-02] MEDS ORDERED: Vancomycin 1 GM/200 ML BAG ONE (22:39)
[2021-02-02] MEDS ORDERED: Acetaminophen 650 MG Suppository PR PRN (23:47)
[2021-02-02] MEDS ORDERED: Ondansetron PF 4 MG/2 ML Vial IVP PRN (23:47)
[2021-02-02] MEDS ORDERED: Acetaminophen 325 MG TAB PO PRN (23:47)
[2021-02-03] MEDS ORDERED: Norepinephrine 8 MG/0.9% NS 250 ML ONE (01:23)
[2021-02-03] MEDS: Lorazepam 2 MG/ML VIAL SLOW IVP PRN (03:26)
[2021-02-03] MEDS ORDERED: levETIRAcetam in NS 1,000 MG in Premix Bag 1 BAG IVPB SCH (03:30)
[2021-02-03] MEDS: Sodium Chloride 0.9% 1,000 ML IV SCH ×3 (03:33→14:28)
[2021-02-03 03:36] LABS: Actual Bicarbonate (HCO3a) 15.3 mEq/L (22-28); Base Excess (BEa) -10.9 mEq/L (-2.0 to +3.0); CO2 Tension 35.2 mmHg (35.0-45.0); Calcium, Ionized (arterial) 1.09 mmol/L (1.12-1.30); Potassium - ABG Lab 3.84 mmol/L (3.70-5.30); pH, Arterial 7.26 (7.35-7.45)
[2021-02-03 04:05] LABS: Hemoglobin 8.8 g/dL (12.0-16.0); Mean Corpuscular HGB CONC 31.6 g/dL (32.0-36.0); Mean Corpuscular Hemoglobin 30.2 pg (27.0-31.0); Mean Corpuscular Volume 95.6 fL (78.0-98.0); Mean Platelet Volume 6.8 fL (7.4-10.4); Platelet Count 306 thou/uL (130-400); Red Blood Cell (RBC) Count 2.92 mill/uL (4.20-5.40); White Blood Cell (WBC) Count 5.2 thou/uL (4.8-10.8)
[2021-02-03 04:28] VITALS: BMI 26.9
[2021-02-03] MEDS ORDERED: MEROPENEM 1 GM/50 ML 1 GM in Premix Bag 1 BAG IVPB SCH (04:30)
[2021-02-03 04:33] LABS: Anion Gap 11 mmol/L (10-20); BUN (Urea Nitrogen) 14 mg/dL (9.8-20.1); Calc. Creatinine Clearance 112 mL/min (70-130); Carbon Dioxide 17 mmol/L (22-29); Chloride 118 mmol/L (98-107); Glucose 108 mg/dL (70-105); Potassium 3.7 mmol/L (3.5-5.1); Sodium 142 mmol/L (136-145)
[2021-02-03 04:40] LABS: Band 35 % (5-11); Eosinophils 5 % (0-10); Lymphocytes 24 % (21-51); MDiff Complete? YES; Monocytes 10 % (0-10); Neutrophil 26 % (42-75)
[2021-02-03] MEDS ORDERED: Norepinephrine 8 MG/0.9% NS 250 ML IVPB SCH (05:00)
[2021-02-03] MEDS ORDERED: Cefepime 2 GM in Sodium Chloride 0.9% 100 ML IVPB SCH (06:00)
[2021-02-03] MEDS ORDERED: Lorazepam 2 MG/ML VIAL SLOW IVP SCH (06:45)
[2021-02-03] MEDS: levETIRAcetam in NS 1,000 MG in Premix Bag 1 BAG IVPB SCH ×2 (07:49→20:00)
[2021-02-03] MEDS: Enoxaparin Sodium 40 MG/0.4 ML SYRINGE SC SCH (07:51)
[2021-02-03] MEDS ORDERED: VANCOMYCIN 1.25 GM/250 ML BAG 1.25 GM in Premix Bag 1 BAG IVPB SCH (09:00)
[2021-02-03 09:56] LABS: SARS-CoV-2 NAA Rapid Test Not Detected (NotDetected)
[2021-02-03] MEDS: MEROPENEM 1 GM/50 ML 1 GM in Premix Bag 1 BAG IVPB SCH ×2 (14:27→22:49)
[2021-02-04] MEDS: Lorazepam 2 MG/ML VIAL SLOW IVP PRN (01:57)
[2021-02-04] MEDS: Sodium Chloride 0.9% 1,000 ML IV SCH ×3 (02:45→13:27)
[2021-02-04] MEDS: MEROPENEM 1 GM/50 ML 1 GM in Premix Bag 1 BAG IVPB SCH ×2 (05:57→15:32)
[2021-02-04] MEDS: Enoxaparin Sodium 40 MG/0.4 ML SYRINGE SC SCH (08:43)
[2021-02-04] MEDS: levETIRAcetam in NS 1,000 MG in Premix Bag 1 BAG IVPB SCH ×2 (08:44→21:14)
[2021-02-04] MEDS: Sodium Chloride 0.45% 1,000 ML IV SCH ×2 (18:12→21:16)
[2021-02-04] MEDS: Morphine 4 MG/ML VIAL SLOW IVP PRN (23:06)
[2021-02-05] MEDS: MEROPENEM 1 GM/50 ML 1 GM in Premix Bag 1 BAG IVPB SCH ×3 (00:53→17:31)
[2021-02-05 06:28] LABS: Anion Gap 10 mmol/L (10-20); BUN (Urea Nitrogen) 8 mg/dL (9.8-20.1); CRP (Inflammatory) 7.62 mg/dL (= or < 0.5); Calc. Creatinine Clearance 122 mL/min (70-130); Calcium 6.3 mg/dL (7.8-10.44); Carbon Dioxide 15 mmol/L (22-29); Chloride 122 mmol/L (98-107); Glucose 71 mg/dL (70-105); Potassium 3.2 mmol/L (3.5-5.1); Sodium 144 mmol/L (136-145)
[2021-02-05 06:32] LABS: Band 14 % (5-11); Eosinophils 1 % (0-10); Hemoglobin 7.9 g/dL (12.0-16.0); Hypochromia SLIGHT = 6-15 cells (100X) (0-5/hpf); Lymphocytes 39 % (21-51); MDiff Complete? YES; Mean Corpuscular HGB CONC 31.5 g/dL (32.0-36.0); Mean Corpuscular Hemoglobin 29.5 pg (27.0-31.0); Mean Corpuscular Volume 93.6 fL (78.0-98.0); Mean Platelet Volume 6.7 fL (7.4-10.4); Monocytes 6 % (0-10); Neutrophil 40 % (42-75); Platelet Count 277 thou/uL (130-400); Platelet Morphology Comment Appears Adequate; RBC Distribution Width 15.9 % (11.5-14.5); Red Blood Cell (RBC) Count 2.68 mill/uL (4.20-5.40); White Blood Cell (WBC) Count 3.7 thou/uL (4.8-10.8)
[2021-02-05] MEDS: levETIRAcetam in NS 1,000 MG in Premix Bag 1 BAG IVPB SCH ×2 (08:33→20:36)
[2021-02-05] MEDS: Enoxaparin Sodium 40 MG/0.4 ML SYRINGE SC SCH (08:33)
[2021-02-05] MEDS: Morphine 4 MG/ML VIAL SLOW IVP PRN (09:29)
[2021-02-05] MEDS: Sodium Chloride 0.45% 1,000 ML IV SCH (12:22)
[2021-02-05] MEDS: Morphine 2 MG/ML VIAL SLOW IVP PRN (12:26)
[2021-02-05] MEDS: Linezolid 600 MG in Premix Bag 1 BAG IVPB SCH (20:36)
[2021-02-06] MEDS: Morphine 2 MG/ML VIAL SLOW IVP PRN ×2 (00:49→09:14)
[2021-02-06] MEDS: Sodium Chloride 0.45% 1,000 ML IV SCH ×3 (01:10→21:09)
[2021-02-06 06:13] LABS: #Eosinphils 0.1 thou/uL (0.0-0.7); #Lymphocytes 1.2 thou/uL (1.20-3.40); #Monocytes 0.6 thou/uL (0.11-0.59); #Neutrophils 2.4 thou/uL (1.40-6.50); %Basophils 0.1 % (0.0-1.0); %Eosinophils 2.9 % (0.0-10.0); %Lymphocytes 27.4 % (21.0-51.0); %Monocytes 13.3 % (0.0-10.0); %Neutrophils 56.4 % (42.0-75.0); Mean Corpuscular HGB CONC 32.2 g/dL (32.0-36.0); Mean Corpuscular Volume 93.2 fL (78.0-98.0); Mean Platelet Volume 6.9 fL (7.4-10.4); Platelet Count 259 thou/uL (130-400); Red Blood Cell (RBC) Count 2.65 mill/uL (4.20-5.40); White Blood Cell (WBC) Count 4.3 thou/uL (4.8-10.8)
[2021-02-06 06:33] LABS: Anion Gap 8 mmol/L (10-20); BUN (Urea Nitrogen) 7 mg/dL (9.8-20.1); Calc. Creatinine Clearance 126 mL/min (70-130); Carbon Dioxide 16 mmol/L (22-29); Chloride 118 mmol/L (98-107); Glucose 70 mg/dL (70-105); Sodium 139 mmol/L (136-145)
[2021-02-06] MEDS: levETIRAcetam in NS 1,000 MG in Premix Bag 1 BAG IVPB SCH ×2 (08:17→21:06)
[2021-02-06] MEDS: Enoxaparin Sodium 40 MG/0.4 ML SYRINGE SC SCH (08:19)
[2021-02-06] MEDS: Linezolid 600 MG in Premix Bag 1 BAG IVPB SCH ×2 (09:49→21:07)
[2021-02-06] MEDS: HYDROcodone/Acetaminophen 5/325 mg Tablet PO PRN ×2 (16:15→21:17)
[2021-02-07] MEDS: Morphine 2 MG/ML VIAL SLOW IVP PRN ×3 (01:05→21:32)
[2021-02-07] MEDS: Ondansetron ODT 4 MG TAB PO PRN ×2 (03:02→08:10)
[2021-02-07] MEDS: Sodium Chloride 0.45% 1,000 ML IV SCH ×3 (05:16→21:37)
[2021-02-07 05:58] LABS: #Eosinphils 0.1 thou/uL (0.0-0.7); #Lymphocytes 1.2 thou/uL (1.20-3.40); #Monocytes 0.5 thou/uL (0.11-0.59); #Neutrophils 2.3 thou/uL (1.40-6.50); %Basophils 0.2 % (0.0-1.0); %Eosinophils 1.9 % (0.0-10.0); %Lymphocytes 30.3 % (21.0-51.0); %Monocytes 10.9 % (0.0-10.0); %Neutrophils 56.7 % (42.0-75.0); Hemoglobin 8.2 g/dL (12.0-16.0); Mean Corpuscular HGB CONC 32.4 g/dL (32.0-36.0); Mean Corpuscular Hemoglobin 29.9 pg (27.0-31.0); Mean Corpuscular Volume 92.4 fL (78.0-98.0); Mean Platelet Volume 7.3 fL (7.4-10.4); Platelet Count 226 thou/uL (130-400); RBC Distribution Width 15.9 % (11.5-14.5); Red Blood Cell (RBC) Count 2.75 mill/uL (4.20-5.40); White Blood Cell (WBC) Count 4.1 thou/uL (4.8-10.8)
[2021-02-07 06:21] LABS: Anion Gap 10 mmol/L (10-20); BUN (Urea Nitrogen) 5 mg/dL (9.8-20.1); Calc. Creatinine Clearance 135 mL/min (70-130); Carbon Dioxide 14 mmol/L (22-29); Chloride 114 mmol/L (98-107); Glucose 73 mg/dL (70-105); Sodium 135 mmol/L (136-145)
[2021-02-07 06:32] LABS: Calcium 5.9 mg/dL (7.8-10.44); Potassium 2.8 mmol/L (3.5-5.1)
[2021-02-07] MEDS ORDERED: Electrolyte Replacement Protocol 1 EACH FS SCH (07:00)
[2021-02-07] MEDS ORDERED: Magnesium 2 GM/50 ML 2 GM in Premix Bag 1 BAG IVPB SCH ×2 (07:15→10:00)
[2021-02-07 07:23] LABS: Magnesium 0.9 mg/dL (1.6-2.6)
[2021-02-07] MEDS: Enoxaparin Sodium 40 MG/0.4 ML SYRINGE SC SCH (07:55)
[2021-02-07] MEDS: Potassium Chloride 20 MEQ TAB PO SCH ×2 (07:55→11:59)
[2021-02-07] MEDS: HYDROcodone/Acetaminophen 5/325 mg Tablet PO PRN (07:56)
[2021-02-07] MEDS: levETIRAcetam in NS 1,000 MG in Premix Bag 1 BAG IVPB SCH (08:04)
[2021-02-07] MEDS: Linezolid 600 MG in Premix Bag 1 BAG IVPB SCH ×2 (10:08→21:03)
[2021-02-07] MEDS ORDERED: PARoxetine 20 MG TAB PO SCH (11:45)
[2021-02-07] MEDS ORDERED: busPIRone HCl 10 MG TAB PO SCH (11:45)
[2021-02-07] MEDS: Gabapentin 400 MG CAP PO SCH ×2 (11:58→21:03)
[2021-02-07] MEDS: Magnesium Chloride 64 MG TAB PO SCH (21:01)
[2021-02-07] MEDS: levETIRAcetam 500 MG TAB PO SCH (21:01)
[2021-02-07] MEDS: Senokot 8.6 MG TAB PO SCH (21:01)
[2021-02-07] MEDS: Amitriptyline HCl 100 MG TAB PO SCH (21:02)
[2021-02-07] MEDS: Melatonin 3 MG TAB PO PRN (21:04)
[2021-02-08 06:18] LABS: Magnesium 1.4 mg/dL (1.6-2.6)
[2021-02-08] MEDS ORDERED: Magnesium Sulfate 4 GM in Sodium Chloride 0.9% 250 ML 250 ML IVPB SCH (06:45)
[2021-02-08] MEDS: Docusate Calcium (SURFAK) 240 MG CAP PO SCH (08:31)
[2021-02-08] MEDS: Magnesium Chloride 64 MG TAB PO SCH ×2 (08:31→20:09)
[2021-02-08] MEDS: Gabapentin 400 MG CAP PO SCH ×3 (08:32→20:10)
[2021-02-08] MEDS: Folic Acid 1 MG TAB PO SCH (08:32)
[2021-02-08] MEDS: busPIRone HCl 10 MG TAB PO SCH (08:33)
[2021-02-08] MEDS: Potassium Chloride 20 MEQ TAB PO SCH (08:33)
[2021-02-08] MEDS: levETIRAcetam 500 MG TAB PO SCH ×2 (08:33→20:10)
[2021-02-08] MEDS: Enoxaparin Sodium 40 MG/0.4 ML SYRINGE SC SCH (08:34)
[2021-02-08] MEDS: PARoxetine 20 MG TAB PO SCH (08:34)
[2021-02-08] MEDS: HYDROcodone/Acetaminophen 5/325 mg Tablet PO PRN ×3 (10:28→23:02)
[2021-02-08] MEDS: Linezolid 600 MG in Premix Bag 1 BAG IVPB SCH ×2 (11:13→22:53)
[2021-02-08] MEDS: Sodium Chloride 0.45% 1,000 ML IV SCH ×2 (15:53→20:12)
[2021-02-08] MEDS: Senokot 8.6 MG TAB PO SCH (20:10)
[2021-02-08] MEDS: Amitriptyline HCl 100 MG TAB PO SCH (20:11)
[2021-02-08] MEDS: Melatonin 3 MG TAB PO PRN (23:02)
[2021-02-09] MEDS: HYDROcodone/Acetaminophen 5/325 mg Tablet PO PRN (05:21)
[2021-02-09] MEDS: Sodium Chloride 0.45% 1,000 ML IV SCH ×3 (05:22→20:30)
[2021-02-09 07:07] LABS: Anion Gap 9 mmol/L (10-20); BUN (Urea Nitrogen) 4 mg/dL (9.8-20.1); Calc. Creatinine Clearance 133 mL/min (70-130); Calcium 6.2 mg/dL (7.8-10.44); Carbon Dioxide 15 mmol/L (22-29); Chloride 114 mmol/L (98-107); Glucose 84 mg/dL (70-105); Potassium 3.5 mmol/L (3.5-5.1); Sodium 134 mmol/L (136-145)
[2021-02-09] MEDS ORDERED: Magnesium 2 GM/50 ML 2 GM in Premix Bag 1 BAG IVPB SCH (07:30)
[2021-02-09] MEDS ORDERED: Potassium Chloride 20 MEQ TAB PO SCH (07:30)
[2021-02-09] MEDS: Gabapentin 400 MG CAP PO SCH ×3 (09:37→20:33)
[2021-02-09] MEDS: Enoxaparin Sodium 40 MG/0.4 ML SYRINGE SC SCH (09:37)
[2021-02-09] MEDS: PARoxetine 20 MG TAB PO SCH (09:38)
[2021-02-09] MEDS: levETIRAcetam 500 MG TAB PO SCH ×2 (09:39→20:33)
[2021-02-09] MEDS: Magnesium Chloride 64 MG TAB PO SCH ×2 (09:40→20:31)
[2021-02-09] MEDS: busPIRone HCl 10 MG TAB PO SCH (09:40)
[2021-02-09] MEDS: Folic Acid 1 MG TAB PO SCH (09:40)
[2021-02-09] MEDS: Docusate Calcium (SURFAK) 240 MG CAP PO SCH (09:40)
[2021-02-09] MEDS: Linezolid 600 MG in Premix Bag 1 BAG IVPB SCH (10:12)
[2021-02-09] MEDS ORDERED: Ketorolac Tromethamine 30 MG/ML VIAL IVP SCH (12:00)
[2021-02-09] MEDS: Calcium Carbonate 500 MG ChewTAB PO PRN (12:52)
[2021-02-09] MEDS: Midodrine HCl 5 MG TAB PO SCH ×2 (15:08→20:31)
[2021-02-09] MEDS: Potassium Chloride 20 MEQ TAB PO SCH (15:12)
[2021-02-09] MEDS: Ketorolac Tromethamine 30 MG/ML VIAL IVP SCH (18:16)
[2021-02-09] MEDS: Melatonin 3 MG TAB PO PRN (20:31)
[2021-02-09] MEDS: Amitriptyline HCl 25 MG TAB PO SCH (20:32)
[2021-02-09] MEDS: Senokot 8.6 MG TAB PO SCH (20:34)
[2021-02-10] MEDS: Ketorolac Tromethamine 30 MG/ML VIAL IVP SCH ×5 (00:17→23:21)
[2021-02-10] MEDS: Linezolid 600 MG in Premix Bag 1 BAG IVPB SCH ×3 (00:17→23:21)
[2021-02-10 06:59] LABS: Hemoglobin 7.5 g/dL (12.0-16.0); Platelet Count 175 thou/uL (130-400)
[2021-02-10 07:14] LABS: Anion Gap 10 mmol/L (10-20); BUN (Urea Nitrogen) 5 mg/dL (9.8-20.1); Calc. Creatinine Clearance 112 mL/min (70-130); Calcium 6.9 mg/dL (7.8-10.44); Carbon Dioxide 14 mmol/L (22-29); Chloride 114 mmol/L (98-107); Glucose 77 mg/dL (70-105); Magnesium 2.2 mg/dL (1.6-2.6); Potassium 4.7 mmol/L (3.5-5.1); Sodium 133 mmol/L (136-145)
[2021-02-10] MEDS: Calcium Carbonate 500 MG ChewTAB PO PRN (09:13)
[2021-02-10] MEDS: Magnesium Chloride 64 MG TAB PO SCH ×2 (09:14→20:50)
[2021-02-10] MEDS: PARoxetine 20 MG TAB PO SCH (09:14)
[2021-02-10] MEDS: Potassium Chloride 20 MEQ TAB PO SCH (09:14)
[2021-02-10] MEDS: Midodrine HCl 5 MG TAB PO SCH ×3 (09:14→20:51)
[2021-02-10] MEDS: Folic Acid 1 MG TAB PO SCH (09:14)
[2021-02-10] MEDS: Docusate Calcium (SURFAK) 240 MG CAP PO SCH (09:15)
[2021-02-10] MEDS: busPIRone HCl 10 MG TAB PO SCH (09:16)
[2021-02-10] MEDS: levETIRAcetam 500 MG TAB PO SCH ×2 (09:16→20:48)
[2021-02-10] MEDS: Enoxaparin Sodium 40 MG/0.4 ML SYRINGE SC SCH (09:16)
[2021-02-10] MEDS: HYDROcodone/Acetaminophen 5/325 mg Tablet PO PRN ×2 (09:19→20:51)
[2021-02-10] MEDS: Gabapentin 400 MG CAP PO SCH ×3 (09:19→20:49)
[2021-02-10] MEDS: Ondansetron ODT 4 MG TAB PO PRN (13:33)
[2021-02-10] MEDS: Megestrol Acetate 40 MG TAB PO SCH ×2 (14:43→20:51)
[2021-02-10] MEDS: Senokot 8.6 MG TAB PO SCH (20:49)
[2021-02-10] MEDS: Amitriptyline HCl 25 MG TAB PO SCH (20:49)
[2021-02-10] MEDS: Melatonin 3 MG TAB PO PRN (20:50)
[2021-02-11] MEDS: Ketorolac Tromethamine 30 MG/ML VIAL IVP SCH ×3 (05:18→17:34)
[2021-02-11 06:47] LABS: Hemoglobin 7.3 g/dL (12.0-16.0); Platelet Count 184 thou/uL (130-400)
[2021-02-11 07:08] LABS: Anion Gap 11 mmol/L (10-20); BUN (Urea Nitrogen) 7 mg/dL (9.8-20.1); Calc. Creatinine Clearance 125 mL/min (70-130); Calcium 7.4 mg/dL (7.8-10.44); Carbon Dioxide 13 mmol/L (22-29); Chloride 114 mmol/L (98-107); Glucose 76 mg/dL (70-105); Potassium 5.1 mmol/L (3.5-5.1); Sodium 133 mmol/L (136-145)
[2021-02-11] MEDS: levETIRAcetam 500 MG TAB PO SCH (08:23)
[2021-02-11] MEDS: busPIRone HCl 10 MG TAB PO SCH (08:24)
[2021-02-11] MEDS: Folic Acid 1 MG TAB PO SCH (08:24)
[2021-02-11] MEDS: Megestrol Acetate 40 MG TAB PO SCH ×2 (08:24→14:16)
[2021-02-11] MEDS: Midodrine HCl 5 MG TAB PO SCH ×2 (08:24→14:16)
[2021-02-11] MEDS: PARoxetine 20 MG TAB PO SCH (08:24)
[2021-02-11] MEDS: Magnesium Chloride 64 MG TAB PO SCH (08:25)
[2021-02-11] MEDS: Docusate Calcium (SURFAK) 240 MG CAP PO SCH (08:25)
[2021-02-11] MEDS: Potassium Chloride 20 MEQ TAB PO SCH (08:25)
[2021-02-11] MEDS: Enoxaparin Sodium 40 MG/0.4 ML SYRINGE SC SCH (08:26)
[2021-02-11] MEDS: Gabapentin 400 MG CAP PO SCH ×2 (08:26→14:17)
[2021-02-11] MEDS: Linezolid 600 MG in Premix Bag 1 BAG IVPB SCH (10:27)
[2021-02-11] MEDS: Ondansetron ODT 4 MG TAB PO PRN (14:17)
[2021-02-11] MEDS: HYDROcodone/Acetaminophen 5/325 mg Tablet PO PRN (16:34)
[2021-02-11 19:03] VITALS: BP 106/76; TEMP 98.8
== END 2021-02-11 19:15 | DRG 698 ==
LOC: ERS 17:56 → ERHOLD 20:27 → CCU 02-03 03:13 → T4-B 02-04 09:46
PROVIDERS: ADMIT Student in an Organized Health Care Education/Training Program; ATTEND Family Medicine
PROC: 3E033XZ Introduction of Vasopressor into Peripheral Vein, Percutaneous Approach (ICD-10-PCS; principal; 2021-02-02)
DX: T83.511A Infection and inflammatory reaction due to indwelling urethral catheter, initial encounter (principal); A41.81 Sepsis due to Enterococcus; L89.154 Pressure ulcer of sacral region, stage 4; L89.213 Pressure ulcer of right hip, stage 3; G93.41 Metabolic encephalopathy; F33.2 Major depressive disorder, recurrent severe without psychotic features; M46.28 Osteomyelitis of vertebra, sacral and sacrococcygeal region; G82.21 Paraplegia, complete; Z16.21 Resistance to vancomycin; N39.0 Urinary tract infection, site not specified; Z20.822 Contact with and (suspected) exposure to COVID-19; E03.9 Hypothyroidism, unspecified; F60.3 Borderline personality disorder; F41.1 Generalized anxiety disorder; F51.01 Primary insomnia; K21.9 Gastro-esophageal reflux disease without esophagitis; M81.0 Age-related osteoporosis without current pathological fracture; H40.9 Unspecified glaucoma; G40.909 Epilepsy, unspecified, not intractable, without status epilepticus; N31.9 Neuromuscular dysfunction of bladder, unspecified; D63.8 Anemia in other chronic diseases classified elsewhere; D50.9 Iron deficiency anemia, unspecified; E86.9 Volume depletion, unspecified; R63.0 Anorexia; L89.222 Pressure ulcer of left hip, stage 2; L89.621 Pressure ulcer of left heel, stage 1; Y84.6 Urinary catheterization as the cause of abnormal reaction of the patient, or of later complication, without mention of misadventure at the time of the procedure; Z86.14 Personal history of Methicillin resistant Staphylococcus aureus infection; Z90.49 Acquired absence of other specified parts of digestive tract; Z87.440 Personal history of urinary (tract) infections; Z79.899 Other long term (current) drug therapy; Z86.73 Personal history of transient ischemic attack (TIA), and cerebral infarction without residual deficits; Z93.3 Colostomy status; Z88.6 Allergy status to analgesic agent; Z88.8 Allergy status to other drugs, medicaments and biological substances; Z80.9 Family history of malignant neoplasm, unspecified; Z74.01 Bed confinement status
CPT/HCPCS: 36415; 36416; 70450; 71045; 74177; 80048; 80053; 81003; 81015; 82805; 83605; 83735; 85014; 85018; 85025; 85049; 86140; 87040; 87077; 87086; 87186; 93005; 93970; 96365; 96367; J0692; J1650; J1885; J1953; J2020; J2060; J2185; J2270; J2405; J3370; J3475; J7050; Q0162; Q9967; S0179; U0002; U0005